=== PATIENT | female | born 1935 | race Caucasian/White ===

== ENCOUNTER 2017-02-28 11:30 | Day surgery (SDC) | payer MEDICARE ==
[~2017-02-28] VITALS: Ht 167.6 cm; Wt 61.9 kg
[~2017-02-28 11:30] MED LIST: AMIT25TA20 PO; ASPI81TA82 PO; ATEN-100 PO; FERR324T4 PO; FURO1TAB93 PO; K-TA10TA5 PO; KCL10 PO; LACT PO; LORTA5 PO; NITR0.4S SL; PLAV75TA PO; SYST0.4D2; TEMA15 PO; TYLE500T PO; VITA-13 PO
[2017-02-28 12:08] VITALS: BP 161/115; PULSE 103; RESP 16; TEMP 98.2; O2SAT 99
[2017-02-28] MEDS ORDERED: NORT25CA PO (12:08)
[2017-02-28] MEDS ORDERED: ACET-822 (12:08)
[2017-02-28] MEDS ORDERED: ASPI81CH CHEW (12:08)
[2017-02-28] MEDS ORDERED: METF500T PO (12:08)
[2017-02-28] MEDS ORDERED: FURO40TA PO (12:08)
[2017-02-28] MEDS ORDERED: CLOP75TA PO (12:08)
[2017-02-28] MEDS ORDERED: K-TA10TA PO (12:08)
[2017-02-28] MEDS ORDERED: NS 1000P @30 MLS/HR (KVO) IV SCH (13:00)
[2017-02-28] MEDS ORDERED: diphenhydrAMINE HCL 50 MG/ML VIAL IV PUSH SCH (13:00)
[2017-02-28] MEDS ORDERED: diphenhydrAMINE HCL 50 MG/ML VIAL ONE (13:49)
[2017-02-28] MEDS ORDERED: HEPARIN-NS/PF INJ 500 ML ONE (13:50)
[2017-02-28] MEDS ORDERED: MIDAZOLAM HCL 2 MG/2 ML VIAL ONE (14:11)
[2017-02-28] MEDS ORDERED: BIVALIRUDIN 250 MG VIAL ONE (14:53)
[2017-02-28] MEDS ORDERED: STERILE WATER FOR INJECTION 10 ML VIAL ONE (14:54)
[2017-02-28] MEDS ORDERED: HEPARIN SODIUM - IV 10,000 UNITS/10 ML VIAL ONE ×2 (15:04→16:23)
[2017-02-28] MEDS ORDERED: SODIUM CHLOR 0.9% 1000 ML INJ 1,000 ML IV SCH (15:31)
[2017-02-28] MEDS ORDERED: METOCLOPRAMIDE HCL 10 MG/2 ML VIAL IV PRN (15:45)
[2017-02-28] MEDS ORDERED: LIDOCAINE 2% JELLY 30 ML TUBE TOP PRN (15:45)
[2017-02-28] MEDS ORDERED: MISC INFORMATION XX ONE (15:45)
[2017-02-28] MEDS ORDERED: LORazepam 2 MG/ML VIAL IV PRN (15:45)
[2017-02-28] MEDS ORDERED: ATROPINE SULFATE 1 MG/ML VIAL IV PRN (15:45)
[2017-02-28] MEDS ORDERED: LIDOCAINE HCL 1% 50 ML VIAL INFIL PRN (15:45)
[2017-02-28] MEDS ORDERED: ONDANSETRON HCL 4 MG/2 ML VIAL IV PRN (15:45)
[2017-02-28] MEDS ORDERED: BACITRACIN OINT 0.9 GM PKT TOP ONE (15:45)
[2017-02-28] MEDS ORDERED: SODIUM CHLOR 0.9% 250 ML INJ 250 ML IV PRN (15:45)
[2017-02-28] MEDS ORDERED: IOHEXOL 350 MG/ML 100 ML BTL (for Cath Lab) OTHER ONE (16:20)
[2017-02-28] MEDS ORDERED: NITROGLYCERIN INJ 5 ML ONE (16:23)
--- NOTE | 2017-02-28 17:17 | RADRPT ---
EXAM DATE/TIME: 02/28/2017 16:35 [place] COMPARISON: CHEST SINGLE AP, July 09, 2014, 15:37. INDICATIONS : Evaluate for pneumothorax, pneumonia or communicable disease pre op Transcatheter Aortic Valve Replacement MEDICAL HISTORY : Chronic obstructive pulmonary disease. SURGICAL HISTORY : CABG. ENCOUNTER: Initial ACUITY: 1 day PAIN SCORE: 0/10 LOCATION: chest FINDINGS: There is slight cardiomegaly and perivascular pulmonary edema. Focal consolidation is not seen. Tiny left pleural effusion is also seen. There is evidence for prior median sternotomy. CONCLUSION: Slight CHF. K. Maldonado Graham MD on February 28, 2017 at 17:14 Board Certified Radiologist. This report was verified electronically.
--- NOTE | 2017-02-28 17:58 | CATHPROC ---
Modify HIS Report Study Information Study Number Admission Scheduled Start Study Start [id number] Feb 28 2017 11:30AM 02/28/2017 Feb 28 2017 1:42PM [place] [facility] Cardiac Catheterization Admit Source Facility Department Other [facility] - Ratings Analyst Physician and Clinical Staff Initial Mack Beasley Ed Case Manager Martha Lopez BSRAmeya Recorder Katia Solitario RCIS TECH2 Scrub Stef Eli RCIS(BS) Procedures Performed Procedure Location (Site) Vessel Name Coronary Angiograms LCA Left Coronary Coronary Angiograms RCA Right Coronary Coronary Angiograms NASH-LAD Left Coronary Coronary Angiograms SVG-OM CIRC Coronary Angiograms SVG-OM 1 CIRC Coronary Angiograms SVG-OM 2 CIRC Coronary Angiograms SVG-RCA Right Coronary PTCA SVG-OM 2 CIRC Stent SVG-OM 2 CIRC Wire insertion Fem Art (right) Femoral Art Wire insertion Fem Vein (right) Femoral Vein Equipment Time Point Of Care Technician Description Size Mfg Part Number Used/Scraped COPILOT VALVE, BLEEDBACK [id number] 15:10 [employer]YE [employer] Used CONTROL *[id number] ARROW INTERNATIONAL CATHETER, FR.7 BALLOON [id number] 13:45 FR 7 Used INC. WEDGE PRESSURE *[id number] TRANSDUCER, TRUWAVE [id number] 13:45 CHERRY MENDEZ * Used W/STOCKCOCK *[id number] TRANSDUCER, TRUWAVE [id number] 14:10 CHERRY MENDEZ * Used W/STOCKCOCK *[id number] 15:14 [employer] SCI[employer] WIRE, CHOICE PT 182CM 182CM Used *[id number] 534-645T *8026291 534-660T *8058529 534-620T *8320955 534-621T *[id number] [id number] *3362671 534-642T *[id number] 14:10 MEDLINE INDUSTRIES PACK, CCL CUSTOM * Used *[id number] 13:45 MEDLINE PACER PEN, SKIN DUAL W/ RULER * Used *[id number] BALLOON, 1.25 X 10MM [id number] 15:16 MEDTRONIC 10MM Used SPRINTER LEGEND RX *[id number] 15:19 MEDTRONIC BALLOON, 2.0 X 15MM EUPHORA 15MM Used *[id number] [id number] 15:26 MEDTRONIC STENT, 2.25 18 INTEGRITY 2.25 18 Used *1325969 [id number] 15:17 Skycatch MEDICAL 30 DAVON INDEFLATOR Used *[id number] 14:22 MERIT MEDICAL SHEATH, FR6.5 PRELUDE 11CM FR 6.5 038ACT Used *[id number] 14:10 [employer] MEDICAL WIRE, 3MMJ .035 180CM 180CM Used *1980315 7171-23 14:44 MERIT MEDICAL WIRE, EXCHANGE 260CM .035 260CM Used *7784803 [id number] 14:28 MERIT MEDICAL WIRE, EXCHANGE 260CM 3MMJ 260CM Used *[id number] 14:10 NAMIC MANIFOLD, 2 PORT * Used *[id number] [id number] 14:10 NAMIC MANIFOLD, 4 PORT * Used *[id number] 14:10 NYCOMED OMNIPAQUE, 350 MG, 150ML 150ML [id number] Used 13:45 NYCOMED OMNIPAQUE, 350 MG, 150ML 150ML [id number] Used [id number] 14:10 [facility] BLANKET,WARM AIR CCL * Used *[id number] [id number] 13:45 TERUMO MEDICAL SHEATH, FR7 TERUMO (10CM) FR 7 Used *[id number] WIRE, RUNTHROUGH NS FLOPPY [id number] 15:09 TERUMO MEDICAL 180CM Used .014 180CM *[id number] 14:45 VASCULAR SOLUTIONS PIGTAIL DUAL LUMEN CATHETER FR 6 5540 *[id number] Used Equipment Model, Serial, Lot Number and Expiration Data Description Model Number Serial Number Lot Number Expiration Date STENT, 2.25 18 INTEGRITY [id number] 04-28-2018 History: Current Medications Medication Dosage/Unit Route Frequency Last Date/Time Taken Glucophage ASA PLAVIX Beta Avni LASIX K-Dur NTG SL VITAMIN D History: Allergies Allergy Reaction SHANTANU Inhibitors Adhesives Aspirin BRUISING Codeine RASH Contrast Media Darvocet-N 100 NAUSEA/VOMITTING Dye, Prep HIVES HMG-CoA Reductase Inhibitors Lipitor BODY ACHES Lisinopril COUGH Lopid SEVERE JOINT PAIN Lopressor Lovastatin JOINT PAIN PPD Anaphylaxis Zocor JOINT PAIN History: Risk Factors Family History of Hypertension Dyslipidemia Previous PR Previous Heart Failure Premature CAD Yes Yes No No No Prior Valve Prior PCI Prior PCIDate Prior CABG Prior CABGDate Surgery No Yes 02/25/2014 Yes 08/01/2001 Cerebrovascular 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 Diabetes Diabetes Therapy Disease Disease Disease No No Yes No Yes Oral History: Symptoms/Diagnosis Selection Items SOB History: Stress Tests Stress or Imaging Studies Performed No History: Other Current Smoker Method No Pipe Labs Hgb (g/dl) Hct (%) RBC (MIL/MM3) WBC (l/cumm) Platelets (thousands) 11.60-17.00 35.00-51.00 4.00-5.90 4.00-11.00 150.00-450.00 13.3 42.1 4.4 9.7 386 Glucose (mg/dl) BUN (mg/dl) Creatinine (mg/dl) BUN:Creatinine (1:x) 74.00-106.00 7.00-18.00 0.50-1.30 10.00-20.00 129 18 0.9 20 Na (meq/l) K (meq/l) Cl (meq/l) Ca (mg/dl) 136.00-145.00 3.50-5.10 98.00-107.00 8.50-10.10 138 3.9 95 9.9 PT (sec) INR (PTT:PT) 9.80-11.60 0.90-1.10 10.2 0.97 CPK-MB (ng/ML) 0.50-3.60 Not Drawn Medication Medication Total Dose (Bolus/Oral) Medication Total Dosage/Unit 1% XYLOCAINE 20 mL BENADRYL 25 mg FENTANYL 25 mcg HEPARIN 4000 units VERSED 2 mg Medications (Bolus/Oral) Medication Time Given Dosage/Unit Administered By Reason BENADRYL 02/28/2017 2:02:45 PM 25 mg Rittenour, Martha 25 mg BENADRYL given in lab by Martha Lopez BSRN in Left Antecubital via Peripheral IV. VERSED 02/28/2017 2:13:55 PM 1 mg Rittenour, Martha 1 mg VERSED given in lab by Martha Lopez BSRN in Left Antecubital via Peripheral IV. Ordered by Mack Talamantes. FENTANYL 02/28/2017 2:14:35 PM 25 mcg Rittenour, Martha 25 mcg FENTANYL given in lab by Martha Lopez BSRN in Left Antecubital via Peripheral IV. Ordered by Mack Talamantes. VERSED 02/28/2017 2:18:19 PM 1 mg Martha Lopez 1 mg VERSED given in lab by Martha Lopez BSRN in Left Antecubital via Peripheral IV. Ordered by Mack Talamantes. 1% XYLOCAINE 02/28/2017 2:19:29 PM 20 mL Mack Talamantes 20 mL 1% XYLOCAINE given in lab by Mack Talamantes in Right Groin via Subcutaneous. Ordered by Mack Talamantes. HEPARIN 02/28/2017 3:05:11 PM 4000 units Martha Lopez 4000 units HEPARIN given in lab by Martha Lopez BSRN in Left Antecubital via Peripheral IV. Orde red by Mack Talamantes. Medication (Drip) Medication Time Given Dosage/Unit Concentration/Unit Diluent (ml) Solution IV Solutions 02/28/2017 2:11:22 PM 0 mL (IV) 500 NaCl .9 Patient arrived on IV Solutions in Left Antecubital via Peripheral IV. Pump/Drip Flow = 20 ml/hr usin g NaCl .9. Initial Case Assessment Cardiovascular HR Rhythm NIBP Chest Pain 97 sr 168/87 0 Circulatory - Right Pulses Dorsalis Pedis Femoral 1 1 Scale (0,1,2,3,4,d) Circulatory - Left Pulses Dorsalis Pedis Femoral 1 1 Scale (0,1,2,3,4,d) Neurological State Oriented to time-place- Alert Moves all extremities person Respiration - General Respiration Rate SpO2 (%) (B/min) 20 97 Final Case Assessment Cardiovascular HR Rhythm NIBP Chest Pain 95 sr 150/83 0 Circulatory - Right Pulses Dorsalis Pedis Femoral 1 1 Scale (0,1,2,3,4,d) Circulatory - Left Pulses Dorsalis Pedis Femoral 1 1 Scale (0,1,2,3,4,d) Neurological State Oriented to time-place- Alert Moves all extremities person Respiration - General Respiration Rate SpO2 (%) (B/min) 22 94 Chronological Log Time Study Chronological Log 13:52:23 Patient arrived via Bed. 13:52:28 Patient Name, D.O.B, / Armband Verified By R.N. 14:00:30 Consent signed by the physician and the patient and verified by the Ratings Analyst staff. 14:00:31 Pre-op and post- op instructions given; patient acknowledges understanding of instructions. 14:00:32 Verbal Stimulation=2 Physical Stimulation=2 Airway=2 Respiration=2 TOTAL=8. (0=absent, 1=li mited, 2=present) Vitals capture started with the following parameters, Patient=Adult, Interval=5 min, Initial Pr meirei=502 mmHg, 14:01:44 Deflation Rate=5 mmHg 14:02:18 BY=865 bpm, OLXU=492/91 mmhg, SpO2=97.0 %, Resp=20 B/min 14:02:45 25 mg BENADRYL given in lab by Martha Lopez BSRN in Left Antecubital via Peripheral IV . 14:07:21 GN=707 bpm, MENZ=010/91 mmhg, SpO2=96.0 %, Resp=26 B/min 14:10:42 Presedation assessment performed by Ratings Analyst RN. 14:10:48 Patient has been NPO for More than 6Hrs. 14:10:54 Skin Breakdown-none 14:10:55 [place] Prominences Protected 14:10:59 A # 20 IV was noted in the Antecubital (left). Grade = patent 14:11:22 Patient arrived on IV Solutions in Left Antecubital via Peripheral IV. Pump/Drip Flow = 20 ml/hr using NaCl .9. 14:12:20 HR=99 bpm, QQFI=953/87 mmhg, SpO2=96.0 %, Resp=20 B/min 14:12:29 MD arrived. 14:12:41 History and physical on the chart or being dictated. Assessment: Initial Case, HR=97 BPM, Rhythm=sr, YDHM=202/87 mmhg, Chest Pain=0 Right Pulses: Huber Ped=1, Femoral=1 14:12:47 Left Pulses: Huber Ped=1, Femoral=1 Neurological: State=Alert, Ox3, GUPTA Respiration: Resp=20 B/min, SpO2=97 % 14:13:55 1 mg VERSED given in lab by Martha Lopez BSRN in Left Antecubital via Peripheral IV. O rdered by Mack Talamantes. 14:14:27 Bilateral groins prepped with 2% chlorhexidine, and with a 3 min. waiting time. 25 mcg FENTANYL given in lab by Martha Lopez BSRN in Left Antecubital via Peripheral IV. O rdered by Albin 14:14:35 Mack. 14:15:12 Reference ECG taken 14:17:24 WR=975 bpm, XWGE=038/81 mmhg, SpO2=94.0 %, Resp=19 B/min Time Out. Correct patient, correct procedure,correct physician,power injector not loaded with c ontrast with surgical 14:18:13 team present. Time Out Concurred by MD and individual staff in procedure 14:18:19 1 mg VERSED given in lab by Martha Lopez BSRN in Left Antecubital via Peripheral IV. O rdered by Mack Talamantes. 14:19:27 Case Start 14:19:29 20 mL 1% XYLOCAINE given in lab by Mack Talamantes in Right Groin via Subcutaneous. Ordered by Mack Talamantes. 14:20:11 Pressure channel 1 zeroed. 14:20:31 Access site was Right Femoral Artery. 14:20:42 A SHEATH, FR6.5 PRELUDE 11CM FR 6.5 was advanced into the Fem Art (right) using the Percuta neous technique. 14:21:37 Pressure channel 2 zeroed. 14:21:59 Access site was Right Femoral Vein. 14:22:16 HR=96 bpm, BMEX=340/84 mmhg, SpO2=91.0 %, Resp=25 B/min 14:22:26 A SHEATH, FR7 TERUMO (10CM) FR 7 was advanced into the Fem Vein (right) using the Percutane ous technique. 14:22:52 A CATHETER, FR.7 BALLOON WEDGE PRESSURE FR 7 was inserted via Fem Vein (right) Recorded Pressure: RA, HR=96, Condition=Condition 1 14:24:19 (Right Atrium) RA 10//7 Recorded Pressure: RV, HR=97, Condition=Condition 1 14:26:01 (Right Ventricle) RV 77/5/8 14:27:20 HR=94 bpm, RQLN=005/74 mmhg, SpO2=92.0 %, Resp=25 B/min 14:29:51 A WIRE, EXCHANGE 260CM 3MMJ 260CM was inserted via Fem Vein (right). 14:32:21 QS=112 bpm, ESKV=212/71 mmhg, SpO2=91.0 %, Resp=22 B/min 14:34:22 [place] Luke Catheter Removed 14:34:48 A CATHETER, FR.7 BALLOON WEDGE PRESSURE FR 7 was reinserted via Fem Vein (right) 14:37:20 HR=94 bpm, WFRW=343/75 mmhg, SpO2=92 %, Resp=26 B/min 14:39:00 Unable to advance [place] Luke Catheter to PA/PCW. [place] Removed A AL 1 INFINITI CATHETER FR 6 was advanced over a wire. OMNIPAQUE, 350 MG, 150ML 150ML was used for 14:40:09 injections. 14:41:48 A WIRE, EXCHANGE 260CM .035 260CM was inserted via Fem Art (right). 14:42:17 HR=94 bpm, WGXI=300/80 mmhg, SpO2=92.0 %, Resp=25 B/min 14:44:17 The previous wire was exchanged for a WIRE, EXCHANGE 260CM 3MMJ 260CM. A PIGTAIL DUAL LUMEN CATHETER FR 6 was advanced over a wire. OMNIPAQUE, 350 MG, 150ML 150ML was used for 14:44:38 injections. Recorded Pressure: LV, Ao, HR=96, Condition=Condition 1 14:45:55 (Left Ventricle) LV 181/12/20, (Aorta) Ao 134/57/90 Recorded Pressure: LV, Ao, PM=280, Condition=Condition 1 14:46:27 (Left Ventricle) LV 147/43/43, (Aorta) Ao 134/57/91 14:47:20 HR=96 bpm, SABS=708/74 mmhg, SpO2=91.0 %, Resp=25 B/min 14:48:07 Catheter was removed A JL 4.0 INFINITI CATHETER FR 6 was advanced over a wire. OMNIPAQUE, 350 MG, 150ML 150ML was us ed for 14:48:43 injections. 14:48:57 The LCA was injected and visualized at various angles. OMNIPAQUE, 350 MG, 150ML 150ML used . 14:49:35 Catheter was removed A JR 4.0 INFINITI CATHETER FR 6 was advanced over a wire. OMNIPAQUE, 350 MG, 150ML 150ML was us ed for 14:49:37 injections. 14:51:17 The RCA was injected and visualized at various angles. OMNIPAQUE, 350 MG, 150ML 150ML used . 14:51:32 The SVG-OM 2 was injected and visualized at various angles. OMNIPAQUE, 350 MG, 150ML 150ML used. 14:52:23 HR=95 bpm, WULI=859/73 mmhg, SpO2=94 %, Resp=20 B/min 14:52:27 The SVG-OM 1 was injected and visualized at various angles. OMNIPAQUE, 350 MG, 150ML 150ML used. 14:55:11 Catheter was removed A MPA-2 INFINITI CATHETER FR 6 was advanced over a wire. OMNIPAQUE, 350 MG, 150ML 150ML was use d for 14:55:14 injections. 14:56:25 The SVG-RCA was injected and visualized at various angles. OMNIPAQUE, 350 MG, 150ML 150ML u sed. 14:57:20 HR=94 bpm, JMZS=634/78 mmhg, SpO2=93 %, Resp=28 B/min 14:57:45 Catheter was removed A JR 4.0 INFINITI CATHETER FR 6 was advanced over a wire. OMNIPAQUE, 350 MG, 150ML 150ML was us ed for 14:59:08 injections. 15:02:19 HR=94 bpm, RQRK=230/79 mmhg, SpO2=91.0 %, Resp=27 B/min After removing the current catheter a KUN INFINITI CATHETER FR 6 was advanced over a WIRE, EXCH ELEANOR 260CM 15:02:49 3MMJ 260CM. 15:02:55 The NASH-LAD was injected and visualized at various angles. OMNIPAQUE, 350 MG, 150ML 150ML used. 4000 units HEPARIN given in lab by Martha Lopez BSRN in Left Antecubital via Peripheral IV . Ordered by lAbin, 15:05:11 Mack. After removing the current catheter a LCB GUIDE CATHETER FR 6 was advanced over a WIRE, EXCHANG E 260CM 3MMJ 15:06:13 260CM. 15:07:22 HR=92 bpm, BJHE=788/72 mmhg, SpO2=93.0 %, Resp=35 B/min 15:07:28 The SVG-OM was injected and visualized at various angles. OMNIPAQUE, 350 MG, 150ML 150ML us ed. 15:08:07 A WIRE, RUNTHROUGH NS FLOPPY .014 180CM 180CM was inserted via Fem Art (right). 15:12:18 Activated Clotting Time Drawn 15:12:21 HR=93 bpm, NRQZ=503/78 mmhg, SpO2=92.0 %, Resp=27 B/min 15:13:03 Wire removed 15:13:06 A WIRE, CHOICE PT 182CM 182CM was inserted via Fem Art (right). A BALLOON, 1.25 X 10MM SPRINTER LEGEND RX 10MM was inserted over WIRE, CHOICE PT 182CM 182CM vi a the 15:14:14 SVG-OM 2. A BALLOON, 1.25 X 10MM SPRINTER LEGEND RX 10MM over a WIRE, CHOICE PT 182CM 182CM in the SVG-OM 2 was 15:16:11 inflated using a 30 DAVON INDEFLATOR at 12 davon for 25 sec. 15:17:09 ACT (Normal Range 90-180) = 283 15:17:22 HR=93 bpm, ICKE=377/76 mmhg, SpO2=93.0 %, Resp=18 B/min 15:19:14 Balloon Removed. 15:19:15 A BALLOON, 2.0 X 15MM EUPHORA 15MM was inserted over WIRE, CHOICE PT 182CM 182CM via the SV G-OM 2. A BALLOON, 2.0 X 15MM EUPHORA 15MM over a WIRE, CHOICE PT 182CM 182CM in the SVG-OM 2 was infla jad using 15:19:34 a 30 DAVON INDEFLATOR at 12 davon for 30 sec. 15:20:10 Balloon Removed. An STENT, 2.25 18 INTEGRITY 2.25 18 Bare Metal Stent was inserted through a LCB GUIDE CATHETER FR 6 over a 15:21:00 WIRE, CHOICE PT 182CM 182CM. A STENT, 2.25 18 INTEGRITY 2.25 18 was deployed using a 30 DAVON INDEFLATOR at 12 atmospheres for 30 seconds in 15:21:18 the SVG-OM 2. 15:22:23 HR=96 bpm, JXAR=524/74 mmhg, SpO2=92.0 %, Resp=26 B/min 15:22:27 Delivery device removed 15:22:36 Wire removed 15:23:52 Catheter was removed 15:24:09 Case End 15:27:24 HR=95 bpm, WUWL=071/75 mmhg, SpO2=91.0 %, Resp=22 B/min 15:29:57 In the Fem Art (right) the SHEATH, FR6.5 PRELUDE 11CM FR 6.[address] by Stef Eli RCIS(BS). 15:30:08 In the Fem Vein (right) the SHEATH, FR7 TERUMO (10CM) FR [address] by Stef Eli RCIS(BS). 15:31:17 Sterile dressing applied to site 15:32:25 HR=95 bpm, SKGT=256/83 mmhg, SpO2=95.0 %, Resp=26 B/min 15:35:18 No case complications noted. 15:35:20 Cine recording checked. Assessment: Final Case, HR=95 BPM, Rhythm=sr, ATJP=306/83 mmhg, Chest Pain=0 Right Pulses: Huber Ped=1, Femoral=1 15:35:23 Left Pulses: Huber Ped=1, Femoral=1 Neurological: State=Alert, Ox3, GUPTA Respiration: Resp=22 B/min, SpO2=94 % 15:37:26 HR=96 bpm, TXRU=797/82 mmhg, SpO2=93.0 %, Resp=24 B/min 15:42:25 UQVF=002/80 mmhg 15:44:56 Vitals capture stopped. End Study - Contrast Media Used In Study Contrast Total Opened (mL) Total Used (mL) Total Wasted (mL) Omnipaque 200 200 0 End Study - Maximum Contrast Load Max Contrast Load (mL) 342.2 End Study - Radiation Exposure Fluoro Time (minutes) 27.8 End Study - Patient Disposition Complications Transferred To Interventional Outcome No Telemetry Bed successful
[2017-02-28 19:00] VITALS: PULSE 100
[2017-02-28 20:00] VITALS: BP 147/75; PULSE 101; RESP 18; TEMP 98.5; O2SAT 96
--- NOTE | 2017-02-28 20:30 | MA ---
cc: MACK MARRERO DATE 02/28/2017 LEGAL CLERK Mack Marrero MD/[facility]. PROCEDURES PERFORMED 1. Fluoroscopy with interpretation. 2. Coronary angiography. 3. Right heart catheterization. 4. Left heart catheterization. 5. Percutaneous intervention with bare-metal stent to the saphenous vein graft of the second obtuse marginal branch. 6. Coronary bypass graft angiography. METHOD The risks, benefits and alternatives were discussed with the patient. The patient understood and consented to the procedure. PROCEDURE The patient was brought into the catheterization lab and placed on the catheterization table. The right groin was prepped and draped in a sterile fashion. The right groin was anesthetized with 2% Lidocaine. The right common femoral artery was cannulated and a 6 [place] 11 cm sheath was placed without difficulty in the artery and a 7 [place] 11 cm sheath was placed in the vein without difficulty. RIGHT HEART CATHETERIZATION A 7 [place] Luke pulmonary II catheter was advanced to the right atrium. HEMODYNAMIC RESULTS Are as follows: 1. Right atrial pressure 10 mmHg. 2. Right ventricular pressure measured 77/5 mmHg. We were actually unable to advance the catheter up into the pulmonary artery given the dilated right-sided chambers and pulmonary hypertension. LEFT HEART CATHETERIZATION A dual lumen pigtail catheter was advanced across the aortic valve without difficulty with use of an AL-1 catheter and a straight wire. HEMODYNAMIC RESULTS Are as follows: Left ventricular pressure measured 181/12 mmHg. Left ventricular end-diastolic pressure 20 mmHg. Simultaneous aortic pressure is 134/57 mmHg with aortic valvular mean gradient 49.5 mmHg. Aortic valve area was not calculated since we did not perform Lorna calculation on the right heart catheterization. CORONARY ANGIOGRAPHY 1. Left main has mild luminal irregularities. 2. Left anterior descending coronary with 30% proximal stenosis. Subtotal occlusion of the mid segment. 3. Circumflex is 100% occluded proximally with two obtuse marginal branches occluded. 4. Right coronary is occluded proximally. CORONARY BYPASS GRAFT ANGIOGRAPHY 1. Left internal mammary to left anterior descending coronary is patent. THE left anterior descending coronary has mild luminal irregularities. 2. Saphenous vein graft to the first obtuse marginal branch is occluded. 3. Saphenous vein graft to the second obtuse marginal branch has a 99% subtotal occlusion. 4. The saphenous vein graft to the right coronary artery is occluded. PERCUTANEOUS INTERVENTION Saphenous vein graft to second obtuse marginal branch is selectively engaged with a 6-S[place] Leonean LCB guide catheter. Heparin was administered throughout the entire procedure to maintain appropriate anticoagulation. A 0.014 inch 180 cm Choice PT floppy wire was advanced down to the saphenous vein graft and into the second obtuse marginal branch. A 1.25 x 10 mm balloon was then deployed followed by 2.0 x 15 mm balloon deployed to 10 atmospheres. Repeat angiography still showed severe residual stenosis. A 2.25 x 18 mm RX Integrity bare metal stent was advanced down into the second obtuse marginal branch and the graft anastomosis and deployed. Repeat angiography showed no residual stenosis, LILIA III flow. The wire was removed. Guide catheter removed. Hemoband applied. CONCLUSIONS 1. Severe aortic valve stenosis. 2. Severe pulmonary hypertension. 3. Severe cachil dehe three-vessel coronary artery disease. 4. Two of four coronary bypass grafts were patent with severe stenosis in the saphenous vein graft to the second obtuse marginal branch. 5. Successful percutaneous intervention with bare metal stent to the saphenous vein graft to the second obtuse marginal branch. PLAN The patient will be monitored closely for any post procedural complications, continued on Plavix. At this point we will get a formal consultation by cardiothoracic surgery for her candidacy for traditional aortic valve replacement versus consideration of percutaneous aortic valve replacement. She will stay overnight and hopefully go home tomorrow. MD KATHERINE Shah/MACEY /3:39 PM /8:09 PM NADINE
[2017-02-28 21:00] VITALS: PULSE 94
[2017-02-28] MEDS ORDERED: TEMAZEPAM 15 MG CAP PO PRN (21:00)
[2017-02-28] MEDS ORDERED: ACETAMINOPHEN 325 MG TAB PO PRN ×2 (21:30→23:00)
[2017-02-28 22:00] VITALS: PULSE 92
[2017-02-28] MEDS: NORTRIPTYLINE HCL 25 MG CAP PO SCH (22:50)
[2017-02-28 23:00] VITALS: PULSE 94
[2017-03-01] VITALS (10 sets, daily range): BP systolic 131–151; BP diastolic 74–77; PULSE 87–102; RESP 18–19; TEMP 97.8–98.1; O2SAT 96–98
[2017-03-01 06:17] LABS: AUTOMATED NEUTROPHIL # 9.5 TH/MM3 (1.8-7.7); BASOPHIL % 0.3 % (0.0-2.0); HEMO FLAGS DIFF FINAL; LYMPH % 10.8 % (9.0-44.0); LYMPHOCYTE # 1.3 TH/MM3 (1.0-4.8); MEAN CELL VOLUME 88.2 FL (80.0-100.0); MEAN CORPUSCULAR HEMOGLOBIN 29.1 PG (27.0-34.0); MONO % 9.3 % (0.0-8.0); NEUT % 79.6 % (16.0-70.0); PLATELET COUNT 386 TH/MM3 (150-450); RED BLOOD COUNT 4.19 MIL/MM3 (4.00-5.30)
[2017-03-01 06:45] LABS: BICARBONATE 26.8 MEQ/L (21.0-32.0); POTASSIUM 3.6 MEQ/L (3.5-5.1)
[2017-03-01 06:49] LABS: HDL CHOLESTEROL 49.4 MG/DL (40.0-60.0)
[2017-03-01] MEDS ORDERED: ISOSORBIDE MONONITRATE 30 MG TAB PO SCH (07:00)
[2017-03-01 07:59] LABS: BACTERIA, URINE FEW /hpf; BLOOD, URINE SMALL (NEG); GLUCOSE,URINE NEG (NEG); HYALINE CAST, URINE 2 /lpf (RARE); KETONE, URINE NEG (NEG); NITRITE,URINE NEG (NEG); PH, URINE 5.5 (5.0-8.5); SQUAMOUS EPITHELIAL CELL URINE 1 /hpf (0-5); URINE COLOR YELLOW (YELLW/STRAW)
[2017-03-01 08:19] LABS: COMMENT (UR) CULTURE INDICATED; CULTURE IF INDICATED CULTURE INDICATED
[2017-03-01] MEDS ORDERED: FUROSEMIDE 40 MG/4 ML VIAL IV PUSH ONE (08:30)
[2017-03-01] MEDS ORDERED: POTASSIUM CHLORIDE 10 MEQ CAP PO ONE (08:30)
--- NOTE | 2017-03-01 08:30 | PD.CARD.PN ---
Subjective Subjective Remarks short of breath waiting on am Lasix Objective Vital Signs / I&O Vital Signs Date Time Temp Pulse Resp B/P Pulse Ox O2 Delivery O2 Flow Rate FiO2 03/01/17 06:00 100 03/01/17 05:00 91 03/01/17 04:00 93 03/01/17 04:00 98.1 90 18 151/77 98 03/01/17 03:00 91 03/01/17 02:00 90 03/01/17 01:00 94 03/01/17 00:00 87 03/01/17 00:00 98.0 92 18 131/74 96 02/28/17 23:00 94 02/28/17 22:00 92 02/28/17 21:00 94 02/28/17 20:00 98.5 101 18 147/75 96 02/28/17 20:00 101 02/28/17 19:00 100 02/28/17 16:00 96 Room Air 02/28/17 12:08 98.2 103 16 161/115 99 I/O 02/28/17 02/28/17 02/28/17 03/01/17 03/01/17 03/01/17 07:00 15:00 23:00 07:00 15:00 23:00 Intake Total 240 ml Output Total 800 ml Balance -560 ml Intake Oral 240 ml Output Urine Total 800 ml # Voids 0 Physical Exam GENERAL: Well-nourished, well-developed patient in no apparent distress. NECK: No JVD. No carotid bruit. CARDIOVASCULAR: Regular rate and rhythm. S1/S2 no rub or gallop. II/ MITCH RSB RESPIRATORY: No accessory muscle use. rales left base to auscultation. Breath sounds equal bilaterally. GASTROINTESTINAL: Abdomen soft, non-tender, nondistended. MUSCULOSKELETAL: Extremities without clubbing, cyanosis, or edema. Laboratory Laboratory Tests Test 02/28/17 02/28/17 02/28/17 03/01/17 12:00 13:46 16:18 05:40 Blood Type O NEGATIVE Antibody Screen NEGATIVE Albumin 3.7 GM/DL Nasal Screen MRSA (PCR) MRSA NOT DETECTED White Blood Count 12.0 TH/MM3 Red Blood Count 4.19 MIL/MM3 Hemoglobin 12.2 GM/DL Hematocrit 37.0 % Mean Corpuscular Volume 88.2 FL Mean Corpuscular Hemoglobin 29.1 PG Mean Corpuscular Hemoglobin 33.0 % Concent Red Cell Distribution Width 15.0 % Platelet Count 386 TH/MM3 Mean Platelet Volume 7.3 FL Neutrophils (%) (Auto) 79.6 % Lymphocytes (%) (Auto) 10.8 % Monocytes (%) (Auto) 9.3 % Eosinophils (%) (Auto) 0.0 % Basophils (%) (Auto) 0.3 % Neutrophils # (Auto) 9.5 TH/MM3 Lymphocytes # (Auto) 1.3 TH/MM3 Monocytes # (Auto) 1.1 TH/MM3 Eosinophils # (Auto) 0.0 TH/MM3 Basophils # (Auto) 0.0 TH/MM3 CBC Comment DIFF FINAL Differential Comment Sodium Level 136 MEQ/L Potassium Level 3.6 MEQ/L Chloride Level 98 MEQ/L Carbon Dioxide Level 26.8 MEQ/L Anion Gap 11 MEQ/L Blood Urea Nitrogen 28 MG/DL Creatinine 1.18 MG/DL Estimat Glomerular Filtration 44 ML/MIN Rate Random Glucose 159 MG/DL Calcium Level 9.7 MG/DL Total Creatine Kinase 178 U/L Triglycerides Level 131 MG/DL Cholesterol Level 212 MG/DL LDL Cholesterol 136 MG/DL HDL Cholesterol 49.4 MG/DL Cholesterol/HDL Ratio 4.29 RATIO Assessment and Plan Problem List: (1) NSTEMI (non-ST elevated myocardial infarction) (2) CAD (coronary artery disease) (3) Aortic stenosis Code Status Aortic stenosis - needs work up for TAVR, CTA was scheduled for today, yet with contrast load yesterday for heart cath we do not feel it is in her best interest to receive more contrast today. We will schedule it as outpatient for one week shortness of breath - give lasix 40 mg IV X 1 CAD - s/p COLIN SVG-OM2 continue ASA, Plavix, and isosorbide. She is intolerant to statin, BB, and SHANTANU-I Siddharth Maharaj Mar 01, 2017 08:30
[2017-03-01] MEDS: NORTRIPTYLINE HCL 25 MG CAP PO SCH (08:57)
[2017-03-01] MEDS ORDERED: ASPIRIN 81 MG CHEW TAB PO SCH (09:00)
[2017-03-01] MEDS ORDERED: CLOPIDOGREL 75 MG TAB PO SCH (09:00)
--- NOTE | 2017-03-01 10:20 | PD.CAR.PN ---
CVT Progress Note Subjective/Hospital Course: pt seen and evaluated for TAVR / sts data discussed with pt RISK SCORES About the STS Risk Calculator Procedure: AV Replacement Risk of Mortality: 15.109% Morbidity or Mortality: 45.992% Long Length of Stay: 30.794% Short Length of Stay: 7.881% Permanent Stroke: 3.552% Prolonged Ventilation: 38.402% DSW Infection: 0.493% Renal Failure: 14.064% Reoperation: 14.701% Objective: Vital Signs Date Time Temp Pulse Resp B/P Pulse Ox O2 Delivery O2 Flow Rate FiO2 03/01/17 09:00 98 03/01/17 08:00 94 03/01/17 07:30 91 03/01/17 07:30 97.8 102 19 146/76 96 03/01/17 06:00 100 03/01/17 05:00 91 03/01/17 04:00 93 03/01/17 04:00 98.1 90 18 151/77 98 03/01/17 03:00 91 03/01/17 02:00 90 03/01/17 01:00 94 03/01/17 00:00 87 03/01/17 00:00 98.0 92 18 131/74 96 02/28/17 23:00 94 02/28/17 22:00 92 02/28/17 21:00 94 02/28/17 20:00 98.5 101 18 147/75 96 02/28/17 20:00 101 02/28/17 19:00 100 02/28/17 16:00 96 Room Air 02/28/17 12:08 98.2 103 16 161/115 99 Labs: Laboratory Tests Test 03/01/17 03/01/17 05:40 07:15 White Blood Count 12.0 TH/MM3 (4.0-11.0) Red Blood Count 4.19 MIL/MM3 (4.00-5.30) Hemoglobin 12.2 GM/DL (11.6-15.3) Hematocrit 37.0 % (35.0-46.0) Mean Corpuscular Volume 88.2 FL (80.0-100.0) Mean Corpuscular Hemoglobin 29.1 PG (27.0-34.0) Mean Corpuscular Hemoglobin 33.0 % Concent (32.0-36.0) Red Cell Distribution Width 15.0 % (11.6-17.2) Platelet Count 386 TH/MM3 (150-450) Mean Platelet Volume 7.3 FL (7.0-11.0) Neutrophils (%) (Auto) 79.6 % (16.0-70.0) Lymphocytes (%) (Auto) 10.8 % (9.0-44.0) Monocytes (%) (Auto) 9.3 % (0.0-8.0) Eosinophils (%) (Auto) 0.0 % (0.0-4.0) Basophils (%) (Auto) 0.3 % (0.0-2.0) Neutrophils # (Auto) 9.5 TH/MM3 (1.8-7.7) Lymphocytes # (Auto) 1.3 TH/MM3 (1.0-4.8) Monocytes # (Auto) 1.1 TH/MM3 (0-0.9) Eosinophils # (Auto) 0.0 TH/MM3 (0-0.4) Basophils # (Auto) 0.0 TH/MM3 (0-0.2) CBC Comment DIFF FINAL Differential Comment Sodium Level 136 MEQ/L (136-145) Potassium Level 3.6 MEQ/L (3.5-5.1) Chloride Level 98 MEQ/L (98-107) Carbon Dioxide Level 26.8 MEQ/L (21.0-32.0) Anion Gap 11 MEQ/L (5-15) Blood Urea Nitrogen 28 MG/DL (7-18) Creatinine 1.18 MG/DL (0.50-1.00) Estimat Glomerular Filtration 44 ML/MIN (>89) Rate Random Glucose 159 MG/DL (74-106) Calcium Level 9.7 MG/DL (8.5-10.1) Total Creatine Kinase 178 U/L (26-192) Triglycerides Level 131 MG/DL (42-150) Cholesterol Level 212 MG/DL (120-200) LDL Cholesterol 136 MG/DL (0-99) HDL Cholesterol 49.4 MG/DL (40.0-60.0) Cholesterol/HDL Ratio 4.29 RATIO Urine Color YELLOW (YELLW/STRAW) Urine Turbidity CLEAR (CLEAR) Urine pH 5.5 (5.0-8.5) Urine Specific [place] GREATER THAN 1.050 (1.002-1.035) Urine Protein TRACE mg/dL (NEG-TRACE) Urine Glucose (UA) NEG mg/dL (NEG) Urine Ketones NEG mg/dL (NEG) Urine Occult Blood SMALL (NEG) Urine Nitrite NEG (NEG) Urine Bilirubin NEG (NEG) Urine Urobilinogen LESS THAN 2.0 MG/DL (LESS THAN 2.0) Urine Leukocyte Esterase SMALL (NEG) Urine RBC 2 /hpf (0-3) Urine WBC 12 /hpf (0-5) Urine WBC Clumps RARE (NONE) Urine Squamous Epithelial 1 /hpf (0-5) Cells Urine Bacteria FEW /hpf (NONE) Urine Hyaline Casts 2 /lpf (RARE) Microscopic Urinalysis Comment CULTURE INDICATED Result Diagram: 03/01/17 0540 03/01/17 0540 Lissett Mcneil Mar 01, 2017 10:20
--- NOTE | 2017-03-01 12:12 | MB ---
cc: NOEMI CRYSTAL MD DATE OF CONSULTATION 03/01/2017 DATE OF 1935 REASON FOR CONSULTATION This is a 81-year-old patient of Dr. Cyndee Bernard, also Dr. Talamantes who has had a history of severe aortic stenosis with worsening shortness of breath with exertion, also a history of coronary artery disease with prior coronary artery bypass graft x5 in 2001, also combined systolic and diastolic dysfunction due to severe valvular disease who presented on the for outpatient heart catheterization right and left. The patient's results of the left heart catheterization revealed left main mild luminal irregularities. The LAD had a 30% proximal stenosis, subtotal occlusion of the mid segment. The circ had 100% occlusion proximally with two obtuse marginal branches occluded. The right coronary occluded proximally. Her bypass angiography revealed the NASH to the LAD was patent. The saphenous vein graft to the first OM was completely occluded. The saphenous vein graft to the second OM was at a 99% subtotal occlusion. The saphenous vein graft to the RCA was also occluded. The patient's hemodynamic pressures revealed RA pressures of 10 mmHg. The RV pressure was 77/5. The patient underwent percutaneous intervention with a bare metal stent to the saphenous vein graft of the second obtuse marginal branch by Dr. Talamantes on 02/28/2017. The patient recovered well and is being evaluated at this time for transcatheter aortic valve replacement versus aortic valve replacement by redo sternotomy. The patient did have a 2-D echo which did show severe aortic stenosis with an aortic valve area of 0.74, aortic valve mean gradient of 37. Peak velocity of 4.5 milliseconds. She was also found to have some moderate to severe tricuspid regurgitation. Pulmonary artery pressures of 69.9 mmHg. She also had some mild to moderate aortic insufficiency. EF was calculated at 25% which also was calculated in the general laborer at 25%. PAST MEDICAL HISTORY The patient's past medical history includes: 1. Coronary artery disease with prior coronary artery bypass graft x5 in 2001. 2. Also status post bare metal stent to the second OM 02/28/2017. 3. Severe aortic stenosis 4. Moderate aortic insufficiency 5. Moderate mitral regurgitation 6. History of carotid artery disease 7. Hypertension 8. Chronic combined systolic and diastolic CHF with recent worsening of her symptoms including increasing of her recent Lasix dosing. 9. Peripheral arterial disease with intermittent claudication. 10. Diabetes mellitus 11. History of abdominal aortic aneurysm without rupture. PAST SURGICAL HISTORY Include: 1. Coronary artery bypass graft times 5 in 2001 status post left femoral popliteal bypass July 2015. 2. Bilateral cataract surgery. 3. Cholecystectomy 4. History of right renal exploration. 5. She also had stents in her lower extremities. ALLERGIES INCLUDE SHANTANU INHIBITORS, ADHESIVE, CODEINE, CONTRAST MEDIA, DARVOCET EYE, STATINS, LOPID, LOPRESSOR, PPD, ZOCOR. FAMILY HISTORY Father in World War II. Mother from heart disease at age 87. SOCIAL HISTORY The patient , has six children, one from lymphoma. Smoked for approximately 10 years. She says she quit 40 years ago. Rare glass of wine. She lives with her son. She does drive short distances. She was fairly active until recently. She is still able to do her shopping by herself, but when she leaves the compound of the grocery store, she becomes short of breath going out to her car. She is a retired noninvasive lead maintenance technician. REVIEW OF SYSTEMS GENERAL: No night sweats, fever, heat and cold intolerance. SKIN: No psoriasis, itching or hives. HEENT: No blurred vision or hearing loss. She does wear glasses. She does have upper dentures. RESPIRATORY: Positive for shortness of breath. No paroxysmal nocturnal dyspnea, orthopnea. CARDIOVASCULAR: No chest pain. No lower extremity edema, intermittent claudication of her lower extremities. GASTROINTESTINAL: No diarrhea or vomiting. She said she did have a history of some GI bleed in the past related to daily aspirin and that is why she takes it Tuesday, Tuesday and Tuesday. GENITOURINARY: No burning, frequency, or urgency. LABOR ARBITRATOR: No history of TIA, CVA, seizure disorder. ENDOCRINOLOGY: Positive for diabetes. No hypothyroidism. PHYSICAL EXAM On exam, blood pressure 146/76, heart rate of 90, afebrile, O2 sat 96-98 on room air. GENERAL: The patient is awake and alert, sitting up in the chair in no acute distress. HEAD, EYES, EARS, NOSE, AND THROAT: Head is normocephalic, atraumatic. Pupils equal and reactive. Oral mucosa pink and moist with good dentition. NECK: Supple. No JVD. CARDIAC: Heart sounds S1-S2 with a grade 2 systolic murmur best heard at the right upper sternal border. No rubs or gallops. LUNGS: Clear to auscultation. No wheezes, rales or rhonchi. ABDOMEN: Soft and nontender. No masses or organomegaly. EXTREMITIES: No cyanosis, clubbing or edema. I am able to get a left posterior tibial pulse with a Doppler only. The right foot has a positive right dorsalis with a Doppler. She has got a well-healed sternotomy scar. She has got a well-healed left medial thigh incision and left lower leg incision from her prior saphenous vein graft. CURRENT LAB WORK Shows a hemoglobin 12, hematocrit 37, white cell count 12, platelet count 386. Sodium 136, potassium 3.6, BUN of 28, creatinine 1.18, glucose 159, triglycerides 131, cholesterol 212, LDL 136, HDL 49. Urinalysis did show a small amount of leukoesterase, few bacteria. MRSA non-detected. Micro for the urine is pending. Blood screen showed O negative. She had a chest x-ray which showed slight cardiomegaly, some perivascular pulmonary edema, otherwise unremarkable. Previous prior median sternotomy. IMPRESSION This is a very pleasant 81-year-old female with major comorbidities for redo aortic valve replacement including pulmonary dysfunction. She did have a PFT done which showed an FEV-1 of 0.82, 38% predicted, also severe pulmonary hypertension. Pulmonary pressures of 69 mmHg. Valvular heart disease with severe aortic stenosis, moderate aortic insufficiency, moderate mitral regurgitation, an EF of 25%. Other comorbidities include diabetes, coronary artery disease with prior coronary artery bypass grafting and recent bare metal stent to the second OM 02/28/2017, also hypertension. Frailty testing will be completed by the TAVR coordinator. RECOMMENDATIONS At this time would be evaluation for transcatheter aortic valve replacement. Her STS data showed a risk of mortality a 15%, morbidity/mortality 45% if redo sternotomy approach for aortic valve replacement calculations. Dictated by JESSICA Lucas Agree with above. Patient examined and chart reviewed. Given her significant medical comorbidities as well as her risk profile, I think surgical AVR will carry a prohibitive risk for operative and perioperative morbidity and mortality. I think that she will be well served with TAVR to relieve her presenting symptoms. Thank you for allowing me to participate in the care of this very pleasant lady. Noemi SALEH/DJL /10:25 AM /12:08 PM MTD
--- NOTE | 2017-03-01 14:04 | EKG ---
Date Performed: 03/01/2017 Time Performed: 05:30:34 PTAGE: 81 years EKG: Sinus arrhythmia Left ventricular hypertrophy Extensive ST-T changes may be due to hypertro phy and/or ischemia Since previous tracing, no significant change noted Abnormal ECG PREVIOUS TRACING : 02/28/2017 16.28 DOCTOR: Houston Elliott Interpretating Date/Time 03/01/2017 14:03:41
--- NOTE | 2017-03-01 14:50 | EKG ---
Date Performed: 02/28/2017 Time Performed: 16:28:12 PTAGE: 81 years EKG: Sinus arrhythmia. Extensive ST-T changes may be due to myocardial ischemia QRS widening wit h ST changes Compared to previous tracing Clinical correlation is recommended Abnormal ECG PREVIOUS TRACING : 07/08/2015 06.52 DOCTOR: Houston Elliott Interpretating Date/Time 03/01/2017 14:49:52
--- NOTE | 2017-03-02 09:52 | RSPPFT ---
DATE OF PROCEDURE: 02/28/17 COMMENTS: Spirometry with FVC of 1.3, FEV1 of 0.8, FEV1/FVC ratio at 82%. IMPRESSION: 1. Severe airways obstruction. 2. Post-bronchodilator study was not performed.
== END 2017-03-01 10:26 | disposition home or self-care (01) ==
LOC: HDOC 11:30 → HDIC 11:31 → HCIS 16:45 → HDOC 03-01 10:26
PROVIDERS: ATTEND Internal Medicine
DX: I08.3 Combined rheumatic disorders of mitral, aortic and tricuspid valves (principal); R06.02 Shortness of breath; I25.10 Atherosclerotic heart disease of native coronary artery without angina pectoris; I11.0 Hypertensive heart disease with heart failure; I50.42 Chronic combined systolic (congestive) and diastolic (congestive) heart failure; I27.2 Other secondary pulmonary hypertension; J44.9 Chronic obstructive pulmonary disease, unspecified; I49.8 Other specified cardiac arrhythmias; R94.31 Abnormal electrocardiogram [ECG] [EKG]; E11.51 Type 2 diabetes mellitus with diabetic peripheral angiopathy without gangrene; I73.9 Peripheral vascular disease, unspecified; Z95.5 Presence of coronary angioplasty implant and graft; Z95.1 Presence of aortocoronary bypass graft; Z87.891 Personal history of nicotine dependence
CPT/HCPCS: 71010; 80048; 80061; 81001; 82040; 82550; 85002; 85025; 86850; 86900; 86901; 87077; 87086; 87186; 87641; 92937; 93005; 93461; 94010; C1725; C1769; C1876; C1887; C1893; J1200; J1644; J1940; J2250; J3010; J0583; Q9967

== ENCOUNTER → 2017-03-09 | Outpatient (CLI) | payer MEDICARE ==
[~2017-03-09] MED LIST changes: +ACET-822; -AMIT25TA20 PO; +ASPI81CH CHEW; -ASPI81TA82 PO; -ATEN-100 PO; +CLOP75TA PO; -FERR324T4 PO; -FURO1TAB93 PO; +FURO40TA PO; +IOHEXOL 350 MG/ML 10 ML VIAL (for RAD DIAG) IV ONE; +K-TA10TA PO; -K-TA10TA5 PO; -KCL10 PO; -LACT PO; -LORTA5 PO; -NITR0.4S SL; +NORT25CA PO; -PLAV75TA PO; -SYST0.4D2; -TEMA15 PO; -TYLE500T PO; -VITA-13 PO
--- NOTE | 2017-03-09 13:32 | RADRPT ---
EXAM DATE/TIME: 03/09/2017 10:10 [facility] COMPARISON: No previous studies available for comparison. INDICATIONS : Aortic stenosis. IV CONTRAST: 100 cc Omnipaque 350 (iohexol) IV RADIATION DOSE: 38.35 CTDIvol (mGy) MEDICAL HISTORY : Cardiovascular disease. Hypertension. Diabetes mellitus type 2. SURGICAL HISTORY : Cholecystectomy. Tubal ligation. ENCOUNTER: Initial ACUITY: 1 day PAIN SCALE: 0/10 LOCATION: chest Patient was premedicated for underlying contrast media allergy. TECHNIQUE: Volumetric scanning was performed using a multi-row detector CT scanner. The data was post processed with a variety of visualization algorithms including full volume maximum intensity projection, multi -planar sliding thin slab reformation, curved planar reformation, and surface rendering techniques. Using automated exposure control and adjustment of the mA and/or kV according to patient size, radiat ion dose was kept as low as reasonably achievable to obtain optimal diagnostic quality images. DIC OM format image data is available electronically for review and comparison. FINDINGS: CARDIAC: There is biventricular cardiomegaly. Large calcifications in the left main and throughout most of the LAD Calcifications are seen in the proximal circumflex. Right coronary is small. There is no pericardial effusion. There is moderate calcification involving the mitral annulu s. AORTIC ROOT/VALVE: 3 cusp are evident with moderate calcifications. The aortic root measures 2.8 cm. Mid thoracic aorta measures 3.5 cm with dense calcification. THORACIC AORTA: Extensive calcification is present at the origin of the right innominate, left common carotid and lef t subclavian. Calcified plaque is seen throughout the aorta minimal soft plaque is seen in the mid d escending aorta. ABDOMINAL AORTA: Extensive calcific plaque is present. Scattered soft plaque is present in the distal aorta with exte nsive calcification at the aortoiliac bifurcation. Celiac artery: widely patent Superior mesenteric artery: Moderate plaque is seen at the origin and scattered through the proximal SMA not felt to be hemodynam ically significant. The right renal artery: moderate calcified plaque is seen at the ostium borderline significant. Left renal artery: contains large amount of plaque in the proximal left renal artery felt to be hemodynamically signific ant. RIGHT COMMON ILIAC: Extensive plaque is seen at the origin of the right common iliac with an common iliac stent present. The external is widely patent. Plaque is seen in the distal common iliac with SFA occlusion. LEFT COMMON ILIAC: Calcific plaque is seen at the left common iliac hemodynamically significant compromise the lumen by 75%. The common iliac measures 7 mm. This plaque extends into the external iliac and common iliac. Occluded stent is present in the left SFA. ABDOMEN: Lungs: There is moderate interstitial edema and small bilateral pleural effusions. There are no susp icious lung lesions. Abdomen : The liver is small. Adrenals and pancreas unremarkable. There is cortical thinning right kidney without stone or obstruction. There is cortical thinning left kidney with the large dilated extra renal pelvis and parapelvic cysts present. Small midline abdominal hernia is present containing only fat PELVIS: Diverticula are present throughout the sigmoid colon. There no adnexal masses. Degenerative changes are seen in the lumbar spine, SI joints and both hips. CONCLUSION: Significant aortoiliac disease with abundant calcification throughout the thoracic an d abdominal aorta. There no significant history findings on the source data. Arpit Babcock MD FACR on March 09, 2017 at 12:59 Board Certified Radiologist. This report was verified electronically.
== END ==
LOC: HRSP 07:51 → HDIC 07:52 → HRSP 12:00
PROVIDERS: ATTEND Internal Medicine
DX: I35.0 Nonrheumatic aortic (valve) stenosis (principal)
CPT/HCPCS: 74174; Q9967

== ENCOUNTER 2017-03-17 09:07 | Inpatient (IN) | payer MEDICARE ==
[~2017-03-17] VITALS: Ht 167.6 cm; Wt 59.8 kg
[2017-03-17] VITALS (11 sets, daily range): BP systolic 140–168; BP diastolic 65–83; PULSE 90–105; RESP 16–22; TEMP 98–98.6; O2SAT 99–100
[~2017-03-17 09:07] MED LIST changes: -IOHEXOL 350 MG/ML 10 ML VIAL (for RAD DIAG) IV ONE
[2017-03-17] MEDS ORDERED: SODIUM CHLORIDE 0.9% FLUSH 10 ML FLUSH IVF PRN (09:45)
--- NOTE | 2017-03-17 09:49 | PD ---
HPI Chief Complaint: Respiratory Distress Time Seen by Provider: 09:34 Travel History International Travel<30 days: No Contact w/Intl Traveler<30days: No Traveled to known affect area: No History of Present Illness HPI Patient is a 81-year-old female presents emergency Department with shortness of breath and dry heaves. The patient states she's been worked up for possible aortic intervention for a "thin aorta." She states the other day she had a CT scan with IV contrast and thinks that was contributing to her symptoms. She states it took her Lasix this morning and it is not working. She went to Dr. taylor's office today and was referred to the emergency department for shortness of breath. States she shortness of breath with minimal exertion. States she's had a heart attack in the past and has a history of congestive heart failure. Denies any chest pain denies any abdominal pain. PFSH Past Medical History Arthritis: Yes Autoimmune Disease: No Anxiety: No Depression: No Heart Rhythm Problems: Yes Cancer: Yes (skin cancer) Cardiovascular Problems: Yes High Cholesterol: Yes Chemotherapy: No Chest Pain: Yes Congestive Heart Failure: Yes Cerebrovascular Accident: No Coronary Artery Disease: Yes Diabetes: Yes (Type 2) Diminished Hearing: No Endocrine: Yes Gastrointestinal Disorders: No Glaucoma: No Genitourinary: No Hepatitis: No Hiatal Hernia: No Hypertension: Yes Immune Disorder: No Musculoskeletal: Yes Neurologic: Yes Psychiatric: No Reproductive: No Respiratory: No Integumentary: No Radiation Therapy: No Renal Failure: No Sickle Cell Disease: No Thyroid Disease: Yes ?: Not Menopausal: Yes Tubal Ligation: Yes Past Surgical History Abdominal Surgery: Yes (Kidney surgery for hematuria) Cardiac Surgery: Yes (Fempop bypass in left leg & 2002 CABG x5 ) Cholecystectomy: Yes Ear Surgery: No Endocrine Surgery: No Eye Surgery: Yes (bilateral cataract removal ) Genitourinary Surgery: No Gynecologic Surgery: Yes (hysterectomy complete ) Oral Surgery: Yes (upper teeth removed) Thoracic Surgery: No Other Surgery: Yes (KIDNEY BIOSPY) Social History Alcohol Use: Yes (occ) Tobacco Use: No Substance Use: No Allergies-Medications (Allergen,Severity, Reaction): Coded Allergies: amlodipine (Unverified Allergy, Severe, 03/17/17) atorvastatin (Unverified Allergy, Severe, 03/17/17) benazepril (Unverified Allergy, Severe, 03/17/17) captopril (Unverified Allergy, Severe, 03/17/17) diatrizoate meglumine (Unverified Allergy, Severe, 03/17/17) enalaprilat (Unverified Allergy, Severe, 03/17/17) fosinopril (Unverified Allergy, Severe, 03/17/17) gadobenic acid (Unverified Allergy, Severe, 03/17/17) gadodiamide (Unverified Allergy, Severe, 03/17/17) gadoteridol (Unverified Allergy, Severe, 03/17/17) iodixanol (Unverified Allergy, Severe, 03/17/17) iohexol (Unverified Allergy, Severe, 03/17/17) metoprolol (Unverified Allergy, Severe, 03/17/17) pravastatin (Unverified Allergy, Severe, 03/17/17) quinapril (Unverified Allergy, Severe, 03/17/17) codeine (Unverified Allergy, Intermediate, RASH, 03/17/17) gemfibrozil (Unverified Allergy, Intermediate, SEVERE JOINT PAIN, 03/17/17) lisinopril (Unverified Allergy, Intermediate, COUGH, 03/17/17) simvastatin (Unverified Allergy, Intermediate, JOINT PAIN, 03/17/17) tuberculin, purified protein deriva (Unverified Allergy, Unknown, Anaphylaxis, 03/17/17) acetaminophen (Unverified Adverse Reaction, Intermediate, NAUSEA/VOMITTING , 03/17/17) propoxyphene (Unverified Adverse Reaction, Intermediate, NAUSEA/VOMITTING , 03/17/17) adhesive (Unverified Adverse Reaction, Unknown, 03/17/17) Uncoded Allergies: DYE (Allergy, Intermediate, HIVES, 03/15/17) Reported Meds & Prescriptions Reported Meds & Active Scripts Active Reported Tylenol Extra Strength (Acetaminophen) 500 Mg Tablet Nortriptyline (Nortriptyline HCl) 25 Mg Cap 25 Mg PO BID K-Tab (Potassium Chloride) 10 Meq Tab 10 Meq PO DAILY Furosemide 40 Mg Tab 40 Mg PO DAILY Clopidogrel (Clopidogrel Bisulfate) 75 Mg Tab 75 Mg PO DAILY Aspirin 81 Mg Chew 81 Mg CHEW DAILY Review of Systems Except as stated in HPI: all other systems reviewed are Neg Physical Exam Narrative GENERAL: Well-developed well-nourished no obvious distress. SKIN: Focused skin assessment warm/dry. HEAD: Atraumatic. Normocephalic. EYES: Pupils equal and round. No scleral icterus. No injection or drainage. ENT: No nasal bleeding or discharge. Mucous membranes pink and moist. NECK: Trachea midline. No JVD. CARDIOVASCULAR: Regular rate and rhythm. Systolic murmur noted. No gallops or rubs. 2+ bilateral equal pulses in all 4 extremity's. RESPIRATORY: Minimally tachypneic no accessory muscle use. Clear to auscultation. Breath sounds equal bilaterally. No rales or rhonchi. GASTROINTESTINAL: Abdomen soft, non-tender, nondistended. Hepatic and splenic margins not palpable. MUSCULOSKELETAL: No obvious deformities. No clubbing. No cyanosis. Trace pedal edema.. NEUROLOGICAL: Awake and alert. No obvious cranial nerve deficits. Motor grossly within normal limits. Normal speech. PSYCHIATRIC: Appropriate mood and affect; insight and judgment normal. Data Data Last Documented VS Vital Signs Date Time Temp Pulse Resp B/P Pulse Ox O2 Delivery O2 Flow Rate FiO2 03/17/17 09:55 100 Nasal Cannula 2 03/17/17 09:09 98.0 90 16 140/65 Orders Electrocardiogram (03/17/17 09:44) B-Type Natriuretic Peptide (03/17/17 09:44) Ckmb (Isoenzyme) Profile (03/17/17 09:44) Complete Blood Count With Diff (03/17/17 09:44) Comprehensive Metabolic Panel (03/17/17 09:44) Magnesium (Mg) (03/17/17 09:44) Prothrombin Time / Inr (Pt) (03/17/17 09:44) Act Partial Throm Time (Ptt) (03/17/17 09:44) Troponin I (03/17/17 09:44) Chest, Single Ap (03/17/17 09:44) Ecg Monitoring (03/17/17 09:44) Iv Access Insert/Monitor (03/17/17 09:44) Oximetry (03/17/17 09:44) Oxygen Administration (03/17/17 09:44) Sodium Chloride 0.9% Flush (Ns Flush) (03/17/17 09:45) Admit Order (Ed Use Only) (03/17/17 ) Consult Cardiology (03/17/17 ) Labs Laboratory Tests Test 03/17/17 03/17/17 10:00 10:30 Sodium Level 136 MEQ/L Potassium Level 3.8 MEQ/L Chloride Level 98 MEQ/L Carbon Dioxide Level 27.8 MEQ/L Anion Gap 10 MEQ/L Blood Urea Nitrogen 30 MG/DL Creatinine 1.17 MG/DL Estimat Glomerular Filtration 45 ML/MIN Rate Random Glucose 223 MG/DL Calcium Level 9.2 MG/DL Magnesium Level 2.3 MG/DL Total Bilirubin 1.1 MG/DL Aspartate Amino Transf 27 U/L (AST/SGOT) Alanine Aminotransferase 24 U/L (ALT/SGPT) Alkaline Phosphatase 119 U/L Total Creatine Kinase 83 U/L Troponin I 0.11 NG/ML B-Type Natriuretic Peptide 4783 PG/ML Total Protein 6.7 GM/DL Albumin 3.5 GM/DL White Blood Count 13.2 TH/MM3 Red Blood Count 4.75 MIL/MM3 Hemoglobin 14.0 GM/DL Hematocrit 42.9 % Mean Corpuscular Volume 90.3 FL Mean Corpuscular Hemoglobin 29.4 PG Mean Corpuscular Hemoglobin 32.6 % Concent Red Cell Distribution Width 16.6 % Platelet Count 386 TH/MM3 Mean Platelet Volume 7.3 FL Neutrophils (%) (Auto) 89.3 % Lymphocytes (%) (Auto) 5.1 % Monocytes (%) (Auto) 5.2 % Eosinophils (%) (Auto) 0.0 % Basophils (%) (Auto) 0.4 % Neutrophils # (Auto) 11.8 TH/MM3 Lymphocytes # (Auto) 0.7 TH/MM3 Monocytes # (Auto) 0.7 TH/MM3 Eosinophils # (Auto) 0.0 TH/MM3 Basophils # (Auto) 0.0 TH/MM3 CBC Comment DIFF FINAL Differential Comment Prothrombin Time 12.2 SEC Prothromb Time International 1.1 RATIO Ratio Activated Partial 21.8 SEC Thromboplast Time MDM Medical Decision Making Medical Screen Exam Complete: Yes Emergency Medical Condition: Yes Differential Diagnosis Valvular disorder, CHF, fluid overload unlikely, nausea, vomiting, electrolyte abnormality. Narrative Course Patient roomed emergency department, she was seen by Dr. taylor as well as myself. Dr. Jeffers would like to have her admitted. She is proceeding with a workup for TAVR. Dr. Jeffers cigarette or shortness of breath is probably coming from her valve disorder. He would like to have her admitted and likely have balloon angioplasty of the valve in the morning. Initial workup does show minimally elevated troponin to 0.11, BNP of 4000. Otherwise fairly unremarkable. Her EKG was nonischemic. Dr. taylor and I discussed anticoagulation will hold at this time. Diagnosis Primary Impression: SOB (shortness of breath) Admitting Information Admitting Physician Requests: Admit Condition: Stable Emanuel Thornton MD Mar 17, 2017 09:49
--- NOTE | 2017-03-17 10:27 | RADRPT ---
EXAM DATE/TIME: 03/17/2017 09:56 [place] COMPARISON: CTA TRANS AORTIC VALVE REPLACEMENT, March 09, 2017, 10:10. CHEST SINGLE AP, February 28, 2017, 16:35. INDICATIONS : Short of breath. Followup pulmonary infiltrates. MEDICAL HISTORY : Chronic obstructive pulmonary disease. SURGICAL HISTORY : CABG. ENCOUNTER: Initial ACUITY: 1 day PAIN SCORE: 0/10 LOCATION: Bilateral chest FINDINGS: A single AP erect portable view of the chest was obtained and demonstrates that the patient is status post median sternotomy for bypass grafting procedure. There has been N. interval decrease in the pul monary infiltrates with mild residual in the perihilar regions and left lung base. The left costophre maite angle remains blunted and portions of the left hemidiaphragm are obscured. The heart size is at t he upper limits of normal. CONCLUSION: 1. Interval improvement in bilateral pulmonary infiltrates with only mild residual. 2. Left effusion remains. Ronal Walton MD on March 17, 2017 at 10:22 Board Certified Radiologist. This report was verified electronically.
[2017-03-17 10:34] LABS: ALKALINE PHOSPHATASE 119 U/L (45-117); ALT (GPT) 24 U/L (10-53); ANION GAP 10 MEQ/L (5-15); AST (GOT) 27 U/L (15-37); BICARBONATE 27.8 MEQ/L (21.0-32.0); BLOOD UREA NITROGEN 30 MG/DL (7-18); CHLORIDE 98 MEQ/L (98-107); GLOMERULAR FILTRATION RATE 45 ML/MIN (>89); MAGNESIUM 2.3 MG/DL (1.5-2.5); POTASSIUM 3.8 MEQ/L (3.5-5.1); SODIUM (NA) 136 MEQ/L (136-145); TOTAL BILIRUBIN ADULT 1.1 MG/DL (0.2-1.0)
[2017-03-17 10:36] LABS: CREATINE KINASE 83 U/L (26-192)
[2017-03-17 10:45] LABS: AUTOMATED NEUTROPHIL # 11.8 TH/MM3 (1.8-7.7); BASOPHIL % 0.4 % (0.0-2.0); HEMATOCRIT 42.9 % (35.0-46.0); HEMO FLAGS DIFF FINAL; LYMPH % 5.1 % (9.0-44.0); LYMPHOCYTE # 0.7 TH/MM3 (1.0-4.8); MEAN CELL VOLUME 90.3 FL (80.0-100.0); MEAN CORPUSCULAR HEMOGLOBIN 29.4 PG (27.0-34.0); MEAN CORPUSCULAR HGB CONC 32.6 % (32.0-36.0); MONO % 5.2 % (0.0-8.0); NEUT % 89.3 % (16.0-70.0); PLATELET COUNT 386 TH/MM3 (150-450); RED BLOOD COUNT 4.75 MIL/MM3 (4.00-5.30); RED CELL DISTRIBUTION WIDTH 16.6 % (11.6-17.2); WHITE BLOOD COUNT 13.2 TH/MM3 (4.0-11.0)
[2017-03-17 10:53] LABS: INTERNATIONAL NORMALIZED RATIO 1.1 RATIO; PROTHROMBIN TIME - PATIENT 12.2 SEC (9.8-11.6)
[2017-03-17 10:54] LABS: APTT (PATIENT) 21.8 SEC (24.3-30.1)
[2017-03-17] MEDS ORDERED: SODIUM CHLORIDE 0.9% FLUSH 10 ML FLUSH IV FLUSH PRN (13:00)
[2017-03-17] MEDS ORDERED: PROCHLORPERAZINE 25 MG SUPP RECTAL PRN (13:00)
[2017-03-17] MEDS ORDERED: NALOXONE HCL 0.4 MG/ML AMP IV PRN (13:00)
[2017-03-17] MEDS ORDERED: MORPHINE SULFATE 4 MG/ML INJ IV PRN ×2 (13:00)
[2017-03-17] MEDS ORDERED: DEXTROSE 50% IN WATER 50 ML VIAL(D50) IV PRN (13:00)
[2017-03-17] MEDS ORDERED: LACTULOSE SYRUP 20 GM/30 ML CUP PO PRN (13:00)
[2017-03-17] MEDS ORDERED: SENNOSIDES 8.6 MG TAB PO PRN (13:00)
[2017-03-17] MEDS ORDERED: GLUCAGON 1 MG/ML VIAL OTHER PRN (13:00)
[2017-03-17] MEDS ORDERED: BISACODYL 10 MG SUPP RECTAL PRN (13:00)
[2017-03-17] MEDS ORDERED: traMADol HCL 50 MG TAB PO PRN ×2 (13:00)
[2017-03-17] MEDS ORDERED: MAGNESIUM HYDROXIDE SUSP 30 ML CUP PO PRN (13:00)
--- NOTE | 2017-03-17 13:06 | EKG ---
Date Performed: 03/17/2017 Time Performed: 09:21:34 PTAGE: 81 years EKG: SINUS TACHYCARDIA ST DEVIATION AND MODERATE T-WAVE ABNORMALITY, CONSIDER INFERIOR ISCHEMIA ABNORMAL ECG PREVIOUS TRACING : 03/01/2017 05.30 Compared to prior tracing no significant change DOCTOR: Homar Motta Interpretating Date/Time 03/17/2017 13:06:03
--- NOTE | 2017-03-17 14:12 | HHI.HP ---
[facility] Geoff Bernard MD Admission Diagnosis SOB, Valvular Disorder Diagnoses: (1) NSTEMI (non-ST elevated myocardial infarction) Diagnosis: Principal (2) PAD (peripheral artery disease) (3) Aortic stenosis (4) Leukocytosis Diagnosis: Secondary (5) Hyperlipidemia Diagnosis: Secondary (6) PVD (peripheral vascular disease) Diagnosis: Principal (7) Diabetes Diagnosis: Secondary (8) Hypertension Diagnosis: Secondary (9) CAD (coronary artery disease) Diagnosis: Secondary (10) SOB (shortness of breath) Chief Complaint: Respiratory distress Travel History International Travel<30 Days: No Contact w/Intl Traveler <30 Da: No Traveled to Known Affected Are: No History of Present Illness Patient is a 81-year-old female presents to the emergency Department with shortness of breath and dry heaves. The patient states she's been worked up for possible aortic valve intervention for a "thin aorta." She states the other day she had a CT scan with IV contrast and thinks that was contributing to her symptoms. She states she took her Lasix this morning and it is not working. She went to Dr. Taylor's office today and was referred to the emergency department for shortness of breath. States she HAS shortness of breath with minimal exertion. States she's had a heart attack in the past and has a history of congestive heart failure. Denies any chest pain denies any abdominal pain. Still having some nausea and vomiting Denies any fevers or chills Is being worked up for A TAVR Discussed with emergency room physician as well as the patient We have accepted this patient due to the fact that the [facility] attending is currently at his LIMIT FOR PATIENTS Review of Systems Constitutional: COMPLAINS OF: Fatigue, DENIES: Diaphoretic episodes, Fever, Weight gain, Weight loss, Chills, Dizziness, Change in appetite Endocrine: DENIES: Abnorml menstrual pattern, Heat/cold intolerance, Polydipsia Eyes: DENIES: Blurred vision, Diplopia, Eye inflammation, Eye pain, Vision loss , Photosensitivity Ears, nose, mouth, throat: DENIES: Tinnitus, Hearing loss, Vertigo, Nasal discharge, Oral lesions, Throat pain, Hoarseness, Ear Pain, Running Nose Respiratory: COMPLAINS OF: Cough, Shortness of breath Cardiovascular: COMPLAINS OF: Dyspnea on Exertion, DENIES: Chest pain, Palpitations, Syncope, Lower Extremity Edema Gastrointestinal: COMPLAINS OF: Nausea, Vomiting, DENIES: Abdominal pain, Black stools, Bloody stools, Constipation Musculoskeletal: DENIES: Joint pain, Muscle aches, Stiffness Integumentary: DENIES: Abnormal pigmentation, Pruritus, Rash Hematologic/lymphatic: DENIES: Bruising, Lymphadenopathy Immunologic/allergic: DENIES: Eczema, Urticaria Neurologic: DENIES: Headache, Localized weakness, Paresthesias, Seizures, Speech Problems Psychiatric: DENIES: Anxiety, Confusion, Mood changes, Depression, Hallucinations, Agitation, Suicidal Ideation Past Family Social History Past Medical History AORTIC VALVE ISSUES HYPERTENSION Congestive heart failure Coronary artery disease history of CABG 5 vessels History of skin cancer Diabetes mellitus type 2 Peripheral vascular occlusive disease Peripheral vascular arterial disease Hypertension Hyperlipidemia History of cholecystectomy History of bilateral cataract surgery Hysterectomy history of kidney biopsy Arthritis: Yes Autoimmune Disease: No Anxiety: No Depression: No Heart Rhythm Problems: Yes Cancer: Yes (skin cancer) Cardiovascular Problems: Yes High Cholesterol: Yes Chemotherapy: No Chest Pain: Yes Congestive Heart Failure: Yes Cerebrovascular Accident: No Coronary Artery Disease: Yes Diabetes: Yes (Type 2) Diminished Hearing: No Endocrine: Yes Gastrointestinal Disorders: No Glaucoma: No Genitourinary: No Hepatitis: No Hiatal Hernia: No Hypertension: Yes Immune Disorder: No Musculoskeletal: Yes Neurologic: Yes Psychiatric: No Reproductive: No Respiratory: No Integumentary: No Radiation Therapy: No Renal Failure: No Sickle Cell Disease: No Thyroid Disease: Yes ?: Not Menopausal: Yes Tubal Ligation: Yes Past Surgical History Abdominal Surgery: Yes (Kidney surgery for hematuria) Cardiac Surgery: Yes (Fempop bypass in left leg & 2002 CABG x5 ) Cholecystectomy: Yes Ear Surgery: No Endocrine Surgery: No Eye Surgery: Yes (bilateral cataract removal ) Genitourinary Surgery: No Gynecologic Surgery: Yes (hysterectomy complete ) Oral Surgery: Yes (upper teeth removed) Thoracic Surgery: No Other Surgery: Yes (KIDNEY BIOSPY) AORTIC VALVE ISSUES HYPERTENSION Congestive heart failure Coronary artery disease history of CABG 5 vessels History of skin cancer Diabetes mellitus type 2 Peripheral vascular occlusive disease Peripheral vascular arterial disease Hypertension Hyperlipidemia History of cholecystectomy History of bilateral cataract surgery Hysterectomy history of kidney biopsy Reported Medications Reported Meds & Active Scripts Active Reported Tylenol Extra Strength (Acetaminophen) 500 Mg Tablet Nortriptyline (Nortriptyline HCl) 25 Mg Cap 25 Mg PO BID K-Tab (Potassium Chloride) 10 Meq Tab 10 Meq PO DAILY Furosemide 40 Mg Tab 40 Mg PO DAILY Clopidogrel (Clopidogrel Bisulfate) 75 Mg Tab 75 Mg PO DAILY Aspirin 81 Mg Chew 81 Mg CHEW DAILY Allergies: Coded Allergies: amlodipine (Unverified Allergy, Severe, 03/17/17) atorvastatin (Unverified Allergy, Severe, 03/17/17) benazepril (Unverified Allergy, Severe, 03/17/17) captopril (Unverified Allergy, Severe, 03/17/17) diatrizoate meglumine (Unverified Allergy, Severe, 03/17/17) enalaprilat (Unverified Allergy, Severe, 03/17/17) fosinopril (Unverified Allergy, Severe, 03/17/17) gadobenic acid (Unverified Allergy, Severe, 03/17/17) gadodiamide (Unverified Allergy, Severe, 03/17/17) gadoteridol (Unverified Allergy, Severe, 03/17/17) iodixanol (Unverified Allergy, Severe, 03/17/17) iohexol (Unverified Allergy, Severe, 03/17/17) metoprolol (Unverified Allergy, Severe, 03/17/17) pravastatin (Unverified Allergy, Severe, 03/17/17) quinapril (Unverified Allergy, Severe, 03/17/17) codeine (Unverified Allergy, Intermediate, RASH, 03/17/17) gemfibrozil (Unverified Allergy, Intermediate, SEVERE JOINT PAIN, 03/17/17) lisinopril (Unverified Allergy, Intermediate, COUGH, 03/17/17) simvastatin (Unverified Allergy, Intermediate, JOINT PAIN, 03/17/17) tuberculin, purified protein deriva (Unverified Allergy, Unknown, Anaphylaxis, 03/17/17) acetaminophen (Unverified Adverse Reaction, Intermediate, NAUSEA/VOMITTING , 03/17/17) propoxyphene (Unverified Adverse Reaction, Intermediate, NAUSEA/VOMITTING , 03/17/17) adhesive (Unverified Adverse Reaction, Unknown, 03/17/17) Uncoded Allergies: DYE (Allergy, Intermediate, HIVES, 03/15/17) Active Ordered Medications Current Medications Sodium Chloride (NS Flush) 2 ml UNSCH PRN IVF FLUSH AFTER USING IV ACCESS; Start 03/17/17 at 09:45 Dextrose (D50w (Vial) Inj) 50 ml UNSCH PRN IV HYPOGLYCEMIA-SEE COMMENTS; Start 03/17/17 at 13:00; Status UNV Glucagon (Glucagon Inj) 1 mg UNSCH PRN OTHER HYPOGLYCEMIA-SEE COMMENTS; Start 03/17/17 at 13:00; Status UNV Insulin Aspart (NovoLOG SUPPLEMENTAL SCALE) 1 ACHS SLIDING SCALE SQ ; Start at 16:00; Status UNV Furosemide (Lasix) 40 mg DAILY PO ; Start 03/18/17 at 09:00; Status UNV Nortriptyline HCl (Pamelor) 25 mg BID PO ; Start 03/17/17 at 21:00; Status UNV Potassium Chloride (KCl) 10 meq DAILY PO ; Start 03/18/17 at 09:00; Status UNV Sodium Chloride (NS Flush) 2 ml UNSCH PRN IV FLUSH FLUSH AFTER USING IV ACCESS ; Start 03/17/17 at 13:00; Status UNV Sodium Chloride (NS Flush) 2 ml BID IV FLUSH ; Start 03/17/17 at 21:00; Status UNV Ondansetron HCl (Zofran Inj) 4 mg Q6H PRN IVP NAUSEA OR VOMITING; Start at 13:00; Status UNV Prochlorperazine (Compazine Supp) 25 mg Q12H PRN NV NAUSEA OR VOMITING; Start 03/17/17 at 13:00; Status UNV Morphine Sulfate (Morphine Inj) 2 mg Q3H PRN IV Pain 3-5; if unable to take PO ; Start 03/17/17 at 13:00; Status UNV Morphine Sulfate (Morphine Inj) 4 mg Q3H PRN IV Pain 6-10;if unable to take PO ; Start 03/17/17 at 13:00; Status UNV Tramadol HCl (Ultram) 50 mg Q4H PRN PO PAIN SCALE 3 TO 5; Start 03/17/17 at 13: 00; Status UNV Tramadol HCl (Ultram) 100 mg Q4H PRN PO PAIN SCALE 6 TO 10; Start 03/17/17 at 13:00; Status UNV Naloxone HCl (Narcan Inj) 0.4 mg UNSCH PRN IV SEE LABEL COMMENTS; Start at 13:00; Status UNV Senna/Docusate Sodium (Maura-Colace) 1 tab BID PO ; Start 03/17/17 at 21:00; Status UNV Magnesium Hydroxide (Milk Of Magnesia Liq) 30 ml Q12H PRN PO MILD - MODERATE CONSTIPATION; Start 03/17/17 at 13:00; Status UNV Sennosides (Senokot) 17.2 mg Q12H PRN PO MODERATE - SEVERE CONSTIPATION; Start 03/17/17 at 13:00; Status UNV Bisacodyl (Dulcolax Supp) 10 mg DAILY PRN RECTAL SEVERE CONSITIPATION; Start at 13:00; Status UNV Lactulose (Lactulose Liq) 30 ml DAILY PRN PO SEVERE CONSITIPATION; Start at 13:00; Status UNV Aspirin (Aspirin Chew) 81 mg DAILY CHEW ; Start 03/18/17 at 09:00; Status UNV Clopidogrel Bisulfate (Plavix) 75 mg DAILY PO ; Start 03/18/17 at 09:00; Status UNV Family History Heart disease Social History dENIES ANY TOBACCO OCCASIONAL ALCOHOLIC BEVERAGE Physical Exam Vital Signs Vital Signs Date Time Temp Pulse Resp B/P Pulse Ox O2 Delivery O2 Flow Rate FiO2 03/17/17 09:55 100 Nasal Cannula 2 03/17/17 09:49 98 Nasal Cannula 2 03/17/17 09:09 98.0 90 16 140/65 100 Physical Exam GENERAL: This is a well-nourished, well-developed patient, in no apparent distress. SKIN: No rashes, ecchymoses or lesions. Cool and dry. HEAD: Atraumatic. Normocephalic. No temporal or scalp tenderness. EYES: Pupils equal round and reactive. Extraocular motions intact. No scleral icterus. No injection or drainage. Tongue is midline ENT: Nose without bleeding, purulent drainage or septal hematoma. Throat without erythema, tonsillar hypertrophy or exudate. Uvula midline. Airway patent. NECK: Trachea midline. No JVD or lymphadenopathy. Supple, nontender, no meningeal signs. CARDIOVASCULAR: Regular rate and rhythm without , gallops, or rubs. 3 out of 6 systolic murmur RESPIRATORY: Clear to auscultation. Breath sounds equal bilaterally. No wheezes , rales, or rhonchi. GASTROINTESTINAL: Abdomen soft, non-tender, nondistended. No hepato-splenomegaly , or palpable masses. No guarding. MUSCULOSKELETAL: Extremities without clubbing, cyanosis, or edema. No joint tenderness, effusion, or edema noted. No calf tenderness. Negative Homans sign bilaterally. Right groin area has lots of ecchymosis and bruising from prior cardiac catheterization NEUROLOGICAL: Awake and alert. Cranial nerves II through XII intact. Motor and sensory grossly within normal limits. Five out of 5 muscle strength in all muscle groups. Normal speech. Insight and judgment is good mood and behavior is appropriate Laboratory Laboratory Tests Test 03/17/17 03/17/17 10:00 10:30 Sodium Level 136 Potassium Level 3.8 Chloride Level 98 Carbon Dioxide Level 27.8 Anion Gap 10 Blood Urea Nitrogen 30 Creatinine 1.17 Estimat Glomerular Filtration 45 Rate Random Glucose 223 Calcium Level 9.2 Magnesium Level 2.3 Total Bilirubin 1.1 Aspartate Amino Transf 27 (AST/SGOT) Alanine Aminotransferase 24 (ALT/SGPT) Alkaline Phosphatase 119 Total Creatine Kinase 83 Troponin I 0.11 B-Type Natriuretic Peptide 4783 Total Protein 6.7 Albumin 3.5 White Blood Count 13.2 Red Blood Count 4.75 Hemoglobin 14.0 Hematocrit 42.9 Mean Corpuscular Volume 90.3 Mean Corpuscular Hemoglobin 29.4 Mean Corpuscular Hemoglobin 32.6 Concent Red Cell Distribution Width 16.6 Platelet Count 386 Mean Platelet Volume 7.3 Neutrophils (%) (Auto) 89.3 Lymphocytes (%) (Auto) 5.1 Monocytes (%) (Auto) 5.2 Eosinophils (%) (Auto) 0.0 Basophils (%) (Auto) 0.4 Neutrophils # (Auto) 11.8 Lymphocytes # (Auto) 0.7 Monocytes # (Auto) 0.7 Eosinophils # (Auto) 0.0 Basophils # (Auto) 0.0 CBC Comment DIFF FINAL Differential Comment Prothrombin Time 12.2 Prothromb Time International 1.1 Ratio Activated Partial 21.8 Thromboplast Time Result Diagram: 03/17/17 1030 03/17/17 1000 Imaging Last Impressions Chest X-Ray 03/17/17 0944 Signed Impressions: Service Date/Time: March 09:56 - CONCLUSION: 1. Interval improvement in bilateral pulmonary infiltrates with only mild residual. 2. Left effusion remains. Ronal Walton MD Assessment and Plan Problem List: (1) NSTEMI (non-ST elevated myocardial infarction) ICD Code: I21.4 Status: Acute (2) PAD (peripheral artery disease) ICD Code: I73.9 Status: Acute (3) Aortic stenosis ICD Code: I35.0 Status: Chronic (4) Leukocytosis ICD Code: D72.829 Status: Acute (5) Hyperlipidemia ICD Code: E78.5 Status: Chronic (6) PVD (peripheral vascular disease) ICD Code: I73.9 Status: Chronic (7) Diabetes ICD Code: E11.9 Status: Chronic (8) Hypertension ICD Code: I10 Status: Chronic (9) CAD (coronary artery disease) ICD Code: I25.10 Status: Acute (10) SOB (shortness of breath) ICD Code: R06.02 Status: Acute Assessment and Plan Aortic valve issues with dyspnea secondary to this Dr. Taylor wants the patient admitted CIC and is scheduled for cardiac catheterization tomorrow I believe Was scheduled to have a TAVR next week Continue on her medications. She will not be Placed on any long-term anticoagulation at this time due to the bruising in the right groin NSTEMI positive troponin consult Dr. taylor Dyspnea continue on oxygen and will defer to cardiology regarding issues due to the valve Diabetes Accu-Cheks before meals and at bedtime with sliding scale coverage Coronary artery disease continue on aspirin and Plavix Congestive heart failure stable at this time Hyperlipidemia continue on her medications Hypertension continue on home medications Peripheral vascular occlusive disease needs chronic anticoagulation of some type Discussed with patient and RN and emergency room physician as well as cardiology Code Status Full code Discussed Condition With Discussed with patient and RN and emergency room physician as well as cardiology Physician Certification 2 Midnight Certification Type: Admission for Inpatient Services Order for Inpatient Services The services are ordered in accordance with Medicare regulations or non- Medicare payer requirements, as applicable. In the case of services not specified as inpatient-only, they are appropriately provided as inpatient services in accordance with the 2-midnight benchmark. Estimated LOS (days): 3 3 days is the estimated time the patient will need to remain in the hospital, assuming treatment plan goals are met and no additional complications. Post-Hospital Plan: Not yet determined Arpit Arriaga DO Mar 17, 2017 14:12
[2017-03-17] MEDS: INSULIN ASPART SUPPLEMENTAL SCALE SQ SCH ×2 (16:00→22:15)
[2017-03-17] MEDS: NORTRIPTYLINE HCL 25 MG CAP PO SCH (21:00)
[2017-03-17] MEDS: DOCUSATE SODIUM 50 MG/SENNA 8.6 MG TAB PO SCH (21:00)
[2017-03-17] MEDS: SODIUM CHLORIDE 0.9% FLUSH 10 ML FLUSH IV FLUSH SCH (21:00)
[2017-03-17] MEDS: ONDANSETRON HCL 4 MG/2 ML VIAL IVP PRN (22:06)
[2017-03-18] VITALS (21 sets, daily range): BP systolic 131–166; BP diastolic 55–87; PULSE 87–105; RESP 18–22; TEMP 97.8–98.6; O2SAT 91–100
[2017-03-18] MEDS ORDERED: SODIUM CHLOR 0.9% 1000 ML INJ 1,000 ML IV SCH (02:30)
[2017-03-18] MEDS: INSULIN ASPART SUPPLEMENTAL SCALE SQ SCH ×4 (06:24→21:20)
[2017-03-18] MEDS: ONDANSETRON HCL 4 MG/2 ML VIAL IVP PRN (06:34)
[2017-03-18 08:16] LABS: AUTOMATED NEUTROPHIL # 11.8 TH/MM3 (1.8-7.7); BASOPHIL # 0.1 TH/MM3 (0-0.2); BASOPHIL % 0.7 % (0.0-2.0); HEMATOCRIT 40.9 % (35.0-46.0); HEMO FLAGS DIFF FINAL; LYMPH % 6.5 % (9.0-44.0); LYMPHOCYTE # 0.9 TH/MM3 (1.0-4.8); MEAN CELL VOLUME 88.9 FL (80.0-100.0); MEAN CORPUSCULAR HEMOGLOBIN 29.4 PG (27.0-34.0); MEAN CORPUSCULAR HGB CONC 33.1 % (32.0-36.0); MONO % 4.7 % (0.0-8.0); NEUT % 88.1 % (16.0-70.0); PLATELET COUNT 349 TH/MM3 (150-450); WHITE BLOOD COUNT 13.4 TH/MM3 (4.0-11.0)
[2017-03-18 08:29] LABS: ALKALINE PHOSPHATASE 110 U/L (45-117); ALT (GPT) 25 U/L (10-53); ANION GAP 8 MEQ/L (5-15); AST (GOT) 20 U/L (15-37); BICARBONATE 30.3 MEQ/L (21.0-32.0); BLOOD UREA NITROGEN 44 MG/DL (7-18); CHLORIDE 101 MEQ/L (98-107); FREE T4 1.16 NG/DL (0.76-1.46); GLOMERULAR FILTRATION RATE 39 ML/MIN (>89); MAGNESIUM 2.5 MG/DL (1.5-2.5); POTASSIUM 3.4 MEQ/L (3.5-5.1); SODIUM (NA) 139 MEQ/L (136-145); TOTAL BILIRUBIN ADULT 1.2 MG/DL (0.2-1.0)
--- NOTE | 2017-03-18 08:51 | PD.CONS ---
HPI Service CV Consult Requested By Reason for Consult severe Primary Care Physician Geoff Bernard MD History of Present Illness Here with severe , CAD s/p CABG, HTN, CHF, hyperlipidemia and PVD here with worsening shortness of breath. She denies any chest pain, shortness of breath or palpitations. She is currently being worked up for TAVR. (Siddharth Maharaj) Review of Systems Consitutional: DENIES: Fatigue, Fever, Chills, Weight gain, Weight loss Eyes: DENIES: Amaurosis Fugax, Change in vision HEENT: DENIES: Lightheadedness, Change in hearing Respiratory: COMPLAINS OF: Shortness of breath Cardiovascular: DENIES: See HPI, Chest pain, Palpitations, Syncope, Tachycardia Gastrointestinal: DENIES: Nausea, Vomiting, Change in bowel habits, Reflux, Bloody stools, Melena Genitourinary: DENIES: Urinary incontinence, Difficulty voiding Integumentary: DENIES: Rash Neurologic: DENIES: Tingling or numbness, Memory problems, Poor Balance, Stroke symptoms Musculoskeletal: DENIES: Joint pain, Muscle pain, Limited range of motion, Back pain Psychiatric: DENIES: Anxiety, Depression, Sleep disturbances Hematologic: DENIES: Bruising tendencies, Bleeding tendencies Endocrine: DENIES: Weight gain, Weight loss, Thyroid disease (Siddharth Maharaj ) Past Family Social History Allergies: Coded Allergies: amlodipine (Unverified Allergy, Severe, 03/17/17) atorvastatin (Unverified Allergy, Severe, 03/17/17) benazepril (Unverified Allergy, Severe, 03/17/17) captopril (Unverified Allergy, Severe, 03/17/17) diatrizoate meglumine (Unverified Allergy, Severe, 03/17/17) enalaprilat (Unverified Allergy, Severe, 03/17/17) fosinopril (Unverified Allergy, Severe, 03/17/17) gadobenic acid (Unverified Allergy, Severe, 03/17/17) gadodiamide (Unverified Allergy, Severe, 03/17/17) gadoteridol (Unverified Allergy, Severe, 03/17/17) iodixanol (Unverified Allergy, Severe, 03/17/17) iohexol (Unverified Allergy, Severe, 03/17/17) metoprolol (Unverified Allergy, Severe, 03/17/17) pravastatin (Unverified Allergy, Severe, 03/17/17) quinapril (Unverified Allergy, Severe, 03/17/17) codeine (Unverified Allergy, Intermediate, RASH, 03/17/17) gemfibrozil (Unverified Allergy, Intermediate, SEVERE JOINT PAIN, 03/17/17) lisinopril (Unverified Allergy, Intermediate, COUGH, 03/17/17) simvastatin (Unverified Allergy, Intermediate, JOINT PAIN, 03/17/17) tuberculin, purified protein deriva (Unverified Allergy, Unknown, Anaphylaxis, 03/17/17) acetaminophen (Unverified Adverse Reaction, Intermediate, NAUSEA/VOMITTING , 03/17/17) propoxyphene (Unverified Adverse Reaction, Intermediate, NAUSEA/VOMITTING , 03/17/17) adhesive (Unverified Adverse Reaction, Unknown, 03/17/17) Uncoded Allergies: DYE (Allergy, Intermediate, HIVES, 03/15/17) Past Medical History History of skin cancer Diabetes mellitus type 2 History of cholecystectomy History of bilateral cataract surgery Hysterectomy history of kidney biopsy Reported Medications Reported Meds & Active Scripts Active Reported Tylenol Extra Strength (Acetaminophen) 500 Mg Tablet Nortriptyline (Nortriptyline HCl) 25 Mg Cap 25 Mg PO BID K-Tab (Potassium Chloride) 10 Meq Tab 10 Meq PO DAILY Furosemide 40 Mg Tab 40 Mg PO DAILY Clopidogrel (Clopidogrel Bisulfate) 75 Mg Tab 75 Mg PO DAILY Aspirin 81 Mg Chew 81 Mg CHEW DAILY Active Ordered Medications Current Medications Medications (Trade) Dose Ordered Sig/Khoa Route Start Time Stop Time Status Last Admin (D50w (Vial) Inj) 50 ml UNSCH PRN IV 03/17/17 13:00 (Glucagon Inj) 1 mg UNSCH PRN OTHER 03/17/17 13:00 (Lasix) 40 mg DAILY PO 03/18/17 09:00 (Pamelor) 25 mg BID PO 03/17/17 21:00 (KCl) 10 meq DAILY PO 03/18/17 09:00 (NS Flush) 2 ml UNSCH PRN IV FLUSH 03/17/17 13:00 (NS Flush) 2 ml BID IV FLUSH 03/17/17 21:00 03/17/17 21:00 (Zofran Inj) 4 mg Q6H PRN IVP 03/17/17 13:00 03/18/17 06:34 (Compazine Supp) 25 mg Q12H PRN RECTAL 03/17/17 13:00 (Morphine Inj) 2 mg Q3H PRN IV 03/17/17 13:00 (Morphine Inj) 4 mg Q3H PRN IV 03/17/17 13:00 (Ultram) 50 mg Q4H PRN PO 03/17/17 13:00 (Ultram) 100 mg Q4H PRN PO 03/17/17 13:00 (Narcan Inj) 0.4 mg UNSCH PRN IV 03/17/17 13:00 (Maura-Colace) 1 tab BID PO 03/17/17 21:00 (Milk Of Magnesia Liq) 30 ml Q12H PRN PO 03/17/17 13:00 (Senokot) 17.2 mg Q12H PRN PO 03/17/17 13:00 (Dulcolax Supp) 10 mg DAILY PRN RECTAL 03/17/17 13:00 (Lactulose Liq) 30 ml DAILY PRN PO 03/17/17 13:00 (Aspirin Chew) 81 mg DAILY CHEW 03/18/17 09:00 Clopidogrel Bisulfate 75 mg 75 mg DAILY PO 03/18/17 09:00 (NS 1000 ml Inj) 1,000 ml @ 42 mls/hr [id number] IV 03/18/17 02:30 03/19/17 02:18 03/18/17 02:30 Family History noncontributory Social History denies smoking, alcohol or substance abuse (Siddharth Maharaj) Physical Exam Vital Signs Vital Signs Date Time Temp Pulse Resp B/P Pulse Ox O2 Delivery O2 Flow Rate FiO2 03/18/17 07:00 103 03/18/17 07:00 97.8 89 20 145/55 100 03/18/17 07:00 100 Nasal Cannula 2.00 03/18/17 06:06 100 03/18/17 05:00 102 03/18/17 04:00 102 03/18/17 03:00 98.4 103 22 166/87 99 03/18/17 03:00 99 Nasal Cannula 2.00 03/18/17 03:00 92 03/18/17 02:00 94 03/18/17 01:00 88 03/18/17 00:00 98 03/17/17 23:00 100 Nasal Cannula 2.00 03/17/17 23:00 98.6 103 20 152/83 100 03/17/17 23:00 102 03/17/17 22:00 104 03/17/17 21:00 104 03/17/17 20:00 100 03/17/17 19:29 100 Nasal Cannula 2.00 03/17/17 19:00 102 03/17/17 19:00 100 Nasal Cannula 2.00 03/17/17 19:00 98.0 100 22 160/79 100 03/17/17 18:00 105 03/17/17 17:00 96 03/17/17 16:18 98.1 96 22 168/77 100 03/17/17 16:18 103 03/17/17 15:06 99 Nasal Cannula 2.00 03/17/17 09:55 100 Nasal Cannula 2 03/17/17 09:49 98 Nasal Cannula 2 03/17/17 09:09 98.0 90 16 140/65 100 Physical Exam GENERAL: Well-nourished, well-developed patient in no apparent distress. NECK: No JVD. No carotid bruit. CARDIOVASCULAR: Regular rate and rhythm. S1/S2 no rub or gallop. II/ MITCH LSB RESPIRATORY: No accessory muscle use. Clear to auscultation. Breath sounds equal bilaterally. GASTROINTESTINAL: Abdomen soft, non-tender, nondistended. MUSCULOSKELETAL: Extremities without clubbing, cyanosis, or edema. Laboratory Laboratory Tests Test 03/17/17 03/17/17 03/18/17 10:00 10:30 07:02 Sodium Level 136 139 Potassium Level 3.8 3.4 Chloride Level 98 101 Carbon Dioxide Level 27.8 30.3 Anion Gap 10 8 Blood Urea Nitrogen 30 44 Creatinine 1.17 1.32 Estimat Glomerular Filtration 45 39 Rate Random Glucose 223 165 Calcium Level 9.2 9.0 Magnesium Level 2.3 2.5 Total Bilirubin 1.1 1.2 Aspartate Amino Transf 27 20 (AST/SGOT) Alanine Aminotransferase 24 25 (ALT/SGPT) Alkaline Phosphatase 119 110 Total Creatine Kinase 83 Troponin I 0.11 B-Type Natriuretic Peptide 4783 Total Protein 6.7 6.6 Albumin 3.5 3.3 White Blood Count 13.2 13.4 Red Blood Count 4.75 4.60 Hemoglobin 14.0 13.6 Hematocrit 42.9 40.9 Mean Corpuscular Volume 90.3 88.9 Mean Corpuscular Hemoglobin 29.4 29.4 Mean Corpuscular Hemoglobin 32.6 33.1 Concent Red Cell Distribution Width 16.6 16.0 Platelet Count 386 349 Mean Platelet Volume 7.3 7.9 Neutrophils (%) (Auto) 89.3 88.1 Lymphocytes (%) (Auto) 5.1 6.5 Monocytes (%) (Auto) 5.2 4.7 Eosinophils (%) (Auto) 0.0 0.0 Basophils (%) (Auto) 0.4 0.7 Neutrophils # (Auto) 11.8 11.8 Lymphocytes # (Auto) 0.7 0.9 Monocytes # (Auto) 0.7 0.6 Eosinophils # (Auto) 0.0 0.0 Basophils # (Auto) 0.0 0.1 CBC Comment DIFF FINAL DIFF FINAL Differential Comment Prothrombin Time 12.2 Prothromb Time International 1.1 Ratio Activated Partial 21.8 Thromboplast Time Phosphorus Level 4.2 Free Thyroxine 1.16 Thyroid Stimulating Hormone 1.580 3rd Gen (Siddharth Maharaj) Result Diagram: 03/18/1770103/18/17701 Assessment and Plan Problem List: (1) Aortic stenosis (2) AI (aortic insufficiency) (3) Acute on chronic diastolic congestive heart failure due to valvular disease Assessment and Plan We will get a stat echo to determine the amount of AI, if it is less than moderate we will proceed with valvuloplasty to buy some time until the TAVR. If it is greater than moderate we will transfer her to ICU and start dobutamine to help with diuresis (Siddharth Maharaj) Assessment and Plan discussed the case in detail with Dr. Adrien Stevens. Patient is not a surgical candidate for AVR or MVR. Aortic regurgitation is [id number] in severity. Patient is very symptomatic and decompensating. Discussed options at length with the patient and family. Plan for aortic balloon valvuloplasty to relieve the severity of her aortic stenosis. She understands that the aortic regurgitation could become worse. The hope is that we can get her symptomatically improved enough to tolerate a TAVR procedure. Hopefully, after a TAVR, her LV function will slowly improve and the left ventricular dilation and mitral regurgitation will improve concordantly. Transfer to intensive care unit. Dino lung for possible thoracentesis. may consider dobutamine and bumex to improve diuresis after valvuloplasty. NPO (Mack Talamantes MD) Siddharth Maharaj Mar 18, 2017 08:51 Mack Talamantes MD Mar 18, 2017 12:45
[2017-03-18] MEDS ORDERED: FUROSEMIDE 40 MG TAB PO SCH (09:00)
[2017-03-18] MEDS: NORTRIPTYLINE HCL 25 MG CAP PO SCH ×2 (09:34→21:15)
[2017-03-18] MEDS: ASPIRIN 81 MG CHEW TAB CHEW SCH (09:34)
[2017-03-18] MEDS: POTASSIUM CHLORIDE 10 MEQ CONTROLLED RELEASE TAB PO SCH (09:34)
[2017-03-18] MEDS: DOCUSATE SODIUM 50 MG/SENNA 8.6 MG TAB PO SCH ×2 (09:34→21:15)
[2017-03-18] MEDS: CLOPIDOGREL 75 MG TAB PO SCH (09:34)
[2017-03-18] MEDS: SODIUM CHLORIDE 0.9% FLUSH 10 ML FLUSH IV FLUSH SCH ×2 (09:35→21:21)
--- NOTE | 2017-03-18 09:35 | HHI.PR ---
Subjective Remarks Patient is a 81-year-old female presents to the emergency Department with shortness of breath and dry heaves. The patient states she's been worked up for possible aortic valve intervention for a "thin aorta." She states the other day she had a CT scan with IV contrast and thinks that was contributing to her symptoms. She states she took her Lasix this morning and it is not working. She went to Dr. Taylor's office today and was referred to the emergency department for shortness of breath. States she HAS shortness of breath with minimal exertion. States she's had a heart attack in the past and has a history of congestive heart failure. Denies any chest pain denies any abdominal pain. Still having some nausea and vomiting Denies any fevers or chills Is being worked up for A TAVR Discussed with emergency room physician as well as the patient We have accepted this patient due to the fact that the [facility] attending is currently at his LIMIT FOR PATIENTS 8-18 patient still feels short of breath. An echocardiogram today and depending on the echocardiogram will determine if patient goes for valvuloplasty or holds out to TAVR next week No new complaints Objective Vitals Vital Signs Date Time Temp Pulse Resp B/P Pulse Ox O2 Delivery O2 Flow Rate FiO2 03/18/17 09:00 87 03/18/17 08:00 90 03/18/17 07:00 103 03/18/17 07:00 97.8 89 20 145/55 100 03/18/17 07:00 100 Nasal Cannula 2.00 03/18/17 06:06 100 03/18/17 05:00 102 03/18/17 04:00 102 03/18/17 03:00 98.4 103 22 166/87 99 03/18/17 03:00 99 Nasal Cannula 2.00 03/18/17 03:00 92 03/18/17 02:00 94 03/18/17 01:00 88 03/18/17 00:00 98 03/17/17 23:00 100 Nasal Cannula 2.00 03/17/17 23:00 98.6 103 20 152/83 100 03/17/17 23:00 102 03/17/17 22:00 104 03/17/17 21:00 104 03/17/17 20:00 100 03/17/17 19:29 100 Nasal Cannula 2.00 03/17/17 19:00 102 03/17/17 19:00 100 Nasal Cannula 2.00 03/17/17 19:00 98.0 100 22 160/79 100 03/17/17 18:00 105 03/17/17 17:00 96 03/17/17 16:18 98.1 96 22 168/77 100 03/17/17 16:18 103 03/17/17 15:06 99 Nasal Cannula 2.00 03/17/17 09:55 100 Nasal Cannula 2 03/17/17 09:49 98 Nasal Cannula 2 I/O 03/17/17 03/17/17 03/17/17 03/18/17 03/18/17 03/18/17 07:00 15:00 23:00 07:00 15:00 23:00 Intake Total 480 ml 486 ml Output Total 200 ml Balance 480 ml 286 ml Intake Oral 480 ml 360 ml IV Total 126 ml Output Urine Total 200 ml # Voids 2 # Bowel Movements 3 Result Diagram: 03/18/17 0702 03/18/17 0702 Other Results Laboratory Tests Test 03/17/17 03/17/17 03/18/17 10:00 10:30 07:02 Sodium Level 136 MEQ/L 139 MEQ/L Potassium Level 3.8 MEQ/L 3.4 MEQ/L Chloride Level 98 MEQ/L 101 MEQ/L Carbon Dioxide Level 27.8 MEQ/L 30.3 MEQ/L Anion Gap 10 MEQ/L 8 MEQ/L Blood Urea Nitrogen 30 MG/DL 44 MG/DL Creatinine 1.17 MG/DL 1.32 MG/DL Estimat Glomerular Filtration 45 ML/MIN 39 ML/MIN Rate Random Glucose 223 MG/DL 165 MG/DL Calcium Level 9.2 MG/DL 9.0 MG/DL Magnesium Level 2.3 MG/DL 2.5 MG/DL Total Bilirubin 1.1 MG/DL 1.2 MG/DL Aspartate Amino Transf 27 U/L 20 U/L (AST/SGOT) Alanine Aminotransferase 24 U/L 25 U/L (ALT/SGPT) Alkaline Phosphatase 119 U/L 110 U/L Total Creatine Kinase 83 U/L Troponin I 0.11 NG/ML B-Type Natriuretic Peptide 4783 PG/ML Total Protein 6.7 GM/DL 6.6 GM/DL Albumin 3.5 GM/DL 3.3 GM/DL White Blood Count 13.2 TH/MM3 13.4 TH/MM3 Red Blood Count 4.75 MIL/MM3 4.60 MIL/MM3 Hemoglobin 14.0 GM/DL 13.6 GM/DL Hematocrit 42.9 % 40.9 % Mean Corpuscular Volume 90.3 FL 88.9 FL Mean Corpuscular Hemoglobin 29.4 PG 29.4 PG Mean Corpuscular Hemoglobin 32.6 % 33.1 % Concent Red Cell Distribution Width 16.6 % 16.0 % Platelet Count 386 TH/MM3 349 TH/MM3 Mean Platelet Volume 7.3 FL 7.9 FL Neutrophils (%) (Auto) 89.3 % 88.1 % Lymphocytes (%) (Auto) 5.1 % 6.5 % Monocytes (%) (Auto) 5.2 % 4.7 % Eosinophils (%) (Auto) 0.0 % 0.0 % Basophils (%) (Auto) 0.4 % 0.7 % Neutrophils # (Auto) 11.8 TH/MM3 11.8 TH/MM3 Lymphocytes # (Auto) 0.7 TH/MM3 0.9 TH/MM3 Monocytes # (Auto) 0.7 TH/MM3 0.6 TH/MM3 Eosinophils # (Auto) 0.0 TH/MM3 0.0 TH/MM3 Basophils # (Auto) 0.0 TH/MM3 0.1 TH/MM3 CBC Comment DIFF FINAL DIFF FINAL Differential Comment Prothrombin Time 12.2 SEC Prothromb Time International 1.1 RATIO Ratio Activated Partial 21.8 SEC Thromboplast Time Phosphorus Level 4.2 MG/DL Free Thyroxine 1.16 NG/DL Thyroid Stimulating Hormone 1.580 uIU/ML 3rd Gen Imaging Last Impressions Chest X-Ray 03/17/17 0944 Signed Impressions: Service Date/Time: March 09:56 - CONCLUSION: 1. Interval improvement in bilateral pulmonary infiltrates with only mild residual. 2. Left effusion remains. Ronal Walton MD Objective Remarks GENERAL: This is a well-nourished, well-developed patient, in no apparent distress. SKIN: No rashes, ecchymoses or lesions. Cool and dry. HEAD: Atraumatic. Normocephalic. No temporal or scalp tenderness. EYES: Pupils equal round and reactive. Extraocular motions intact. No scleral icterus. No injection or drainage. Tongue is midline ENT: Nose without bleeding, purulent drainage or septal hematoma. Throat without erythema, tonsillar hypertrophy or exudate. Uvula midline. Airway patent. NECK: Trachea midline. No JVD or lymphadenopathy. Supple, nontender, no meningeal signs. CARDIOVASCULAR: Regular rate and rhythm without , gallops, or rubs. 3 out of 6 systolic murmur RESPIRATORY: Clear to auscultation. Breath sounds equal bilaterally. No wheezes , rales, or rhonchi. Diminished breath sounds bilaterally GASTROINTESTINAL: Abdomen soft, non-tender, nondistended. No hepato-splenomegaly , or palpable masses. No guarding. MUSCULOSKELETAL: Extremities without clubbing, cyanosis, or edema. No joint tenderness, effusion, or edema noted. No calf tenderness. Negative Homans sign bilaterally. Right groin area has lots of ecchymosis and bruising from prior cardiac catheterization NEUROLOGICAL: Awake and alert. Cranial nerves II through XII intact. Motor and sensory grossly within normal limits. Five out of 5 muscle strength in all muscle groups. Normal speech. Insight and judgment is good mood and behavior is appropriate Medications and IVs Current Medications Sodium Chloride (NS Flush) 2 ml UNSCH PRN IVF FLUSH AFTER USING IV ACCESS; Start 03/17/17 at 09:45; Stop 03/17/17 at 14:21; Status DC Dextrose (D50w (Vial) Inj) 50 ml UNSCH PRN IV HYPOGLYCEMIA-SEE COMMENTS; Start 03/17/17 at 13:00 Glucagon (Glucagon Inj) 1 mg UNSCH PRN OTHER HYPOGLYCEMIA-SEE COMMENTS; Start 03/17/17 at 13:00 Insulin Aspart (NovoLOG SUPPLEMENTAL SCALE) 1 ACHS SLIDING SCALE SQ Last administered on 03/18/17t 06:24; Start 03/17/17 at 16:00 Furosemide (Lasix) 40 mg DAILY PO ; Start 03/18/17 at 09:00 Nortriptyline HCl (Pamelor) 25 mg BID PO ; Start 03/17/17 at 21:00 Potassium Chloride (KCl) 10 meq DAILY PO ; Start 03/18/17 at 09:00 Sodium Chloride (NS Flush) 2 ml UNSCH PRN IV FLUSH FLUSH AFTER USING IV ACCESS ; Start 03/17/17 at 13:00 Sodium Chloride (NS Flush) 2 ml BID IV FLUSH Last administered on 03/17/17t 21: 00; Start 03/17/17 at 21:00 Ondansetron HCl (Zofran Inj) 4 mg Q6H PRN IVP NAUSEA OR VOMITING Last administered on 03/18/17t 06:34; Start 03/17/17 at 13:00 Prochlorperazine (Compazine Supp) 25 mg Q12H PRN RECTAL NAUSEA OR VOMITING; Start 03/17/17 at 13:00 Morphine Sulfate (Morphine Inj) 2 mg Q3H PRN IV Pain 3-5; if unable to take PO ; Start 03/17/17 at 13:00 Morphine Sulfate (Morphine Inj) 4 mg Q3H PRN IV Pain 6-10;if unable to take PO ; Start 03/17/17 at 13:00 Tramadol HCl (Ultram) 50 mg Q4H PRN PO PAIN SCALE 3 TO 5; Start 03/17/17 at 13: 00 Tramadol HCl (Ultram) 100 mg Q4H PRN PO PAIN SCALE 6 TO 10; Start 03/17/17 at 13:00 Naloxone HCl (Narcan Inj) 0.4 mg UNSCH PRN IV SEE LABEL COMMENTS; Start at 13:00 Senna/Docusate Sodium (Maura-Colace) 1 tab BID PO ; Start 03/17/17 at 21:00 Magnesium Hydroxide (Milk Of Magnesia Liq) 30 ml Q12H PRN PO MILD - MODERATE CONSTIPATION; Start 03/17/17 at 13:00 Sennosides (Senokot) 17.2 mg Q12H PRN PO MODERATE - SEVERE CONSTIPATION; Start 03/17/17 at 13:00 Bisacodyl (Dulcolax Supp) 10 mg DAILY PRN RECTAL SEVERE CONSITIPATION; Start at 13:00 Lactulose (Lactulose Liq) 30 ml DAILY PRN PO SEVERE CONSITIPATION; Start at 13:00 Aspirin (Aspirin Chew) 81 mg DAILY CHEW ; Start 03/18/17 at 09:00 Clopidogrel Bisulfate 75 mg 75 mg DAILY PO ; Start 03/18/17 at 09:00 Sodium Chloride (NS 1000 ml Inj) 1,000 ml @ 42 mls/hr [id number] IV Last administered on 03/18/17 02:30; Start 03/18/17 at 02:30; Stop 03/19/17 at 02:18 A/P Problem List: (1) NSTEMI (non-ST elevated myocardial infarction) ICD Code: I21.4 Status: Acute (2) PAD (peripheral artery disease) ICD Code: I73.9 Status: Acute (3) Aortic stenosis ICD Code: I35.0 Status: Chronic (4) Leukocytosis ICD Code: D72.829 Status: Acute (5) Hyperlipidemia ICD Code: E78.5 Status: Chronic (6) PVD (peripheral vascular disease) ICD Code: I73.9 Status: Chronic (7) Diabetes ICD Code: E11.9 Status: Chronic (8) Hypertension ICD Code: I10 Status: Chronic (9) CAD (coronary artery disease) ICD Code: I25.10 Status: Acute (10) SOB (shortness of breath) ICD Code: R06.02 Status: Acute Assessment and Plan Aortic valve issues with dyspnea secondary to this Dr. Taylor wants the patient admitted CIC and is scheduled for cardiac catheterization may be later today Was scheduled to have a TAVR next week Continue on her medications. She will not be Placed on any long-term anticoagulation at this time due to the bruising in the right groin Echocardiogram has been ordered-depending on results Dr. taylor will consider catheterization NSTEMI positive troponin consult Dr. taylor Dyspnea continue on oxygen and will defer to cardiology regarding issues due to the valve Diabetes Accu-Cheks before meals and at bedtime with sliding scale coverage Coronary artery disease continue on aspirin and Plavix Congestive heart failure stable at this time Hyperlipidemia continue on her medications Hypertension continue on home medications Peripheral vascular occlusive disease needs chronic anticoagulation of some type Discussed with patient and RN and emergency room physician as well as cardiology Hypokalemia replacement Discharge Planning And labs Arpit Arriaga DO Mar 18, 2017 09:35
[2017-03-18] MEDS ORDERED: POTASSIUM CHLORIDE 10 MEQ CONTROLLED RELEASE TAB PO ONE (09:45)
--- NOTE | 2017-03-18 12:23 | ECHRPT ---
Indication: AORTIC INSUFFICIENCY CONCLUSIONS Mildly dilated left ventricle. Wall thickness is normal. The left ventricular systolic function is severely reduced with an estimated ejection fraction in th e range of 25-30%. There is diffuse global hypokinesis with distinct regional wall motion abnormalities. Doppler parameters are consistent with a pseudonormal left ventricular filling pattern with concomin ant abnormal relaxation and increased filling pressure (grade 2 diastolic dysfunction). The left atrial size is pdjnvspc-fh-vquawysb dilated. The right atrial size is lqes-ze-ejrugbuduj dilated. The interatrial septum not well visualized. Moderate thickening of the mitral valve leaflets. Skyajnpa-kx-spbnok mitral valve regurgitation. Moderate mitral annular calcification. Diffuse calcification of the aortic valve. Dpsa-rn-kfnxylmy aortic valve regurgitation. Severe aortic valve stenosis. There is moderate to severe tricuspid valve regurgitation. There is estimated nbhkkjre-en-ksputr pulmonary hypertension present (range 60-70 mmHg). No tricuspid valve stenosis. The pulmonary valve is not well visualized. Mild pulmonary valve regurgitation. The inferior vena cava was not well visualized. A large left sided pleural effusion is noted. BP: / HR: Rhythm: Sinus Technical Quality:Fair FINDINGS LEFT VENTRICLE Mildly dilated left ventricle. Wall thickness is normal. The left ventricular systolic function is severely reduced with an estimated ejection fraction in th e range of 25-30%. There is diffuse global hypokinesis with distinct regional wall motion abnormalities. Doppler parameters are consistent with a pseudonormal left ventricular filling pattern with concomin ant abnormal relaxation and increased filling pressure (grade 2 diastolic dysfunction). RIGHT VENTRICLE Normal right ventricular size and systolic function. LEFT ATRIUM The left atrial size is pivtfeht-ys-pydtnivp dilated. RIGHT ATRIUM The right atrial size is disk-zo-umsvqebiby dilated. ATRIAL SEPTUM The interatrial septum not well visualized. AORTA The aortic root and proximal ascending aorta are normal in size on limited imaging. MITRAL VALVE Moderate thickening of the mitral valve leaflets. Gguvonjt-ie-ogjolm mitral valve regurgitation. Moderate mitral annular calcification. AORTIC VALVE Diffuse calcification of the aortic valve. Apay-vl-afdpyskl aortic valve regurgitation. Severe aortic valve stenosis. TRICUSPID VALVE Structurally normal tricuspid valve. There is moderate to severe tricuspid valve regurgitation. There is estimated yndwrdsh-la-ydeojr pulmonary hypertension present (range 60-70 mmHg). No tricuspid valve stenosis. PULMONARY VALVE The pulmonary valve is not well visualized. Mild pulmonary valve regurgitation. VESSELS The inferior vena cava was not well visualized. PERICARDIUM A large left sided pleural effusion is noted. No pericardial effusion. Mack Minor MD, FACC (Electronically Signed) Final Date:18 March 2017 12:22
[2017-03-18] MEDS ORDERED: methylPREDNISolone SOD SUCC 125 MG/2 ML VIAL ONE (15:10)
[2017-03-18] MEDS ORDERED: diphenhydrAMINE HCL 50 MG/ML VIAL ONE (15:10)
[2017-03-18] MEDS ORDERED: HEPARIN-NS/PF INJ 500 ML ONE ×2 (15:23→15:54)
[2017-03-18] MEDS ORDERED: DOBUTamine PREMIX DRIP 250 ML IV SCH (15:31)
[2017-03-18] MEDS ORDERED: MIDAZOLAM HCL 2 MG/2 ML VIAL ONE ×2 (15:40→16:24)
[2017-03-18] MEDS ORDERED: LIDOCAINE HCL 1% PF 30 ML VIAL ONE (15:43)
[2017-03-18] MEDS ORDERED: HEPARIN SODIUM - IV 10,000 UNITS/10 ML VIAL ONE (15:52)
[2017-03-18 16:43] LABS: HEMOGLOBIN A1a 0.5 %; HEMOGLOBIN A1b 0.9 %; HEMOGLOBIN Ao 83.9 %; HEMOGLOBIN F 0.9 %; HEMOGLOBIN LA1C 2.3 %; HEMOGLOBIN P3 5.6 %
[2017-03-18] MEDS ORDERED: PROTAMINE SULFATE 50 MG/5 ML VIAL ONE (17:00)
[2017-03-18] MEDS ORDERED: MISC INFORMATION XX ONE (17:15)
[2017-03-18] MEDS ORDERED: SODIUM CHLOR 0.9% 250 ML INJ 250 ML IV PRN (17:15)
[2017-03-18] MEDS ORDERED: ATROPINE SULFATE 1 MG/ML VIAL IV PRN (17:15)
--- NOTE | 2017-03-18 17:47 | CATHPROC ---
[facility] HIS Report Study Information Study Number Admission Scheduled Start Study Start [id number] Mar 17 2017 12:38PM 03/18/2017 Mar 18 2017 2:53PM [place] Service Cardiac Catheterization Admit Source Facility Department Emergency department [facility] - [facility] Physician and Clinical Staff Initial Adrien Toussaint Teacher Dancing Jeremiah Mike RN Additional Mack Beasley Teacher Dancing Nilam Castillo RN Teacher DancingElroy Rodriguez RN Teacher Dancing Franci Saldana RN Recorder Katia Solitario RCIS TECH2 Scrub Lalo Louis RCIS(BS) Procedures Performed Procedure Location (Site) Vessel Name Coronary Angiograms SVG-OM CIRC Pacemaker Temp Fem Vein (right) Femoral Vein PTCA Aortic Valve Valve Wire insertion Fem Art (left) Femoral Art Wire insertion Fem Art (right) Femoral Art Equipment Time Global [employer]stream Marketing Manager Description Size Mfg Part Number Used/Scraped COPILOT VALVE, BLEEDBACK [id number] 16:52 DYE [employer] C[employer] Used CONTROL *[id number] PERCLOSE, PRO GLIDE CLOSER 15:15 DYE CRITICAL CARE FR 6 [address]146 *[id number] Used DEVICE PERCLOSE, PRO GLIDE CLOSER 15:16 DYE CRITICAL CARE FR 6 32359 *[id number] Used DEVICE 15:53 [employer]YE [employer]ITICAL C[employer] WIRE, SUPERCORE 190CM [id number] Used BALLOON, TRUE VALVUPLASTY [id number] 16:20 BARD 18MM Used 18MM 110CM *[id number] 16:16 CHERRY MENDEZ PACING CATHETER J CURVE FR 5 Used *[id number] TRANSDUCER, TRUWAVE [id number] 15:18 CHERRY MENDEZ * Used W/TACOS *[id number] 16:47 CARDIVA MEDICAL VASCADE, FR6 CLOSURE SYSTEM FR 6\7 Used *[id number] MPIS-502-10.0- INTRODUCER SET, 15:54 [employer]OOK INC. FR 5 SC-NT-U-SST Used MICROPUNCTURE, STIFFENED *[id number] SHEATH, FR12 CHECK KENZIE RCFW-12.0-38-30 16:09 COOK/KATHARINA FR 12 Used PERFORMER -RB [id number] *[id number] [id number] *[id number] 538-421 *9030903 538-421 *3916019 534-642T *[id number] 534-650S *[id number] BALLOON, ADMIRAL EXTREME 7 [id number] 17:47 [employer] 130CM Used X 40 130CM *[id number] WIRE, AMPLATZ SUPER STIFF 16:10 Meditech .035 82120 *4412317 Used STRT [id number] 15:18 MEDLINE INDUSTRIES PACK, CCL CUSTOM * Used *[id number] [id number] 15:18 MEDLINE PACER PEN, SKIN DUAL W/ RULER * Used *[id number] BALLOON, 4.0 X 20MM NC [id number] 16:54 MEDTRONIC 20MM Used EUPHORA *0613000 [id number] 16:27 [employer] MEDICAL 30 DAVON INDEFLATOR Used *[id number] PSI-6F-- 15:17 [employer] MEDICAL SHEATH, FR6.5 PRELUDE 11CM FR 6.5 038ACT Used *5227796 PSI-6F-11- 15:17 [employer] MEDICAL SHEATH, FR6.5 PRELUDE 11CM FR 6.5 038ACT Used *0359554 [id number] 15:18 [employer] MEDICAL WIRE, 3MMJ .035 180CM 180CM Used *[id number] [id number] 16:30 NAMIC MANIFOLD, 2 PORT * Used *8305832 [id number] 15:18 NAMIC MANIFOLD, 4 PORT * Used *4533781 15:18 NYCOMED OMNIPAQUE, 350 MG, 150ML 150ML [id number] Used [id number] 15:18 LINARES MEDICAL BLANKET,WARM AIR CCL * Used *7212429 WIRE, RUNTHROUGH NS FLOPPY 25-1011 16:51 TERUMO [employer]ICAL 180CM Used .014 180CM *7268950 16:31 VASCULAR SOLUTIONS PIGTAIL DUAL LUMEN CATHETER FR 6 5540 *[id number] Used Equipment Model, Serial, Lot Number and Expiration Data Description Model Number Serial Number Lot Number Expiration Date WIRE, AMPLATZ SUPER STIFF STRT [id number] 12-27-2019 History: Current Medications Medication Dosage/Unit Route Frequency Last Date/Time Taken Glucophage ASA PLAVIX Beta Avni LASIX K-Dur NTG SL VITAMIN D History: Allergies Allergy Reaction SHANTANU Inhibitors Adhesives Aspirin BRUISING Codeine RASH Contrast Media Darvocet-N 100 NAUSEA/VOMITTING Dye, Prep HIVES HMG-CoA Reductase Inhibitors Lipitor BODY ACHES Lisinopril COUGH Lopid SEVERE JOINT PAIN Lopressor Lovastatin JOINT PAIN PPD Anaphylaxis Zocor JOINT PAIN History: Risk Factors Family History of Hypertension Dyslipidemia Previous [place] Previous Heart Failure Premature CAD Yes Yes No No No Prior Valve Prior PCI Prior PCIDate Prior CABG Prior CABGDate Surgery No Yes 02/25/2014 Yes 08/01/2001 Cerebrovascular 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 Diabetes Diabetes Therapy Disease Disease Disease No No Yes No Yes Oral History: Symptoms/Diagnosis Selection Items SOB History: CV Disease Selection Items Known CAD History: Stress Tests Stress or Imaging Studies Performed No History: Other Current Smoker Method No Pipe Labs Hgb (g/dl) Hct (%) WBC (l/cumm) Platelets (thousands) 11.60-17.00 35.00-51.00 4.00-11.00 150.00-450.00 13.6 40.9 13.4 349 Glucose (mg/dl) BUN (mg/dl) Creatinine (mg/dl) BUN:Creatinine (1:x) 74.00-106.00 7.00-18.00 0.50-1.30 10.00-20.00 165 44 1.3 33.8 Na (meq/l) K (meq/l) 136.00-145.00 3.50-5.10 139 3.4 Troponin I (ng/ml) CPK-MB (ng/ML) 0.02-0.05 0.50-3.60 0.11 Not Drawn Medication Medication Total Dose (Bolus/Oral) Medication Total Dosage/Unit 1% XYLOCAINE 40 mL BENADRYL 50 mg FENTANYL 50 mcg HEPARIN 8000 units OXYGEN 8 l/min PEPCID 20 mg PROTAMINE 30 mg SOLU-MEDROL 125 mg VERSED 2 mg Medications (Bolus/Oral) Medication Time Given Dosage/Unit Administered By Reason BENADRYL 03/18/2017 3:25:20 PM 50 mg Nilma Castillo 50 mg BENADRYL given in lab by Nilam Castillo RN in Right Antecubital via Peripheral IV. Ordered by aMck Talamantes. SOLU-MEDROL 03/18/2017 3:26:13 PM 125 mg Jonathan, Nilam 125 mg SOLU-MEDROL given in lab by Nilam Castillo, RN in Right Antecubital via Peripheral IV. Ordere d by Mack Talamantes. PEPCID 03/18/2017 3:27:37 PM 20 mg [place], Nilam 20 mg PEPCID given in lab by Nilam Castillo RN in Right Antecubital via Peripheral IV. Ordered by Mack Garcia. FENTANYL 03/18/2017 3:43:50 PM 25 mcg Nilam Castillo 25 mcg FENTANYL given in lab by Nilam Castillo RN in Right Antecubital via Peripheral IV. Ordered b Adrien Rosenthal. 1% XYLOCAINE 03/18/2017 3:44:24 PM 20 mL Mack Talamantes 20 mL 1% XYLOCAINE given in lab by Mack Talamantes in Right Groin via Subcutaneous. VERSED 03/18/2017 3:44:26 PM 1 mg Nilam Castillo 1 mg VERSED given in lab by Nilam Castillo RN in Right Antecubital via Peripheral IV. Ordered by Mack Alvarez. VERSED 03/18/2017 3:46:59 PM 1 mg Nilam Castillo 1 mg VERSED given in lab by Nilam Castillo RN in Right Antecubital via Peripheral IV. Ordered by Mack Alvarez. 1% XYLOCAINE 03/18/2017 3:47:29 PM 20 mL Mack Talamantes 20 mL 1% XYLOCAINE given in lab by Mack Talamantes in Left Groin via Subcutaneous. Ordered by Khai Talamantes. OXYGEN 03/18/2017 3:54:36 PM 2 l/min Patient arrived on 2 l/min OXYGEN via Nasal. OXYGEN 03/18/2017 3:54:52 PM 6 l/min Nilam Castillo 6 l/min OXYGEN given in lab by Nilam Castillo RN via Nasal. HEPARIN 03/18/2017 4:02:41 PM 3000 units Nilam Castillo 3000 units HEPARIN given in lab by Nilam Castillo RN in Right Antecubital via Peripheral IV. Ordere d by Adrien Franklin. HEPARIN 03/18/2017 4:53:07 PM 5000 units Nilam Castillo 5000 units HEPARIN given in lab by Nilam Castillo RN via Peripheral IV. Ordered by Tayler Franklin o. FENTANYL 03/18/2017 4:58:41 PM 25 mcg Nilam Castillo 25 mcg FENTANYL given in lab by Nilam Castillo RN in Right Antecubital via Peripheral IV. Ordered Adrien Johnston. PROTAMINE 03/18/2017 5:01:23 PM 30 mg Nilam Castillo 30 mg PROTAMINE given in lab by Nilam Castillo RN in Right Antecubital via Peripheral IV. Ordered Adrien Johnston. Medication (Drip) Medication Time Given Dosage/Unit Concentration/Unit Diluent (ml) Solutio n IV Solutions 03/18/2017 3:30:46 PM 0 mL (IV) 500 NaCl .9 Patient arrived on IV Solutions in Right Antecubital via Peripheral IV. Pump/Drip Flow = 20 ml/hr usi ng NaCl .9. Final Case Assessment Cardiovascular HR Rhythm NIBP 99 sr 138/78 Neurological State Oriented to time-place- Alert Moves all extremities person Respiration - General Respiration Rate SpO2 (%) O2 (lpm) (B/min) 20 99 2 Chronological Log Time Study Chronological Log 15:09:28 Patient arrived via Bed. 15:09:29 Patient Name, D.O.B, / Armband Verified By R.N. 15:09:30 Consent signed by the physician and the patient and verified by the [facility] staff. 15:09:31 Pre-op and post- op instructions given; patient acknowledges understanding of instructions. 15:09:32 Verbal Stimulation=2 Physical Stimulation=2 Airway=2 Respiration=2 TOTAL=8. (0=absent, 1=li mited, 2=present) 15:09:37 Presedation assessment performed by [facility] RN. 15:09:39 Patient has been NPO for More than 6Hrs. 15:09:41 Skin Breakdown-ecchymotic area noted in right groin. 15:09:44 [place] [facility] Protected Vitals capture started with the following parameters, Patient=Adult, Interval=5 min, Initial Pr nluryp=910 mmHg, 15:19:08 Deflation Rate=5 mmHg, Cuff placed on Left Leg 15:19:45 AKMO=666/96 mmhg, SpO2=98.0 %, Resp=20 B/min 15:22:42 Reference ECG taken 15:25:09 AV=187 bpm, JGZU=707/82 mmhg, OxL5=610.0 %, Resp=18 B/min, Pain=0, Levin=2 15:25:20 50 mg BENADRYL given in lab by Nilam Castillo, GIOVANNA in Right Antecubital via Peripheral IV. Ordered by Mack Talamantes. 15:25:30 Bilateral groins prepped with 2% chlorhexidine, and with a 3 min. waiting time. 125 mg SOLU-MEDROL given in lab by Nilam Castillo, GIOVANNA in Right Antecubital via Peripheral IV. Ordered by Albin, 15:26:13 Mack. 15:27:37 20 mg PEPCID given in lab by Nilam Castillo, GIOVANNA in Right Antecubital via Peripheral IV. Or dered by Mack Talamantes. 15:29:48 HR=90 bpm, BSJF=904/65 mmhg, JbM1=358.0 %, Resp=23 B/min 15:30:44 A # 20 IV was noted in the Antecubital (right). Grade = patent 15:30:46 Patient arrived on IV Solutions in Right Antecubital via Peripheral IV. Pump/Drip Flow = 20 ml/hr using NaCl .9. 15:30:50 Pressure channel 1 zeroed. 15:34:45 PB=078 bpm, LFKJ=802/76 mmhg, WdX9=450.0 %, Resp=23 B/min, Pain=0, Levin=2 15:39:48 ZW=367 bpm, MNXV=164/78 mmhg, YgO0=002.0 %, Resp=23 B/min 15:42:03 MD arrived. Time Out. Correct patient, correct procedure,correct physician, power injector loaded or not lo aded with contrast with 15:43:17 surgical team present. Time Out Concurred by MD and individual staff in procedure 25 mcg FENTANYL given in lab by Nilam Castillo, GIOVANNA in Right Antecubital via Peripheral IV. Ord ered by Rigoberto, 15:43:50 Adrien. 15:44:23 Case Start 15:44:24 20 mL 1% XYLOCAINE given in lab by Mack Talamantes in Right Groin via Subcutaneous. 15:44:26 1 mg VERSED given in lab by Nilam Castillo, GIOVANNA in Right Antecubital via Peripheral IV. Ord ered by Mack Talamantes. 15:44:51 FN=436 bpm, BEND=116/57 mmhg, SpO2=99.0 %, Resp=23 B/min 15:45:08 Access site was Right Femoral Artery. 15:45:16 A SHEATH, FR6.5 PRELUDE 11CM FR 6.5 was advanced into the Fem Art (right) using the Percuta neous technique. 15:45:27 Access site was Right Femoral Vein. 15:45:35 A SHEATH, FR6.5 PRELUDE 11CM FR 6.5 was advanced into the Fem Art (right) using the Percuta neous technique. 15:46:59 1 mg VERSED given in lab by Nilam Castillo, GIOVANNA in Right Antecubital via Peripheral IV. Ord ered by Mack Talamantes. 15:47:29 20 mL 1% XYLOCAINE given in lab by Mack Talamantes in Left Groin via Subcutaneous. Ordered b y Mack Talamantes. 15:48:40 Access site was Left Femoral Artery. 15:49:48 BP=675 bpm, GNWP=964/75 mmhg, SpO2=90.0 %, Resp=16 B/min 15:52:24 An injection in the Groin (left) was made through the INTRODUCER SET, MICROPUNCTURE, STIFFE ANDREW FR 5. 15:53:20 Access aborted, manual pressure held. 15:54:36 Patient arrived on 2 l/min OXYGEN via Nasal. 15:54:47 GP=098 bpm, JHQE=099/71 mmhg, SpO2=93.0 %, Resp=16 B/min 15:54:52 6 l/min OXYGEN given in lab by Nilam Castillo RN via Nasal. 15:56:02 Access site was Left Femoral Artery. A INTRODUCER SET, MICROPUNCTURE, STIFFENED FR 5 was advanced into the Fem Art (left) using the Percutaneous 15:56:11 technique. 15:59:21 A WIRE, 3MMJ .035 180CM 180CM was inserted via Fem Art (left). 15:59:44 PERCLOSE, PRO GLIDE CLOSER DEVICE FR 6 placement in the Fem Art (left) Preclosing 15:59:46 HC=964 bpm, HNUL=184/68 mmhg, SpO2=96.0 %, Resp=16 B/min 16:02:27 PERCLOSE, PRO GLIDE CLOSER DEVICE FR 6 placement in the Fem Art (left) Preclosing 3000 units HEPARIN given in lab by Nilam Castillo, RN in Right Antecubital via Peripheral IV. Ordered by Rigoberto, 16:02:41 Adrien. 16:04:47 RH=970 bpm, QICN=143/66 mmhg, SpO2=96.0 %, Resp=17 B/min A SHEATH, FR12 CHECK KENZIE PERFORMER FR 12 was advanced into the Fem Art (left) using the Percuta neous 16:05:01 technique. 16:08:55 An injection in the Fem Art (left) was made through the SHEATH, FR12 CHECK KENZIE PERFORMER FR 12. 16:09:14 Wire removed 16:09:15 A WIRE, SUPERCORE 190CM was inserted via Fem Art (right). 16:09:46 HR=90 bpm, OSHK=733/62 mmhg, SpO2=91.0 %, Resp=16 B/min 16:10:58 A MPA-2 INFINITI CATHETER FR 6 was advanced over a wire. contrast was used for injections. 16:11:14 Unable to advance, Catheter was removed 16:11:35 A JR 4.0 INFINITI CATHETER FR 4 was advanced over a wire. 16:12:13 The previous wire was exchanged for a WIRE, AMPLATZ SUPER STIFF STRT .035. 16:12:23 Wire removed 16:14:45 VR=128 bpm, FRIX=012/73 mmhg, SpO2=97.0 %, Resp=17 B/min A PACING CATHETER J CURVE FR 5 was advanced to the right ventricle. Rate = 100, Output = ~OUTPU T~, MA = 16:15:11 ~MA~. 16:17:03 Lead placement verified under fluoroscopy 16:17:24 A AL 1 INFINITI CATHETER FR 6 was advanced over a wire. contrast was used for injections. 16:19:03 Wire removed for reshaping and readvanced to left ventricle. 16:19:50 HR=95 bpm, NUYE=367/71 mmhg, ZkW0=648.0 %, Resp=18 B/min 16:20:48 Catheter was removed A BALLOON, TRUE VALVUPLASTY 18MM 110CM 18MM was inserted over WIRE, AMPLATZ SUPER STIFF STRT .0 35 via 16:22:11 the Aortic Valve. 16:23:22 A PIGTAIL STR INFINITI CATHETER FR 6 was advanced over a wire. Recorded Pressure: Ao, [place]=070, Condition=Condition 1 16:24:50 (Aorta) Ao 134/53/88 16:24:51 WD=733 bpm, QUXZ=284/63 mmhg, JzD9=982.0 %, Resp=18 B/min 16:26:03 Temp pacer on. A BALLOON, TRUE VALVUPLASTY 18MM 110CM 18MM over a WIRE, AMPLATZ SUPER STIFF STRT .035 in the A ortic 16:27:01 Valve was inflated using a 30 DAVON INDEFLATOR. A BALLOON, TRUE VALVUPLASTY 18MM 110CM 18MM over a WIRE, AMPLATZ SUPER STIFF STRT .035 in the A ortic 16:27:25 Valve was inflated. 16:27:28 Balloon Removed. 16:28:55 Echo called for stat echo. 16:29:46 LD=968 bpm, KACO=414/90 mmhg, SpO2=98.0 %, Resp=18 B/min 16:30:48 A PIGTAIL DUAL LUMEN CATHETER FR 6 was advanced over a wire. contrast was used for injectio ns. 16:31:28 Pressure channel 2 zeroed. Recorded Pressure: LV, Ao, PT=573, Condition=Condition 1 16:32:04 (Left Ventricle) LV 176/10/16, (Aorta) Ao 150/65/100 16:33:31 Dual lumen pigtail Catheter was removed 16:34:53 HR=98 bpm, YJPA=018/66 mmhg, SpO2=93.0 %, Resp=18 B/min 16:35:22 rehab tech arrived 16:39:50 DM=642 bpm, NTFS=786/81 mmhg, SpO2=99.0 %, Resp=16 B/min 16:42:03 Echo in progress. 16:44:54 HR=97 bpm, VJQS=272/71 mmhg, SpO2=97.0 %, Resp=20 B/min 16:46:46 Echo complete A JR 4.0 INFINITI CATHETER FR 4 was advanced over a wire. OMNIPAQUE, 350 MG, 150ML 150ML was us ed for 16:48:49 injections. 16:49:40 The SVG-OM was injected and visualized at various angles. OMNIPAQUE, 350 MG, 150ML 150ML us ed. 16:49:53 HR=97 bpm, DOIW=992/74 mmhg, SpO2=99.0 %, Resp=21 B/min 16:50:59 Activated Clotting Time Drawn 16:51:30 Temp pacer removed 16:53:07 5000 units HEPARIN given in lab by Nilam Castillo RN via Peripheral IV. Ordered by Adrien Marin. 16:53:12 Catheter was removed A JR 4.0 GUIDE CATHETER FR 6 was advanced over a wire. OMNIPAQUE, 350 MG, 150ML 150ML was used for 16:53:13 injections. 16:54:03 A WIRE, RUNTHROUGH NS FLOPPY .014 180CM 180CM was inserted via Fem Art (right). 16:54:54 ACT (Normal Range 90-180) = 167 16:54:56 HR=96 bpm, CJWR=187/70 mmhg, SpO2=99.0 %, Resp=18 B/min A BALLOON, 4.0 X 20MM NC EUPHORA 20MM was inserted over WIRE, RUNTHROUGH NS FLOPPY .014 180CM 1 80CM 16:55:24 via the SVG-OM. 16:56:17 Activated Clotting Time Drawn 25 mcg FENTANYL given in lab by Nilam Castillo, GIOVANNA in Right Antecubital via Peripheral IV. Or dered by Rigoberto, 16:58:41 Adrien. 16:59:53 HR=97 bpm, QAFB=343/77 mmhg, SpO2=99.0 %, Resp=17 B/min 17:01:07 PERCLOSE, PRO GLIDE CLOSER DEVICE FR 6 placement in the Fem Art (left) 30 mg PROTAMINE given in lab by Nilam Castillo RN in Right Antecubital via Peripheral IV. Or dered by Rigoberto, 17:01:23 Adrien. 17:02:18 VASCADE, FR6 CLOSURE SYSTEM FR 6\7 placement in the Fem Art (right) 17:04:52 HR=98 bpm, SUQL=711/78 mmhg, SpO2=98.0 %, Resp=18 B/min 17:05:56 VASCADE, FR6 CLOSURE SYSTEM FR 6\7 placement in the Fem Vein (right) 17:08:58 Case End 17:09:55 AE=786 bpm, VLDC=902/76 mmhg, SpO2=99.0 %, Resp=18 B/min Assessment: Final Case, HR=99 BPM, Rhythm=sr, IVIF=200/78 mmhg 17:14:51 Neurological: State=Alert, Ox3, GUPTA Respiration: Resp=20 B/min, SpO2=99 %, O2=2 lpm 17:14:56 HR=99 bpm, JLRJ=386/78 mmhg, SpO2=99.0 %, Resp=20 B/min 17:20:24 Hemostasis obtained 17:20:41 Sterile dressing applied to site 17:22:00 Patient moved to bed 17:22:42 No case complications noted. 17:22:43 Cine recording checked. 17:23:46 Bedside Report will be given. 17:23:48 Patient transported to CVICU End Study - Contrast Media Used In Study Contrast Total Opened (mL) Total Used (mL) Total Wasted (mL) Omnipaque 20 20 0 End Study - Maximum Contrast Load Max Contrast Load (mL) 230.8 End Study - Radiation Exposure Fluoro Time (minutes) 14.2 End Study - Sheaths Sheaths Pulled By Sheath Hold Time (min) Adrien Franklin End Study - Patient Disposition Complications Transferred To Interventional Outcome No Critical Care Bed successful
--- NOTE | 2017-03-18 19:50 | MA ---
cc: MACK MARRERO DATE 03/18/[address] Adrien Stevens SECONDARY SURGEON Dr. Mack Marrero PROCEDURE PERFORMED 1. Fluoroscopy with interpretation. 2. Left heart catheterization. 3. Coronary bypass graft angiography. 4. Aortic valvuloplasty. 5. Temporary transvenous pacemaker placement. METHOD The risks, benefits, alternatives discussed with the patient. The patient understood and consented to the procedure. PROCEDURE The patient brought to the catheterization lab and placed on the catheterization table. Bilateral groins were prepped and draped in sterile fashion. Right groin was anesthetized with 2% lidocaine. Right common femoral was cannulated. 6-Iranian 11 cm sheath was placed without difficulty. Right femoral vein was accessed and a 6-Iranian 11 cm sheath was placed without difficulty. Left common femoral artery was accessed with a micropuncture kit. J-wire was advanced to the descending aorta. 8-Iranian dilator was advanced in the left common femoral artery. We were able to advance the 11-Iranian sheath to the level of the external iliac artery but unable to advance any further. Dilator was removed. A 4-Iranian multipurpose catheter was advanced to descending aorta, wire removed. A 250 cm Amplatz super stiff wire was advance to the descending aorta and the multipurpose catheter removed. Dilator was reinserted. 11-Iranian sheath was then advanced to the level of the descending aorta LEFT HEART CATHETERIZATION A 6-Iranian AL-1 diagnostic catheter advanced to the ascending aorta. A straight tipped wire was then carefully navigated across the aortic valve with some difficulty. The AL-1 catheter was then advanced across the aortic valve. Intraoperative hemodynamics measured at 176/10 with a left ventricular end-diastolic pressure of 16 mmHg. TEMPORARY TRANSVENOUS PACEMAKER PLACEMENT A 5-Iranian balloon-tip temporary transvenous pacemaker was then advanced through the right femoral venous sheath to the level of the right ventricular apex, pacing and capture was confirmed. AORTIC VALVE VALVULOPLASTY Through the 6-Iranian AL-1 diagnostic catheter in the left ventricle a 0.35 260 cm Amplatz super stiff wire was then advanced into the left ventricle and the AL-1 catheter removed. An 18 mm True valvuloplasty balloon was then advanced over the Amplatz super stiff wire to the level of the aortic valve. Placement was confirmed through advancing a 4-Iranian pigtail catheter to the level of the aortic valvular cusp. Pigtail catheter was then pulled back. Rapid ventricular pacing was then performed at 180 beats per minute and valvuloplasty balloon then deployed on two inflations, valvuloplasty balloon was then removed. A dual-lumen pigtail lengthening catheter was then advanced over the wire and into the left ventricle. Simultaneous left ventricular and aortic pressures were obtained. Mean gradient 25 mmHg was obtained. The peak ventricular pressure is 176 mmHg. The peak aortic pressure is 150 mmHg. The dual-lumen pigtail catheter was then removed. A temporary transvenous pacemaker was then removed. CORONARY BYPASS GRAFT ANGIOGRAPHY Given the patient's acute decompensation and regional wall motion abnormality thought there is a possibility the vein graft that was previously intervened on recently may have thrombosed or has stenosis. ANGIOGRAPHY FOLLOWS 1. Saphenous vein graft to the obtuse marginal branch. Several stents present in the mid segment. The distal stent recently placed is widely patent. In the midsegment of the saphenous vein graft body there is an 80% eccentric stenosis in the stent. PERCUTANEOUS INTERVENTION A 6-Iranian JR-4 catheter was selectively engaged in the saphenous vein graft to the obtuse marginal branch 0.014 180 cm True ___ wire was navigated down the distal obtuse marginal branch. A 4.0 x 20-mm Euphora balloon was then advanced into the body of the saphenous vein graft and deployed to 14 atmospheres. Repeat angiography showed mild to residual stenosis but LILIA III flow. Wire and guide catheter were removed. Two Perclose devices were then successfully deployed in the left common femoral artery and this 11-Iranian sheath was removed. A Vascade closure device was then placed in the right femoral vein with good hemostasis and a second Vascade device was deployed in the right common femoral artery with partial hemostasis. Pressure was held. After manual compression there is good hemostasis. Heparin was administered throughout the entire procedure to maintain appropriate anticoagulation. CONCLUSION 1. Severe aortic valve stenosis. 2. 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 3. Elevated left-sided filling pressures. 4. Successfully utilization of temporary transvenous pacemaker. 5. Successful aortic valve valvuloplasty. 6. Successful percutaneous intervention with balloon angioplasty of the saphenous vein graft to the obtuse marginal branch. PLAN Hopefully this will translate well with symptomatic improvement. Will continue with diuresis. She will continue on the aspirin and the Plavix. Bedside transthoracic echocardiogram was performed. The aortic insufficiency appeared to be moderate in severity but not much change compared to prior. The calculated transaortic valvular gradient was much improved after valvuloplasty, hopefully this will show symptomatic improvement in combination with her vein graft intervention. We will see how she recovers over the next 24 hours. She does have at least a moderate size left pleural effusion noted on echocardiogram. May be a consideration to do either CT or ultrasound guided thoracentesis for again improvement. After recovery we can further evaluate and decide if she will be continued evaluation for transaortic valvular replacement percutaneously. MD KATHERINE Shah/XIN /5:18 PM /7:14 PM
[2017-03-18] MEDS ORDERED: ACETAMINOPHEN 325 MG TAB PO SCH (21:00)
[2017-03-19] VITALS (19 sets, daily range): BP systolic 114–158; BP diastolic 49–80; PULSE 77–99; RESP 14–18; TEMP 97–100.5; O2SAT 95–100
[2017-03-19 05:35] LABS: AUTOMATED NEUTROPHIL # 12.5 TH/MM3 (1.8-7.7); BASOPHIL % 0.1 % (0.0-2.0); EOSINOPHIL % 0.1 % (0.0-4.0); HEMATOCRIT 40.4 % (35.0-46.0); HEMO FLAGS DIFF FINAL; LYMPHOCYTE # 0.7 TH/MM3 (1.0-4.8); MEAN CELL VOLUME 89.8 FL (80.0-100.0); MEAN CORPUSCULAR HEMOGLOBIN 29.9 PG (27.0-34.0); MEAN CORPUSCULAR HGB CONC 33.3 % (32.0-36.0); MONO % 7.8 % (0.0-8.0); PLATELET COUNT 306 TH/MM3 (150-450); RED BLOOD COUNT 4.49 MIL/MM3 (4.00-5.30); RED CELL DISTRIBUTION WIDTH 16.1 % (11.6-17.2); WHITE BLOOD COUNT 14.4 TH/MM3 (4.0-11.0)
[2017-03-19 05:51] LABS: ALT (GPT) 22 U/L (10-53); ANION GAP 11 MEQ/L (5-15); AST (GOT) 23 U/L (15-37); BICARBONATE 26.2 MEQ/L (21.0-32.0); BLOOD UREA NITROGEN 47 MG/DL (7-18); CHLORIDE 105 MEQ/L (98-107); GLOMERULAR FILTRATION RATE 38 ML/MIN (>89); MAGNESIUM 2.6 MG/DL (1.5-2.5); POTASSIUM 3.7 MEQ/L (3.5-5.1); SODIUM (NA) 142 MEQ/L (136-145)
[2017-03-19 05:53] LABS: PROTHROMBIN TIME - PATIENT 11.6 SEC (9.8-11.6)
[2017-03-19 05:54] LABS: ALKALINE PHOSPHATASE 100 U/L (45-117); CREATINE KINASE 101 U/L (26-192); HDL CHOLESTEROL 41.2 MG/DL (40.0-60.0); LDL CHOLESTEROL 91 MG/DL (0-99); TOTAL BILIRUBIN ADULT 0.9 MG/DL (0.2-1.0)
[2017-03-19] MEDS: INSULIN ASPART SUPPLEMENTAL SCALE SQ SCH ×4 (06:48→21:21)
--- NOTE | 2017-03-19 08:25 | HHI.PR ---
Subjective Remarks Patient is a 81-year-old female presents to the emergency Department with shortness of breath and dry heaves. The patient states she's been worked up for possible aortic valve intervention for a "thin aorta." She states the other day she had a CT scan with IV contrast and thinks that was contributing to her symptoms. She states she took her Lasix this morning and it is not working. She went to Dr. Taylor's office today and was referred to the emergency department for shortness of breath. States she HAS shortness of breath with minimal exertion. States she's had a heart attack in the past and has a history of congestive heart failure. Denies any chest pain denies any abdominal pain. Still having some nausea and vomiting Denies any fevers or chills Is being worked up for A TAVR Discussed with emergency room physician as well as the patient We have accepted this patient due to the fact that the [facility] attending is currently at his LIMIT FOR PATIENTS 8-18 patient still feels short of breath. An echocardiogram today and depending on the echocardiogram will determine if patient goes for valvuloplasty or holds out to TAVR next week No new complaints 8- HAD PROCEDURE YESTERDAY 1. Severe aortic valve stenosis. 2. 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 3. Elevated left-sided filling pressures. 4. Successfully utilization of temporary transvenous pacemaker. 5. Successful aortic valve valvuloplasty. 6. Successful percutaneous intervention with balloon angioplasty of the saphenous vein graft to the obtuse marginal branch. WANTS TO HAVE A NON- DIABETIC DIET IS IN CVICU AT THIS TIME HAS BL GROIN CATH SITES THAT ARE STABLE DW RN AND PATIENT AM LABS PT AND OT Objective Vitals Vital Signs Date Time Temp Pulse Resp B/P Pulse Ox O2 Delivery O2 Flow Rate FiO2 03/19/17 07:59 96 Nasal Cannula 2.00 03/19/17 07:57 98.1 99 18 158/77 96 03/19/17 07:00 92 03/19/17 03:07 93 03/19/17 03:04 97.4 84 18 152/80 95 03/19/17 03:04 95 Nasal Cannula 2.00 03/19/17 00:10 81 03/18/17 23:15 88 18 131/73 97 03/18/17 23:15 97 Nasal Cannula 2.00 03/18/17 21:33 97 Nasal Cannula 2.00 03/18/17 19:30 98.1 89 20 154/79 97 03/18/17 19:30 97 Nasal Cannula 2.00 03/18/17 19:00 101 03/18/17 18:00 98.6 99 18 147/82 97 03/18/17 18:00 97 Nasal Cannula 2.00 03/18/17 18:00 87 03/18/17 13:25 100 03/18/17 13:10 91 Nasal Cannula 2.00 03/18/17 13:10 98.6 98 20 152/81 91 03/18/17 12:14 100 03/18/17 12:00 104 03/18/17 11:00 98.4 105 22 160/69 100 03/18/17 11:00 100 Nasal Cannula 2.00 03/18/17 11:00 96 03/18/17 10:00 92 03/18/17 09:00 87 I/O 03/18/17 03/18/17 03/18/17 03/19/17 03/19/17 03/19/17 07:00 15:00 23:00 07:00 15:00 23:00 Intake Total 486 ml 120 ml 300 ml Output Total 200 ml 0 ml 775 ml Balance 286 ml 120 ml -475 ml Intake Oral 360 ml 120 ml 300 ml IV Total 126 ml Output Urine Total 200 ml 0 ml 775 ml # Bowel Movements 3 0 0 Result Diagram: 03/19/17 0500 03/19/17 0500 Other Results Laboratory Tests Test 03/17/17 03/17/17 03/18/17 03/19/17 10:00 10:30 07:02 05:00 Sodium Level 136 MEQ/L 139 MEQ/L 142 MEQ/L Potassium Level 3.8 MEQ/L 3.4 MEQ/L 3.7 MEQ/L Chloride Level 98 MEQ/L 101 MEQ/L 105 MEQ/L Carbon Dioxide Level 27.8 MEQ/L 30.3 MEQ/L 26.2 MEQ/L Anion Gap 10 MEQ/L 8 MEQ/L 11 MEQ/L Blood Urea Nitrogen 30 MG/DL 44 MG/DL 47 MG/DL Creatinine 1.17 MG/DL 1.32 MG/DL 1.35 MG/DL Estimat Glomerular Filtration 45 ML/MIN 39 ML/MIN 38 ML/MIN Rate Random Glucose 223 MG/DL 165 MG/DL 156 MG/DL Calcium Level 9.2 MG/DL 9.0 MG/DL 9.0 MG/DL Magnesium Level 2.3 MG/DL 2.5 MG/DL 2.6 MG/DL Total Bilirubin 1.1 MG/DL 1.2 MG/DL 0.9 MG/DL Aspartate Amino Transf 27 U/L 20 U/L 23 U/L (AST/SGOT) Alanine Aminotransferase 24 U/L 25 U/L 22 U/L (ALT/SGPT) Alkaline Phosphatase 119 U/L 110 U/L 100 U/L Total Creatine Kinase 83 U/L 101 U/L Troponin I 0.11 NG/ML B-Type Natriuretic Peptide 4783 PG/ML Total Protein 6.7 GM/DL 6.6 GM/DL 6.3 GM/DL Albumin 3.5 GM/DL 3.3 GM/DL 3.1 GM/DL White Blood Count 13.2 TH/MM3 13.4 TH/MM3 14.4 TH/MM3 Red Blood Count 4.75 MIL/MM3 4.60 MIL/MM3 4.49 MIL/MM3 Hemoglobin 14.0 GM/DL 13.6 GM/DL 13.4 GM/DL Hematocrit 42.9 % 40.9 % 40.4 % Mean Corpuscular Volume 90.3 FL 88.9 FL 89.8 FL Mean Corpuscular Hemoglobin 29.4 PG 29.4 PG 29.9 PG Mean Corpuscular Hemoglobin 32.6 % 33.1 % 33.3 % Concent Red Cell Distribution Width 16.6 % 16.0 % 16.1 % Platelet Count 386 TH/MM3 349 TH/MM3 306 TH/MM3 Mean Platelet Volume 7.3 FL 7.9 FL 7.7 FL Neutrophils (%) (Auto) 89.3 % 88.1 % 87.0 % Lymphocytes (%) (Auto) 5.1 % 6.5 % 5.0 % Monocytes (%) (Auto) 5.2 % 4.7 % 7.8 % Eosinophils (%) (Auto) 0.0 % 0.0 % 0.1 % Basophils (%) (Auto) 0.4 % 0.7 % 0.1 % Neutrophils # (Auto) 11.8 TH/MM3 11.8 TH/MM3 12.5 TH/MM3 Lymphocytes # (Auto) 0.7 TH/MM3 0.9 TH/MM3 0.7 TH/MM3 Monocytes # (Auto) 0.7 TH/MM3 0.6 TH/MM3 1.1 TH/MM3 Eosinophils # (Auto) 0.0 TH/MM3 0.0 TH/MM3 0.0 TH/MM3 Basophils # (Auto) 0.0 TH/MM3 0.1 TH/MM3 0.0 TH/MM3 CBC Comment DIFF FINAL DIFF FINAL DIFF FINAL Differential Comment Prothrombin Time 12.2 SEC 11.6 SEC Prothromb Time International 1.1 RATIO 1.0 RATIO Ratio Activated Partial 21.8 SEC Thromboplast Time Hemoglobin A1c 6.3 % Phosphorus Level 4.2 MG/DL 4.7 MG/DL Free Thyroxine 1.16 NG/DL Thyroid Stimulating Hormone 1.580 uIU/ML 3rd Gen Triglycerides Level 118 MG/DL Cholesterol Level 156 MG/DL LDL Cholesterol 91 MG/DL HDL Cholesterol 41.2 MG/DL Cholesterol/HDL Ratio 3.78 RATIO Imaging Last Impressions Chest X-Ray 03/17/17 0944 Signed Impressions: Service Date/Time: March 09:56 - CONCLUSION: 1. Interval improvement in bilateral pulmonary infiltrates with only mild residual. 2. Left effusion remains. Ronal Walton MD Objective Remarks GENERAL: This is a well-nourished, well-developed patient, in no apparent distress. SKIN: No rashes, ecchymoses or lesions. Cool and dry. HEAD: Atraumatic. Normocephalic. No temporal or scalp tenderness. EYES: Pupils equal round and reactive. Extraocular motions intact. No scleral icterus. No injection or drainage. Tongue is midline ENT: Nose without bleeding, purulent drainage or septal hematoma. Throat without erythema, tonsillar hypertrophy or exudate. Uvula midline. Airway patent. NECK: Trachea midline. No JVD or lymphadenopathy. Supple, nontender, no meningeal signs. CARDIOVASCULAR: Regular rate and rhythm without , gallops, or rubs. 3 out of 6 systolic murmur RESPIRATORY: Clear to auscultation. Breath sounds equal bilaterally. No wheezes , rales, or rhonchi. Diminished breath sounds bilaterally GASTROINTESTINAL: Abdomen soft, non-tender, nondistended. No hepato-splenomegaly , or palpable masses. No guarding. MUSCULOSKELETAL: Extremities without clubbing, cyanosis, or edema. No joint tenderness, effusion, or edema noted. No calf tenderness. Negative Homans sign bilaterally. Right groin area has lots of ecchymosis and bruising from prior cardiac catheterization BILATERAL GROINS DRESSED FROM PROCEDURES NEUROLOGICAL: Awake and alert. Cranial nerves II through XII intact. Motor and sensory grossly within normal limits. Five out of 5 muscle strength in all muscle groups. Normal speech. Insight and judgment is good mood and behavior is appropriate Procedures 1. Severe aortic valve stenosis. 2. 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 3. Elevated left-sided filling pressures. 4. Successfully utilization of temporary transvenous pacemaker. 5. Successful aortic valve valvuloplasty. 6. Successful percutaneous intervention with balloon angioplasty of the saphenous vein graft to the obtuse marginal branch. 8-18 Medications and IVs Current Medications Sodium Chloride (NS Flush) 2 ml UNSCH PRN IVF FLUSH AFTER USING IV ACCESS; Start 03/17/17 at 09:45; Stop 03/17/17 at 14:21; Status DC Dextrose (D50w (Vial) Inj) 50 ml UNSCH PRN IV HYPOGLYCEMIA-SEE COMMENTS; Start 03/17/17 at 13:00 Glucagon (Glucagon Inj) 1 mg UNSCH PRN OTHER HYPOGLYCEMIA-SEE COMMENTS; Start 03/17/17 at 13:00 Insulin Aspart (NovoLOG SUPPLEMENTAL SCALE) 1 ACHS SLIDING SCALE SQ Last administered on 03/19/17 06:48; Start 03/17/17 at 16:00 Furosemide (Lasix) 40 mg DAILY PO Last administered on 03/18/17 09:34; Start 03/18/17 at 09:00; Stop 03/18/17 at 15:34; Status DC Nortriptyline HCl (Pamelor) 25 mg BID PO Last administered on 03/18/17 21:15; Start 03/17/17 at 21:00 Potassium Chloride (KCl) 10 meq DAILY PO Last administered on 03/18/17 09:34; Start 03/18/17 at 09:00 Sodium Chloride (NS Flush) 2 ml UNSCH PRN IV FLUSH FLUSH AFTER USING IV ACCESS ; Start 03/17/17 at 13:00 Sodium Chloride (NS Flush) 2 ml BID IV FLUSH Last administered on 03/18/17 21: 21; Start 03/17/17 at 21:00 Ondansetron HCl (Zofran Inj) 4 mg Q6H PRN IVP NAUSEA OR VOMITING Last administered on 03/18/17 06:34; Start 03/17/17 at 13:00 Prochlorperazine (Compazine Supp) 25 mg Q12H PRN RECTAL NAUSEA OR VOMITING; Start 03/17/17 at 13:00 Morphine Sulfate (Morphine Inj) 2 mg Q3H PRN IV Pain 3-5; if unable to take PO ; Start 03/17/17 at 13:00 Morphine Sulfate (Morphine Inj) 4 mg Q3H PRN IV Pain 6-10;if unable to take PO ; Start 03/17/17 at 13:00 Tramadol HCl (Ultram) 50 mg Q4H PRN PO PAIN SCALE 3 TO 5; Start 03/17/17 at 13: 00 Tramadol HCl (Ultram) 100 mg Q4H PRN PO PAIN SCALE 6 TO 10; Start 03/17/17 at 13:00 Naloxone HCl (Narcan Inj) 0.4 mg UNSCH PRN IV SEE LABEL COMMENTS; Start at 13:00 Senna/Docusate Sodium (Maura-Colace) 1 tab BID PO Last administered on 21:15; Start 03/17/17 at 21:00 Magnesium Hydroxide (Milk Of Magnesia Liq) 30 ml Q12H PRN PO MILD - MODERATE CONSTIPATION; Start 03/17/17 at 13:00 Sennosides (Senokot) 17.2 mg Q12H PRN PO MODERATE - SEVERE CONSTIPATION; Start 03/17/17 at 13:00 Bisacodyl (Dulcolax Supp) 10 mg DAILY PRN RECTAL SEVERE CONSITIPATION; Start at 13:00 Lactulose (Lactulose Liq) 30 ml DAILY PRN PO SEVERE CONSITIPATION; Start at 13:00 Aspirin (Aspirin Chew) 81 mg DAILY CHEW Last administered on 03/18/17 09:34; Start 03/18/17 at 09:00 Clopidogrel Bisulfate 75 mg 75 mg DAILY PO Last administered on 03/18/17 09:34 ; Start 03/18/17 at 09:00 Sodium Chloride (NS 1000 ml Inj) 1,000 ml @ 42 mls/hr [id number] IV Last administered on 03/18/17 02:30; Start 03/18/17 at 02:30; Stop 03/19/17 at 02:18 ; Status DC Potassium Chloride (KCl) 40 meq ONCE ONCE PO Last administered on 03/18/17 10 :48; Start 03/18/17 at 09:45; Stop 03/18/17 at 09:46; Status DC Diphenhydramine HCl (Benadryl Inj) 50 mg STK-MED ONCE .ROUTE Last administered on 03/18/17 15:25; Start 03/18/17 at 15:10; Stop 03/18/17 at 15:11; Status DC Methylprednisolone Sodium Succinate 125 mg 125 mg STK-MED ONCE .ROUTE Last administered on 03/18/17 15:26; Start 03/18/17 at 15:10; Stop 03/18/17 at 15:11 ; Status DC Heparin Sodium/ Sodium Chloride 500 ml @ As Directed STK-MED ONCE .ROUTE Last administered on 03/18/17 15:23; Start 03/18/17 at 15:23; Stop 03/18/17 at 15:24 ; Status DC Dobutamine HCl/ Dextrose (DOBUTamine PREMIX DRIP) 250 ml @ 8.97 mls/hr Q24H IV ; Start 03/18/17 at 15:31; Stop 03/18/17 at 17:17; Status DC Bumetanide (Bumex Inj) 1 mg DAILY IV PUSH ; Start 03/19/17 at 09:00 Midazolam HCl (Versed Inj) 2 mg STK-MED ONCE .ROUTE Last administered on 15:44; Start 03/18/17 at 15:40; Stop 03/18/17 at 15:41; Status DC Fentanyl Citrate (fentaNYL INJ) 100 mcg STK-MED ONCE .ROUTE Last administered on 03/18/17 15:43; Start 03/18/17 at 15:40; Stop 03/18/17 at 15:41; Status DC Lidocaine HCl (Xylocaine-Mpf 1% Inj) 30 ml STK-MED ONCE .ROUTE ; Start 03/18/17 at 15:43; Stop 03/18/17 at 15:44; Status DC Heparin Sodium (Porcine) 21018 units 10,000 units STK-MED ONCE .ROUTE Last administered on 03/18/17 16:02; Start 03/18/17 at 15:52; Stop 03/18/17 at 15:53 ; Status DC Heparin Sodium/ Sodium Chloride (Heparin-NS/Pf Inj) 500 ml @ As Directed STK- MED ONCE .ROUTE Last administered on 03/18/17 15:54; Start 03/18/17 at 15:54; Stop 03/18/17 at 15:55; Status DC Midazolam HCl (Versed Inj) 2 mg STK-MED ONCE .ROUTE Last administered on 15:44; Start 03/18/17 at 16:24; Stop 03/18/17 at 16:25; Status DC Protamine Sulfate (Protamine Sulfate Inj) 50 mg STK-MED ONCE .ROUTE Last administered on 03/18/17 17:01; Start 03/18/17 at 17:00; Stop 03/18/17 at 17:01 ; Status DC Miscellaneous Information 1 ONCE ONCE XX ; Start 03/18/17 at 17:15; Stop at 17:24; Status DC Atropine Sulfate 0.5 mg 0.5 mg UNSCH PRN IV VAGAL REPONSE; Start 03/18/17 at 17 :15 Sodium Chloride (NS 250 ml Inj) 250 ml @ 500 mls/hr ONCE PRN IV VAGAL REPONSE ; Start 03/18/17 at 17:15; Stop 03/19/17 at 17:14 Acetaminophen (Tylenol) 650 mg HS PO Last administered on 03/18/17 21:15; Start 03/18/17 at 21:00 Urinary Catheter: No Vascular Central Line Catheter: No A/P Problem List: (1) NSTEMI (non-ST elevated myocardial infarction) ICD Code: I21.4 Status: Acute (2) PAD (peripheral artery disease) ICD Code: I73.9 Status: Acute (3) Aortic stenosis ICD Code: I35.0 Status: Chronic (4) Leukocytosis ICD Code: D72.829 Status: Acute (5) Hyperlipidemia ICD Code: E78.5 Status: Chronic (6) PVD (peripheral vascular disease) ICD Code: I73.9 Status: Chronic (7) Diabetes ICD Code: E11.9 Status: Chronic (8) Hypertension ICD Code: I10 Status: Chronic (9) CAD (coronary artery disease) ICD Code: I25.10 Status: Acute (10) SOB (shortness of breath) ICD Code: R06.02 Status: Acute Assessment and Plan Aortic valve issues with dyspnea secondary to this Dr. Taylor wants the patient admitted [facility] and is scheduled for cardiac catheterization HAD CARDIAC CATH 03-18 1. Severe aortic valve stenosis. 2. 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 3. Elevated left-sided filling pressures. 4. Successfully utilization of temporary transvenous pacemaker. 5. Successful aortic valve valvuloplasty. 6. Successful percutaneous intervention with balloon angioplasty of the saphenous vein graft to the obtuse marginal branch. Was scheduled to have a TAVR next week- LOOKS LIKE THIS IS ON HOLD NOW Continue on her medications. bruising in the right groin Echocardiogram has been ordered-depending on results Dr. taylor SP CATH 03-18 NSTEMI positive troponin consult Dr. taylor Dyspnea continue on oxygen and will defer to cardiology regarding issues due to the valve Diabetes Accu-Cheks before meals and at bedtime with sliding scale coverage Coronary artery disease continue on aspirin and Plavix Congestive heart failure stable at this time Hyperlipidemia continue on her medications Hypertension continue on home medications Peripheral vascular occlusive disease needs chronic anticoagulation of some type Discussed with patient and RN as well as cardiology Hypokalemia replacement PT AND OT TO EVAL AND TREAT Discharge Planning And labs Arpit Arriaga DO Mar 19, 2017 08:25
[2017-03-19] MEDS: POTASSIUM CHLORIDE 10 MEQ CONTROLLED RELEASE TAB PO SCH (08:26)
[2017-03-19] MEDS: DOCUSATE SODIUM 50 MG/SENNA 8.6 MG TAB PO SCH ×2 (08:26→20:34)
[2017-03-19] MEDS: BUMETANIDE INJ 1 MG/4 ML VIAL IV PUSH SCH (08:26)
[2017-03-19] MEDS: NORTRIPTYLINE HCL 25 MG CAP PO SCH ×2 (08:27→21:15)
[2017-03-19] MEDS: ASPIRIN 81 MG CHEW TAB CHEW SCH (08:27)
[2017-03-19] MEDS: CLOPIDOGREL 75 MG TAB PO SCH (08:28)
[2017-03-19] MEDS: SODIUM CHLORIDE 0.9% FLUSH 10 ML FLUSH IV FLUSH SCH ×2 (08:29→20:34)
[2017-03-19] MEDS: ONDANSETRON HCL 4 MG/2 ML VIAL IVP PRN (10:49)
--- NOTE | 2017-03-19 11:14 | PD.CARD.PN ---
Subjective Subjective Remarks Pt had brief period of unresponsiveness while trying to have a BM, was put in bed, pressures were low but came back up quickly w/o intervention; pt asymptomatic now except nausea. Objective Medications Administered Medications Medications (Trade) Dose Ordered Sig/Khoa Route PRN Reason Start Time Stop Time Status Last Admin Dose Admin Nortriptyline HCl (Pamelor) 25 mg BID PO 03/17/17 21:00 03/19/17 08:27 Potassium Chloride (KCl) 10 meq DAILY PO 03/18/17 09:00 03/19/17 08:26 Sodium Chloride (NS Flush) 2 ml BID IV FLUSH 03/17/17 21:00 03/19/17 08:29 Ondansetron HCl (Zofran Inj) 4 mg Q6H PRN IVP NAUSEA OR VOMITING 03/17/17 13:00 03/19/17 10:49 Senna/Docusate Sodium (Maura-Colace) 1 tab BID PO 03/17/17 21:00 03/19/17 08:26 Magnesium Hydroxide (Milk Of [employer] Liq) 30 ml Q12H PRN PO MILD - MODERATE CONSTIPATION 03/17/17 13:00 03/19/17 11:01 Sennosides (Senokot) 17.2 mg Q12H PRN PO MODERATE - SEVERE CONSTIPATION 03/17/17 13:00 03/19/17 11:01 Aspirin (Aspirin Chew) 81 mg DAILY CHEW 03/18/17 09:00 03/19/17 08:27 Clopidogrel Bisulfate (Plavix) 75 mg DAILY PO 03/18/17 09:00 03/19/17 08:28 Bumetanide (Bumex Inj) 1 mg DAILY IV PUSH 03/19/17 09:00 03/19/17 08:26 Acetaminophen (Tylenol) 650 mg HS PO 03/18/17 21:00 03/18/17 21:15 Vital Signs / I&O Vital Signs Date Time Temp Pulse Resp B/P Pulse Ox O2 Delivery O2 Flow Rate FiO2 03/19/17 07:59 96 Nasal Cannula 2.00 03/19/17 07:57 98.1 99 18 158/77 96 03/19/17 07:00 92 03/19/17 03:07 93 03/19/17 03:04 97.4 84 18 152/80 95 03/19/17 03:04 95 Nasal Cannula 2.00 03/19/17 00:10 81 03/18/17 23:15 88 18 131/73 97 03/18/17 23:15 97 Nasal Cannula 2.00 03/18/17 21:33 97 Nasal Cannula 2.00 03/18/17 19:30 98.1 89 20 154/79 97 03/18/17 19:30 97 Nasal Cannula 2.00 03/18/17 19:00 101 03/18/17 18:00 98.6 99 18 147/82 97 03/18/17 18:00 97 Nasal Cannula 2.00 03/18/17 18:00 87 03/18/17 13:25 100 03/18/17 13:10 91 Nasal Cannula 2.00 03/18/17 13:10 98.6 98 20 152/81 91 03/18/17 12:14 100 03/18/17 12:00 104 I/O 03/18/17 03/18/17 03/18/17 03/19/17 03/19/17 03/19/17 07:00 15:00 23:00 07:00 15:00 23:00 Intake Total 486 ml 120 ml 300 ml Output Total 200 ml 0 ml 775 ml Balance 286 ml 120 ml -475 ml Intake Oral 360 ml 120 ml 300 ml IV Total 126 ml Output Urine Total 200 ml 0 ml 775 ml # Bowel Movements 3 0 0 Physical Exam GENERAL: This is a well-nourished, well-developed patient, in no apparent distress. CARDIOVASCULAR: Regular rate and rhythm 2-3/6 ricardo RESPIRATORY: Clear to auscultation. Breath sounds equal bilaterally. No wheezes , rales, or rhonchi. GASTROINTESTINAL: Abdomen soft, non-tender, nondistended. Normal active bowel sounds MUSCULOSKELETAL: Extremities without clubbing, cyanosis, or edema. NEURO: Alert & Oriented x4 to person, place, time, situation. Moves all ext x4 Laboratory Laboratory Tests Test 03/19/17 05:00 White Blood Count 14.4 TH/MM3 Red Blood Count 4.49 MIL/MM3 Hemoglobin 13.4 GM/DL Hematocrit 40.4 % Mean Corpuscular Volume 89.8 FL Mean Corpuscular Hemoglobin 29.9 PG Mean Corpuscular Hemoglobin 33.3 % Concent Red Cell Distribution Width 16.1 % Platelet Count 306 TH/MM3 Mean Platelet Volume 7.7 FL Neutrophils (%) (Auto) 87.0 % Lymphocytes (%) (Auto) 5.0 % Monocytes (%) (Auto) 7.8 % Eosinophils (%) (Auto) 0.1 % Basophils (%) (Auto) 0.1 % Neutrophils # (Auto) 12.5 TH/MM3 Lymphocytes # (Auto) 0.7 TH/MM3 Monocytes # (Auto) 1.1 TH/MM3 Eosinophils # (Auto) 0.0 TH/MM3 Basophils # (Auto) 0.0 TH/MM3 CBC Comment DIFF FINAL Differential Comment Prothrombin Time 11.6 SEC Prothromb Time International 1.0 RATIO Ratio Sodium Level 142 MEQ/L Potassium Level 3.7 MEQ/L Chloride Level 105 MEQ/L Carbon Dioxide Level 26.2 MEQ/L Anion Gap 11 MEQ/L Blood Urea Nitrogen 47 MG/DL Creatinine 1.35 MG/DL Estimat Glomerular Filtration 38 ML/MIN Rate Random Glucose 156 MG/DL Calcium Level 9.0 MG/DL Phosphorus Level 4.7 MG/DL Magnesium Level 2.6 MG/DL Total Bilirubin 0.9 MG/DL Aspartate Amino Transf 23 U/L (AST/SGOT) Alanine Aminotransferase 22 U/L (ALT/SGPT) Alkaline Phosphatase 100 U/L Total Creatine Kinase 101 U/L Total Protein 6.3 GM/DL Albumin 3.1 GM/DL Triglycerides Level 118 MG/DL Cholesterol Level 156 MG/DL LDL Cholesterol 91 MG/DL HDL Cholesterol 41.2 MG/DL Cholesterol/HDL Ratio 3.78 RATIO Imaging Last Impressions Chest X-Ray 03/17/17 0944 Signed Impressions: Service Date/Time: March 09:56 - CONCLUSION: 1. Interval improvement in bilateral pulmonary infiltrates with only mild residual. 2. Left effusion remains. Ronal Walton MD Assessment and Plan Problem List: (1) Aortic stenosis Assessment and Plan: s/p valvuloplasty (2) AI (aortic insufficiency) (3) Acute on chronic diastolic congestive heart failure due to valvular disease (4) Cardiomyopathy Assessment and Plan: ef 25-30; holding juan/arb/bb due to low bp's. Assessment and Plan event seems to have been a vagal episode, now resolved, no rhythm changes and pt recovered quickly. Will continue to monitor. Loi Valderrama MD Mar 19, 2017 11:14
[2017-03-19] MEDS ORDERED: PHENYLEPHRINE HCL 10 MG/ML VIAL ONE ×2 (12:17→15:55)
[2017-03-19] MEDS ORDERED: MIDAZOLAM HCL 5 MG/ML VIAL (1 ML) ONE (12:31)
[2017-03-19 12:45] LABS: AUTOMATED NEUTROPHIL # 14.3 TH/MM3 (1.8-7.7); BASOPHIL % 0.2 % (0.0-2.0); HEMO FLAGS DIFF FINAL; LYMPHOCYTE # 0.8 TH/MM3 (1.0-4.8); MEAN CELL VOLUME 89.1 FL (80.0-100.0); MEAN CORPUSCULAR HEMOGLOBIN 28.9 PG (27.0-34.0); MEAN CORPUSCULAR HGB CONC 32.4 % (32.0-36.0); MONO % 6.7 % (0.0-8.0); NEUT % 88.1 % (16.0-70.0); PLATELET COUNT 263 TH/MM3 (150-450); RED BLOOD COUNT 2.81 MIL/MM3 (4.00-5.30); RED CELL DISTRIBUTION WIDTH 15.9 % (11.6-17.2); WHITE BLOOD COUNT 16.3 TH/MM3 (4.0-11.0)
[2017-03-19 12:51] LABS: HEMATOCRIT 25.1 % (35.0-46.0)
[2017-03-19 13:01] LABS: APTT (PATIENT) 22.2 SEC (24.3-30.1); INTERNATIONAL NORMALIZED RATIO 1.2 RATIO; PROTHROMBIN TIME - PATIENT 13.4 SEC (9.8-11.6)
[2017-03-19 13:11] LABS: BICARBONATE 23.3 MEQ/L (21.0-32.0); MAGNESIUM 1.9 MG/DL (1.5-2.5); POTASSIUM 3.7 MEQ/L (3.5-5.1)
[2017-03-19 13:26] LABS: CALCIUM-PROTEIN CORRECTED 8.6 MG/DL (8.5-10.1)
[2017-03-19] MEDS ORDERED: SODIUM CHLOR 0.9% 250 ML INJ 250 ML IV ONE (13:30)
[2017-03-19] MEDS ORDERED: MAGNESIUM OXIDE 400 MG TAB PO PRN (13:45)
[2017-03-19] MEDS ORDERED: MAGNESIUM SULFATE INJ 4 GM in SODIUM CHLORIDE 0.9% INJ 92 ML IV PRN (13:45)
[2017-03-19] MEDS ORDERED: POTASSIUM CHLOR 20 MEQ PREMIX 100 ML IV PRN ×2 (13:45)
[2017-03-19] MEDS ORDERED: SODIUM PHOSPHATE INJ 30 MMOL in SODIUM CHLOR 0.9% 250 ML INJ 240 ML IV PRN (13:45)
[2017-03-19] MEDS ORDERED: POTASSIUM CHLORIDE 25 MEQ EFFERVESCENT TAB PO PRN (13:45)
[2017-03-19] MEDS ORDERED: POTASSIUM CHLOR 40 MEQ PREMIX 100 ML IV PRN ×2 (13:45)
[2017-03-19] MEDS ORDERED: MAGNESIUM SULFATE INJ 2 GM in SODIUM CHLORIDE 0.9% INJ 96 ML IV PRN (13:45)
[2017-03-19] MEDS ORDERED: POTASSIUM PHOSPHATE INJ 30 MMOL in SODIUM CHLOR 0.9% 250 ML INJ 250 ML IV PRN (13:45)
[2017-03-19] MEDS ORDERED: POTASSIUM PHOSPHATE MONOBASIC 500 MG TAB PO PRN (13:45)
[2017-03-19] MEDS ORDERED: POTASSIUM PHOSPHATE MONOBASIC 500 MG TAB PO/TUBE PRN (13:45)
--- NOTE | 2017-03-19 13:57 | RADRPT ---
EXAM DATE/TIME: 03/19/2017 13:23 [facility] COMPARISON: No previous studies available for comparison. INDICATIONS : Abdominal pain. Suspected GI bleed. MEDICAL HISTORY : Unobtainable. SURGICAL HISTORY : Unobtainable. ENCOUNTER: Initial ACUITY: 1 day PAIN SCORE: Non-responsive. LOCATION: Bilateral abdomen. FINDINGS: Supine view of the abdomen was performed. The abdominal bowel gas pattern is normal. No abnormal ma sses or organomegaly is seen. The osseous structures are unremarkable. Stent in the right iliac vasc ulature. Clips in the right upper quadrant. Calcifications overlie each kidney. Degenerative changes. Density in the pelvis likely distended urinary bladder. CONCLUSION: 1. Post surgical changes. 2. Possible renal calculi. 3. Density in the pelvis likely distended urinary bladder. Daniel Bhandari MD on March 19, 2017 at 13:53 Board Certified Radiologist. This report was verified electronically.
--- NOTE | 2017-03-19 13:58 | RADRPT ---
EXAM DATE/TIME: 03/19/2017 13:29 [facility] COMPARISON: No previous studies available for comparison. INDICATIONS : Central line placement and ET tube placement. MEDICAL HISTORY : Chronic obstructive pulmonary disease. SURGICAL HISTORY : CABG. ENCOUNTER: Initial ACUITY: 1 day PAIN SCORE: Non-responsive. LOCATION: Bilateral chest FINDINGS: A single view of the chest demonstrates endotracheal tube 3 cm above the haylee. Nasogastric tube tip in stomach. Right jugular central line tip in right atrium. Bibasilar densities and perihilar densit ies. Small left pleural effusion. Status post CABG.. Osseous structures are intact. CONCLUSION: 1. Adequate placement of endotracheal tube and right jugular central line. No pneumothorax. 2. Cardiomegaly with bibasilar densities and perihilar densities with small left pleural effusion. Daniel Bhandari MD on March 19, 2017 at 13:55 Board Certified Radiologist. This report was verified electronically.
--- NOTE | 2017-03-19 15:12 | PD.CONS ---
[facility] Service Critical Care Medicine Consult Requested By Dr. Santizo Reason for Consult Hypotension Primary Care Physician Geoff Bernard MD History of Present Illness This is a 81-year-old female patient that presented to the ED with shortness of breath and dry heaves. The patient has a history aortic insufficiency and severe aortic stenosis. Cardiology was consulted patient was status post cardiac catheter and aortic valvuloplasty yesterday 03/18/17. The patient was currently being worked up for a TAVR. Today the patient was noted to be on the bedside commode and became acutely hypotensive with a systolic blood pressure initially in the 80s, and reportedly unresponsive. Dr. Valderrama was notified of the event. Upon patient being placed back in the bed in supine position the patient's blood pressure increased to 95/49. Previously the systolic blood pressure had been maintained in the 130s the heart rate in the 80s. Approximately 15 minutes later, while lying supine in the bed, and receiving IV fluids the patient's systolic blood pressure was noted to be 58/30's critical care medicine was consulted for management. Upon arrival to the patient's room , the patient was awake ,alert, diaphoretic and appropriately responsive.SBP was noted to be 58, IV fluids were being infused. The patient was noted to have approximately 3-400 cc of jean marie melena. Simultaneously a left arterial line was placed which correlated with the noninvasive cuff, stat laboratory values were obtained, Phenylephrine infusion was initiated. Patient's hemoglobin was noted to drop from 13 g/dL to 8 g/dL, then 7.4g/dL. Stat type and cross was initiated with plans for transfusion of 2 units of packed cells, patient was notably on Plavix 2 units of platelets also urgently to be transfused. A right IJ central line was placed, copious melena continued approximately 700-800cc, at that point the patient was noted to begin vomiting bright red blood. Patient was then intubated for airway protection secondary to hematemesis, a second vasopressor was initiated norepinephrine at 5 mcgs. Postintubation an OGT was placed in approximately 150 cc of bright red blood was suctioned. Volume resuscitation continued .GI was stat consulted, case was discussed with Dr. Rock. A subsequent discussion was provided to family regarding patient's medical status . ROS - General Review of Systems Constitutional: COMPLAINS OF: Fatigue, DENIES: Diaphoretic episodes, Fever, Weight gain, Weight loss, Chills, Dizziness, Change in appetite Endocrine: DENIES: Abnorml menstrual pattern, Heat/cold intolerance, Polydipsia Eyes: DENIES: Blurred vision, Diplopia, Eye inflammation, Eye pain, Vision loss , Photosensitivity Ears, nose, mouth, throat: DENIES: Tinnitus, Hearing loss, Vertigo, Nasal discharge, Oral lesions, Throat pain, Hoarseness, Ear Pain, Running Nose Respiratory: COMPLAINS OF: Cough, Shortness of breath Cardiovascular: COMPLAINS OF: Dyspnea on Exertion, DENIES: Chest pain, Palpitations, Syncope, Lower Extremity Edema Gastrointestinal: COMPLAINS OF: Nausea, Vomiting, DENIES: Abdominal pain, Black stools, Bloody stools, Constipation Musculoskeletal: DENIES: Joint pain, Muscle aches, Stiffness Integumentary: DENIES: Abnormal pigmentation, Pruritus, Rash Hematologic/lymphatic: DENIES: Bruising, Lymphadenopathy Immunologic/allergic: DENIES: Eczema, Urticaria Neurologic: DENIES: Headache, Localized weakness, Paresthesias, Seizures, Speech Problems Psychiatric: DENIES: Anxiety, Confusion, Mood changes, Depression, Hallucinations, Agitation, Suicidal Ideation PFSH Past Family Social History Past Medical History AORTIC VALVE ISSUES HYPERTENSION Congestive heart failure Coronary artery disease history of CABG 5 vessels History of skin cancer Diabetes mellitus type 2 Peripheral vascular occlusive disease Peripheral vascular arterial disease Hypertension Hyperlipidemia History of cholecystectomy History of bilateral cataract surgery Hysterectomy history of kidney biopsy Arthritis: Yes Autoimmune Disease: No Anxiety: No Depression: No Heart Rhythm Problems: Yes Cancer: Yes (skin cancer) Cardiovascular Problems: Yes High Cholesterol: Yes Chemotherapy: No Chest Pain: Yes Congestive Heart Failure: Yes Cerebrovascular Accident: No Coronary Artery Disease: Yes Diabetes: Yes (Type 2) Diminished Hearing: No Endocrine: Yes Gastrointestinal Disorders: No Glaucoma: No Genitourinary: No Hepatitis: No Hiatal Hernia: No Hypertension: Yes Immune Disorder: No Musculoskeletal: Yes Neurologic: Yes Psychiatric: No Reproductive: No Respiratory: No Integumentary: No Radiation Therapy: No Renal Failure: No Sickle Cell Disease: No Thyroid Disease: Yes ?: Not Menopausal: Yes Tubal Ligation: Yes Past Surgical History Abdominal Surgery: Yes (Kidney surgery for hematuria) Cardiac Surgery: Yes (Fempop bypass in left leg & 2002 CABG x5 ) Cholecystectomy: Yes Ear Surgery: No Endocrine Surgery: No Eye Surgery: Yes (bilateral cataract removal ) Genitourinary Surgery: No Gynecologic Surgery: Yes (hysterectomy complete ) Oral Surgery: Yes (upper teeth removed) Thoracic Surgery: No Other Surgery: Yes (KIDNEY BIOSPY) AORTIC VALVE ISSUES HYPERTENSION Congestive heart failure Coronary artery disease history of CABG 5 vessels History of skin cancer Diabetes mellitus type 2 Peripheral vascular occlusive disease Peripheral vascular arterial disease Hypertension Hyperlipidemia History of cholecystectomy History of bilateral cataract surgery Hysterectomy history of kidney biopsy History of Diverticulosis Reported Medications Reported Meds & Active Scripts Active Reported Tylenol Extra Strength (Acetaminophen) 500 Mg Tablet Nortriptyline (Nortriptyline HCl) 25 Mg Cap 25 Mg PO BID K-Tab (Potassium Chloride) 10 Meq Tab 10 Meq PO DAILY Furosemide 40 Mg Tab 40 Mg PO DAILY Clopidogrel (Clopidogrel Bisulfate) 75 Mg Tab 75 Mg PO DAILY Aspirin 81 Mg Chew 81 Mg CHEW DAILY Allergies: Coded Allergies: amlodipine (Unverified Allergy, Severe, 03/17/17) atorvastatin (Unverified Allergy, Severe, 03/17/17) benazepril (Unverified Allergy, Severe, 03/17/17) captopril (Unverified Allergy, Severe, 03/17/17) diatrizoate meglumine (Unverified Allergy, Severe, 03/17/17) enalaprilat (Unverified Allergy, Severe, 03/17/17) fosinopril (Unverified Allergy, Severe, 03/17/17) gadobenic acid (Unverified Allergy, Severe, 03/17/17) gadodiamide (Unverified Allergy, Severe, 03/17/17) gadoteridol (Unverified Allergy, Severe, 03/17/17) iodixanol (Unverified Allergy, Severe, 03/17/17) iohexol (Unverified Allergy, Severe, 03/17/17) metoprolol (Unverified Allergy, Severe, 03/17/17) pravastatin (Unverified Allergy, Severe, 03/17/17) quinapril (Unverified Allergy, Severe, 03/17/17) codeine (Unverified Allergy, Intermediate, RASH, 03/17/17) gemfibrozil (Unverified Allergy, Intermediate, SEVERE JOINT PAIN, 03/17/17) lisinopril (Unverified Allergy, Intermediate, COUGH, 03/17/17) simvastatin (Unverified Allergy, Intermediate, JOINT PAIN, 03/17/17) tuberculin, purified protein deriva (Unverified Allergy, Unknown, Anaphylaxis, 03/17/17) acetaminophen (Unverified Adverse Reaction, Intermediate, NAUSEA/VOMITTING , 03/17/17) propoxyphene (Unverified Adverse Reaction, Intermediate, NAUSEA/VOMITTING , 03/17/17) adhesive (Unverified Adverse Reaction, Unknown, 03/17/17) Uncoded Allergies: DYE (Allergy, Intermediate, HIVES, 03/15/17) Active Ordered Medications Current Medications Sodium Chloride (NS Flush) 2 ml UNSCH PRN IVF FLUSH AFTER USING IV ACCESS; Start 03/17/17 at 09:45 Dextrose (D50w (Vial) Inj) 50 ml UNSCH PRN IV HYPOGLYCEMIA-SEE COMMENTS; Start 03/17/17 at 13:00; Status UNV Glucagon (Glucagon Inj) 1 mg UNSCH PRN OTHER HYPOGLYCEMIA-SEE COMMENTS; Start 03/17/17 at 13:00; Status UNV Insulin Aspart (NovoLOG SUPPLEMENTAL SCALE) 1 ACHS SLIDING SCALE SQ ; Start at 16:00; Status UNV Furosemide (Lasix) 40 mg DAILY PO ; Start 03/18/17 at 09:00; Status UNV Nortriptyline HCl (Pamelor) 25 mg BID PO ; Start 03/17/17 at 21:00; Status UNV Potassium Chloride (KCl) 10 meq DAILY PO ; Start 03/18/17 at 09:00; Status UNV Sodium Chloride (NS Flush) 2 ml UNSCH PRN IV FLUSH FLUSH AFTER USING IV ACCESS ; Start 03/17/17 at 13:00; Status UNV Sodium Chloride (NS Flush) 2 ml BID IV FLUSH ; Start 03/17/17 at 21:00; Status UNV Ondansetron HCl (Zofran Inj) 4 mg Q6H PRN IVP NAUSEA OR VOMITING; Start at 13:00; Status UNV Prochlorperazine (Compazine Supp) 25 mg Q12H PRN ND NAUSEA OR VOMITING; Start 03/17/17 at 13:00; Status UNV Morphine Sulfate (Morphine Inj) 2 mg Q3H PRN IV Pain 3-5; if unable to take PO ; Start 03/17/17 at 13:00; Status UNV Morphine Sulfate (Morphine Inj) 4 mg Q3H PRN IV Pain 6-10;if unable to take PO ; Start 03/17/17 at 13:00; Status UNV Tramadol HCl (Ultram) 50 mg Q4H PRN PO PAIN SCALE 3 TO 5; Start 03/17/17 at 13: 00; Status UNV Tramadol HCl (Ultram) 100 mg Q4H PRN PO PAIN SCALE 6 TO 10; Start 03/17/17 at 13:00; Status UNV Naloxone HCl (Narcan Inj) 0.4 mg UNSCH PRN IV SEE LABEL COMMENTS; Start at 13:00; Status UNV Senna/Docusate Sodium (Maura-Colace) 1 tab BID PO ; Start 03/17/17 at 21:00; Status UNV Magnesium Hydroxide (Milk Of Magnesia Liq) 30 ml Q12H PRN PO MILD - MODERATE CONSTIPATION; Start 03/17/17 at 13:00; Status UNV Sennosides (Senokot) 17.2 mg Q12H PRN PO MODERATE - SEVERE CONSTIPATION; Start 03/17/17 at 13:00; Status UNV Bisacodyl (Dulcolax Supp) 10 mg DAILY PRN RECTAL SEVERE CONSITIPATION; Start at 13:00; Status UNV Lactulose (Lactulose Liq) 30 ml DAILY PRN PO SEVERE CONSITIPATION; Start at 13:00; Status UNV Aspirin (Aspirin Chew) 81 mg DAILY CHEW ; Start 03/18/17 at 09:00; Status UNV Clopidogrel Bisulfate (Plavix) 75 mg DAILY PO ; Start 03/18/17 at 09:00; Status UNV Family History Heart disease Social History dENIES ANY TOBACCO OCCASIONAL ALCOHOLIC BEVERAGE Past Family Social History Allergies: Coded Allergies: amlodipine (Unverified Allergy, Severe, 03/17/17) atorvastatin (Unverified Allergy, Severe, 03/17/17) benazepril (Unverified Allergy, Severe, 03/17/17) captopril (Unverified Allergy, Severe, 03/17/17) diatrizoate meglumine (Unverified Allergy, Severe, 03/17/17) enalaprilat (Unverified Allergy, Severe, 03/17/17) fosinopril (Unverified Allergy, Severe, 03/17/17) gadobenic acid (Unverified Allergy, Severe, 03/17/17) gadodiamide (Unverified Allergy, Severe, 03/17/17) gadoteridol (Unverified Allergy, Severe, 03/17/17) iodixanol (Unverified Allergy, Severe, 03/17/17) iohexol (Unverified Allergy, Severe, 03/17/17) metoprolol (Unverified Allergy, Severe, 03/17/17) pravastatin (Unverified Allergy, Severe, 03/17/17) quinapril (Unverified Allergy, Severe, 03/17/17) codeine (Unverified Allergy, Intermediate, RASH, 03/17/17) gemfibrozil (Unverified Allergy, Intermediate, SEVERE JOINT PAIN, 03/17/17) lisinopril (Unverified Allergy, Intermediate, COUGH, 03/17/17) simvastatin (Unverified Allergy, Intermediate, JOINT PAIN, 03/17/17) tuberculin, purified protein deriva (Unverified Allergy, Unknown, Anaphylaxis, 03/17/17) acetaminophen (Unverified Adverse Reaction, Intermediate, NAUSEA/VOMITTING , 03/17/17) propoxyphene (Unverified Adverse Reaction, Intermediate, NAUSEA/VOMITTING , 03/17/17) adhesive (Unverified Adverse Reaction, Unknown, 03/17/17) Uncoded Allergies: DYE (Allergy, Intermediate, HIVES, 03/15/17) Physical Exam Vital Signs Vital Signs Date Time Temp Pulse Resp B/P Pulse Ox O2 Delivery O2 Flow Rate FiO2 03/19/17 13:54 96 50 03/19/17 13:15 95 100 03/19/17 11:30 98.1 99 18 158/77 96 03/19/17 08:30 95 Nasal Cannula 4.00 03/19/17 07:59 96 Nasal Cannula 2.00 03/19/17 07:57 98.1 99 18 158/77 96 03/19/17 07:00 92 03/19/17 03:07 93 03/19/17 03:04 97.4 84 18 152/80 95 03/19/17 03:04 95 Nasal Cannula 2.00 03/19/17 00:10 81 03/18/17 23:15 88 18 131/73 97 03/18/17 23:15 97 Nasal Cannula 2.00 03/18/17 21:33 97 Nasal Cannula 2.00 03/18/17 19:30 98.1 89 20 154/79 97 03/18/17 19:30 97 Nasal Cannula 2.00 03/18/17 19:00 101 03/18/17 18:00 98.6 99 18 147/82 97 03/18/17 18:00 97 Nasal Cannula 2.00 03/18/17 18:00 87 Physical Exam GENERAL: This is a well-developed well-nourished elderly female, diaphoretic in mild distress with complaints of abdominal pain. SKIN: Cool and diaphoretic HEAD: Atraumatic. Normocephalic. EYES: Pupils equal and round. No scleral icterus. No injection or drainage. ENT: No nasal bleeding or discharge. Mucous membranes pink and moist. NECK: Trachea midline. No JVD. CARDIOVASCULAR: Normal rate, regular rhythm. RESPIRATORY: No accessory muscle use. Clear to auscultation. Breath sounds equal bilaterally. GASTROINTESTINAL: Abdomen soft, non-tender, nondistended. No guarding. MUSCULOSKELETAL: Extremities without clubbing, cyanosis, or edema. No obvious deformities. NEUROLOGICAL: Awake and alert. RASS 0. No gross focal/sensory deficits. Follows commands in all 4 extremities. Laboratory Laboratory Tests Test 03/19/17 03/19/17 03/19/17 05:00 12:25 13:22 White Blood Count 14.4 16.3 Red Blood Count 4.49 2.81 Hemoglobin 13.4 8.1 Hematocrit 40.4 25.1 Mean Corpuscular Volume 89.8 89.1 Mean Corpuscular Hemoglobin 29.9 28.9 Mean Corpuscular Hemoglobin 33.3 32.4 Concent Red Cell Distribution Width 16.1 15.9 Platelet Count 306 263 Mean Platelet Volume 7.7 7.6 Neutrophils (%) (Auto) 87.0 88.1 Lymphocytes (%) (Auto) 5.0 5.0 Monocytes (%) (Auto) 7.8 6.7 Eosinophils (%) (Auto) 0.1 0.0 Basophils (%) (Auto) 0.1 0.2 Neutrophils # (Auto) 12.5 14.3 Lymphocytes # (Auto) 0.7 0.8 Monocytes # (Auto) 1.1 1.1 Eosinophils # (Auto) 0.0 0.0 Basophils # (Auto) 0.0 0.0 CBC Comment DIFF FINAL DIFF FINAL Differential Comment Prothrombin Time 11.6 13.4 Prothromb Time International 1.0 1.2 Ratio Sodium Level 142 145 Potassium Level 3.7 3.7 Chloride Level 105 111 Carbon Dioxide Level 26.2 23.3 Anion Gap 11 11 Blood Urea Nitrogen 47 52 Creatinine 1.35 1.18 Estimat Glomerular Filtration 38 44 Rate Random Glucose 156 135 Calcium Level 9.0 6.8 Phosphorus Level 4.7 3.4 Magnesium Level 2.6 1.9 Total Bilirubin 0.9 Aspartate Amino Transf 23 (AST/SGOT) Alanine Aminotransferase 22 (ALT/SGPT) Alkaline Phosphatase 100 Total Creatine Kinase 101 Total Protein 6.3 3.8 Albumin 3.1 Triglycerides Level 118 Cholesterol Level 156 LDL Cholesterol 91 HDL Cholesterol 41.2 Cholesterol/HDL Ratio 3.78 Activated Partial 22.2 Thromboplast Time Fibrinogen 208 Lactic Acid Level 2.4 Protein Corrected Calcium 8.6 Blood Type O NEGATIVE Antibody Screen NEGATIVE Crossmatch Leukocyte-Reduced Red Blood Cells Blood Bank Comment Date/Time Procedure Status Source Growth 03/19/17 12:00 Stool Occult Blood (MARIANO) Received Stool Stool Pending Result Diagram: 03/19/17 1225 03/19/17 1225 Imaging Last Impressions Chest X-Ray 03/17/17 0944 Signed Impressions: Service Date/Time: March 09:56 - CONCLUSION: 1. Interval improvement in bilateral pulmonary infiltrates with only mild residual. 2. Left effusion remains. Ronal Walton MD Septic Shock Reassessment Heart: Regular rate and rhythm Lungs: Clear Peripheral Pulses: Weak Right Radial Weak Left Radial Assessment and Plan Assessment and Plan ASSESSMENT Acute blood loss anemia Hypotension Probable Upper GI bleed Hematemesis Melena History of diverticulosis Aortic insufficiency Status post cardiac catheter with valvuloplasty POD #1 CAD H/O CABG x 5 2003 Leukocytosis-most likely reactive PLAN Neurologic: Patient intubated for airway protection secondary to hematemesis 7.5 ETT Fentanyl infusion for sedation and ventilator synchrony (Sedation vacation when clinically indicatedhemodynamically stable Neurochecks per ICU protocol-postintubation patient moving extremities 4 sitting up in bed attempting to remove endotracheal tube noted Respiratory: Ventilator bundle Follow-up chest x-ray Bronchodilators every 6 hours scheduled, every 2 hours when necessary Mechanical ventilation- AC 14/500/5/.50 F/U pending ABG Begin CPAP trials when clinically indicated Cardiovascular: Cardiology following Dr. Stevens management post left heart catheterization, aortic Valvuloplasty per cardiology Maintain MAP greater than 65 mmHg. Patient currently on 2.5 mcgs norepinephrine , phenylephrine at 250 mcgs, continue to wean Hold Plavix and ASA in the setting of acute blood loss Hold antihypertensive medications in the setting of hypotension Renal: Insert Garnett -- Strict I/Os FEN/GI: The patient was bolused with 1500 cc for volume resuscitation Monitor BMP Replete electrolytes per ICU protocol Maintain NPO status Maintain OGT to LIWS GI consulted- Dr. Rock plan for upper endoscopy this afternoon, and possibly lower GI and /or bleeding scan NS 42cc/hr Heme/ID: Notably hemoglobin decreased from 13g/dL ->8.1g/dL->7.4 g/dL Monitor H&H every 6 hours Transfuse 2 units PRBC's now and 2 units of platelets in the setting of Plavix use Maintain hemoglobin greater than 10mg/dL Hold aspirin and Plavix Endocrine: Glucose monitoring ICU protocol -- SSI Prophylaxis: GI Prophylaxis Protonix -GI following, Infusion initiated DVT Prophylaxis No pharmacological DVT prophylaxis in the setting of acute blood loss anemia indicated -- SCDs Lines: Peripheral IVs 2. Right IJ central line (03/19), left radial a line (03/19) Dispo: Patient is critically ill , and has significant acute blood loss anemia with symptomatic hypotension requiring volume resuscitation and vasopressor support. This patient remains critically ill with one or more organ systems which are or may become a threat to life. I have spent in excess of 50 minutes discontinuously in the care and management of this patient. This time is exclusive of procedures, and includes, but is not limited to, evaluation of the patient, review of the medical record, discussions with family, consultants, nursing staff, or respiratory therapy, and documentation in the medical record. Code Status Full Discussed Condition With The patient's children(both son and daughter) Anna Marie [id number], Dr. Rock, Lali LOPEZ, Dr. Stevens and MOTOR BOSS at bedside. Florina Sahni MD Mar 19, 2017 15:12
[2017-03-19] MEDS ORDERED: RESP: ALBUTEROL 2.5 MG/IPRATROPIUM 0.5 MG NEB (PRN) NEB (15:15)
--- NOTE | 2017-03-19 15:21 | PD.CONS ---
HPI History of Present Illness This is a 81 year old female with severe aortic stenosis (not a surgical candidate for AVR or MVR), who was in the process of being worked up for a TAVR , when she presented to the ER for evaluation of shortness of breath with palpitations. She was evaluated by cardiology who recommended an aortic balloon valvuloplasty, in hopes that her symptoms would improve enough that she could tolerate a TAVR. She underwent left heart catheterization, coronary bypass graft angiography, aortic valvuloplasty, temporary transvenous pacemaker placement (03/18/17)----> severe aortic valve stenosis, severe stenosis of the saphenous vein graft to the obtuse marginal branch, elevated left sided filling pressures, successfully utilization of temporary transvenous pacemaker, successful aortic valve valvuloplasty, successful percutaneous intervention with balloon angioplasty of the saphenous vein graft to the obtuse marginal branch. This morning, she had a brief period of unresponsiveness with hypotension while trying to have a bowel movement. She was assisted back to bed and her b/p improved. Throughout the day, the nurse reports that she has complained a few times that she had the urge to move her bowels. She also complained of some nausea. She passed a large melanotic (dark red) stool and became hypotensive and short of breath. CCM was consulted and she required intubation with mechanical ventilation. An OGT was placed and is draining a small amount of jean marie red blood. Her Hgb dropped from 13.4/40.4 this am to 8.1/ 25.1. 2 units of PRBC and 2 units of platelets was ordered. GI has been consulted for further evaluation. She is currently stable on the ventilator. She is draining a small amount of jean marie red blood from the OGT. She passed another melanotic stool while I was in the room. I spoke to her daughter at the bedside and they state that she had a diverticular bleed about 10 years ago , but has never had a bleeding ulcer that they are aware of. D/W family EGD- procedure, risks, benefits and they would like to proceed. Of note, she is on Plavix and ASA. (Sanjuanita Davila) PFSH Past Medical History Severe aortic stenosis Hypertension Congestive heart failure Coronary artery disease history of CABG 5 vessels History of skin cancer Diabetes mellitus type 2 Peripheral vascular occlusive disease Peripheral vascular arterial disease Hypertension Hyperlipidemia Diverticular bleed 10 years ago Past Surgical History Cholecystectomy Bilateral cataract surgery Hysterectomy Renal biopsy Fempop bypass in left leg CABG x5 Teeth extraction (Sanjuanita Davila) Coded Allergies: amlodipine (Unverified Allergy, Severe, 03/17/17) atorvastatin (Unverified Allergy, Severe, 03/17/17) benazepril (Unverified Allergy, Severe, 03/17/17) captopril (Unverified Allergy, Severe, 03/17/17) diatrizoate meglumine (Unverified Allergy, Severe, 03/17/17) enalaprilat (Unverified Allergy, Severe, 03/17/17) fosinopril (Unverified Allergy, Severe, 03/17/17) gadobenic acid (Unverified Allergy, Severe, 03/17/17) gadodiamide (Unverified Allergy, Severe, 03/17/17) gadoteridol (Unverified Allergy, Severe, 03/17/17) iodixanol (Unverified Allergy, Severe, 03/17/17) iohexol (Unverified Allergy, Severe, 03/17/17) metoprolol (Unverified Allergy, Severe, 03/17/17) pravastatin (Unverified Allergy, Severe, 03/17/17) quinapril (Unverified Allergy, Severe, 03/17/17) codeine (Unverified Allergy, Intermediate, RASH, 03/17/17) gemfibrozil (Unverified Allergy, Intermediate, SEVERE JOINT PAIN, 03/17/17) lisinopril (Unverified Allergy, Intermediate, COUGH, 03/17/17) simvastatin (Unverified Allergy, Intermediate, JOINT PAIN, 03/17/17) tuberculin, purified protein deriva (Unverified Allergy, Unknown, Anaphylaxis, 03/17/17) acetaminophen (Unverified Adverse Reaction, Intermediate, NAUSEA/VOMITTING , 03/17/17) propoxyphene (Unverified Adverse Reaction, Intermediate, NAUSEA/VOMITTING , 03/17/17) adhesive (Unverified Adverse Reaction, Unknown, 03/17/17) Uncoded Allergies: DYE (Allergy, Intermediate, HIVES, 03/15/17) Medications Allergies Coded Allergies Type Severity Reaction Last Updated Verified amlodipine Allergy Severe 03/17/17 No atorvastatin Allergy Severe 03/17/17 No benazepril Allergy Severe 03/17/17 No captopril Allergy Severe 03/17/17 No diatrizoate meglumine Allergy Severe 03/17/17 No enalaprilat Allergy Severe 03/17/17 No fosinopril Allergy Severe 03/17/17 No gadobenic acid Allergy Severe 03/17/17 No gadodiamide Allergy Severe 03/17/17 No gadoteridol Allergy Severe 03/17/17 No iodixanol Allergy Severe 03/17/17 No iohexol Allergy Severe 03/17/17 No metoprolol Allergy Severe 03/17/17 No pravastatin Allergy Severe 03/17/17 No quinapril Allergy Severe 03/17/17 No codeine Allergy Intermediate RASH 03/17/17 No gemfibrozil Allergy Intermediate SEVERE JOINT PAIN 03/17/17 No lisinopril Allergy Intermediate COUGH 03/17/17 No simvastatin Allergy Intermediate JOINT PAIN 03/17/17 No tuberculin, purified protein deriva Allergy Unknown Anaphylaxis 03/17/17 No acetaminophen Adverse Reaction Intermediate NAUSEA/VOMITTING 03/17/17 No propoxyphene Adverse Reaction Intermediate NAUSEA/VOMITTING 03/17/17 No adhesive Adverse Reaction Unknown 03/17/17 No Uncoded Allergies Type Severity Reaction Last Updated Verified DYE Allergy Intermediate HIVES 03/15/17 Active Scripts Medications Dose Route/Sig Days Date Category Tylenol Extra Strength (Acetaminophen) 500 Mg Tablet 02/28/17 Reported Nortriptyline (Nortriptyline HCl) 25 Mg Cap 25 Mg PO BID 02/28/17 Reported K-Tab (Potassium Chloride) 10 Meq Tab 10 Meq PO DAILY 02/28/17 Reported Furosemide 40 Mg Tab 40 Mg PO DAILY 02/28/17 Reported Clopidogrel (Clopidogrel Bisulfate) 75 Mg Tab 75 Mg PO DAILY 02/28/17 Reported Aspirin 81 Mg Chew 81 Mg CHEW DAILY 02/28/17 Reported Family History Family hx of heart disease Social History No tobacco use, occasional ETOH use (Sanjuanita Davila) Review of Systems ROS Unable to obtain. Large melanotic stool, jean marie red blood from OGT (Sanjuanita Davila) GI Exam Vitals I&O Vital Signs Date Time Temp Pulse Resp B/P Pulse Ox O2 Delivery O2 Flow Rate FiO2 03/19/17 13:54 96 50 03/19/17 13:15 95 100 03/19/17 11:30 98.1 99 18 158/77 96 03/19/17 08:30 95 Nasal Cannula 4.00 03/19/17 07:59 96 Nasal Cannula 2.00 03/19/17 07:57 98.1 99 18 158/77 96 03/19/17 07:00 92 03/19/17 03:07 93 03/19/17 03:04 97.4 84 18 152/80 95 03/19/17 03:04 95 Nasal Cannula 2.00 03/19/17 00:10 81 03/18/17 23:15 88 18 131/73 97 03/18/17 23:15 97 Nasal Cannula 2.00 03/18/17 21:33 97 Nasal Cannula 2.00 03/18/17 19:30 98.1 89 20 154/79 97 03/18/17 19:30 97 Nasal Cannula 2.00 03/18/17 19:00 101 03/18/17 18:00 98.6 99 18 147/82 97 03/18/17 18:00 97 Nasal Cannula 2.00 03/18/17 18:00 87 I/O 03/18/17 03/18/17 03/18/17 03/19/17 03/19/17 03/19/17 06:59 14:59 22:59 06:59 14:59 22:59 Intake Total 486 ml 120 ml 300 ml Output Total 200 ml 0 ml 775 ml Balance 286 ml 120 ml -475 ml Intake Oral 360 ml 120 ml 300 ml IV Total 126 ml Output Urine Total 200 ml 0 ml 775 ml # Bowel Movements 3 0 0 Imaging Last Impressions Abdomen X-Ray 03/19/17 1231 Signed Impressions: Service Date/Time: Sunday, March 19, 2017 13:23 - CONCLUSION: 1. Post surgical changes. 2. Possible renal calculi. 3. Density in the pelvis likely distended urinary bladder. Daniel Bhandari MD Chest X-Ray 03/19/17 0000 Signed Impressions: Service Date/Time: Sunday, March 19, 2017 13:29 - CONCLUSION: 1. Adequate placement of endotracheal tube and right jugular central line. No pneumothorax. 2. Cardiomegaly with bibasilar densities and perihilar densities with small left pleural effusion. Daniel Bhandari MD Laboratory Test 03/19/17 03/19/17 03/19/17 03/19/17 05:00 12:25 13:22 14:13 White Blood Count 14.4 TH/MM3 16.3 TH/MM3 Red Blood Count 4.49 MIL/MM3 2.81 MIL/MM3 Hemoglobin 13.4 GM/DL 8.1 GM/DL Hematocrit 40.4 % 25.1 % Mean Corpuscular Volume 89.8 FL 89.1 FL Mean Corpuscular Hemoglobin 29.9 PG 28.9 PG Mean Corpuscular Hemoglobin 33.3 % 32.4 % Concent Red Cell Distribution Width 16.1 % 15.9 % Platelet Count 306 TH/MM3 263 TH/MM3 Mean Platelet Volume 7.7 FL 7.6 FL Neutrophils (%) (Auto) 87.0 % 88.1 % Lymphocytes (%) (Auto) 5.0 % 5.0 % Monocytes (%) (Auto) 7.8 % 6.7 % Eosinophils (%) (Auto) 0.1 % 0.0 % Basophils (%) (Auto) 0.1 % 0.2 % Neutrophils # (Auto) 12.5 TH/MM3 14.3 TH/MM3 Lymphocytes # (Auto) 0.7 TH/MM3 0.8 TH/MM3 Monocytes # (Auto) 1.1 TH/MM3 1.1 TH/MM3 Eosinophils # (Auto) 0.0 TH/MM3 0.0 TH/MM3 Basophils # (Auto) 0.0 TH/MM3 0.0 TH/MM3 CBC Comment DIFF FINAL DIFF FINAL Differential Comment Prothrombin Time 11.6 SEC 13.4 SEC Prothromb Time International 1.0 RATIO 1.2 RATIO Ratio Sodium Level 142 MEQ/L 145 MEQ/L Potassium Level 3.7 MEQ/L 3.7 MEQ/L Chloride Level 105 MEQ/L 111 MEQ/L Carbon Dioxide Level 26.2 MEQ/L 23.3 MEQ/L Anion Gap 11 MEQ/L 11 MEQ/L Blood Urea Nitrogen 47 MG/DL 52 MG/DL Creatinine 1.35 MG/DL 1.18 MG/DL Estimat Glomerular Filtration 38 ML/MIN 44 ML/MIN Rate Random Glucose 156 MG/DL 135 MG/DL Calcium Level 9.0 MG/DL 6.8 MG/DL Phosphorus Level 4.7 MG/DL 3.4 MG/DL Magnesium Level 2.6 MG/DL 1.9 MG/DL Total Bilirubin 0.9 MG/DL Aspartate Amino Transf 23 U/L (AST/SGOT) Alanine Aminotransferase 22 U/L (ALT/SGPT) Alkaline Phosphatase 100 U/L Total Creatine Kinase 101 U/L Total Protein 6.3 GM/DL 3.8 GM/DL Albumin 3.1 GM/DL Triglycerides Level 118 MG/DL Cholesterol Level 156 MG/DL LDL Cholesterol 91 MG/DL HDL Cholesterol 41.2 MG/DL Cholesterol/HDL Ratio 3.78 RATIO Activated Partial 22.2 SEC Thromboplast Time Fibrinogen 208 mg/dL Lactic Acid Level 2.4 mmol/L Protein Corrected Calcium 8.6 MG/DL Blood Type O NEGATIVE Antibody Screen NEGATIVE Crossmatch Leukocyte-Reduced Leukocyte-Reduced Red Blood Red Blood Cells Cells Blood Bank Comment Date/Time Procedure Status Source Growth 03/19/17 12:00 Stool Occult Blood (MARIANO) Received Stool Stool Pending Physical Examination HEENT: Normocephalic; atraumatic CHEST: Resp even/unlabored, OETT to vent. Diminished breath sounds CARDIAC: Regular, bradycardia. Systolic murmur ABDOMEN: Soft, nondistended,no hepatosplenomegaly; bowel sounds are present in all four quadrants. OGT with jean marie red blood, Melanotic stool- dark red/brown EXTREMITIES: No clubbing, cyanosis, or edema. SKIN: Generalized pallor, cool to touch UMBRELLA CUTTER: Sedated on ventilator (Sanjuanita Davila) Assessment and Plan Plan ASSESSMENT: - Upper GI Bleed with jean marie red blood from OGT and melanotic stool. Pt with severe aortic stenosis, s/p valvuloplasty; CAD on Plavix/ASA. Became unstable after passing melanotic stool, required emergent intubation. HH dropped from 13.4/40.4 this am to 8./25.1. 2 units of PRBC and 2 units of platelets was ordered. Spoke to daughter regarding EGD- procedure, risk, benefit and they would like to proceed. She does have a history of a diverticular bleed about 10 years ago. Suspect upper gi bleeding with jean marie red blood from OGT. EGD today. NPO. Protonix Gtt. Of note patient has a contrast allergy. - Anemia due to acute blood loss. HH dropped from 13.4/40.4 this am to 8.1/ 25.1. In process of getting 2 units of PRBC, 2 units of platelets was ordered. - Syncopal episode this am while trying to have a bowel movement, cardiology following, likely vasovagal. - Acute respiratory failure. S/P Intubation/mechanical ventilation - Leukocytosis. WBC 16.3 - ANURAG, Creat 1.18 - Severe aortic stenosis, not a surgical candidate for AVR/MVR. Was being worked up for TAVR when she became more symptomatic. 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 Goal is to get better control of her symptoms so that she could tolerate TAVR. Cardiology following. - CAD, CHF, PAD, Hyperlipidemia per cardiology - DM per attending. - Of note, patient has multiple drug allergies including a contrast allergy PLAN: - Plan for EGD - Obtain consents - NPO - Protonix Gtt - Agree with transfusion - H&H q6h - Transfuse as necessary - CBC, BMP in am - Consider bleeding scan if EGD negative - Patient has contrast allergy - Further recommendations as far as the plavix/asa after EGD - Pt seen and examined by Dr. Rock and myself and this note is written on his behalf (Sanjuanita Davila) Physician Comments Seen and examined, plan as above, will schedule EGD JU for UGI bleeding. further recommendations to follow. (Renee Rock MD) Sanjuanita Davila Mar 19, 2017 15:21 Renee Rock MD Mar 19, 2017 16:24
[2017-03-19 15:45] LABS: BLOOD GAS BASE EXCESS -3.1 mmol/L (-2-2); BLOOD GAS HCO3 21 mmol/L (22-26); BLOOD GAS METHEMOGLOBIN 1.3 % (0-2); BLOOD GAS O2 HGB SATURATION 97 % (90-100); BLOOD GAS OXYGEN CONTENT 12.2 Vol % (12.0-20.0); BLOOD GAS PCO2 37 mmHg (38-42); BLOOD GAS PO2 253 mmHg (61-120); BLOOD GAS TOTAL HGB 8.5 G/DL (12.0-16.0); CRITICAL VALUE NO; DRAW SITE ART LINE; OXYGEN DEVICE VENTILATOR; STAT NO; TEMP CORR TO 98.6; VENT SETTINGS A/C14/500/+5PEEP
[2017-03-19 15:46] LABS: FIO2 50 %
[2017-03-19] MEDS ORDERED: NOREPINEPHRINE 4 MG/D5W 250 ML IV SCH (16:00)
--- NOTE | 2017-03-19 16:11 | EKG ---
Date Performed: 03/19/2017 Time Performed: 05:10:04 PTAGE: 81 years EKG: Sinus rhythm . Left ventricular hypertrophy Inferior/lateral ST-T changes are probably due to ventricular hypertro phy Abnormal ECG PREVIOUS TRACING : 03/18/2017 17.56 Since previous tracing, no significant change noted DOCTOR: Galdino Portillo Interpretating Date/Time 03/19/2017 16:11:13
--- NOTE | 2017-03-19 16:11 | EKG ---
Date Performed: 03/18/2017 Time Performed: 17:56:26 PTAGE: 81 years EKG: Sinus rhythm . Left ventricular hypertrophy Inferior/lateral T wave changes are probably due to ventricular hypert rophy Abnormal ECG PREVIOUS TRACING : 03/17/2017 09.21 Since previous tracing, no significant change noted DOCTOR: Galdino Portillo Interpretating Date/Time 03/19/2017 16:11:00
--- NOTE | 2017-03-19 16:12 | EKG ---
Date Performed: 03/19/2017 Time Performed: 11:33:08 PTAGE: 81 years EKG: Sinus rhythm Biventricular hypertrophy Extensive ST-T changes may be due to hypertrophy and/or ischemia Abnormal ECG PREVIOUS TRACING : 03/19/2017 05.10 Since previous tracing, no significant change noted DOCTOR: Galdino Portillo Interpretating Date/Time 03/19/2017 16:11:28
[2017-03-19] MEDS ORDERED: TERBUTALINE INJ 1 MG/ML AMP SQ PRN (16:15)
--- NOTE | 2017-03-19 16:17 | GIPROC ---
[facility] [address] [facility]. [facility] [place], [address] EGD PROCEDURE REPORT EXAM DATE: 03/19/2017 PATIENT NAME: Alpa Jansen MR #: [id number] BIRTHDATE: 1935 ATTENDING: Renee Rock MD ORDER #: [id number] MASTER COSMETOLOGIST: Jeremiah Bryan and Rubi Hansen STATUS: inpatient INDICATIONS: The patient is a 81 yr old female here for an EGD due to hematemesis and hematochezia PROCEDURE PERFORMED: EGD, diagnostic MEDICATIONS: Per Anesthesia and None. TOPICAL ANESTHETIC: none CONSENT: The patient understands the risks and benefits of the procedure and understands that these risks include, but are not limited to: sedation, allergic reaction, infection, perforation and/or bleeding. Alternative means of evaluation and treatment include, among others: physical exam, x-rays, and/or surgical intervention. The patient elects to proceed with this endoscopic procedure. medical equipment was checked for proper function. Hand hygiene and appropriate measures for infection prevention was taken. After the risks, benefits and alternatives of the procedure were thoroughly explained, Informed consent was verified, confirmed and timeout was successfully executed by the treatment team. The patient was anesthetized with topical anesthesia and the Pentax EG-[id number] endoscope was introduced through the mouth and advanced to the second portion of the duodenum. Retroflexion was performed and was normal The gastroscope was then slowly withdrawn and removed. ESOPHAGUS: The esophagus was otherwise normal. STOMACH: Ulcerated nasogastric tube trauma was evident in the gastric body. Large Clot adherent to gastric body, no active bleeding or spurting blood seen. DUODENUM: The duodenal mucosa appeared normal in the bulb and second portion of the duodenum. ADVERSE EVENTS: There were no complications. IMPRESSIONS: 1. The esophagus was otherwise normal 2. Nasogastric tube trauma was evident in the gastric body 3. Large Clot adherent to gastric body, no active bleeding or spurting blood seen 4. Normal duodenal mucosa in the bulb and second portion of the duodenum 5. Retroflexion was performed and was normal RECOMMENDATIONS: Continue PPI PATIENT CONDITION: stable DISPOSITION: Observation REPEAT EXAM: Return 1 day EGD Renee Rock MD eSigned: Renee Rock MD 03/19/2017 4:16 PM cc: PATIENT NAME: Alpa Jansen MR#: [id number]
[2017-03-19] MEDS: PANTOPRAZOLE INJ 80 MG in SODIUM CHLORIDE 0.9% INJ 100 ML IV SCH (16:28)
[2017-03-19] MEDS: SODIUM CHLOR 0.9% 1000 ML INJ 1,000 ML IV SCH (16:30)
[2017-03-19 16:56] LABS: HEMATOCRIT 25.6 % (35.0-46.0); MEAN CELL VOLUME 86.5 FL (80.0-100.0); MEAN CORPUSCULAR HEMOGLOBIN 28.8 PG (27.0-34.0); MEAN CORPUSCULAR HGB CONC 33.3 % (32.0-36.0); PLATELET COUNT 252 TH/MM3 (150-450); RED BLOOD COUNT 2.96 MIL/MM3 (4.00-5.30); RED CELL DISTRIBUTION WIDTH 16.6 % (11.6-17.2); REVIEW FLAG FINAL; WHITE BLOOD COUNT 27.7 TH/MM3 (4.0-11.0)
[2017-03-19] MEDS: RESP: ALBUTEROL 2.5 MG/IPRATROPIUM 0.5 MG NEB (SCH) NEB ×2 (17:29→22:28)
--- NOTE | 2017-03-19 18:33 | PD.PROCEDR ---
Procedure Note Procedure Procedure: Arterial Line Placement Left radial Diagnosis: Severe hypotension, acute blood loss anemia Indications: Severe hypotension, acute blood loss anemia Consent: Emergent Description of the Procedure: The left radial was prepped and draped sterilely. 1% lidocaine was used for local anesthesia. The pulse was located and a needle was advanced into the artery. A 20-gauge gauge, 1.34 cm catheter was advanced into the artery using a modified Seldinger technique. The catheter was sutured to the skin and a sterile dressing was applied. The catheter was connected to a pressure transducer and an arterial waveform was noted. There were no immediate complications noted. There was minimal EBL. I personally performed the procedure. Florina Sahni MD Mar 19, 2017 18:33
--- NOTE | 2017-03-19 18:35 | PD.PROCEDR ---
Procedure Note Procedure Endotracheal Intubation Diagnosis: Hematemesis/ Aspiration Indications: Hematemesis, aspiration Consent: Emergent Anesthesia: see MAR Description of the Procedure: The patient was positioned in the sniffing position. Pre-oxygenation was performed using a 100% BVM. Anesthesia was induced via rapid sequence. A Mac 3 was used for laryngoscopy and a Grade 1 view was obtained. A 7.5cuffed endotracheal tube was inserted atraumatically through the vocal cords. Confirmation of correct endotracheal tube placement was made by equal and bilateral breath sounds and colorimetric CO2 detection. The endotracheal tube was secured at 23 cm at the teeth. There were no immediate complications noted. The patient remained hemodynamically stable throughout the procedure. A chest x-ray has been ordered. I personally performed the procedure. Florina Sahni MD Mar 19, 2017 18:35
--- NOTE | 2017-03-19 18:36 | PD.PROCEDR ---
Central Line Procedure REASON FOR PROCEDURE Central venous access PROCEDURE PERFORMED Central line placement: Right internal jugular CONSENT Informed consent for procedure was obtained emergent. The risks and benefits of the procedure were discussed to include but limited to bleeding, clot formation, infection, and even . ANESTHESIA Local injection of 1% Lidocaine DESCRIPTION OF THE PROCEDURE The patient was placed in supine, mild Trendelenburg position. The area was exposed and cleansed with ChloraPrep, times two. Large sterile drape was used to cover the patient, with the site exposed, under sterile conditions including cap, face mask, sterile gown, and sterile gloves. On single attempt, the introducer needle was inserted with negative pressure in syringe and venous flash was obtained. The guide wire was then advanced without any restriction and the needle was removed. The dilator was used without any complications. Using Seldinger technique the 7 [place] catheter was advanced over the guide wire to a depth of 17 centimeters. The guide wire was removed. All ports were aspirated with dark venous blood return and flushed easily with sterile saline. All ports were capped. Antibiotic disc was placed around central line at puncture site. The central line was secured to the skin with two interrupted 2.0 silk sutures. The area was bandaged with sterile see-through central line bandage. RADIOLOGICAL DATA Ultrasound guidance was used to locate right IJ. Doppler/color flow was used to confirm venous flow. COMPLICATIONS: No apparent complications ESTIMATED BLOOD LOSS: Less than 1 cc. Florina Sahni MD Mar 19, 2017 18:36
[2017-03-19] MEDS: CHLORHEXIDINE 0.12% (ORAL KIT) 15 ML CUP MT SCH (20:33)
[2017-03-19] MEDS: PHENYLEPHRINE 40 MG/D5W 496 ML ADMIX IV SCH ×2 (20:34)
[2017-03-19 21:37] LABS: HEMATOCRIT 35.4 % (35.0-46.0); REVIEW FLAG FINAL
[2017-03-20] VITALS (15 sets, daily range): BP systolic 96–129; BP diastolic 54–66; PULSE 87–105; RESP 14; TEMP 98.6–103; O2SAT 99–100
[2017-03-20] MEDS: PANTOPRAZOLE INJ 80 MG in SODIUM CHLORIDE 0.9% INJ 100 ML IV SCH ×3 (00:04→18:20)
[2017-03-20] MEDS ORDERED: ACETAMINOPHEN 325 MG TAB PO SCH (00:52)
[2017-03-20 02:34] LABS: AUTOMATED NEUTROPHIL # 19.3 TH/MM3 (1.8-7.7); BASOPHIL % 0.1 % (0.0-2.0); HEMATOCRIT 35.2 % (35.0-46.0); HEMO FLAGS DIFF FINAL; LYMPH % 3.8 % (9.0-44.0); LYMPHOCYTE # 0.8 TH/MM3 (1.0-4.8); MEAN CORPUSCULAR HGB CONC 33.8 % (32.0-36.0); MONO % 4.2 % (0.0-8.0); NEUT % 91.9 % (16.0-70.0); PLATELET COUNT 171 TH/MM3 (150-450); RED BLOOD COUNT 4.09 MIL/MM3 (4.00-5.30); RED CELL DISTRIBUTION WIDTH 16.4 % (11.6-17.2)
[2017-03-20 03:11] LABS: BICARBONATE 27.4 MEQ/L (21.0-32.0); CALCIUM-PROTEIN CORRECTED 8.9 MG/DL (8.5-10.1); TOTAL BILIRUBIN ADULT 0.9 MG/DL (0.2-1.0)
[2017-03-20] MEDS: PHENYLEPHRINE 40 MG/D5W 496 ML ADMIX IV SCH ×6 (03:38→18:21)
[2017-03-20] MEDS: fentaNYL DRIP 250 ML IV SCH ×2 (03:39→18:21)
[2017-03-20] MEDS: RESP: ALBUTEROL 2.5 MG/IPRATROPIUM 0.5 MG NEB (SCH) NEB ×4 (05:04→20:35)
--- NOTE | 2017-03-20 05:50 | RADRPT ---
EXAM DATE/TIME: 03/20/2017 04:05 [facility] COMPARISON: CHEST SINGLE AP, March 19, 2017, 13:29. INDICATIONS : Shortness of breath, possible pulmonary disease. MEDICAL HISTORY : Chronic obstructive pulmonary disease. SURGICAL HISTORY : CABG. ENCOUNTER: Subsequent ACUITY: 2 days PAIN SCORE: Non-responsive. LOCATION: Bilateral chest FINDINGS: A single view of the chest demonstrates persistent bibasilar airspace disease with probable associate d effusions. This appears stable on the left and may be slightly worse on the right. Endotracheal tub e is appropriately positioned above the haylee. Right IJ central venous catheter with the tip project ing over the central venous system. Nasogastric tube traverses the GE junction with the tip extending off the inferior aspect of the film. Intact median sternotomy wires with findings of prior CABG. Hea rt size is borderline prominent. Osseous structures are intact. CONCLUSION: 1. Bibasilar airspace disease with associated effusions, stable on the left and slightly worse on the right. 2. Stable position of life support tubes. 3. Borderline prominent heart. Findings of prior CABG. Ra Bonner MD on March 20, 2017 at 5:47 Board Certified Radiologist. This report was verified electronically.
[2017-03-20] MEDS: INSULIN ASPART SUPPLEMENTAL SCALE SQ SCH ×4 (06:17→21:46)
[2017-03-20 06:50] LABS: HEMATOCRIT 34.6 % (35.0-46.0); REVIEW FLAG FINAL
[2017-03-20 06:57] LABS: INTERNATIONAL NORMALIZED RATIO 1.1 RATIO; PROTHROMBIN TIME - PATIENT 12.4 SEC (9.8-11.6)
--- NOTE | 2017-03-20 07:32 | HHI.CCPN ---
Subjective Remarks/Hospital Course This is a 81-year-old female patient that presented to the ED with shortness of breath and dry heaves. The patient has a history aortic insufficiency and severe aortic stenosis. Cardiology was consulted patient was status post cardiac catheter and aortic valvuloplasty yesterday 03/18/17. The patient was currently being worked up for a TAVR. Today the patient was noted to be on the bedside commode and became acutely hypotensive with a systolic blood pressure initially in the 80s, and reportedly unresponsive. Dr. Valderrama was notified of the event. Upon patient being placed back in the bed in supine position the patient's blood pressure increased to 95/49. Previously the systolic blood pressure had been maintained in the 130s the heart rate in the 80s. Approximately 15 minutes later, while lying supine in the bed, and receiving IV fluids the patient's systolic blood pressure was noted to be 58/30's critical care medicine was consulted for management. Upon arrival to the patient's room , the patient was awake ,alert, diaphoretic and appropriately responsive.SBP was noted to be 58, IV fluids were being infused. The patient was noted to have approximately 3-400 cc of jean marie melena. Simultaneously a left arterial line was placed which correlated with the noninvasive cuff, stat laboratory values were obtained, Phenylephrine infusion was initiated. Patient's hemoglobin was noted to drop from 13 g/dL to 8 g/dL, then 7.4g/dL. Stat type and cross was initiated with plans for transfusion of 2 units of packed cells, patient was notably on Plavix 2 units of platelets also urgently to be transfused. A right IJ central line was placed, copious melena continued approximately 700-800cc, at that point the patient was noted to begin vomiting bright red blood. Patient was then intubated for airway protection secondary to hematemesis, a second vasopressor was initiated norepinephrine at 5 mcgs. Postintubation an OGT was placed in approximately 150 cc of bright red blood was suctioned. Volume resuscitation continued .GI was stat consulted, case was discussed with Dr. Rock. A subsequent discussion was provided to family regarding patient's medical status . Subjective: 03/20: Tmax 101.2. Blood urine and sputum cultures obtained. We will set discontinued pulse volume resuscitation yesterday the patient remains on phenylephrine infusion throughout the night. Fentanyl infusion continues for ventilator synchrony plan for sedation vacation early this a.m.. Patient was noted to have 3 melanotic stools throughout the night. EGD performed emergently yesterday, discussed with Dr. Rock-stomach full of blood clots, poor visualization, no discernible source could be identified secondary to large amount of blood clots and stomach. Plan for repeat EGD possibly Tuesday. The patient received 4 units total packed red blood cells, 2 units of platelets close monitoring of hemoglobin and hematocrit continues every 6 hours. Patient notably cool bilateral feet, pulses only dopplerable. Plan for bilateral lower extremity ultrasound today. Objective Vital Signs Date Time Temp Pulse Resp B/P Pulse Ox O2 Delivery O2 Flow Rate FiO2 03/20/17 05:04 99 40 03/20/17 03:42 100 03/20/17 03:42 100.4 14 110/56 101/54 03/20/17 03:42 Mechanical Ventilator 03/19/17 12:00 2.00 Intake and Output 03/19/17 03/19/17 03/20/17 08:00 16:00 00:00 Intake Total 300 ml 4179 ml Output Total 775 ml 700 ml Balance -475 ml 3479 ml Result Diagram: 03/20/17 0613 03/20/17 0218 Other Results Microbiology Date/Time Procedure Status Source Growth 03/19/17 12:00 Stool Occult Blood (MARIANO) - Final Complete Stool Stool HEMOCCULT NEGATIVE Laboratory Tests Test 03/19/17 15:25 Blood Gas Puncture Site ART LINE Blood Gas Patient Temperature 98.6 Blood Gas HCO3 21 mmol/L (22-26) Blood Gas Base Excess -3.1 mmol/L (-2-2) Blood Gas Oxygen Saturation 97 % (90-100) Arterial Blood pH 7.38 (7.380-7.420) Arterial Blood Partial 37 mmHg (38-42) Pressure CO2 Arterial Blood Partial 253 mmHg Pressure O2 (61-120) Arterial Blood Oxygen Content 12.2 Vol % (12.0-20.0) Arterial Blood 2.0 % (0-4) Carboxyhemoglobin Arterial Blood Methemoglobin 1.3 % (0-2) Blood Gas Hemoglobin 8.5 G/DL (12.0-16.0) Oxygen Delivery Device VENTILATOR Blood Gas Ventilator Setting A/C14/500/+5PEEP Blood Gas Inspired Oxygen 50 % Imaging Last Impressions Chest X-Ray 03/20/17 0400 Signed Impressions: Service Date/Time: Monday, March 20, 2017 04:05 - CONCLUSION: 1. Bibasilar airspace disease with associated effusions, stable on the left and slightly worse on the right. 2. Stable position of life support tubes. 3. Borderline prominent heart. Findings of prior CABG. Ra Bonner MD Abdomen X-Ray 03/19/17 1231 Signed Impressions: Service Date/Time: Sunday, March 19, 2017 13:23 - CONCLUSION: 1. Post surgical changes. 2. Possible renal calculi. 3. Density in the pelvis likely distended urinary bladder. Daniel Bhandari MD Last Impressions Chest X-Ray 03/17/17 0944 Signed Impressions: Service Date/Time: March 09:56 - CONCLUSION: 1. Interval improvement in bilateral pulmonary infiltrates with only mild residual. 2. Left effusion remains. Ronal Walton MD Objective Remarks Infusions Fent 200mcgs/hr Phenylephrine 90mcgs GENERAL: This is a well-developed well-nourished elderly female intubated and sedated SKIN: Cool and diaphoretic, noted cyanosis sluggish capillary refill bilateral feet HEAD: Atraumatic. Normocephalic. EYES: Pupils equal and round. No scleral icterus. No injection or drainage. ENT: No nasal bleeding or discharge. Mucous membranes pink and moist. NECK: Trachea midline. No JVD. CARDIOVASCULAR: Normal rate, regular rhythm. RESPIRATORY: No accessory muscle use. On mechanical ventilation .Clear to auscultation. Breath sounds equal bilaterally. GASTROINTESTINAL: Abdomen soft, non-tender, nondistended. No guarding. MUSCULOSKELETAL: Extremities without clubbing, cyanosis, or edema. No obvious deformities. NEUROLOGICAL: GCS 3T RASS -2. No gross focal/sensory deficits. Procedures 1. Severe aortic valve stenosis. 2. 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 3. Elevated left-sided filling pressures. 4. Successfully utilization of temporary transvenous pacemaker. 5. Successful aortic valve valvuloplasty. 6. Successful percutaneous intervention with balloon angioplasty of the saphenous vein graft to the obtuse marginal branch. 8-18 Urinary Catheter: Yes Garnett insert reason: ICU Pt Getting Diuretics Date of Insertion: Mar 17, 2017 Vascular Central Line Catheter: Yes Assessment to: Continue Date of Insertion: Mar 19, 2017 Line: Central Venous Catheter Side: Right Location: Internal, Jugular (vasoactive medications) A/P Assessment and Plan ASSESSMENT Acute blood loss anemia Hypotension Upper GI bleed Hematemesis Melena History of diverticulosis Aortic insufficiency Status post cardiac catheter with valvuloplasty POD #1 CAD H/O CABG x 5 2003 Leukocytosis-most likely reactive PLAN Neurologic: Patient intubated for airway protection secondary to hematemesis 7.5 ETT Fentanyl infusion for sedation and ventilator synchrony Sedation vacation daily Neurochecks per ICU protocol Respiratory: Ventilator bundle Follow-up chest x-ray Bronchodilators every 6 hours scheduled, every 2 hours when necessary Mechanical ventilation- AC 14/500/5/.50 ABG-WNL Begin CPAP trials when clinically indicated-maintain intubation for airway protection secondary to upper GI bleed at this time Cardiovascular: Cardiology following Dr. Stevens management post left heart catheterization, aortic Valvuloplasty per cardiology Maintain MAP greater than 65 mmHg. Patient currently phenylephrine at 90 mcgs, continue to wean Hold Plavix and ASA in the setting of acute blood loss Hold antihypertensive medications in the setting of hypotension Obtain venous Doppler ultrasound bilateral lower extremities Renal: Maintain Garnett Urine output 600 cc in the last 12 hours -- Strict I/Os FEN/GI: The patient was bolused with 1500 cc for volume resuscitation on 03/19 Monitor BMP Replete electrolytes per ICU protocol Maintain NPO status Maintain OGT to [facility]WS GI consulted- Dr. Rock 03/19 EGD, plan for repeat EGD Tuesday NS @ [facility] Heme/ID: Hemoglobin stable 11 Monitor H&H every 6 hours Patient transfused 4units PRBC's and 2 units of platelets Maintain hemoglobin greater than 10mg/dL Hold aspirin and Plavix Endocrine: Glucose monitoring ICU protocol -- SSI Prophylaxis: GI Prophylaxis Protonix -GI following, Infusion initiated DVT Prophylaxis No pharmacological DVT prophylaxis in the setting of acute blood loss anemia indicated -- SCDs Lines: Peripheral IVs 2. Right IJ central line (03/19), left radial a line (03/19) Dispo: Patient is critically ill . This patient remains critically ill with one or more organ systems which are or may become a threat to life. I have spent in excess of 30 minutes discontinuously in the care and management of this patient. This time is exclusive of procedures, and includes, but is not limited to, evaluation of the patient, review of the medical record, discussions with family, consultants, nursing staff, or respiratory therapy, and documentation in the medical record. Physician Florina Bello MD Mar 20, 2017 07:32
[2017-03-20 07:57] LABS: BLOOD GAS BASE EXCESS -2.6 mmol/L (-2-2); BLOOD GAS CARBOXYHEMOGLOBIN 2.4 % (0-4); BLOOD GAS HCO3 23 mmol/L (22-26); BLOOD GAS METHEMOGLOBIN 1.3 % (0-2); BLOOD GAS O2 HGB SATURATION 96 % (90-100); BLOOD GAS OXYGEN CONTENT 15.5 Vol % (12.0-20.0); BLOOD GAS PCO2 44 mmHg (38-42); BLOOD GAS PO2 139 mmHg (61-120); BLOOD GAS TOTAL HGB 11.4 G/DL (12.0-16.0); CRITICAL VALUE NO; FIO2 40 %; OXYGEN DEVICE VENTILATOR; TEMP CORR TO 98.6; VENT SETTINGS AC14/500/+5
[2017-03-20 07:58] LABS: DRAW SITE RT BRACHIAL; NUMBER OF ARTERIAL PUNCTURES 1; STAT NO
[2017-03-20] MEDS: CHLORHEXIDINE 0.12% (ORAL KIT) 15 ML CUP MT SCH ×2 (08:00→20:12)
[2017-03-20] MEDS: DOCUSATE SODIUM 50 MG/SENNA 8.6 MG TAB PO SCH ×2 (09:00→20:13)
[2017-03-20] MEDS: BUMETANIDE INJ 1 MG/4 ML VIAL IV PUSH SCH (09:00)
[2017-03-20] MEDS: SODIUM CHLORIDE 0.9% FLUSH 10 ML FLUSH IV FLUSH SCH ×2 (09:00→20:12)
[2017-03-20] MEDS: POTASSIUM CHLORIDE 10 MEQ CONTROLLED RELEASE TAB PO SCH (09:00)
[2017-03-20] MEDS: NORTRIPTYLINE HCL 25 MG CAP PO SCH ×2 (09:00→20:11)
--- NOTE | 2017-03-20 14:09 | HHI.PR ---
Subjective Remarks Patient is a 81-year-old female presents to the emergency Department with shortness of breath and dry heaves. The patient states she's been worked up for possible aortic valve intervention for a "thin aorta." She states the other day she had a CT scan with IV contrast and thinks that was contributing to her symptoms. She states she took her Lasix this morning and it is not working. She went to Dr. Taylor's office today and was referred to the emergency department for shortness of breath. States she HAS shortness of breath with minimal exertion. States she's had a heart attack in the past and has a history of congestive heart failure. Denies any chest pain denies any abdominal pain. Still having some nausea and vomiting Denies any fevers or chills Is being worked up for A TAVR Discussed with emergency room physician as well as the patient We have accepted this patient due to the fact that the [facility] attending is currently at his LIMIT FOR PATIENTS 8-18 patient still feels short of breath. An echocardiogram today and depending on the echocardiogram will determine if patient goes for valvuloplasty or holds out to TAVR next week No new complaints 8-19 HAD PROCEDURE YESTERDAY 1. Severe aortic valve stenosis. 2. 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 3. Elevated left-sided filling pressures. 4. Successfully utilization of temporary transvenous pacemaker. 5. Successful aortic valve valvuloplasty. 6. Successful percutaneous intervention with balloon angioplasty of the saphenous vein graft to the obtuse marginal branch. WANTS TO HAVE A NON- DIABETIC DIET IS IN CVICU AT THIS TIME HAS BL GROIN CATH SITES THAT ARE STABLE DW RN AND PATIENT AM LABS PT AND OT 8-20 events of last night discussed with critical care and RN Patient had vasovagal event. Then had GI bleeding from the rectum and vomiting of blood. Patient was intubated to protect her airway. Remains on the ventilator Had endoscopy with gastroenterology upper which showed lots of blood Had to be on the ventilator with pressors which are being weaned off Was transfused 4 units of packed red blood cells yesterday Remains on the ventilator now On no blood thinners Plan labs Discussed with RN Objective Vitals Vital Signs Date Time Temp Pulse Resp B/P (MAP) Pulse Ox O2 Delivery O2 Flow Rate FiO2 03/20/17 11:00 100 Mechanical Ventilator 40 03/20/17 11:00 100 8/20/17 11:00 40 03/20/17 11:00 99.1 87 14 123/57 (79) 100 03/20/17 07:00 40 03/20/17 07:00 100 Mechanical Ventilator 40 03/20/17 07:00 98.6 105 14 129/66 (87) 100 123/62 (82) 03/20/17 07:00 103 03/20/17 05:04 99 40 03/20/17 03:45 40 03/20/17 03:42 100 03/20/17 03:42 100.4 98 14 110/56 (74) 100 101/54 (70) 03/20/17 03:42 100 Mechanical Ventilator 40 03/20/17 01:43 100 40 03/20/17 00:40 102.2 03/19/17 23:18 40 03/19/17 23:16 85 03/19/17 23:16 99 Mechanical Ventilator 40 03/19/17 23:16 100.5 88 14 119/65 (83) 99 117/49 (71) 03/19/17 22:28 99 40 03/19/17 20:55 100 40 03/19/17 20:30 98.6 03/19/17 19:21 97.0 91 14 129/78 (95) 100 136/51 (79) 03/19/17 19:21 100 Mechanical Ventilator 40 03/19/17 19:21 40 03/19/17 19:00 91 03/19/17 17:37 77 03/19/17 16:33 100 40 03/19/17 16:00 97 Mechanical Ventilator 03/19/17 16:00 97.9 99 18 114/58 (76) 96 I/O 03/19/17 03/19/17 03/19/17 03/20/17 03/20/17 03/20/17 07:00 15:00 23:00 07:00 15:00 23:00 Intake Total 300 ml 4179 ml 2046 ml Output Total 775 ml 700 ml 750 ml Balance -475 ml 3479 ml 1296 ml Intake Oral 300 ml 480 ml IV Total 2474 ml 1926 ml Packed Cells 750 ml Platelets 475 ml Other 120 ml Output Urine Total 775 ml 700 ml 600 ml Gastric Drainage Total 150 ml # Bowel Movements 0 2 3 Result Diagram: 03/20/17 0613 03/20/17 0218 Other Results Laboratory Tests Test 03/18/17 07:02 03/19/17 05:00 03/19/17 12:25 03/19/17 15:25 White Blood Count 13.4 TH/MM3 14.4 TH/MM3 16.3 TH/MM3 Red Blood Count 4.60 MIL/MM3 4.49 MIL/MM3 2.81 MIL/MM3 Hemoglobin 13.6 GM/DL 13.4 GM/DL 8.1 GM/DL Hematocrit 40.9 % 40.4 % 25.1 % Mean Corpuscular Volume 88.9 FL 89.8 FL 89.1 FL Mean Corpuscular Hemoglobin 29.4 PG 29.9 PG 28.9 PG Mean Corpuscular Hemoglobin Concent 33.1 % 33.3 % 32.4 % Red Cell Distribution Width 16.0 % 16.1 % 15.9 % Platelet Count 349 TH/MM3 306 TH/MM3 263 TH/MM3 Mean Platelet Volume 7.9 FL 7.7 FL 7.6 FL Neutrophils (%) (Auto) 88.1 % 87.0 % 88.1 % Lymphocytes (%) (Auto) 6.5 % 5.0 % 5.0 % Monocytes (%) (Auto) 4.7 % 7.8 % 6.7 % Eosinophils (%) (Auto) 0.0 % 0.1 % 0.0 % Basophils (%) (Auto) 0.7 % 0.1 % 0.2 % Neutrophils # (Auto) 11.8 TH/MM3 12.5 TH/MM3 14.3 TH/MM3 Lymphocytes # (Auto) 0.9 TH/MM3 0.7 TH/MM3 0.8 TH/MM3 Monocytes # (Auto) 0.6 TH/MM3 1.1 TH/MM3 1.1 TH/MM3 Eosinophils # (Auto) 0.0 TH/MM3 0.0 TH/MM3 0.0 TH/MM3 Basophils # (Auto) 0.1 TH/MM3 0.0 TH/MM3 0.0 TH/MM3 CBC Comment DIFF FINAL DIFF FINAL DIFF FINAL Differential Comment Blood Urea Nitrogen 44 MG/DL 47 MG/DL 52 MG/DL Creatinine 1.32 MG/DL 1.35 MG/DL 1.18 MG/DL Random Glucose 165 MG/DL 156 MG/DL 135 MG/DL Total Protein 6.6 GM/DL 6.3 GM/DL 3.8 GM/DL Albumin 3.3 GM/DL 3.1 GM/DL Calcium Level 9.0 MG/DL 9.0 MG/DL 6.8 MG/DL Phosphorus Level 4.2 MG/DL 4.7 MG/DL 3.4 MG/DL Magnesium Level 2.5 MG/DL 2.6 MG/DL 1.9 MG/DL Alkaline Phosphatase 110 U/L 100 U/L Aspartate Amino Transf (AST/SGOT) 20 U/L 23 U/L Alanine Aminotransferase (ALT/SGPT) 25 U/L 22 U/L Total Bilirubin 1.2 MG/DL 0.9 MG/DL Sodium Level 139 MEQ/L 142 MEQ/L 145 MEQ/L Potassium Level 3.4 MEQ/L 3.7 MEQ/L 3.7 MEQ/L Chloride Level 101 MEQ/L 105 MEQ/L 111 MEQ/L Carbon Dioxide Level 30.3 MEQ/L 26.2 MEQ/L 23.3 MEQ/L Anion Gap 8 MEQ/L 11 MEQ/L 11 MEQ/L Estimat Glomerular Filtration Rate 39 ML/MIN 38 ML/MIN 44 ML/MIN Hemoglobin A1c 6.3 % Free Thyroxine 1.16 NG/DL Thyroid Stimulating Hormone 3rd Gen 1.580 uIU/ML Prothrombin Time 11.6 SEC 13.4 SEC Prothromb Time International Ratio 1.0 RATIO 1.2 RATIO Total Creatine Kinase 101 U/L Triglycerides Level 118 MG/DL Cholesterol Level 156 MG/DL LDL Cholesterol 91 MG/DL HDL Cholesterol 41.2 MG/DL Cholesterol/HDL Ratio 3.78 RATIO Activated Partial Thromboplast Time 22.2 SEC Fibrinogen 208 mg/dL Lactic Acid Level 2.4 mmol/L Protein Corrected Calcium 8.6 MG/DL Blood Gas Puncture Site ART LINE Blood Gas Patient Temperature 98.6 Blood Gas HCO3 21 mmol/L Blood Gas Base Excess -3.1 mmol/L Blood Gas Oxygen Saturation 97 % Arterial Blood pH 7.38 Arterial Blood Partial Pressure CO2 37 mmHg Arterial Blood Partial Pressure O2 253 mmHg Arterial Blood Oxygen Content 12.2 Vol % Arterial Blood Carboxyhemoglobin 2.0 % Arterial Blood Methemoglobin 1.3 % Blood Gas Hemoglobin 8.5 G/DL Oxygen Delivery Device VENTILATOR Blood Gas Ventilator Setting A/C14/500/+5PEEP Blood Gas Inspired Oxygen 50 % Test 03/19/17 15:30 03/19/17 20:40 03/20/17 00:00 03/20/17 01:55 White Blood Count 27.7 TH/MM3 21.0 TH/MM3 Red Blood Count 2.96 MIL/MM3 4.09 MIL/MM3 Hemoglobin 8.5 GM/DL 11.8 GM/DL 11.9 GM/DL Hematocrit 25.6 % 35.4 % 35.2 % Mean Corpuscular Volume 86.5 FL 86.0 FL Mean Corpuscular Hemoglobin 28.8 PG 29.0 PG Mean Corpuscular Hemoglobin Concent 33.3 % 33.8 % Red Cell Distribution Width 16.6 % 16.4 % Platelet Count 252 TH/MM3 171 TH/MM3 Mean Platelet Volume 7.8 FL 8.5 FL Neutrophils (%) (Auto) 91.9 % Lymphocytes (%) (Auto) 3.8 % Monocytes (%) (Auto) 4.2 % Eosinophils (%) (Auto) 0.0 % Basophils (%) (Auto) 0.1 % Neutrophils # (Auto) 19.3 TH/MM3 Lymphocytes # (Auto) 0.8 TH/MM3 Monocytes # (Auto) 0.9 TH/MM3 Eosinophils # (Auto) 0.0 TH/MM3 Basophils # (Auto) 0.0 TH/MM3 CBC Comment DIFF FINAL Differential Comment Test 03/20/17 02:18 03/20/17 06:13 03/20/17 06:28 03/20/17 07:51 Blood Urea Nitrogen 56 MG/DL Creatinine 1.34 MG/DL Random Glucose 143 MG/DL Total Protein 4.3 GM/DL Albumin 2.1 GM/DL Calcium Level 7.3 MG/DL Phosphorus Level 3.4 MG/DL Magnesium Level 2.0 MG/DL Alkaline Phosphatase 56 U/L Aspartate Amino Transf (AST/SGOT) 50 U/L Alanine Aminotransferase (ALT/SGPT) 24 U/L Total Bilirubin 0.9 MG/DL Sodium Level 139 MEQ/L Potassium Level 4.0 MEQ/L Chloride Level 105 MEQ/L Carbon Dioxide Level 27.4 MEQ/L Anion Gap 7 MEQ/L Estimat Glomerular Filtration Rate 38 ML/MIN Protein Corrected Calcium 8.9 MG/DL Hemoglobin 11.6 GM/DL Hematocrit 34.6 % Prothrombin Time 12.4 SEC Prothromb Time International Ratio 1.1 RATIO Blood Gas Puncture Site RT BRACHIAL Blood Gas Patient Temperature 98.6 Blood Gas HCO3 23 mmol/L Blood Gas Base Excess -2.6 mmol/L Blood Gas Oxygen Saturation 96 % Arterial Blood pH 7.33 Arterial Blood Partial Pressure CO2 44 mmHg Arterial Blood Partial Pressure O2 139 mmHg Arterial Blood Oxygen Content 15.5 Vol % Arterial Blood Carboxyhemoglobin 2.4 % Arterial Blood Methemoglobin 1.3 % Blood Gas Hemoglobin 11.4 G/DL Oxygen Delivery Device VENTILATOR Blood Gas Ventilator Setting AC14/500/+5 Blood Gas Inspired Oxygen 40 % Imaging Last Impressions Chest X-Ray 03/20/17 0400 Signed Impressions: Service Date/Time: Monday, March 20, 2017 04:05 - CONCLUSION: 1. Bibasilar airspace disease with associated effusions, stable on the left and slightly worse on the right. 2. Stable position of life support tubes. 3. Borderline prominent heart. Findings of prior CABG. Ra Bonner MD Abdomen X-Ray 03/19/17 1231 Signed Impressions: Service Date/Time: Sunday, March 19, 2017 13:23 - CONCLUSION: 1. Post surgical changes. 2. Possible renal calculi. 3. Density in the pelvis likely distended urinary bladder. Daniel Bhandari MD Objective Remarks GENERAL: This is a well-nourished, well-developed patient, in no apparent distress. Remains sedated on the ventilator now nonverbal SKIN: No rashes, ecchymoses or lesions. Cool and dry. There is ecchymosis on bilateral thighs right worse than left HEAD: Atraumatic. Normocephalic. No temporal or scalp tenderness. EYES: Pupils equal round and reactive. Extraocular motions intact. No scleral icterus. No injection or drainage. Tongue is midline ENT: Nose without bleeding, purulent drainage or septal hematoma. Throat without erythema, tonsillar hypertrophy or exudate. Uvula midline. Airway patent. Endotracheal tube and NG tube in place NECK: Trachea midline. No JVD or lymphadenopathy. Supple, nontender, no meningeal signs. CARDIOVASCULAR: Regular rate and rhythm without , gallops, or rubs. 3 out of 6 systolic murmur RESPIRATORY: Few rhonchi. Breath sounds equal bilaterally. No wheezes, rales, or rhonchi. Diminished breath sounds bilaterally. Rhonchi GASTROINTESTINAL: Abdomen soft, non-tender, nondistended. No hepato-splenomegaly , or palpable masses. No guarding. Hypoactive bowel sounds MUSCULOSKELETAL: Extremities without clubbing, cyanosis, or edema. No joint tenderness, effusion, or edema noted. No calf tenderness. Negative Homans sign bilaterally. Right groin area has lots of ecchymosis and bruising from prior cardiac catheterization BILATERAL GROINS DRESSED FROM PROCEDURES NEUROLOGICAL: Not Awake and alert. Cannot assess Cranial nerves II through XII intact. Cannot assess Motor and sensory grossly within normal limits. Cannot assess Five out of 5 muscle strength in all muscle groups. Nonverbal Insight and judgment is not assessable mood and behavior is not assessable Procedures 1. Severe aortic valve stenosis. 2. 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 3. Elevated left-sided filling pressures. 4. Successfully utilization of temporary transvenous pacemaker. 5. Successful aortic valve valvuloplasty. 6. Successful percutaneous intervention with balloon angioplasty of the saphenous vein graft to the obtuse marginal branch. 8-18 Medications and IVs Current Medications Sodium Chloride (NS Flush) 2 ml UNSCH PRN IVF FLUSH AFTER USING IV ACCESS; Start 03/17/17 at 09:45; Stop 03/17/17 at 14:21; Status DC Dextrose (D50w (Vial) Inj) 50 ml UNSCH PRN IV HYPOGLYCEMIA-SEE COMMENTS; Start 03/17/17 at 13:00 Glucagon (Glucagon Inj) 1 mg UNSCH PRN OTHER HYPOGLYCEMIA-SEE COMMENTS; Start 03/17/17 at 13:00 Insulin Aspart (NovoLOG SUPPLEMENTAL SCALE) 1 ACHS SLIDING SCALE SQ Last administered on 03/20/17 11:00; Start 03/17/17 at 16:00 Furosemide (Lasix) 40 mg DAILY PO Last administered on 03/18/17 09:34; Start 03/18/17 at 09:00; Stop 03/18/17 at 15:34; Status DC Nortriptyline HCl (Pamelor) 25 mg BID PO Last administered on 03/20/17 09:00; Start 03/17/17 at 21:00 Potassium Chloride (KCl) 10 meq DAILY PO Last administered on 03/20/17 09:00; Start 03/18/17 at 09:00 Sodium Chloride (NS Flush) 2 ml UNSCH PRN IV FLUSH FLUSH AFTER USING IV ACCESS ; Start 03/17/17 at 13:00 Sodium Chloride (NS Flush) 2 ml BID IV FLUSH Last administered on 03/20/17 09: 00; Start 03/17/17 at 21:00 Ondansetron HCl (Zofran Inj) 4 mg Q6H PRN IVP NAUSEA OR VOMITING Last administered on 03/19/17 10:49; Start 03/17/17 at 13:00 Prochlorperazine (Compazine Supp) 25 mg Q12H PRN RECTAL NAUSEA OR VOMITING; Start 03/17/17 at 13:00 Morphine Sulfate (Morphine Inj) 2 mg Q3H PRN IV Pain 3-5; if unable to take PO ; Start 03/17/17 at 13:00; Stop 03/19/17 at 15:22; Status DC Morphine Sulfate (Morphine Inj) 4 mg Q3H PRN IV Pain 6-10;if unable to take PO ; Start 03/17/17 at 13:00; Stop 03/19/17 at 15:22; Status DC Tramadol HCl (Ultram) 50 mg Q4H PRN PO PAIN SCALE 3 TO 5; Start 03/17/17 at 13: 00 Tramadol HCl (Ultram) 100 mg Q4H PRN PO PAIN SCALE 6 TO 10; Start 03/17/17 at 13:00 Naloxone HCl (Narcan Inj) 0.4 mg UNSCH PRN IV SEE LABEL COMMENTS; Start at 13:00 Senna/Docusate Sodium (Maura-Colace) 1 tab BID PO Last administered on 09:00; Start 03/17/17 at 21:00 Magnesium Hydroxide (Milk Of Magnesia Liq) 30 ml Q12H PRN PO MILD - MODERATE CONSTIPATION Last administered on 03/19/17 11:01; Start 03/17/17 at 13:00 Sennosides (Senokot) 17.2 mg Q12H PRN PO MODERATE - SEVERE CONSTIPATION Last administered on 03/19/17 11:01; Start 03/17/17 at 13:00 Bisacodyl (Dulcolax Supp) 10 mg DAILY PRN RECTAL SEVERE CONSITIPATION; Start at 13:00 Lactulose (Lactulose Liq) 30 ml DAILY PRN PO SEVERE CONSITIPATION; Start at 13:00 Aspirin (Aspirin Chew) 81 mg DAILY CHEW Last administered on 03/19/17 08:27; Start 03/18/17 at 09:00; Stop 03/19/17 at 15:24; Status DC Clopidogrel Bisulfate (Plavix) 75 mg DAILY PO Last administered on 03/19/17 08 :28; Start 03/18/17 at 09:00; Status Future Hold Sodium Chloride 1,000 ml @ 42 mls/hr [id number] IV Last administered on 02:30; Start 03/18/17 at 02:30; Stop 03/19/17 at 02:18; Status DC Potassium Chloride (KCl) 40 meq ONCE ONCE PO Last administered on 03/18/17 10 :48; Start 03/18/17 at 09:45; Stop 03/18/17 at 09:46; Status DC Diphenhydramine HCl (Benadryl Inj) 50 mg STK-MED ONCE .ROUTE Last administered on 03/18/17 15:25; Start 03/18/17 at 15:10; Stop 03/18/17 at 15:11; Status DC Methylprednisolone Sodium Succinate (SoluMEDROL INJ) 125 mg STK-MED ONCE .ROUTE Last administered on 03/18/17 15:26; Start 03/18/17 at 15:10; Stop 03/18/17 at 15:11; Status DC Heparin Sodium/ Sodium Chloride 500 ml @ As Directed STK-MED ONCE .ROUTE Last administered on 03/18/17 15:23; Start 03/18/17 at 15:23; Stop 03/18/17 at 15:24 ; Status DC Dobutamine HCl/ Dextrose 250 ml @ 8.97 mls/hr Q24H IV ; Start 03/18/17 at 15:31 ; Stop 03/18/17 at 17:17; Status DC Bumetanide (Bumex Inj) 1 mg DAILY IV PUSH Last administered on 03/20/17 09:00 ; Start 03/19/17 at 09:00 Midazolam HCl (Versed Inj) 2 mg STK-MED ONCE .ROUTE Last administered on 15:44; Start 03/18/17 at 15:40; Stop 03/18/17 at 15:41; Status DC Fentanyl Citrate (fentaNYL INJ) 100 mcg STK-MED ONCE .ROUTE Last administered on 03/18/17 15:43; Start 03/18/17 at 15:40; Stop 03/18/17 at 15:41; Status DC Lidocaine HCl (Xylocaine-Mpf 1% Inj) 30 ml STK-MED ONCE .ROUTE ; Start 03/18/17 at 15:43; Stop 03/18/17 at 15:44; Status DC Heparin Sodium (Porcine) (Heparin Inj) 10,000 units STK-MED ONCE .ROUTE Last administered on 03/18/17 16:02; Start 03/18/17 at 15:52; Stop 03/18/17 at 15:53 ; Status DC Heparin Sodium/ Sodium Chloride 500 ml @ As Directed STK-MED ONCE .ROUTE Last administered on 03/18/17 15:54; Start 03/18/17 at 15:54; Stop 03/18/17 at 15:55 ; Status DC Midazolam HCl (Versed Inj) 2 mg STK-MED ONCE .ROUTE Last administered on 15:44; Start 03/18/17 at 16:24; Stop 03/18/17 at 16:25; Status DC Protamine Sulfate (Protamine Sulfate Inj) 50 mg STK-MED ONCE .ROUTE Last administered on 03/18/17 17:01; Start 03/18/17 at 17:00; Stop 03/18/17 at 17:01 ; Status DC Miscellaneous Information 1 ONCE ONCE XX ; Start 03/18/17 at 17:15; Stop at 17:24; Status DC Atropine Sulfate (Atropine Inj) 0.5 mg UNSCH PRN IV VAGAL REPONSE; Start at 17:15 Sodium Chloride 250 ml @ 500 mls/hr ONCE PRN IV VAGAL REPONSE; Start 03/18/17 at 17:15; Stop 03/19/17 at 17:14; Status DC Acetaminophen (Tylenol) 650 mg HS PO Last administered on 03/18/17 21:15; Start 03/18/17 at 21:00; Stop 03/19/17 at 15:22; Status DC Phenylephrine HCl (Neosynephrine Inj) 10 mg STK-MED ONCE .ROUTE ; Start at 12:17; Stop 03/19/17 at 12:18; Status DC Fentanyl Citrate (fentaNYL INJ) 100 mcg STK-MED ONCE .ROUTE ; Start 03/19/17 at 12:31; Stop 03/19/17 at 12:32; Status DC Midazolam HCl (Versed Inj) 5 mg STK-MED ONCE .ROUTE Last administered on 13:05; Start 03/19/17 at 12:31; Stop 03/19/17 at 12:32; Status DC Sodium Chloride 250 ml @ 15 mls/hr ONCE ONCE IV Last administered on 13:30; Start 03/19/17 at 13:30; Stop 03/20/17 at 06:09; Status DC Fentanyl Citrate 250 ml @ 0 mls/hr TITRATE IV Last administered on 03/20/17 03 :39; Start 03/19/17 at 13:30 Potassium Chloride 100 ml @ 50 mls/hr Q2H PRN IV For Potassium 2.8 - 3.2 mEq/L ; Start 03/19/17 at 13:45 Potassium Chloride 100 ml @ 50 mls/hr Q2H PRN IV For Potassium 2.8 - 3.2 mEq/L ; Start 03/19/17 at 13:45 Potassium Bicarb/ Potassium Chloride (K-Lyte Cl Eff) 50 meq UNSCH PRN PO For Potassium 3.3 - 3.5 mEq/L; Start 03/19/17 at 13:45 Potassium Chloride 100 ml @ 25 mls/hr UNSCH PRN IV For Potassium 3.3 - 3.5 mEq /L; Start 03/19/17 at 13:45 Potassium Chloride 100 ml @ 50 mls/hr Q2H PRN IV For Potassium 3.3 - 3.5 mEq/L ; Start 03/19/17 at 13:45 Magnesium Sulfate 4 gm/Sodium Chloride 100 ml @ 50 mls/hr UNSCH PRN IV For Magnesium 0.9 - 1.1 mg/dL; Start 03/19/17 at 13:45 Magnesium Oxide (Mag-Ox) 800 mg UNSCH PRN PO For Magnesium 1.2 - 1.6 mg/dL; Start 03/19/17 at 13:45 Magnesium Sulfate 2 gm/Sodium Chloride 100 ml @ 50 mls/hr UNSCH PRN IV For Magnesium 1.2 - 1.6 mg/dL; Start 03/19/17 at 13:45 Potassium Phosphate (K-Phos) 2,000 mg Q4H PRN PO For Phosphorus < 2.5 mg/dL; Start 03/19/17 at 13:45 Sodium Phosphate 30 mmol/Sodium Chloride 250 ml @ 42 mls/hr UNSCH PRN IV For Phosphorus < 2.5 mg/dL; Start 03/19/17 at 13:45 Potassium Phosphate (K-Phos) 2,000 mg UNSCH PRN PO/TUBE SEE LABEL COMMENTS; Start 03/19/17 at 13:45 Potassium Phosphate 30 mmol/ Sodium Chloride 260 ml @ 42 mls/hr UNSCH PRN IV SEE LABEL COMMENTS; Start 03/19/17 at 13:45 Pantoprazole Sodium 80 mg/ Sodium Chloride 100 ml @ 10 mls/hr Q10H IV Last administered on 03/20/17 11:00; Start 03/19/17 at 15:00 Sodium Chloride 1,000 ml @ 42 mls/hr [id number] IV Last administered on 16:30; Start 03/19/17 at 15:15 Albuterol/ Ipratropium (Duoneb Neb) 1 ampule Q6HR NEB NEB Last administered on 03/20/17 05:04; Start 03/19/17 at 16:00 Albuterol/ Ipratropium (Duoneb Neb) 1 ampule Q2HR NEB PRN NEB WHEEZING; Start 03/19/17 at 15:15 Chlorhexidine Gluconate (Peridex 0.12% Liq) 15 ml BID@08,20 MT Last administered on 03/20/17 08:00; Start 03/19/17 at 20:00 Phenylephrine HCl (Neosynephrine Inj) 10 mg STK-MED ONCE .ROUTE ; Start at 15:55; Stop 03/19/17 at 15:56; Status DC Norepinephrine Bitartrate 250 ml @ 0 mls/hr TITRATE IV ; Start 03/19/17 at 16:00 ; Status Cancel Phenylephrine HCl 40 mg/Dextrose 500 ml @ 0 mls/hr TITRATE IV Last administered on 03/20/17 12:59; Start 03/19/17 at 16:15 Terbutaline Sulfate (Brethine Inj) 1 mg UNSCH PRN SQ FOR EXTRAVASATION PROTOCOL ; Start 03/19/17 at 16:15 Acetaminophen (Tylenol) 650 mg UNSCH X1 PO Last administered on 03/20/17t 01: 07; Start 03/20/17 at 00:52; Stop 03/20/17 at 01:30; Status DC Acetaminophen (Tylenol) 650 mg Q4H PRN PO FOR TEMP > 101; Start 03/20/17 at 02: 45 Urinary Catheter: Yes Date of Insertion: Mar 17, 2017 Vascular Central Line Catheter: Yes Date of Insertion: Mar 19, 2017 Line: Central Venous Catheter Side: Right Location: Internal, Jugular (vasoactive medications) A/P Problem List: (1) NSTEMI (non-ST elevated myocardial infarction) ICD Code: I21.4 - NSTEMI (non-ST elevated myocardial infarction) Status: Acute (2) PAD (peripheral artery disease) ICD Code: I73.9 - PAD (peripheral artery disease) Status: Acute (3) Aortic stenosis ICD Code: I35.0 - Aortic stenosis Status: Chronic (4) Leukocytosis ICD Code: D72.829 - Leukocytosis Status: Acute (5) Hyperlipidemia ICD Code: E78.5 - Hyperlipidemia Status: Chronic (6) PVD (peripheral vascular disease) ICD Code: I73.9 - Peripheral vascular disease Status: Chronic (7) Diabetes ICD Code: E11.9 - Diabetes mellitus Status: Chronic (8) Hypertension ICD Code: I10 - Hypertension Status: Chronic (9) CAD (coronary artery disease) ICD Code: I25.10 - CAD (coronary artery disease) Status: Acute (10) SOB (shortness of breath) ICD Code: R06.02 - Shortness of breath Status: Acute Assessment and Plan Aortic valve issues with dyspnea secondary to this Dr. Taylor wants the patient admitted CIC and is scheduled for cardiac catheterization HAD CARDIAC CATH 03-18 1. Severe aortic valve stenosis. 2. 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 3. Elevated left-sided filling pressures. 4. Successfully utilization of temporary transvenous pacemaker. 5. Successful aortic valve valvuloplasty. 6. Successful percutaneous intervention with balloon angioplasty of the saphenous vein graft to the obtuse marginal branch. Was scheduled to have a TAVR next week- LOOKS LIKE THIS IS ON HOLD NOW Continue on her medications. bruising in the right groin Echocardiogram has been ordered-depending on results Dr. taylor SP CATH 03-18 NSTEMI positive troponin consult Dr. taylor Dyspnea continue on oxygen and will defer to cardiology regarding issues due to the valve Diabetes Accu-Cheks before meals and at bedtime with sliding scale coverage Coronary artery disease continue on aspirin and Plavix Congestive heart failure stable at this time Hyperlipidemia continue on her medications Hypertension continue on home medications Peripheral vascular occlusive disease needs chronic anticoagulation of some type Discussed with RN as well as critical care and cardiology Hypokalemia replacement Upper GI bleeding Acute GI bleeding yesterday is intubated for airway protection Vent dependent respiratory failure, ventilator weaning as tolerated Hypotension on pressors wean as tolerated Off all blood thinners due to the upper GI bleeding PT AND OT TO EVAL AND TREAT-on hold due to GI bleeding and ventilator support Continue on pressors Transfuse as necessary as already had 4 units packed red blood cells Discharge Planning And labs Arpit Arriaga DO Mar 20, 2017 14:09
--- NOTE | 2017-03-20 14:18 | HHI.GIFU ---
Subjective Remarks still intubated, had three melanotic BM's and 150 cc blood via OG tube. Objective Vitals I&O Vital Signs Date Time Temp Pulse Resp B/P (MAP) Pulse Ox O2 Delivery O2 Flow Rate FiO2 03/20/17 11:00 100 Mechanical Ventilator 40 03/20/17 11:00 100 03/20/17 11:00 40 03/20/17 11:00 99.1 87 14 123/57 (79) 100 03/20/17 07:00 40 03/20/17 07:00 100 Mechanical Ventilator 40 03/20/17 07:00 98.6 105 14 129/66 (87) 100 123/62 (82) 03/20/17 07:00 103 03/20/17 05:04 99 40 03/20/17 03:45 40 03/20/17 03:42 100 03/20/17 03:42 100.4 98 14 110/56 (74) 100 101/54 (70) 03/20/17 03:42 100 Mechanical Ventilator 40 03/20/17 01:43 100 40 03/20/17 00:40 102.2 03/19/17 23:18 40 03/19/17 23:16 85 03/19/17 23:16 99 Mechanical Ventilator 40 03/19/17 23:16 100.5 88 14 119/65 (83) 99 117/49 (71) 03/19/17 22:28 99 40 03/19/17 20:55 100 40 03/19/17 20:30 98.6 03/19/17 19:21 97.0 91 14 129/78 (95) 100 136/51 (79) 03/19/17 19:21 100 Mechanical Ventilator 40 03/19/17 19:21 40 03/19/17 19:00 91 03/19/17 17:37 77 03/19/17 16:33 100 40 03/19/17 16:00 97 Mechanical Ventilator 03/19/17 16:00 97.9 99 18 114/58 (76) 96 I/O 03/19/17 03/19/17 03/19/17 03/20/17 03/20/17 03/20/17 07:00 15:00 23:00 07:00 15:00 23:00 Intake Total 300 ml 4179 ml 2046 ml Output Total 775 ml 700 ml 750 ml Balance -475 ml 3479 ml 1296 ml Intake Oral 300 ml 480 ml IV Total 2474 ml 1926 ml Packed Cells 750 ml Platelets 475 ml Other 120 ml Output Urine Total 775 ml 700 ml 600 ml Gastric Drainage Total 150 ml # Bowel Movements 0 2 3 Laboratory Laboratory Tests Test 03/19/17 15:25 03/19/17 15:30 03/19/17 20:40 03/20/17 00:00 Blood Gas Puncture Site ART LINE Blood Gas Patient Temperature 98.6 Blood Gas HCO3 21 Blood Gas Base Excess -3.1 Blood Gas Oxygen Saturation 97 Arterial Blood pH 7.38 Arterial Blood Partial Pressure CO2 37 Arterial Blood Partial Pressure O2 253 Arterial Blood Oxygen Content 12.2 Arterial Blood Carboxyhemoglobin 2.0 Arterial Blood Methemoglobin 1.3 Blood Gas Hemoglobin 8.5 Oxygen Delivery Device VENTILATOR Blood Gas Ventilator Setting A/C14/500/+5PEEP Blood Gas Inspired Oxygen 50 White Blood Count 27.7 Red Blood Count 2.96 Hemoglobin 8.5 11.8 Hematocrit 25.6 35.4 Mean Corpuscular Volume 86.5 Mean Corpuscular Hemoglobin 28.8 Mean Corpuscular Hemoglobin Concent 33.3 Red Cell Distribution Width 16.6 Platelet Count 252 Mean Platelet Volume 7.8 Test 03/20/17 01:55 03/20/17 02:18 03/20/17 06:13 03/20/17 06:28 White Blood Count 21.0 Red Blood Count 4.09 Hemoglobin 11.9 11.6 Hematocrit 35.2 34.6 Mean Corpuscular Volume 86.0 Mean Corpuscular Hemoglobin 29.0 Mean Corpuscular Hemoglobin Concent 33.8 Red Cell Distribution Width 16.4 Platelet Count 171 Mean Platelet Volume 8.5 Neutrophils (%) (Auto) 91.9 Lymphocytes (%) (Auto) 3.8 Monocytes (%) (Auto) 4.2 Eosinophils (%) (Auto) 0.0 Basophils (%) (Auto) 0.1 Neutrophils # (Auto) 19.3 Lymphocytes # (Auto) 0.8 Monocytes # (Auto) 0.9 Eosinophils # (Auto) 0.0 Basophils # (Auto) 0.0 CBC Comment DIFF FINAL Differential Comment Blood Urea Nitrogen 56 Creatinine 1.34 Random Glucose 143 Total Protein 4.3 Albumin 2.1 Calcium Level 7.3 Phosphorus Level 3.4 Magnesium Level 2.0 Alkaline Phosphatase 56 Aspartate Amino Transf (AST/SGOT) 50 Alanine Aminotransferase (ALT/SGPT) 24 Total Bilirubin 0.9 Sodium Level 139 Potassium Level 4.0 Chloride Level 105 Carbon Dioxide Level 27.4 Anion Gap 7 Estimat Glomerular Filtration Rate 38 Protein Corrected Calcium 8.9 Prothrombin Time 12.4 Prothromb Time International Ratio 1.1 Test 03/20/17 07:51 Blood Gas Puncture Site RT BRACHIAL Blood Gas Patient Temperature 98.6 Blood Gas HCO3 23 Blood Gas Base Excess -2.6 Blood Gas Oxygen Saturation 96 Arterial Blood pH 7.33 Arterial Blood Partial Pressure CO2 44 Arterial Blood Partial Pressure O2 139 Arterial Blood Oxygen Content 15.5 Arterial Blood Carboxyhemoglobin 2.4 Arterial Blood Methemoglobin 1.3 Blood Gas Hemoglobin 11.4 Oxygen Delivery Device VENTILATOR Blood Gas Ventilator Setting AC14/500/+5 Blood Gas Inspired Oxygen 40 Date/Time Source Procedure Growth Status 03/20/17 02:21 Blood Peripheral Aerobic Blood Culture Pending Received 03/20/17 02:21 Blood Peripheral Anaerobic Blood Culture Pending Received 03/19/17 12:00 Stool Stool Stool Occult Blood (MARIANO) - Final HEMOCCULT NEGATIVE Complete 03/20/17 08:10 Sputum Endotracheal Gram Stain - Final Resulted 03/20/17 08:10 Sputum Endotracheal Sputum Culture Pending Resulted 03/20/17 08:10 Urine Catheterized Urine Urine Culture Pending Received Physical Exam HEENT: Intubated NECK: Neck is supple, no JVD, no lymphadenopathy. CHEST: Chest is clear to auscultation and percussion. CARDIAC: Regular rate and rhythm with no murmur gallop or rubs. ABDOMEN: Soft, nondistended, nontender; no hepatosplenomegaly; bowel sounds are present in all four quadrants. EXTREMITIES: No clubbing, cyanosis, or edema. SKIN: Normal; no rash; no jaundice. Assessment and Plan Plan ASSESSMENT: - Upper GI Bleed with jean marie red blood from OGT and melanotic stool. Pt with severe aortic stenosis, s/p valvuloplasty; CAD on Plavix/ASA. Became unstable after passing melanotic stool, required emergent intubation. HH dropped from 13.4/40.4 this am to 8.1/25.1. 2 units of PRBC and 2 units of platelets was ordered. Spoke to daughter regarding EGD- procedure, risk, benefit and they would like to proceed. She does have a history of a diverticular bleed about 10 years ago. Suspect upper gi bleeding with jean marie red blood from OGT. EGD today. NPO. Protonix Gtt. Of note patient has a contrast allergy. - Anemia due to acute blood loss. HH dropped from 13.4/40.4 this am to 8.1/ 25.1. In process of getting 2 units of PRBC, 2 units of platelets was ordered. - Syncopal episode this am while trying to have a bowel movement, cardiology following, likely vasovagal. - Acute respiratory failure. S/P Intubation/mechanical ventilation - Leukocytosis. WBC 16.3 - ANURAG, Creat 1.18 - Severe aortic stenosis, not a surgical candidate for AVR/MVR. Was being worked up for TAVR when she became more symptomatic. 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 Goal is to get better control of her symptoms so that she could tolerate TAVR. Cardiology following. - CAD, CHF, PAD, Hyperlipidemia per cardiology - DM per attending. - Of note, patient has multiple drug allergies including a contrast allergy PLAN: - Plan for second look EGD once stable - NPO - Protonix Gtt - Agree with transfusion as needed - H&H q6h - Transfuse as necessary - CBC, BMP in am - Patient has contrast allergy - Further recommendations as far as the plavix/asa after EGD Renee Rock MD Mar 20, 2017 14:18
[2017-03-20 14:47] LABS: HEMATOCRIT 35.1 % (35.0-46.0)
[2017-03-20 14:51] LABS: REVIEW FLAG FINAL
--- NOTE | 2017-03-20 15:10 | RADRPT ---
EXAM DATE/TIME: 03/20/2017 14:21 [facility] COMPARISON: CTA TRANS AORTIC VALVE REPLACEMENT, March 09, 2017, 10:10. INDICATIONS : Bilateral leg edema. MEDICAL HISTORY : Hypercholesterolemia. Hypertension. Myocardial infarction. Congestive heart failure. Coronary shannon ry disease. Arthritis. Diabetes. Carcinoma, skin. SURGICAL HISTORY : Cholecystectomy.Tubal ligation. Bilateral cataract extraction. Fempop bypass, left leg. CABG. Kidn ey biopsy. ENCOUNTER: Initial ACUITY: 1 day PAIN SCORE: Non-responsive LOCATION: Bilateral legs. TECHNIQUE: Venous ultrasound of the left and right leg was performed from the inguinal ligament to the proximal calf. Real-time, color Doppler and spectral tracing, compression and augmentation techniques were us ed. FINDINGS: RIGHT LEG: There is normal compressibility of the deep venous system from the inguinal region to the proximal ca lf. No echogenic clot is seen in the lumen of the common femoral, femoral, popliteal, and posterior tibial veins. There is a normal response of the venous system to proximal and distal augmentation an d respiration. LEFT LEG: There is normal compressibility of the deep venous system from the inguinal region to the proximal ca lf. No echogenic clotwith is seen in the lumen of the common femoral, femoral, popliteal, and hand tufter ior tibial veins. There is a normal response of the venous system to proximal and distal augmentatio n and respiration. The patient's left femoral artery bypass is visualized and there is no flow withi n it. CONCLUSION: There is no DVT and incidental note is made of no flow within the left femoral artery bypass. Roseanna Graham MD on March 20, 2017 at 15:06 Board Certified Radiologist. This report was verified electronically.
--- NOTE | 2017-03-20 20:09 | PD.CAR.PN ---
CVT Progress Note Subjective/Hospital Course: Evaluated full consult dictated We will follow Glo J Objective: Vital Signs Date Time Temp Pulse Resp B/P (MAP) Pulse Ox O2 Delivery O2 Flow Rate FiO2 03/20/17 18:21 91 102/60 03/20/17 15:00 95 03/20/17 15:00 100 Mechanical Ventilator 40 03/20/17 15:00 100.8 101 14 113/58 (76) 100 Arterial Line 03/20/17 15:00 40 03/20/17 12:00 100 40 03/20/17 11:00 100 Mechanical Ventilator 40 03/20/17 11:00 100 03/20/17 11:00 40 03/20/17 11:00 99.1 87 14 123/57 (79) 100 03/20/17 08:00 99 40 03/20/17 07:00 40 03/20/17 07:00 100 Mechanical Ventilator 40 03/20/17 07:00 98.6 105 14 129/66 (87) 100 123/62 (82) 03/20/17 07:00 103 03/20/17 05:04 99 40 03/20/17 03:45 40 03/20/17 03:42 100 03/20/17 03:42 100.4 98 14 110/56 (74) 100 101/54 (70) 03/20/17 03:42 100 Mechanical Ventilator 40 03/20/17 01:43 100 40 03/20/17 00:40 102.2 03/19/17 23:18 40 03/19/17 23:16 85 03/19/17 23:16 99 Mechanical Ventilator 40 03/19/17 23:16 100.5 88 14 119/65 (83) 99 117/49 (71) 03/19/17 22:28 99 40 03/19/17 20:55 100 40 03/19/17 20:30 98.6 Labs: Laboratory Tests Test 03/20/17 14:37 Hemoglobin 11.6 GM/DL (11.6-15.3) Hematocrit 35.1 % (35.0-46.0) Result Diagram: 03/20/17 1437 03/20/17 0218 (1) Aortic stenosis Plan: s/p valvuloplasty (2) AI (aortic insufficiency) (3) Acute on chronic diastolic congestive heart failure due to valvular disease (4) Cardiomyopathy Plan: ef 25-30; holding juan/arb/bb due to low bp's. Cortez Terry MD Mar 20, 2017 20:09
[2017-03-20] MEDS: ACETAMINOPHEN 325 MG TAB PO PRN (20:11)
[2017-03-20] MEDS: SODIUM CHLOR 0.9% 1000 ML INJ 1,000 ML IV SCH (20:13)
--- NOTE | 2017-03-20 22:22 | MB ---
cc: ELENA RINALDI MD DATE OF CONSULTATION 03/20/[address] Rinaldi / vascular surgery. REASON FOR CONSULTATION Occlusion of femoral-popliteal old fem-pop graft, hypotensive shock, GI bleeding and respiratory and cardiac failure. Critical care time is 43 minutes. HISTORY OF THE PRESENT ILLNESS This 82-year-old lady is known to me from previous encounters. In November of 2014 she underwent a left SFA balloon angioplasty with stent placements in common femoral and distal superficial / popliteal artery by Dr. Talamantes. I got referral for the patient July 2015 when she presented with ischemic left leg. She underwent removal of all the grafts, femoral-popliteal bypass with external iliac artery patch angioplasty endarterectomy. Since then the patient has been doing well. I saw her in followup in my office at regular intervals. The patient presented on the of this month, i.e. two days ago with shortness of breath and she was diagnosed with aortic stenosis, aortic insufficiency and ejection fraction in the 25-30% range with a global hypokinesis of the heart and hypertropia is well as large left pleural effusion, all indicative of congestive heart failure. The patient underwent valvuloplasty on the 18 of March and postoperatively developed hypotensive shock, GI bleeding with drop of hemoglobin from 12 to 7, massive amounts of blood were obtained from the upper and lower GI tract. The patient was transfused 4 units of blood and is now in ICU. She was noted to have a cold left foot today. PAST MEDICAL HISTORY The past medical history is complex and includes: 1. Peripheral vascular disease. 2. Aortic stenosis with insufficiency. 3. Diabetes mellitus. 4. Hypertension. 5. Hyperlipidemia. 6. Ischemic heart disease with coronary artery bypass surgery in the past. 7. Kidney biopsy. 8. Arthritis. 9. Decreased vision. 10. Cholelithiasis. PAST SURGICAL HISTORY Previous surgery: 1. As above noted coronary artery bypass surgery. 2. Cataract removals. 3. Hysterectomy and bilateral salpingo-oophorectomy. 4. Kidney biopsy. 5. Fem-pop bypass in 2014 preceded by some stent placements. MEDICATIONS Can be found on the record. SOCIAL HISTORY Noncontributory. The patient is not a smoker or drinker. PHYSICAL EXAMINATION GENERAL: The physical examination now in the intensive care unit reveals an 82-year-old lady on the ventilator, sedated. HEENT: Normocephalic. No trauma to the head. Pupils are equal and poorly reactive. Extraocular muscles cannot be tested. CHEST: Bilateral breath sounds decreased over both lungs but the left more so than right. HEART: The patient is in sinus rhythm. Hemodynamically she is unstable. She is being supported with over 100 mics of Anshu-Synephrine at this time as she was until recently on Levophed. Hemoglobin remains at this point stable after massive bleed. ABDOMEN: Soft. No rebound or guarding and no masses are noted. Groins, there is a right groin hematoma sort of diffuse and on the left side there is a puncture site from previous catheter placement on the . Distal pulses, the patient has dopplerable right femoral pulse and distal pulses on the left side. She has no pulses either in the groin or below that, while the leg is warm from the deep femoral artery perfusion the superficial femoral artery is completely occluded from the groin down and so is the graft. The patient's foot is cold and pulseless. IMPRESSION AND RECOMMENDATIONS 1. At this point the patient is not a candidate for any surgery in the face of her systemic problems including the hypotension which is controlled with vasopressors, her poor cardiac function as well as GI bleeding. In order to perform any type of endovascular of vascular procedure, the patient would have to be anticoagulated and at this point risk of bleeding is prohibitive because this would pose high risk for patient's life and choosing between the life and the limb, we will have to possibly sacrifice the limb. As above stated the patient is not a candidate for any major surgery. 2. The patient came with ejection fraction of 25-30% and underwent valvuloplasty. It should be noted that left external iliac artery was accessed with a large sheath. At this time this was a vessel that had a patch angioplasty performed as a part of the femoral-popliteal bypass and should have never been accessed with a large sheath or any other way without consulting me first. Combination of iatrogenic manipulation of the vessel with access with a large sheath and consequent hypotensive shock with GI bleeding has caused this graft to clot off and at this point there is no way out of it considering the patient's current general status. I will discuss this further with consulting attendings but at this point there is nothing I can do from the vascular point considering the patient's condition. I will continue to follow the patient with you. I thank you much for the referral. Elena LINTON/KK /7:56 PM /9:59 PM
[2017-03-20 22:36] LABS: REVIEW FLAG FINAL
[2017-03-20 22:54] LABS: CKMB 20.3 NG/ML (0.5-3.6)
[2017-03-21] VITALS (11 sets, daily range): BP systolic 102–110; BP diastolic 51–58; PULSE 87–94; RESP 14; TEMP 99–102.4; O2SAT 99–100
[2017-03-21] MEDS: PHENYLEPHRINE 40 MG/D5W 496 ML ADMIX IV SCH ×4 (03:01→17:21)
[2017-03-21 04:14] LABS: AUTOMATED NEUTROPHIL # 26.2 TH/MM3 (1.8-7.7); BASOPHIL % 0.2 % (0.0-2.0); HEMO FLAGS DIFF FINAL; LYMPH % 3.1 % (9.0-44.0); LYMPHOCYTE # 0.9 TH/MM3 (1.0-4.8); MEAN CELL VOLUME 86.8 FL (80.0-100.0); MEAN CORPUSCULAR HEMOGLOBIN 29.2 PG (27.0-34.0); MEAN CORPUSCULAR HGB CONC 33.6 % (32.0-36.0); MONO % 4.2 % (0.0-8.0); NEUT % 92.5 % (16.0-70.0); PLATELET COUNT 123 TH/MM3 (150-450); RED BLOOD COUNT 3.69 MIL/MM3 (4.00-5.30); RED CELL DISTRIBUTION WIDTH 16.5 % (11.6-17.2); WHITE BLOOD COUNT 28.3 TH/MM3 (4.0-11.0)
[2017-03-21 04:21] LABS: INTERNATIONAL NORMALIZED RATIO 1.1 RATIO; PROTHROMBIN TIME - PATIENT 11.9 SEC (9.8-11.6)
[2017-03-21] MEDS: RESP: ALBUTEROL 2.5 MG/IPRATROPIUM 0.5 MG NEB (SCH) NEB ×4 (04:24→22:05)
[2017-03-21 04:37] LABS: ALT (GPT) 31 U/L (10-53); ANION GAP 7 MEQ/L (5-15); AST (GOT) 91 U/L (15-37); BICARBONATE 27.3 MEQ/L (21.0-32.0); BLOOD UREA NITROGEN 52 MG/DL (7-18); CHLORIDE 103 MEQ/L (98-107); GLOMERULAR FILTRATION RATE 41 ML/MIN (>89); POTASSIUM 3.9 MEQ/L (3.5-5.1); SODIUM (NA) 137 MEQ/L (136-145)
[2017-03-21 04:40] LABS: ALKALINE PHOSPHATASE 60 U/L (45-117); CREATINE KINASE 311 U/L (26-192); TOTAL BILIRUBIN ADULT 0.6 MG/DL (0.2-1.0)
[2017-03-21 05:00] LABS: CKMB 13.8 NG/ML (0.5-3.6)
--- NOTE | 2017-03-21 05:08 | EKG ---
Date Performed: 03/20/2017 Time Performed: 20:11:12 PTAGE: 81 years EKG: Sinus rhythm Possible eft ventricular hypertrophy Extensive ST-T changes may be due to hypertrophy and/or ischemi a Abnormal ECG PREVIOUS TRACING : 03/19/2017 11.33 No change from previous tracing noted. DOCTOR: Amador Shafer Interpretating Date/Time 03/21/2017 05:08:03
[2017-03-21] MEDS: PANTOPRAZOLE INJ 80 MG in SODIUM CHLORIDE 0.9% INJ 100 ML IV SCH ×3 (05:20→23:30)
--- NOTE | 2017-03-21 05:21 | RADRPT ---
EXAM DATE/TIME: 03/21/2017 03:49 [facility] COMPARISON: CHEST SINGLE AP, March 20, 2017, 4:05. INDICATIONS : Shortness of breath, possible pulmonary disease. MEDICAL HISTORY : Chronic obstructive pulmonary disease. SURGICAL HISTORY : CABG. ENCOUNTER: Subsequent ACUITY: 3 days PAIN SCORE: Non-responsive. LOCATION: Bilateral chest FINDINGS: A single view of the chest demonstrates endotracheal tube in good position. Nasogastric tube enters s tomach. Right central line in superior vena cava. Bilateral mostly basilar airspace disease and pleur al effusions present. No pneumothorax. CONCLUSION: 1. Endotracheal tube, nasogastric tube and right central line in good position. No significant change in bilateral mostly basilar and dependent airspace disease and pleural effusion since March 20. Oswaldo Stevens MD on March 21, 2017 at 5:17 Board Certified Radiologist. This report was verified electronically.
[2017-03-21] MEDS: INSULIN ASPART SUPPLEMENTAL SCALE SQ SCH ×4 (05:38→20:57)
[2017-03-21 06:06] LABS: BLOOD GAS BASE EXCESS -1.1 mmol/L (-2-2); BLOOD GAS CARBOXYHEMOGLOBIN 2.1 % (0-4); BLOOD GAS HCO3 23 mmol/L (22-26); BLOOD GAS METHEMOGLOBIN 1.2 % (0-2); BLOOD GAS O2 HGB SATURATION 96 % (90-100); BLOOD GAS OXYGEN CONTENT 14.2 Vol % (12.0-20.0); BLOOD GAS PCO2 41 mmHg (38-42); BLOOD GAS PO2 149 mmHg (61-120); BLOOD GAS TOTAL HGB 10.3 G/DL (12.0-16.0); CRITICAL VALUE NO; DRAW SITE RT BRACHIAL; FIO2 40 %; NUMBER OF ARTERIAL PUNCTURES 1; OXYGEN DEVICE VENTILATOR; TEMP CORR TO 98.6; VENT SETTINGS A/C14/500/+5PEEP
[2017-03-21 06:07] LABS: STAT NO
[2017-03-21] MEDS: fentaNYL DRIP 250 ML IV SCH ×2 (07:18→18:30)
--- NOTE | 2017-03-21 07:42 | PD.CARD.PN ---
Subjective Subjective Remarks intubated and mechanically ventilated (Siddharth Maharaj) Objective Vital Signs / I&O Vital Signs Date Time Temp Pulse Resp B/P (MAP) Pulse Ox O2 Delivery O2 Flow Rate FiO2 03/21/17 04:25 99 40 03/21/17 03:43 93 03/21/17 03:43 40 03/21/17 03:43 99 Mechanical Ventilator 40 03/21/17 03:43 99.0 92 14 110/58 (75) 99 03/21/17 03:01 92 110/58 03/20/17 23:23 100.4 88 14 96/56 (69) 100 03/20/17 23:23 40 03/20/17 23:23 89 03/20/17 23:23 100 Mechanical Ventilator 40 03/20/17 21:56 100 40 03/20/17 20:39 100 40 03/20/17 20:30 100.6 03/20/17 19:20 40 03/20/17 19:17 103.0 94 14 109/60 (76) 100 03/20/17 19:17 100 Mechanical Ventilator 40 03/20/17 19:00 95 03/20/17 18:21 91 102/60 03/20/17 15:00 95 03/20/17 15:00 100 Mechanical Ventilator 40 03/20/17 15:00 100.8 101 14 113/58 (76) 100 Arterial Line 03/20/17 15:00 40 03/20/17 12:00 100 40 03/20/17 11:00 100 Mechanical Ventilator 40 03/20/17 11:00 100 03/20/17 11:00 40 03/20/17 11:00 99.1 87 14 123/57 (79) 100 03/20/17 08:00 99 40 I/O 03/20/17 03/20/17 03/20/17 03/21/17 03/21/17 03/21/17 07:00 15:00 23:00 07:00 15:00 23:00 Intake Total 2046 ml 1585 ml 1076 ml Output Total 750 ml 1450 ml 790 ml Balance 1296 ml 135 ml 286 ml Intake Oral 0 ml IV Total 1926 ml 1465 ml 1076 ml Other 120 ml 120 ml Output Urine Total 600 ml 1400 ml 690 ml Gastric Drainage Total 150 ml 50 ml 100 ml # Bowel Movements 3 0 0 Physical Exam GENERAL: Well-nourished, well-developed patient in no apparent distress. NECK: No JVD. No carotid bruit. CARDIOVASCULAR: Regular rate and rhythm. S1/S2 no murmur, rub, or gallop. RESPIRATORY: No accessory muscle use. Clear to auscultation. Breath sounds equal bilaterally. GASTROINTESTINAL: Abdomen soft, non-tender, nondistended. MUSCULOSKELETAL: left foot cold and pulseless Laboratory Laboratory Tests Test 03/20/17 07:51 03/20/17 14:37 03/20/17 20:20 03/20/17 20:45 Blood Gas Puncture Site RT BRACHIAL Blood Gas Patient Temperature 98.6 Blood Gas HCO3 23 mmol/L Blood Gas Base Excess -2.6 mmol/L Blood Gas Oxygen Saturation 96 % Arterial Blood pH 7.33 Arterial Blood Partial Pressure CO2 44 mmHg Arterial Blood Partial Pressure O2 139 mmHg Arterial Blood Oxygen Content 15.5 Vol % Arterial Blood Carboxyhemoglobin 2.4 % Arterial Blood Methemoglobin 1.3 % Blood Gas Hemoglobin 11.4 G/DL Oxygen Delivery Device VENTILATOR Blood Gas Ventilator Setting AC14/500/+5 Blood Gas Inspired Oxygen 40 % Hemoglobin 11.6 GM/DL 10.5 GM/DL Hematocrit 35.1 % 32.0 % Total Creatine Kinase 315 U/L Creatine Kinase MB 20.3 NG/ML Creatine Kinase MB % 6.4 % Troponin I 17.40 NG/ML Test 03/21/17 04:00 03/21/17 05:45 White Blood Count 28.3 TH/MM3 Red Blood Count 3.69 MIL/MM3 Hemoglobin 10.8 GM/DL Hematocrit 32.0 % Mean Corpuscular Volume 86.8 FL Mean Corpuscular Hemoglobin 29.2 PG Mean Corpuscular Hemoglobin Concent 33.6 % Red Cell Distribution Width 16.5 % Platelet Count 123 TH/MM3 Mean Platelet Volume 8.3 FL Neutrophils (%) (Auto) 92.5 % Lymphocytes (%) (Auto) 3.1 % Monocytes (%) (Auto) 4.2 % Eosinophils (%) (Auto) 0.0 % Basophils (%) (Auto) 0.2 % Neutrophils # (Auto) 26.2 TH/MM3 Lymphocytes # (Auto) 0.9 TH/MM3 Monocytes # (Auto) 1.2 TH/MM3 Eosinophils # (Auto) 0.0 TH/MM3 Basophils # (Auto) 0.0 TH/MM3 CBC Comment DIFF FINAL Differential Comment Prothrombin Time 11.9 SEC Prothromb Time International Ratio 1.1 RATIO Blood Urea Nitrogen 52 MG/DL Creatinine 1.26 MG/DL Random Glucose 172 MG/DL Total Protein 4.7 GM/DL Albumin 1.9 GM/DL Calcium Level 7.9 MG/DL Phosphorus Level 3.0 MG/DL Magnesium Level 2.0 MG/DL Alkaline Phosphatase 60 U/L Aspartate Amino Transf (AST/SGOT) 91 U/L Alanine Aminotransferase (ALT/SGPT) 31 U/L Total Bilirubin 0.6 MG/DL Sodium Level 137 MEQ/L Potassium Level 3.9 MEQ/L Chloride Level 103 MEQ/L Carbon Dioxide Level 27.3 MEQ/L Anion Gap 7 MEQ/L Estimat Glomerular Filtration Rate 41 ML/MIN Total Creatine Kinase 311 U/L Creatine Kinase MB 13.8 NG/ML Creatine Kinase MB % 4.4 % Troponin I 13.80 NG/ML Blood Gas Puncture Site RT BRACHIAL Blood Gas Patient Temperature 98.6 Blood Gas HCO3 23 mmol/L Blood Gas Base Excess -1.1 mmol/L Blood Gas Oxygen Saturation 96 % Arterial Blood pH 7.38 Arterial Blood Partial Pressure CO2 41 mmHg Arterial Blood Partial Pressure O2 149 mmHg Arterial Blood Oxygen Content 14.2 Vol % Arterial Blood Carboxyhemoglobin 2.1 % Arterial Blood Methemoglobin 1.2 % Blood Gas Hemoglobin 10.3 G/DL Oxygen Delivery Device VENTILATOR Blood Gas Ventilator Setting A/C14/500/+5PEEP Blood Gas Inspired Oxygen 40 % (Siddharth Maharaj) Assessment and Plan Problem List: (1) Aortic stenosis ICD Codes: I35.0 - Aortic stenosis Status: Chronic (2) AI (aortic insufficiency) ICD Codes: I35.1 - Nonrheumatic aortic (valve) insufficiency Status: Acute (3) Acute on chronic diastolic congestive heart failure due to valvular disease ICD Codes: I50.33 - Acute on chronic diastolic (congestive) heart failure; I38 - Endocarditis, valve unspecified Status: Acute (4) Cardiomyopathy ICD Codes: I42.9 - Cardiomyopathy, unspecified Status: Acute (5) PVD (peripheral vascular disease) ICD Codes: I73.9 - Peripheral vascular disease Status: Chronic Assessment and Plan S/P valvuloplasty and PCI vein graft - the patient experienced acute GI bleed over the weekend and became hemodynamically unstable. She has been intubated and blood was transfused. She also has occluded left external iliac artery. Now has stabilized hemodynamically yet is still having GI bleeding. We will possibly plan lower extremity angiogram with possible intervention left external iliac. Significantly elevated troponin. Further recommendations per Dr. Talamantes (Siddharth Maharaj) Assessment and Plan Severe aortic stenosis with acute decompensation with congestive heart failure/ cardiomyopathy. Limited options with rapid decompensation We performed aortic valvuloplasty with understanding of risks and limited options. No longer a TAVR candidate. GI bleed - endoscopy. no source identified. ischemic left leg - history of L fem-pop now occluded. R [employer] HELPER/ext iliac too small to accommodate 14F sheath so L [employer] HELPER was only option. h/o afib. she either thrombosed locally or embolized. Either way, she will not be a percutaneous candidate for revascularization due to GI bleeding (no heparin or t -PA). Vascular surgery also states not surgical candidate at this point. Extremity warm to level of the knee without palpable pulse, very faint PT doppler. given current condition and comorbidities, palliative care has been consulted due to poor prognosis. Appreciate assistance from all consulted physicians with her case (Mack Talamantes MD) Siddharth Maharaj Mar 21, 2017 07:42 Mack Talamantes MD Mar 21, 2017 10:39
[2017-03-21] MEDS: CHLORHEXIDINE 0.12% (ORAL KIT) 15 ML CUP MT SCH ×2 (08:18→20:40)
--- NOTE | 2017-03-21 08:28 | HHI.PR ---
Subjective Remarks Patient is a 81-year-old female presents to the emergency Department with shortness of breath and dry heaves. The patient states she's been worked up for possible aortic valve intervention for a "thin aorta." She states the other day she had a CT scan with IV contrast and thinks that was contributing to her symptoms. She states she took her Lasix this morning and it is not working. She went to Dr. Taylor's office today and was referred to the emergency department for shortness of breath. States she HAS shortness of breath with minimal exertion. States she's had a heart attack in the past and has a history of congestive heart failure. Denies any chest pain denies any abdominal pain. Still having some nausea and vomiting Denies any fevers or chills Is being worked up for A TAVR Discussed with emergency room physician as well as the patient We have accepted this patient due to the fact that the [facility] attending is currently at his LIMIT FOR PATIENTS 8-18 patient still feels short of breath. An echocardiogram today and depending on the echocardiogram will determine if patient goes for valvuloplasty or holds out to TAVR next week No new complaints 8-19 HAD PROCEDURE YESTERDAY 1. Severe aortic valve stenosis. 2. 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 3. Elevated left-sided filling pressures. 4. Successfully utilization of temporary transvenous pacemaker. 5. Successful aortic valve valvuloplasty. 6. Successful percutaneous intervention with balloon angioplasty of the saphenous vein graft to the obtuse marginal branch. WANTS TO HAVE A NON- DIABETIC DIET IS IN CVICU AT THIS TIME HAS BL GROIN CATH SITES THAT ARE STABLE DW RN AND PATIENT AM LABS PT AND OT 8-20 events of last night discussed with critical care and RN Patient had vasovagal event. Then had GI bleeding from the rectum and vomiting of blood. Patient was intubated to protect her airway. Remains on the ventilator Had endoscopy with gastroenterology upper which showed lots of blood Had to be on the ventilator with pressors which are being weaned off Was transfused 4 units of packed red blood cells yesterday Remains on the ventilator now On no blood thinners Plan labs Discussed with RN 8-21 PATIENT NOTED TO HAVE DECREASED PULSE LEFT LOWER EXTREMITY VASCULAR SURGERY HAS BEEN CONSULTED ON FENTANYL DRIP REMAINS ON THE VENTILATOR TO HAVE REPEAT EGD LATER TODAY SP 4 UNITS OF PRBC TOTAL YESTERDAY TRISTAN RN PATIENT SEDATED ON THE VENT Objective Vitals Vital Signs Date Time Temp Pulse Resp B/P (MAP) Pulse Ox O2 Delivery O2 Flow Rate FiO2 03/21/17 08:00 99 Mechanical Ventilator 40 03/21/17 08:00 99.9 93 14 102/56 (71) 99 03/21/17 08:00 40 03/21/17 07:23 99 40 03/21/17 04:25 99 40 03/21/17 03:43 93 03/21/17 03:43 40 03/21/17 03:43 99 Mechanical Ventilator 40 03/21/17 03:43 99.0 92 14 110/58 (75) 99 03/21/17 03:01 92 110/58 03/20/17 23:23 100.4 88 14 96/56 (69) 100 03/20/17 23:23 40 03/20/17 23:23 89 03/20/17 23:23 100 Mechanical Ventilator 40 03/20/17 21:56 100 40 03/20/17 20:39 100 40 03/20/17 20:30 100.6 03/20/17 19:20 40 03/20/17 19:17 103.0 94 14 109/60 (76) 100 03/20/17 19:17 100 Mechanical Ventilator 40 03/20/17 19:00 95 03/20/17 18:21 91 102/60 03/20/17 15:00 95 03/20/17 15:00 100 Mechanical Ventilator 40 03/20/17 15:00 100.8 101 14 113/58 (76) 100 Arterial Line 03/20/17 15:00 40 03/20/17 12:00 100 40 03/20/17 11:00 100 Mechanical Ventilator 40 03/20/17 11:00 100 03/20/17 11:00 40 03/20/17 11:00 99.1 87 14 123/57 (79) 100 I/O 03/20/17 03/20/17 03/20/17 03/21/17 03/21/17 03/21/17 07:00 15:00 23:00 07:00 15:00 23:00 Intake Total 2046 ml 1585 ml 1076 ml Output Total 750 ml 1450 ml 790 ml Balance 1296 ml 135 ml 286 ml Intake Oral 0 ml IV Total 1926 ml 1465 ml 1076 ml Other 120 ml 120 ml Output Urine Total 600 ml 1400 ml 690 ml Gastric Drainage Total 150 ml 50 ml 100 ml # Bowel Movements 3 0 0 Result Diagram: 03/21/17 0400 03/21/17 0400 Other Results Laboratory Tests Test 03/20/17 14:37 03/20/17 20:20 03/20/17 20:45 03/21/17 04:00 Hemoglobin 11.6 GM/DL 10.5 GM/DL 10.8 GM/DL Hematocrit 35.1 % 32.0 % 32.0 % Total Creatine Kinase 315 U/L 311 U/L Creatine Kinase MB 20.3 NG/ML 13.8 NG/ML Creatine Kinase MB % 6.4 % 4.4 % Troponin I 17.40 NG/ML 13.80 NG/ML White Blood Count 28.3 TH/MM3 Red Blood Count 3.69 MIL/MM3 Mean Corpuscular Volume 86.8 FL Mean Corpuscular Hemoglobin 29.2 PG Mean Corpuscular Hemoglobin Concent 33.6 % Red Cell Distribution Width 16.5 % Platelet Count 123 TH/MM3 Mean Platelet Volume 8.3 FL Neutrophils (%) (Auto) 92.5 % Lymphocytes (%) (Auto) 3.1 % Monocytes (%) (Auto) 4.2 % Eosinophils (%) (Auto) 0.0 % Basophils (%) (Auto) 0.2 % Neutrophils # (Auto) 26.2 TH/MM3 Lymphocytes # (Auto) 0.9 TH/MM3 Monocytes # (Auto) 1.2 TH/MM3 Eosinophils # (Auto) 0.0 TH/MM3 Basophils # (Auto) 0.0 TH/MM3 CBC Comment DIFF FINAL Differential Comment Prothrombin Time 11.9 SEC Prothromb Time International Ratio 1.1 RATIO Blood Urea Nitrogen 52 MG/DL Creatinine 1.26 MG/DL Random Glucose 172 MG/DL Total Protein 4.7 GM/DL Albumin 1.9 GM/DL Calcium Level 7.9 MG/DL Phosphorus Level 3.0 MG/DL Magnesium Level 2.0 MG/DL Alkaline Phosphatase 60 U/L Aspartate Amino Transf (AST/SGOT) 91 U/L Alanine Aminotransferase (ALT/SGPT) 31 U/L Total Bilirubin 0.6 MG/DL Sodium Level 137 MEQ/L Potassium Level 3.9 MEQ/L Chloride Level 103 MEQ/L Carbon Dioxide Level 27.3 MEQ/L Anion Gap 7 MEQ/L Estimat Glomerular Filtration Rate 41 ML/MIN Test 03/21/17 05:45 Blood Gas Puncture Site RT BRACHIAL Blood Gas Patient Temperature 98.6 Blood Gas HCO3 23 mmol/L Blood Gas Base Excess -1.1 mmol/L Blood Gas Oxygen Saturation 96 % Arterial Blood pH 7.38 Arterial Blood Partial Pressure CO2 41 mmHg Arterial Blood Partial Pressure O2 149 mmHg Arterial Blood Oxygen Content 14.2 Vol % Arterial Blood Carboxyhemoglobin 2.1 % Arterial Blood Methemoglobin 1.2 % Blood Gas Hemoglobin 10.3 G/DL Oxygen Delivery Device VENTILATOR Blood Gas Ventilator Setting A/C14/500/+5PEEP Blood Gas Inspired Oxygen 40 % Imaging Last Impressions Chest X-Ray 03/20/17 0400 Signed Impressions: Service Date/Time: Monday, March 20, 2017 04:05 - CONCLUSION: 1. Bibasilar airspace disease with associated effusions, stable on the left and slightly worse on the right. 2. Stable position of life support tubes. 3. Borderline prominent heart. Findings of prior CABG. Ra Bonner MD Abdomen X-Ray 03/19/17 1231 Signed Impressions: Service Date/Time: Sunday, March 19, 2017 13:23 - CONCLUSION: 1. Post surgical changes. 2. Possible renal calculi. 3. Density in the pelvis likely distended urinary bladder. Daniel Bhandari MD Objective Remarks GENERAL: This is a well-nourished, well-developed patient, in no apparent distress. Remains sedated on the ventilator now nonverbal SKIN: No rashes, ecchymoses or lesions. Cool and dry. There is ecchymosis on bilateral thighs right worse than left HEAD: Atraumatic. Normocephalic. No temporal or scalp tenderness. EYES: Pupils equal round and reactive. Extraocular motions intact. No scleral icterus. No injection or drainage. Tongue is midline ENT: Nose without bleeding, purulent drainage or septal hematoma. Throat without erythema, tonsillar hypertrophy or exudate. Uvula midline. Airway patent. Endotracheal tube and NG tube in place NECK: Trachea midline. No JVD or lymphadenopathy. Supple, nontender, no meningeal signs. CARDIOVASCULAR: Regular rate and rhythm without , gallops, or rubs. 3 out of 6 systolic murmur RESPIRATORY: Few rhonchi. Breath sounds equal bilaterally. No wheezes, rales, or rhonchi. Diminished breath sounds bilaterally. Rhonchi GASTROINTESTINAL: Abdomen soft, non-tender, nondistended. No hepato-splenomegaly , or palpable masses. No guarding. Hypoactive bowel sounds MUSCULOSKELETAL: Extremities without clubbing, cyanosis, or edema. No joint tenderness, effusion, or edema noted. No calf tenderness. Negative Homans sign bilaterally. Right groin area has lots of ecchymosis and bruising from prior cardiac catheterization BILATERAL GROINS DRESSED FROM PROCEDURES NEUROLOGICAL: Not Awake and alert. Cannot assess Cranial nerves II through XII intact. Cannot assess Motor and sensory grossly within normal limits. Cannot assess Five out of 5 muscle strength in all muscle groups. Nonverbal Insight and judgment is not assessable mood and behavior is not assessable Procedures 1. Severe aortic valve stenosis. 2. 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 3. Elevated left-sided filling pressures. 4. Successfully utilization of temporary transvenous pacemaker. 5. Successful aortic valve valvuloplasty. 6. Successful percutaneous intervention with balloon angioplasty of the saphenous vein graft to the obtuse marginal branch. 8 Medications and IVs Current Medications Sodium Chloride (NS Flush) 2 ml UNSCH PRN IVF FLUSH AFTER USING IV ACCESS; Start 03/17/17 at 09:45; Stop 03/17/17 at 14:21; Status DC Dextrose (D50w (Vial) Inj) 50 ml UNSCH PRN IV HYPOGLYCEMIA-SEE COMMENTS; Start 03/17/17 at 13:00 Glucagon (Glucagon Inj) 1 mg UNSCH PRN OTHER HYPOGLYCEMIA-SEE COMMENTS; Start 03/17/17 at 13:00 Insulin Aspart (NovoLOG SUPPLEMENTAL SCALE) 1 ACHS SLIDING SCALE SQ Last administered on 03/21/17 05:38; Start 03/17/17 at 16:00 Furosemide (Lasix) 40 mg DAILY PO Last administered on 03/18/17 09:34; Start 03/18/17 at 09:00; Stop 03/18/17 at 15:34; Status DC Nortriptyline HCl (Pamelor) 25 mg BID PO Last administered on 03/20/17 20:11; Start 03/17/17 at 21:00 Potassium Chloride (KCl) 10 meq DAILY PO Last administered on 03/20/17 09:00; Start 03/18/17 at 09:00 Sodium Chloride (NS Flush) 2 ml UNSCH PRN IV FLUSH FLUSH AFTER USING IV ACCESS ; Start 03/17/17 at 13:00 Sodium Chloride (NS Flush) 2 ml BID IV FLUSH Last administered on 03/20/17 20: 12; Start 03/17/17 at 21:00 Ondansetron HCl (Zofran Inj) 4 mg Q6H PRN IVP NAUSEA OR VOMITING Last administered on 03/19/17 10:49; Start 03/17/17 at 13:00 Prochlorperazine (Compazine Supp) 25 mg Q12H PRN RECTAL NAUSEA OR VOMITING; Start 03/17/17 at 13:00 Morphine Sulfate (Morphine Inj) 2 mg Q3H PRN IV Pain 3-5; if unable to take PO ; Start 03/17/17 at 13:00; Stop 03/19/17 at 15:22; Status DC Morphine Sulfate (Morphine Inj) 4 mg Q3H PRN IV Pain 6-10;if unable to take PO ; Start 03/17/17 at 13:00; Stop 03/19/17 at 15:22; Status DC Tramadol HCl (Ultram) 50 mg Q4H PRN PO PAIN SCALE 3 TO 5; Start 03/17/17 at 13: 00 Tramadol HCl (Ultram) 100 mg Q4H PRN PO PAIN SCALE 6 TO 10; Start 03/17/17 at 13:00 Naloxone HCl (Narcan Inj) 0.4 mg UNSCH PRN IV SEE LABEL COMMENTS; Start at 13:00 Senna/Docusate Sodium (Maura-Colace) 1 tab BID PO Last administered on 09:00; Start 03/17/17 at 21:00 Magnesium Hydroxide (Milk Of Magnesia Liq) 30 ml Q12H PRN PO MILD - MODERATE CONSTIPATION Last administered on 03/19/17 11:01; Start 03/17/17 at 13:00 Sennosides (Senokot) 17.2 mg Q12H PRN PO MODERATE - SEVERE CONSTIPATION Last administered on 03/19/17 11:01; Start 03/17/17 at 13:00 Bisacodyl (Dulcolax Supp) 10 mg DAILY PRN RECTAL SEVERE CONSITIPATION; Start at 13:00 Lactulose (Lactulose Liq) 30 ml DAILY PRN PO SEVERE CONSITIPATION; Start at 13:00 Aspirin (Aspirin Chew) 81 mg DAILY CHEW Last administered on 03/19/17 08:27; Start 03/18/17 at 09:00; Stop 03/19/17 at 15:24; Status DC Clopidogrel Bisulfate (Plavix) 75 mg DAILY PO Last administered on 03/19/17 08 :28; Start 03/18/17 at 09:00; Status Future Hold Sodium Chloride 1,000 ml @ 42 mls/hr [id number] IV Last administered on 02:30; Start 03/18/17 at 02:30; Stop 03/19/17 at 02:18; Status DC Potassium Chloride (KCl) 40 meq ONCE ONCE PO Last administered on 03/18/17 10 :48; Start 03/18/17 at 09:45; Stop 03/18/17 at 09:46; Status DC Diphenhydramine HCl (Benadryl Inj) 50 mg STK-MED ONCE .ROUTE Last administered on 03/18/17 15:25; Start 03/18/17 at 15:10; Stop 03/18/17 at 15:11; Status DC Methylprednisolone Sodium Succinate (SoluMEDROL INJ) 125 mg STK-MED ONCE .ROUTE Last administered on 03/18/17 15:26; Start 03/18/17 at 15:10; Stop 03/18/17 at 15:11; Status DC Heparin Sodium/ Sodium Chloride 500 ml @ As Directed STK-MED ONCE .ROUTE Last administered on 03/18/17 15:23; Start 03/18/17 at 15:23; Stop 03/18/17 at 15:24 ; Status DC Dobutamine HCl/ Dextrose 250 ml @ 8.97 mls/hr Q24H IV ; Start 03/18/17 at 15:31 ; Stop 03/18/17 at 17:17; Status DC Bumetanide (Bumex Inj) 1 mg DAILY IV PUSH Last administered on 03/20/17 09:00 ; Start 03/19/17 at 09:00 Midazolam HCl (Versed Inj) 2 mg STK-MED ONCE .ROUTE Last administered on 15:44; Start 03/18/17 at 15:40; Stop 03/18/17 at 15:41; Status DC Fentanyl Citrate (fentaNYL INJ) 100 mcg STK-MED ONCE .ROUTE Last administered on 03/18/17 15:43; Start 03/18/17 at 15:40; Stop 03/18/17 at 15:41; Status DC Lidocaine HCl (Xylocaine-Mpf 1% Inj) 30 ml STK-MED ONCE .ROUTE ; Start 03/18/17 at 15:43; Stop 03/18/17 at 15:44; Status DC Heparin Sodium (Porcine) (Heparin Inj) 10,000 units STK-MED ONCE .ROUTE Last administered on 03/18/17 16:02; Start 03/18/17 at 15:52; Stop 03/18/17 at 15:53 ; Status DC Heparin Sodium/ Sodium Chloride 500 ml @ As Directed STK-MED ONCE .ROUTE Last administered on 03/18/17 15:54; Start 03/18/17 at 15:54; Stop 03/18/17 at 15:55 ; Status DC Midazolam HCl (Versed Inj) 2 mg STK-MED ONCE .ROUTE Last administered on 15:44; Start 03/18/17 at 16:24; Stop 03/18/17 at 16:25; Status DC Protamine Sulfate (Protamine Sulfate Inj) 50 mg STK-MED ONCE .ROUTE Last administered on 03/18/17 17:01; Start 03/18/17 at 17:00; Stop 03/18/17 at 17:01 ; Status DC Miscellaneous Information 1 ONCE ONCE XX ; Start 03/18/17 at 17:15; Stop at 17:24; Status DC Atropine Sulfate (Atropine Inj) 0.5 mg UNSCH PRN IV VAGAL REPONSE; Start at 17:15 Sodium Chloride 250 ml @ 500 mls/hr ONCE PRN IV VAGAL REPONSE; Start 03/18/17 at 17:15; Stop 03/19/17 at 17:14; Status DC Acetaminophen (Tylenol) 650 mg HS PO Last administered on 03/18/17 21:15; Start 03/18/17 at 21:00; Stop 03/19/17 at 15:22; Status DC Phenylephrine HCl (Neosynephrine Inj) 10 mg STK-MED ONCE .ROUTE ; Start at 12:17; Stop 03/19/17 at 12:18; Status DC Fentanyl Citrate (fentaNYL INJ) 100 mcg STK-MED ONCE .ROUTE ; Start 03/19/17 at 12:31; Stop 03/19/17 at 12:32; Status DC Midazolam HCl (Versed Inj) 5 mg STK-MED ONCE .ROUTE Last administered on 13:05; Start 03/19/17 at 12:31; Stop 03/19/17 at 12:32; Status DC Sodium Chloride 250 ml @ 15 mls/hr ONCE ONCE IV Last administered on 13:30; Start 03/19/17 at 13:30; Stop 03/20/17 at 06:09; Status DC Fentanyl Citrate 250 ml @ 0 mls/hr TITRATE IV Last administered on 03/21/17 07 :18; Start 03/19/17 at 13:30 Potassium Chloride 100 ml @ 50 mls/hr Q2H PRN IV For Potassium 2.8 - 3.2 mEq/L ; Start 03/19/17 at 13:45 Potassium Chloride 100 ml @ 50 mls/hr Q2H PRN IV For Potassium 2.8 - 3.2 mEq/L ; Start 03/19/17 at 13:45 Potassium Bicarb/ Potassium Chloride (K-Lyte Cl Eff) 50 meq UNSCH PRN PO For Potassium 3.3 - 3.5 mEq/L; Start 03/19/17 at 13:45 Potassium Chloride 100 ml @ 25 mls/hr UNSCH PRN IV For Potassium 3.3 - 3.5 mEq /L; Start 03/19/17 at 13:45 Potassium Chloride 100 ml @ 50 mls/hr Q2H PRN IV For Potassium 3.3 - 3.5 mEq/L ; Start 03/19/17 at 13:45 Magnesium Sulfate 4 gm/Sodium Chloride 100 ml @ 50 mls/hr UNSCH PRN IV For Magnesium 0.9 - 1.1 mg/dL; Start 03/19/17 at 13:45 Magnesium Oxide (Mag-Ox) 800 mg UNSCH PRN PO For Magnesium 1.2 - 1.6 mg/dL; Start 03/19/17 at 13:45 Magnesium Sulfate 2 gm/Sodium Chloride 100 ml @ 50 mls/hr UNSCH PRN IV For Magnesium 1.2 - 1.6 mg/dL; Start 03/19/17 at 13:45 Potassium Phosphate (K-Phos) 2,000 mg Q4H PRN PO For Phosphorus < 2.5 mg/dL; Start 03/19/17 at 13:45 Sodium Phosphate 30 mmol/Sodium Chloride 250 ml @ 42 mls/hr UNSCH PRN IV For Phosphorus < 2.5 mg/dL; Start 03/19/17 at 13:45 Potassium Phosphate (K-Phos) 2,000 mg UNSCH PRN PO/TUBE SEE LABEL COMMENTS; Start 03/19/17 at 13:45 Potassium Phosphate 30 mmol/ Sodium Chloride 260 ml @ 42 mls/hr UNSCH PRN IV SEE LABEL COMMENTS; Start 03/19/17 at 13:45 Pantoprazole Sodium 80 mg/ Sodium Chloride 100 ml @ 10 mls/hr Q10H IV Last administered on 03/21/17 05:20; Start 03/19/17 at 15:00 Sodium Chloride 1,000 ml @ 5 mls/hr Q24H IV Last administered on 03/20/17 20: 13; Start 03/19/17 at 15:15 Albuterol/ Ipratropium (Duoneb Neb) 1 ampule Q6HR NEB NEB Last administered on 03/21/17 04:24; Start 03/19/17 at 16:00 Albuterol/ Ipratropium (Duoneb Neb) 1 ampule Q2HR NEB PRN NEB WHEEZING; Start 03/19/17 at 15:15 Chlorhexidine Gluconate (Peridex 0.12% Liq) 15 ml BID@08,20 MT Last administered on 03/20/17 20:12; Start 03/19/17 at 20:00 Phenylephrine HCl (Neosynephrine Inj) 10 mg STK-MED ONCE .ROUTE ; Start at 15:55; Stop 03/19/17 at 15:56; Status DC Norepinephrine Bitartrate 250 ml @ 0 mls/hr TITRATE IV ; Start 03/19/17 at 16:00 ; Status Cancel Phenylephrine HCl 40 mg/Dextrose 500 ml @ 0 mls/hr TITRATE IV Last administered on 03/21/17 03:01; Start 03/19/17 at 16:15 Terbutaline Sulfate (Brethine Inj) 1 mg UNSCH PRN SQ FOR EXTRAVASATION PROTOCOL ; Start 03/19/17 at 16:15 Acetaminophen (Tylenol) 650 mg UNSCH X1 PO Last administered on 03/20/17 01: 07; Start 03/20/17 at 00:52; Stop 03/20/17 at 01:30; Status DC Acetaminophen (Tylenol) 650 mg Q4H PRN PO FOR TEMP > 101 Last administered on 20:11; Start 03/20/17 at 02:45 Urinary Catheter: Yes Assessment to: Continue Garnett insert reason: Measure Accurate Output Date of Insertion: Mar 17, 2017 Vascular Central Line Catheter: Yes Date of Insertion: Mar 19, 2017 Line: Central Venous Catheter Side: Right Location: Internal, Jugular (vasoactive medications) A/P Problem List: (1) NSTEMI (non-ST elevated myocardial infarction) ICD Code: I21.4 - NSTEMI (non-ST elevated myocardial infarction) Status: Acute (2) PAD (peripheral artery disease) ICD Code: I73.9 - PAD (peripheral artery disease) Status: Acute (3) Aortic stenosis ICD Code: I35.0 - Aortic stenosis Status: Chronic (4) Leukocytosis ICD Code: D72.829 - Leukocytosis Status: Acute (5) Hyperlipidemia ICD Code: E78.5 - Hyperlipidemia Status: Chronic (6) PVD (peripheral vascular disease) ICD Code: I73.9 - Peripheral vascular disease Status: Chronic (7) Diabetes ICD Code: E11.9 - Diabetes mellitus Status: Chronic (8) Hypertension ICD Code: I10 - Hypertension Status: Chronic (9) CAD (coronary artery disease) ICD Code: I25.10 - CAD (coronary artery disease) Status: Acute (10) SOB (shortness of breath) ICD Code: R06.02 - Shortness of breath Status: Acute Assessment and Plan Aortic valve issues with dyspnea secondary to this Dr. Taylor wants the patient admitted CIC and is scheduled for cardiac catheterization HAD CARDIAC CATH 03-18 1. Severe aortic valve stenosis. 2. 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 3. Elevated left-sided filling pressures. 4. Successfully utilization of temporary transvenous pacemaker. 5. Successful aortic valve valvuloplasty. 6. Successful percutaneous intervention with balloon angioplasty of the saphenous vein graft to the obtuse marginal branch. Was scheduled to have a TAVR next week- LOOKS LIKE THIS IS ON HOLD NOW Continue on her medications. bruising in the right groin Echocardiogram has been ordered-depending on results Dr. taylor SP CATH 8-18 NSTEMI positive troponin consult Dr. taylor Dyspnea defer to cardiology regarding issues due to the valve--HAS BEEN ON VENT FOR 3 DAYS NOW Diabetes Accu-Cheks before meals and at bedtime with sliding scale coverage Coronary artery disease continue on aspirin and Plavix Congestive heart failure stable at this time Hyperlipidemia continue on her medications Hypertension continue on home medications Peripheral vascular occlusive disease needs chronic anticoagulation of some type Discussed with RN as well as critical care and cardiology Hypokalemia replacement Upper GI bleeding Acute GI bleeding yesterday is intubated for airway protection Vent dependent respiratory failure, ventilator weaning as tolerated Hypotension on pressors wean as tolerated Off all blood thinners due to the upper GI bleeding PT AND OT TO EVAL AND TREAT-on hold due to GI bleeding and ventilator support Continue on pressors Transfuse as necessary as already had 4 units packed red blood cells AND PLATELETS HAS COLD LEFT LE WORSE THAN RIGHT LOWER EXTREMITY ROS UNOBTAINABLE Discharge Planning And labs Arpit Arriaga DO Mar 21, 2017 08:28
[2017-03-21] MEDS: DOCUSATE SODIUM 50 MG/SENNA 8.6 MG TAB PO SCH ×2 (09:00→20:25)
[2017-03-21] MEDS: BUMETANIDE INJ 1 MG/4 ML VIAL IV PUSH SCH (09:10)
[2017-03-21] MEDS: POTASSIUM CHLORIDE 10 MEQ CONTROLLED RELEASE TAB PO SCH (09:10)
[2017-03-21] MEDS: NORTRIPTYLINE HCL 25 MG CAP PO SCH ×2 (09:10→20:40)
[2017-03-21] MEDS: SODIUM CHLORIDE 0.9% FLUSH 10 ML FLUSH IV FLUSH SCH ×2 (09:11→20:40)
[2017-03-21 10:39] LABS: HEMATOCRIT 29.8 % (35.0-46.0); REVIEW FLAG FINAL
--- NOTE | 2017-03-21 10:56 | ECHRPT ---
Indication: CONCLUSIONS Limited study for aortic valve evalution post valvuloplastyThe left ventricular systolic function is severely reduced with an estimated ejection fraction in the range of 25-30%. Mild thickening of the mitral valve leaflets. Calcification of both mitral valve leaflets. [id number] mitral valve regurgitation. Mitral annular calcification is present. Aortic valve sclerosis is present. Diffuse calcification of the aortic valve. Moderate aortic valve regurgitation. Severe aortic valve stenosis. BP: / HR: Rhythm: MEASUREMENTS (Male / Female) Normal Values Technical Quality: DOPPLER AV Peak Velocity 335.0 cm/s AV Peak Gradient 44.9 mmHg AV Mean Gradient 24.0 mmHg AV Velocity Time Integral 60.9 cm AI Peak Velocity 396.0 cm/s AI Peak Gradient 62.7 mmHg AI Pressure Half Time 297.0 ms FINDINGS LEFT VENTRICLE The left ventricular systolic function is severely reduced with an estimated ejection fraction in th e range of 25-30%. MITRAL VALVE Mild thickening of the mitral valve leaflets. Calcification of both mitral valve leaflets. [id number] mitral valve regurgitation. Mitral annular calcification is present. AORTIC VALVE Aortic valve sclerosis is present. Diffuse calcification of the aortic valve. Moderate aortic valve regurgitation. Severe aortic valve stenosis. Mack Talamantes MD, FACC (Electronically Signed) Final Date:21 March 2017 10:55
--- NOTE | 2017-03-21 11:51 | PD.CONS ---
Consult Service Palliative Care Consult Requested By Dr. Sahni . Primary Care Physician Geoff Bernard MD . Reason for Consultation a. To assist with evaluation and management of symptoms including: dyspnea , pain b. To assist medical decision maker(s) with: better understanding of current medical conditions; weighing benefits/burdens of medical treatment options; making medical treatment decisions. . HPI History of Present Illness This 81 yo female, with a past history of CHF, CAD/CO, severe aortic stenosis, DM, and severe peripheral vascular disease, has been evaluated recently for aortic valve re-do via TAVR (she was felt to NOT be a candidate for an open procedure). However, the patient decompensated in the few days prior to this admission, and she presented to the ED on 03/17/17 due to shortness of breath and some nausea/vomiting. In the emergency department, findings included: * Temp 98, pulse 90, respirations 16, blood pressure 140/65, oxygen saturation 100% on 2 L nasal cannula * White count 13.2, hemoglobin 14.0 * Sodium 136, creatinine 1.17, albumin 3.5 * BNP 4783 * Troponin 0.11 * Chest x-ray with bilateral infiltrates The patient was admitted and diuresis was initiated The patient underwent a valvuloplasty on 03/18/17 in an attempt to improve the flow through the aortic valve, hoping that symptoms may improve to a point where the patient would still be eligible for the TAVR. However, on 03/19/17, the patient became acutely hypotensive, developed melena and hematemesis, and developed profound shock. Fluid resuscitation, pressors, were undertaken, and the patient was INTUBATED to protect her airway. Her hemoglobin dropped acutely to 8.1. Upper endoscopy was completed, and blood clots were noted in the stomach, but no obvious source of the bleeding was found. By the following day, the patient had a temp of 101.2, and it was noted that her left foot and ankle were cold. Over no pulses obtainable by palpation or Doppler below the left femoral. This was felt to possibly be due to a combination of the recent use of the left femoral artery for the valvuloplasty procedure and the profound hypotension with the GI bleeding. The patient's options had just become quite limited, with respiratory failure, CHF, serious valvular disease, a low ejection fraction, and now an included arterial system on the left leg with simultaneous profound GI bleeding with shock. Palliative Care was consulted to assist with symptom management, and to discuss with the family the current illnesses, the prognosis, and the benefits and burdens of the various treatment options. . Function/Cognitive Trajectory The patient was weak, but she was still able to get around on her own. She would become short of breath after taking several steps, but she was able to shower herself and feed herself at home. . Review of Systems ROS Limitations: Clinical Condition, Intubated Constitutional: COMPLAINS OF: Weight gain Endocrine: DENIES: Polyuria Eyes: DENIES: Eye inflammation Ears, nose, mouth, throat: DENIES: Epistaxis Respiratory: COMPLAINS OF: Shortness of breath, DENIES: Hemoptysis Cardiovascular: COMPLAINS OF: Dyspnea on Exertion, Lower Extremity Edema, Claudication, DENIES: Chest pain Gastrointestinal: COMPLAINS OF: Bloody stools, Nausea, Vomiting, Vomiting blood Genitourinary: DENIES: Hematuria Musculoskeletal: DENIES: Joint Swelling Integumentary: DENIES: Rash Hematologic/Lymphatics: COMPLAINS OF: Bruising Immunologic/Allergic: DENIES: Urticaria Neurologic: DENIES: Localized weakness, Seizures Psychiatric: DENIES: Hallucinations, Agitation Past Family Social History Coded Allergies: amlodipine (Unverified Allergy, Severe, 03/17/17) atorvastatin (Unverified Allergy, Severe, 03/17/17) benazepril (Unverified Allergy, Severe, 03/17/17) captopril (Unverified Allergy, Severe, 03/17/17) diatrizoate meglumine (Unverified Allergy, Severe, 03/17/17) enalaprilat (Unverified Allergy, Severe, 03/17/17) fosinopril (Unverified Allergy, Severe, 03/17/17) gadobenic acid (Unverified Allergy, Severe, 03/17/17) gadodiamide (Unverified Allergy, Severe, 03/17/17) gadoteridol (Unverified Allergy, Severe, 03/17/17) iodixanol (Unverified Allergy, Severe, 03/17/17) iohexol (Unverified Allergy, Severe, 03/17/17) metoprolol (Unverified Allergy, Severe, 03/17/17) pravastatin (Unverified Allergy, Severe, 03/17/17) quinapril (Unverified Allergy, Severe, 03/17/17) codeine (Unverified Allergy, Intermediate, RASH, 03/17/17) gemfibrozil (Unverified Allergy, Intermediate, SEVERE JOINT PAIN, 03/17/17) lisinopril (Unverified Allergy, Intermediate, COUGH, 03/17/17) simvastatin (Unverified Allergy, Intermediate, JOINT PAIN, 03/17/17) tuberculin, purified protein deriva (Unverified Allergy, Unknown, Anaphylaxis, 03/17/17) acetaminophen (Unverified Adverse Reaction, Intermediate, NAUSEA/VOMITTING , 03/17/17) propoxyphene (Unverified Adverse Reaction, Intermediate, NAUSEA/VOMITTING , 03/17/17) adhesive (Unverified Adverse Reaction, Unknown, 03/17/17) Uncoded Allergies: DYE (Allergy, Intermediate, HIVES, 03/15/17) Past Medical History * End-stage heart disease, with CAD/CO/cardiomyopathy/severe aortic stenosis * Severe aortic stenosis, with recent valvuloplasty and recent evaluation for TAVR * Congestive heart failure, recent EF 25%. * GI bleeding with hemorrhagic shock * CAD, history of CO, recent saphenous vein graft stents * Pulmonary hypertension * Diverticulosis, history of diverticular bleed 10 years ago * Hypertension * Diabetes, type II * Neuropathy * Hyperlipidemia * Thyroid nodule * Skin cancers * Degenerative arthritis . Past Surgical History Cholecystectomy Bilateral cataract surgery Hysterectomy Renal biopsy Fempop bypass in left leg CABG x5 Teeth extraction Cardiac catheter 02/28/17, with stenting of a vein graft Valvuloplasty 03/18/17 . Reported Medications Tylenol Extra Strength (Acetaminophen) 500 Mg Tablet Nortriptyline (Nortriptyline HCl) 25 Mg Cap 25 Mg PO BID K-Tab (Potassium Chloride) 10 Meq Tab 10 Meq PO DAILY Furosemide 40 Mg Tab 40 Mg PO DAILY Clopidogrel (Clopidogrel Bisulfate) 75 Mg Tab 75 Mg PO DAILY Aspirin 81 Mg Chew 81 Mg CHEW DAILY . Current Medications Medications (Trade) Dose Ordered Sig/Khoa Route Start Time Stop Time Status Last Admin (D50w (Vial) Inj) 50 ml UNSCH PRN IV 03/17/17 13:00 (Glucagon Inj) 1 mg UNSCH PRN OTHER 03/17/17 13:00 (NovoLOG SUPPLEMENTAL SCALE) 1 ACHS SLIDING SCALE SQ 03/17/17 16:00 03/21/17 05:38 (Pamelor) 25 mg BID PO 03/17/17 21:00 03/21/17 09:10 (KCl) 10 meq DAILY PO 03/18/17 09:00 03/21/17 09:10 (NS Flush) 2 ml UNSCH PRN IV FLUSH 03/17/17 13:00 (NS Flush) 2 ml BID IV FLUSH 03/17/17 21:00 03/21/17 09:11 (Zofran Inj) 4 mg Q6H PRN IVP 03/17/17 13:00 03/19/17 10:49 (Compazine Supp) 25 mg Q12H PRN RECTAL 03/17/17 13:00 (Ultram) 50 mg Q4H PRN PO 03/17/17 13:00 (Ultram) 100 mg Q4H PRN PO 03/17/17 13:00 (Narcan Inj) 0.4 mg UNSCH PRN IV 03/17/17 13:00 (Maura-Colace) 1 tab BID PO 03/17/17 21:00 03/21/17 09:00 (Milk Of Magnesia Liq) 30 ml Q12H PRN PO 03/17/17 13:00 03/19/17 11:01 (Senokot) 17.2 mg Q12H PRN PO 03/17/17 13:00 03/19/17 11:01 (Dulcolax Supp) 10 mg DAILY PRN RECTAL 03/17/17 13:00 (Lactulose Liq) 30 ml DAILY PRN PO 03/17/17 13:00 (Plavix) 75 mg DAILY PO 03/18/17 09:00 Future Hold 03/19/17 08:28 (Bumex Inj) 1 mg DAILY IV PUSH 03/19/17 09:00 03/21/17 09:10 (Atropine Inj) 0.5 mg UNSCH PRN IV 03/18/17 17:15 Fentanyl Citrate 250 ml @ 0 mls/hr TITRATE IV 03/19/17 13:30 03/21/17 07:18 Potassium Chloride 100 ml @ 50 mls/hr Q2H PRN IV 03/19/17 13:45 Potassium Chloride 100 ml @ 50 mls/hr Q2H PRN IV 03/19/17 13:45 (K-Lyte Cl Eff) 50 meq UNSCH PRN PO 03/19/17 13:45 Potassium Chloride 100 ml @ 25 mls/hr UNSCH PRN IV 03/19/17 13:45 Potassium Chloride 100 ml @ 50 mls/hr Q2H PRN IV 03/19/17 13:45 Magnesium Sulfate 4 gm/Sodium Chloride 100 ml @ 50 mls/hr UNSCH PRN IV 03/19/17 13:45 (Mag-Ox) 800 mg UNSCH PRN PO 03/19/17 13:45 Magnesium Sulfate 2 gm/Sodium Chloride 100 ml @ 50 mls/hr UNSCH PRN IV 03/19/17 13:45 (K-Phos) 2,000 mg Q4H PRN PO 03/19/17 13:45 Sodium Phosphate 30 mmol/Sodium Chloride 250 ml @ 42 mls/hr UNSCH PRN IV 03/19/17 13:45 (K-Phos) 2,000 mg UNSCH PRN PO/TUBE 03/19/17 13:45 Potassium Phosphate 30 mmol/ Sodium Chloride 260 ml @ 42 mls/hr UNSCH PRN IV 03/19/17 13:45 Pantoprazole Sodium 80 mg/ Sodium Chloride 100 ml @ 10 mls/hr Q10H IV 03/19/17 15:00 03/21/17 05:20 Sodium Chloride 1,000 ml @ 5 mls/hr Q24H IV 03/19/17 15:15 03/20/17 20:13 (Duoneb Neb) 1 ampule Q6HR NEB NEB 03/19/17 16:00 03/21/17 09:02 (Duoneb Neb) 1 ampule Q2HR NEB PRN NEB 03/19/17 15:15 (Peridex 0.12% Liq) 15 ml BID@08,20 MT 03/19/17 20:00 03/21/17 08:18 Phenylephrine HCl 40 mg/Dextrose 500 ml @ 0 mls/hr TITRATE IV 03/19/17 16:15 03/21/17 03:01 (Brethine Inj) 1 mg UNSCH PRN SQ 03/19/17 16:15 (Tylenol) 650 mg Q4H PRN PO 03/20/17 02:45 03/20/17 20:11 Family History Family hx of heart disease in siblings and parents. . Substance Use Tobacco: Smoked for several years but quit in 2000 Alcohol: Occasional wine Prescription med abuse: None Illicits: None . Psychosocial History The patient was born and raised in [place], but moved to [place] in 1980. She has lived in this area for many years. She lived alone for a couple years after her 10 or 12 years ago, but now has lived with her son Obdulio since then. The patient was once, about 10 or 12 years ago. She has 6 children; one daughter of lymphoma, and there remains one daughter and 4 sons. . Spiritual/Cultural Factors The patient has been more spiritual in recent years, and recently joined a new baptist. The daughter is not sure what denomination it is, but reports that the sales representative sales manager was here in the past couple days, and requests that the hospital hoist worker also provide support. . Living Will: Never completed Health Care Surrogate: Completed, but not made available Health Care Surrogate(s): Daughter Viola reports that she is the POA/HCS for the past few years. . Family/friends goals: The patient's daughter and granddaughter report that the patient had spoken with them many times prior to this hospitalization, saying that she would not want to be kept on life support when she had serious or life-threatening issues. They are certain that, if the patient could speak with us now," she would tell us to stop." . Ethical and Legal Issues There are no ethical issues that would impact her care or decision-making at this time. The patient lacks capacity for decision-making, and it is unlikely that she will regain that capacity. Her daughter Viola Hua is the POA/[facility]. . Physical Exam Vital Signs Date Time Temp Pulse Resp B/P (MAP) Pulse Ox O2 Delivery O2 Flow Rate FiO2 03/21/17 10:57 100 100 03/21/17 10:57 99 40 03/21/17 08:00 99 Mechanical Ventilator 40 03/21/17 08:00 99.9 93 14 102/56 (71) 99 03/21/17 08:00 40 03/21/17 07:23 99 40 03/21/17 04:25 99 40 03/21/17 03:43 93 03/21/17 03:43 40 03/21/17 03:43 99 Mechanical Ventilator 40 03/21/17 03:43 99.0 92 14 110/58 (75) 99 03/21/17 03:01 92 110/58 03/20/17 23:23 100.4 88 14 96/56 (69) 100 03/20/17 23:23 40 03/20/17 23:23 89 03/20/17 23:23 100 Mechanical Ventilator 40 03/20/17 21:56 100 40 03/20/17 20:39 100 40 03/20/17 20:30 100.6 03/20/17 19:20 40 03/20/17 19:17 103.0 94 14 109/60 (76) 100 03/20/17 19:17 100 Mechanical Ventilator 40 03/20/17 19:00 95 03/20/17 18:21 91 102/60 03/20/17 15:00 95 03/20/17 15:00 100 Mechanical Ventilator 40 03/20/17 15:00 100.8 101 14 113/58 (76) 100 Arterial Line 03/20/17 15:00 40 03/20/17 12:00 100 40 Exam CONSTITUTIONAL/GENERAL: This is an adequately nourished patient, in no apparent distress, in intensive care, sedated, intubated. TUBES/LINES/DRAINS: ET tube, NG tube, central line SKIN: No jaundice, rashes, or lesions. Ecchymoses on upper extremities. No wounds seen anteriorly. Skin temperature appropriate. Not diaphoretic. HEAD: Atraumatic. Normocephalic. EYES: Pupils equal and round and reactive. No scleral icterus. No injection or drainage. Fundi not examined. ENT: Nose without bleeding or purulent drainage. NECK: Trachea midline. Supple, nontender. No palpable thyroid enlargement or nodularity. CARDIOVASCULAR: Regular rate and rhythm. There is a grade 2 or 3 systolic murmur in the aortic area. No JVD. Peripheral pulses absent on the left, and the left foot is cold RESPIRATORY/CHEST: Symmetric, unlabored respirations. A few rales and rhonchi bilateral, diminished breath sounds on the left. GASTROINTESTINAL: Abdomen soft, non-tender, nondistended. No hepato-splenomegaly , or palpable masses. No guarding. Bowel sounds present. GENITOURINARY: Without palpable bladder distension. Garnett catheter in place. MUSCULOSKELETAL: Extremities without clubbing, cyanosis, or edema. No joint tenderness or effusion noted. No calf tenderness. No mottling or clubbing. LYMPHATICS: No palpable cervical or supraclavicular adenopathy. NEUROLOGICAL: Unresponsive PSYCHIATRIC: Unable to assess due to clinical condition . Diagnostic Tests Laboratory Laboratory Tests Test 03/19/17 05:00 03/19/17 12:25 03/19/17 15:25 03/19/17 15:30 White Blood Count 14.4 TH/MM3 (4.0-11.0) 16.3 TH/MM3 (4.0-11.0) 27.7 TH/MM3 (4.0-11.0) Red Blood Count 4.49 MIL/MM3 (4.00-5.30) 2.81 MIL/MM3 (4.00-5.30) 2.96 MIL/MM3 (4.00-5.30) Hemoglobin 13.4 GM/DL (11.6-15.3) 8.1 GM/DL (11.6-15.3) 8.5 GM/DL (11.6-15.3) Hematocrit 40.4 % (35.0-46.0) 25.1 % (35.0-46.0) 25.6 % (35.0-46.0) Mean Corpuscular Volume 89.8 FL (80.0-100.0) 89.1 FL (80.0-100.0) 86.5 FL (80.0-100.0) Mean Corpuscular Hemoglobin 29.9 PG (27.0-34.0) 28.9 PG (27.0-34.0) 28.8 PG (27.0-34.0) Mean Corpuscular Hemoglobin Concent 33.3 % (32.0-36.0) 32.4 % (32.0-36.0) 33.3 % (32.0-36.0) Red Cell Distribution Width 16.1 % (11.6-17.2) 15.9 % (11.6-17.2) 16.6 % (11.6-17.2) Platelet Count 306 TH/MM3 (150-450) 263 TH/MM3 (150-450) 252 TH/MM3 (150-450) Mean Platelet Volume 7.7 FL (7.0-11.0) 7.6 FL (7.0-11.0) 7.8 FL (7.0-11.0) Neutrophils (%) (Auto) 87.0 % (16.0-70.0) 88.1 % (16.0-70.0) Lymphocytes (%) (Auto) 5.0 % (9.0-44.0) 5.0 % (9.0-44.0) Monocytes (%) (Auto) 7.8 % (0.0-8.0) 6.7 % (0.0-8.0) Eosinophils (%) (Auto) 0.1 % (0.0-4.0) 0.0 % (0.0-4.0) Basophils (%) (Auto) 0.1 % (0.0-2.0) 0.2 % (0.0-2.0) Neutrophils # (Auto) 12.5 TH/MM3 (1.8-7.7) 14.3 TH/MM3 (1.8-7.7) Lymphocytes # (Auto) 0.7 TH/MM3 (1.0-4.8) 0.8 TH/MM3 (1.0-4.8) Monocytes # (Auto) 1.1 TH/MM3 (0-0.9) 1.1 TH/MM3 (0-0.9) Eosinophils # (Auto) 0.0 TH/MM3 (0-0.4) 0.0 TH/MM3 (0-0.4) Basophils # (Auto) 0.0 TH/MM3 (0-0.2) 0.0 TH/MM3 (0-0.2) CBC Comment DIFF FINAL DIFF FINAL Differential Comment Prothrombin Time 11.6 SEC (9.8-11.6) 13.4 SEC (9.8-11.6) Prothromb Time International Ratio 1.0 RATIO 1.2 RATIO Blood Urea Nitrogen 47 MG/DL (7-18) 52 MG/DL (7-18) Creatinine 1.35 MG/DL (0.50-1.00) 1.18 MG/DL (0.50-1.00) Random Glucose 156 MG/DL (74-106) 135 MG/DL (74-106) Total Protein 6.3 GM/DL (6.4-8.2) 3.8 GM/DL (6.4-8.2) Albumin 3.1 GM/DL (3.4-5.0) Calcium Level 9.0 MG/DL (8.5-10.1) 6.8 MG/DL (8.5-10.1) Phosphorus Level 4.7 MG/DL (2.5-4.9) 3.4 MG/DL (2.5-4.9) Magnesium Level 2.6 MG/DL (1.5-2.5) 1.9 MG/DL (1.5-2.5) Alkaline Phosphatase 100 U/L (45-117) Aspartate Amino Transf (AST/SGOT) 23 U/L (15-37) Alanine Aminotransferase (ALT/SGPT) 22 U/L (10-53) Total Bilirubin 0.9 MG/DL (0.2-1.0) Sodium Level 142 MEQ/L (136-145) 145 MEQ/L (136-145) Potassium Level 3.7 MEQ/L (3.5-5.1) 3.7 MEQ/L (3.5-5.1) Chloride Level 105 MEQ/L (98-107) 111 MEQ/L (98-107) Carbon Dioxide Level 26.2 MEQ/L (21.0-32.0) 23.3 MEQ/L (21.0-32.0) Anion Gap 11 MEQ/L (5-15) 11 MEQ/L (5-15) Estimat Glomerular Filtration Rate 38 ML/MIN (>89) 44 ML/MIN (>89) Total Creatine Kinase 101 U/L (26-192) Triglycerides Level 118 MG/DL (42-150) Cholesterol Level 156 MG/DL (120-200) LDL Cholesterol 91 MG/DL (0-99) HDL Cholesterol 41.2 MG/DL (40.0-60.0) Cholesterol/HDL Ratio 3.78 RATIO Activated Partial Thromboplast Time 22.2 SEC (24.3-30.1) Fibrinogen 208 mg/dL (227-377) Lactic Acid Level 2.4 mmol/L (0.4-2.0) Protein Corrected Calcium 8.6 MG/DL (8.5-10.1) Blood Gas Puncture Site ART LINE Blood Gas Patient Temperature 98.6 Blood Gas HCO3 21 mmol/L (22-26) Blood Gas Base Excess -3.1 mmol/L (-2-2) Blood Gas Oxygen Saturation 97 % (90-100) Arterial Blood pH 7.38 (7.380-7.420) Arterial Blood Partial Pressure CO2 37 mmHg (38-42) Arterial Blood Partial Pressure O2 253 mmHg (61-120) Arterial Blood Oxygen Content 12.2 Vol % (12.0-20.0) Arterial Blood Carboxyhemoglobin 2.0 % (0-4) Arterial Blood Methemoglobin 1.3 % (0-2) Blood Gas Hemoglobin 8.5 G/DL (12.0-16.0) Oxygen Delivery Device VENTILATOR Blood Gas Ventilator Setting A/C14/500/+5PEEP Blood Gas Inspired Oxygen 50 % Test 03/19/17 20:40 03/20/17 01:55 03/20/17 02:18 03/20/17 06:13 Hemoglobin 11.8 GM/DL (11.6-15.3) 11.9 GM/DL (11.6-15.3) 11.6 GM/DL (11.6-15.3) Hematocrit 35.4 % (35.0-46.0) 35.2 % (35.0-46.0) 34.6 % (35.0-46.0) White Blood Count 21.0 TH/MM3 (4.0-11.0) Red Blood Count 4.09 MIL/MM3 (4.00-5.30) Mean Corpuscular Volume 86.0 FL (80.0-100.0) Mean Corpuscular Hemoglobin 29.0 PG (27.0-34.0) Mean Corpuscular Hemoglobin Concent 33.8 % (32.0-36.0) Red Cell Distribution Width 16.4 % (11.6-17.2) Platelet Count 171 TH/MM3 (150-450) Mean Platelet Volume 8.5 FL (7.0-11.0) Neutrophils (%) (Auto) 91.9 % (16.0-70.0) Lymphocytes (%) (Auto) 3.8 % (9.0-44.0) Monocytes (%) (Auto) 4.2 % (0.0-8.0) Eosinophils (%) (Auto) 0.0 % (0.0-4.0) Basophils (%) (Auto) 0.1 % (0.0-2.0) Neutrophils # (Auto) 19.3 TH/MM3 (1.8-7.7) Lymphocytes # (Auto) 0.8 TH/MM3 (1.0-4.8) Monocytes # (Auto) 0.9 TH/MM3 (0-0.9) Eosinophils # (Auto) 0.0 TH/MM3 (0-0.4) Basophils # (Auto) 0.0 TH/MM3 (0-0.2) CBC Comment DIFF FINAL Differential Comment Blood Urea Nitrogen 56 MG/DL (7-18) Creatinine 1.34 MG/DL (0.50-1.00) Random Glucose 143 MG/DL (74-106) Total Protein 4.3 GM/DL (6.4-8.2) Albumin 2.1 GM/DL (3.4-5.0) Calcium Level 7.3 MG/DL (8.5-10.1) Phosphorus Level 3.4 MG/DL (2.5-4.9) Magnesium Level 2.0 MG/DL (1.5-2.5) Alkaline Phosphatase 56 U/L (45-117) Aspartate Amino Transf (AST/SGOT) 50 U/L (15-37) Alanine Aminotransferase (ALT/SGPT) 24 U/L (10-53) Total Bilirubin 0.9 MG/DL (0.2-1.0) Sodium Level 139 MEQ/L (136-145) Potassium Level 4.0 MEQ/L (3.5-5.1) Chloride Level 105 MEQ/L (98-107) Carbon Dioxide Level 27.4 MEQ/L (21.0-32.0) Anion Gap 7 MEQ/L (5-15) Estimat Glomerular Filtration Rate 38 ML/MIN (>89) Protein Corrected Calcium 8.9 MG/DL (8.5-10.1) Test 03/20/17 06:28 03/20/17 07:51 03/20/17 14:37 03/20/17 20:20 Prothrombin Time 12.4 SEC (9.8-11.6) Prothromb Time International Ratio 1.1 RATIO Blood Gas Puncture Site RT BRACHIAL Blood Gas Patient Temperature 98.6 Blood Gas HCO3 23 mmol/L (22-26) Blood Gas Base Excess -2.6 mmol/L (-2-2) Blood Gas Oxygen Saturation 96 % (90-100) Arterial Blood pH 7.33 (7.380-7.420) Arterial Blood Partial Pressure CO2 44 mmHg (38-42) Arterial Blood Partial Pressure O2 139 mmHg (61-120) Arterial Blood Oxygen Content 15.5 Vol % (12.0-20.0) Arterial Blood Carboxyhemoglobin 2.4 % (0-4) Arterial Blood Methemoglobin 1.3 % (0-2) Blood Gas Hemoglobin 11.4 G/DL (12.0-16.0) Oxygen Delivery Device VENTILATOR Blood Gas Ventilator Setting AC14/500/+5 Blood Gas Inspired Oxygen 40 % Hemoglobin 11.6 GM/DL (11.6-15.3) 10.5 GM/DL (11.6-15.3) Hematocrit 35.1 % (35.0-46.0) 32.0 % (35.0-46.0) Test 03/20/17 20:45 03/21/17 04:00 03/21/17 05:45 03/21/17 10:05 Total Creatine Kinase 315 U/L (26-192) 311 U/L (26-192) Creatine Kinase MB 20.3 NG/ML (0.5-3.6) 13.8 NG/ML (0.5-3.6) Creatine Kinase MB % 6.4 % (0.0-4.0) 4.4 % (0.0-4.0) Troponin I 17.40 NG/ML (0.02-0.05) 13.80 NG/ML (0.02-0.05) White Blood Count 28.3 TH/MM3 (4.0-11.0) Red Blood Count 3.69 MIL/MM3 (4.00-5.30) Hemoglobin 10.8 GM/DL (11.6-15.3) 9.8 GM/DL (11.6-15.3) Hematocrit 32.0 % (35.0-46.0) 29.8 % (35.0-46.0) Mean Corpuscular Volume 86.8 FL (80.0-100.0) Mean Corpuscular Hemoglobin 29.2 PG (27.0-34.0) Mean Corpuscular Hemoglobin Concent 33.6 % (32.0-36.0) Red Cell Distribution Width 16.5 % (11.6-17.2) Platelet Count 123 TH/MM3 (150-450) Mean Platelet Volume 8.3 FL (7.0-11.0) Neutrophils (%) (Auto) 92.5 % (16.0-70.0) Lymphocytes (%) (Auto) 3.1 % (9.0-44.0) Monocytes (%) (Auto) 4.2 % (0.0-8.0) Eosinophils (%) (Auto) 0.0 % (0.0-4.0) Basophils (%) (Auto) 0.2 % (0.0-2.0) Neutrophils # (Auto) 26.2 TH/MM3 (1.8-7.7) Lymphocytes # (Auto) 0.9 TH/MM3 (1.0-4.8) Monocytes # (Auto) 1.2 TH/MM3 (0-0.9) Eosinophils # (Auto) 0.0 TH/MM3 (0-0.4) Basophils # (Auto) 0.0 TH/MM3 (0-0.2) CBC Comment DIFF FINAL Differential Comment Prothrombin Time 11.9 SEC (9.8-11.6) Prothromb Time International Ratio 1.1 RATIO Blood Urea Nitrogen 52 MG/DL (7-18) Creatinine 1.26 MG/DL (0.50-1.00) Random Glucose 172 MG/DL (74-106) Total Protein 4.7 GM/DL (6.4-8.2) Albumin 1.9 GM/DL (3.4-5.0) Calcium Level 7.9 MG/DL (8.5-10.1) Phosphorus Level 3.0 MG/DL (2.5-4.9) Magnesium Level 2.0 MG/DL (1.5-2.5) Alkaline Phosphatase 60 U/L (45-117) Aspartate Amino Transf (AST/SGOT) 91 U/L (15-37) Alanine Aminotransferase (ALT/SGPT) 31 U/L (10-53) Total Bilirubin 0.6 MG/DL (0.2-1.0) Sodium Level 137 MEQ/L (136-145) Potassium Level 3.9 MEQ/L (3.5-5.1) Chloride Level 103 MEQ/L (98-107) Carbon Dioxide Level 27.3 MEQ/L (21.0-32.0) Anion Gap 7 MEQ/L (5-15) Estimat Glomerular Filtration Rate 41 ML/MIN (>89) Blood Gas Puncture Site RT BRACHIAL Blood Gas Patient Temperature 98.6 Blood Gas HCO3 23 mmol/L (22-26) Blood Gas Base Excess -1.1 mmol/L (-2-2) Blood Gas Oxygen Saturation 96 % (90-100) Arterial Blood pH 7.38 (7.380-7.420) Arterial Blood Partial Pressure CO2 41 mmHg (38-42) Arterial Blood Partial Pressure O2 149 mmHg (61-120) Arterial Blood Oxygen Content 14.2 Vol % (12.0-20.0) Arterial Blood Carboxyhemoglobin 2.1 % (0-4) Arterial Blood Methemoglobin 1.2 % (0-2) Blood Gas Hemoglobin 10.3 G/DL (12.0-16.0) Oxygen Delivery Device VENTILATOR Blood Gas Ventilator Setting A/C14/500/+5PEEP Blood Gas Inspired Oxygen 40 % Result Diagram: 03/21/17 1005 03/21/17 0400 Microbiology Microbiology Date/Time Source Procedure Growth Status 03/20/17 02:21 Blood Peripheral Aerobic Blood Culture - Preliminary NO GROWTH IN 1 DAY Resulted 03/20/17 02:21 Blood Peripheral Anaerobic Blood Culture - Preliminary NO GROWTH IN 1 DAY Resulted 03/19/17 12:00 Stool Stool Stool Occult Blood (MARIANO) - Final HEMOCCULT NEGATIVE Complete 03/20/17 08:10 Sputum Endotracheal Gram Stain - Final Resulted 03/20/17 08:10 Sputum Endotracheal Sputum Culture Pending Resulted 03/20/17 08:10 Urine Catheterized Urine Urine Culture Pending Received Imaging Last Impressions Chest X-Ray 03/20/17 0400 Signed Impressions: Service Date/Time: Monday, March 20, 2017 04:05 - CONCLUSION: 1. Bibasilar airspace disease with associated effusions, stable on the left and slightly worse on the right. 2. Stable position of life support tubes. 3. Borderline prominent heart. Findings of prior CABG. Ra Bonner MD Abdomen X-Ray 03/19/17 1231 Signed Impressions: Service Date/Time: Sunday, March 19, 2017 13:23 - CONCLUSION: 1. Post surgical changes. 2. Possible renal calculi. 3. Density in the pelvis likely distended urinary bladder. Daniel Bhandari MD Procedures INTUBATION 03/19/17 EGD 03/19/17 . Patient/Family Conference Present at Family Conference: Daughter Viola Hua and granddaughter Margot Jansen . Family Conference Time (mins): 48 Family Conference Location: Bedside, Consult Room Issues Discussed: * Palliative care role, purpose, approach * Hospice care role, purpose, approach * Additional medical, psychosocial, and spiritual history * Patients general health, functional status, and cognitive changes in the months leading up to the current hospitalization * Patient/family understanding of the current medical problems * Patient/family understanding of prognosis * Patients goals of care as best understood from advance directives and/or conversations and/or values * Current medical treatment options and benefits/burdens of those options * Likely scenarios comparing ongoing aggressive care with a transition to comfort measures only * Questions answered to the best of my ability * Palliative care contact information provided The patient's daughter/HCS and granddaughter are certain that the patient would not want continued aggressive care at this time, and they feel like she would want to be transitioned to comfort care and withdrawn from life support. Comfort is very important for them now, and they want "no more suffering." They specifically do not want any more procedures or invasive processes. . Assessment and Plan Disease Oriented Problem List: (1) end-stage heart disease, with CAD/CO/cardiomyopathy/severe aortic stenosis (2) severe aortic stenosis, with recent valvuloplasty in recent evaluation for TAVR (3) congestive heart failure, recent EF 25% (4) GI bleeding, with hemorrhagic shock (5) CAD, history of CO, recent saphenous vein graft stents (6) pulmonary hypertension (7) diverticulosis, history of diverticular bleed 10 years ago (8) hypertension (9) diabetes, type II (10) neuropathy (11) hyperlipidemia (12) thyroid nodule (13) skin cancers (14) degenerative arthritis Symptom Scale: (1) pain 0-10 Scale: Unable to quantify (2) dyspnea 0-10 Scale: Unable to quantify (3) anxiety 0-10 Scale: Unable to quantify Pertinent Non-Medical Issues Psychosocial: Originally from [place], 12 years ago, 5 living children , has been living with her son locally. Spiritual: Has support from the sales representative sales manager of a [employer] she joined recently, and also requests hoist worker support Legal: The patient lacks capacity for decision-making, and it is unlikely that she will regain that capacity. Her daughter Viola Hua is the POA/ HCS. Ethical issues impacting care: None . Important Contacts Daughter: Viola Hua [phone] Granddaughter: Margot Jansen [phone] Son: Obdulio Jansen [phone] . Prognosis The patient's prognosis is quite poor, as she has end-stage heart disease, end- stage PVD, and now GI bleeding with shock. She would be eligible for hospice services if the family elects to transition to comfort care. . Code Status: Alternative Code Plan * ALTERNATE CODE: The HCS notes that the patient has been DNR the past couple years, and requests no resuscitation at this time. * DECISION-MAKING: The patient lacks capacity for decision-making, and it is unlikely that she will regain that capacity. Her daughter Viola Hua is the POA/HCS. * GOALS: The patient's daughter/HCS and granddaughter are certain that the patient would not want continued aggressive care at this time, and they feel like she would want to be transitioned to comfort care and withdrawn from life support. Comfort is very important for them now, and they want "no more suffering." They specifically do not want any more procedures or invasive processes. * SYMPTOMS: The patient is on the ventilator and receiving fentanyl; any pain and dyspnea is likely managed in that way. No additional medication recommendations at this time. * The patient's daughter is contacting her 4 brothers and she will call me back later with their decision, but she is saying at the time of this consultation that it is very likely that they will want the patient transitioned to comfort care and withdrawn from life support. * Hospital hoist worker visit requested. * Palliative Care will continue to follow the patient during this hospitalization. . Time Spent Total Floor Time (mins): 79 Face to Face Time (mins): 55 >50% Counseling/Coord of Care: Yes (D/W Dr. Talamantes) Thank you for the opportunity to participate in the care of Ms. Jansen. Attestation To help prompt me to consider important information that might be impacting today's encounter and assessment, information from prior notes written by myself or my colleagues may have been "brought forward" into today's note. My signature on this note, however, is an attestation that I personally performed the exam, history, and/or decision-making noted today, and, unless otherwise indicated, the interactions with patient, family, and staff as well as the review of records all occurred today. I also attest that the listed assessment and stated plan reflect my best clinical judgment today based on the combination of historical information, prior notes, and today's exam/ interactions. When time spent is documented, it refers only to time spent today by the signer, or if indicated, combined time spent today by collaborating physician/nurse practitioner. Shayy Easton MD Mar 21, 2017 11:51
--- NOTE | 2017-03-21 12:01 | PD.CAR.PN ---
CVT Progress Note Subjective/Hospital Course: Evaluated full consult dictated We will follow Thanks Rocio 03/21/17 As described in the consultation this patient has ischemia of the left leg with occlusion of femoropopliteal graft as a result of hypotension and bleeding as a result of the valvuloplasty. At this point patient is not a surgical candidate for any procedure for any endovascular or vascular procedure would require heparinization and in face of ongoing GI bleeding this would be catastrophic. In addition patient systemic condition doesn't allow for any procedure at this time Discussions have been had with the family and family have decided to make the patient DNR Will continue to follow but this point do not plan any vascular procedure Objective: Vital Signs Date Time Temp Pulse Resp B/P (MAP) Pulse Ox O2 Delivery O2 Flow Rate FiO2 03/21/17 10:57 100 100 03/21/17 10:57 99 40 03/21/17 08:00 99 Mechanical Ventilator 40 03/21/17 08:00 99.9 93 14 102/56 (71) 99 03/21/17 08:00 40 03/21/17 07:23 99 40 03/21/17 04:25 99 40 03/21/17 03:43 93 03/21/17 03:43 40 03/21/17 03:43 99 Mechanical Ventilator 40 03/21/17 03:43 99.0 92 14 110/58 (75) 99 03/21/17 03:01 92 110/58 03/20/17 23:23 100.4 88 14 96/56 (69) 100 03/20/17 23:23 40 03/20/17 23:23 89 03/20/17 23:23 100 Mechanical Ventilator 40 03/20/17 21:56 100 40 03/20/17 20:39 100 40 03/20/17 20:30 100.6 03/20/17 19:20 40 03/20/17 19:17 103.0 94 14 109/60 (76) 100 03/20/17 19:17 100 Mechanical Ventilator 40 03/20/17 19:00 95 03/20/17 18:21 91 102/60 03/20/17 15:00 95 03/20/17 15:00 100 Mechanical Ventilator 40 03/20/17 15:00 100.8 101 14 113/58 (76) 100 Arterial Line 03/20/17 15:00 40 03/20/17 12:00 100 40 Labs: Laboratory Tests Test 03/21/17 04:00 03/21/17 05:45 03/21/17 10:05 White Blood Count 28.3 TH/MM3 (4.0-11.0) Red Blood Count 3.69 MIL/MM3 (4.00-5.30) Hemoglobin 10.8 GM/DL (11.6-15.3) 9.8 GM/DL (11.6-15.3) Hematocrit 32.0 % (35.0-46.0) 29.8 % (35.0-46.0) Mean Corpuscular Volume 86.8 FL (80.0-100.0) Mean Corpuscular Hemoglobin 29.2 PG (27.0-34.0) Mean Corpuscular Hemoglobin Concent 33.6 % (32.0-36.0) Red Cell Distribution Width 16.5 % (11.6-17.2) Platelet Count 123 TH/MM3 (150-450) Mean Platelet Volume 8.3 FL (7.0-11.0) Neutrophils (%) (Auto) 92.5 % (16.0-70.0) Lymphocytes (%) (Auto) 3.1 % (9.0-44.0) Monocytes (%) (Auto) 4.2 % (0.0-8.0) Eosinophils (%) (Auto) 0.0 % (0.0-4.0) Basophils (%) (Auto) 0.2 % (0.0-2.0) Neutrophils # (Auto) 26.2 TH/MM3 (1.8-7.7) Lymphocytes # (Auto) 0.9 TH/MM3 (1.0-4.8) Monocytes # (Auto) 1.2 TH/MM3 (0-0.9) Eosinophils # (Auto) 0.0 TH/MM3 (0-0.4) Basophils # (Auto) 0.0 TH/MM3 (0-0.2) CBC Comment DIFF FINAL Differential Comment Prothrombin Time 11.9 SEC (9.8-11.6) Prothromb Time International Ratio 1.1 RATIO Blood Urea Nitrogen 52 MG/DL (7-18) Creatinine 1.26 MG/DL (0.50-1.00) Random Glucose 172 MG/DL (74-106) Total Protein 4.7 GM/DL (6.4-8.2) Albumin 1.9 GM/DL (3.4-5.0) Calcium Level 7.9 MG/DL (8.5-10.1) Phosphorus Level 3.0 MG/DL (2.5-4.9) Magnesium Level 2.0 MG/DL (1.5-2.5) Alkaline Phosphatase 60 U/L (45-117) Aspartate Amino Transf (AST/SGOT) 91 U/L (15-37) Alanine Aminotransferase (ALT/SGPT) 31 U/L (10-53) Total Bilirubin 0.6 MG/DL (0.2-1.0) Sodium Level 137 MEQ/L (136-145) Potassium Level 3.9 MEQ/L (3.5-5.1) Chloride Level 103 MEQ/L (98-107) Carbon Dioxide Level 27.3 MEQ/L (21.0-32.0) Anion Gap 7 MEQ/L (5-15) Estimat Glomerular Filtration Rate 41 ML/MIN (>89) Total Creatine Kinase 311 U/L (26-192) Creatine Kinase MB 13.8 NG/ML (0.5-3.6) Creatine Kinase MB % 4.4 % (0.0-4.0) Troponin I 13.80 NG/ML (0.02-0.05) Blood Gas Puncture Site RT BRACHIAL Blood Gas Patient Temperature 98.6 Blood Gas HCO3 23 mmol/L (22-26) Blood Gas Base Excess -1.1 mmol/L (-2-2) Blood Gas Oxygen Saturation 96 % (90-100) Arterial Blood pH 7.38 (7.380-7.420) Arterial Blood Partial Pressure CO2 41 mmHg (38-42) Arterial Blood Partial Pressure O2 149 mmHg (61-120) Arterial Blood Oxygen Content 14.2 Vol % (12.0-20.0) Arterial Blood Carboxyhemoglobin 2.1 % (0-4) Arterial Blood Methemoglobin 1.2 % (0-2) Blood Gas Hemoglobin 10.3 G/DL (12.0-16.0) Oxygen Delivery Device VENTILATOR Blood Gas Ventilator Setting A/C14/500/+5PEEP Blood Gas Inspired Oxygen 40 % Result Diagram: 03/21/17 1005 03/21/17 0400 (1) Aortic stenosis (2) AI (aortic insufficiency) (3) Acute on chronic diastolic congestive heart failure due to valvular disease (4) Cardiomyopathy (5) PVD (peripheral vascular disease) Cortez Terry MD Mar 21, 2017 12:01
[2017-03-21] MEDS ORDERED: IOHEXOL 350 MG/ML 50 ML BTL (for Cath Lab) OTHER ONE (12:05)
[2017-03-21] MEDS: SODIUM CHLOR 0.9% 1000 ML INJ 1,000 ML IV SCH (15:15)
--- NOTE | 2017-03-21 19:11 | HHI.CCPN ---
Subjective Remarks/Hospital Course This is a 81-year-old female patient that presented to the ED with shortness of breath and dry heaves. The patient has a history aortic insufficiency and severe aortic stenosis. Cardiology was consulted patient was status post cardiac catheter and aortic valvuloplasty yesterday 03/18/17. The patient was currently being worked up for a TAVR. Today the patient was noted to be on the bedside commode and became acutely hypotensive with a systolic blood pressure initially in the 80s, and reportedly unresponsive. Dr. Valderrama was notified of the event. Upon patient being placed back in the bed in supine position the patient's blood pressure increased to 95/49. Previously the systolic blood pressure had been maintained in the 130s the heart rate in the 80s. Approximately 15 minutes later, while lying supine in the bed, and receiving IV fluids the patient's systolic blood pressure was noted to be 58/30's critical care medicine was consulted for management. Upon arrival to the patient's room , the patient was awake ,alert, diaphoretic and appropriately responsive.SBP was noted to be 58, IV fluids were being infused. The patient was noted to have approximately 3-400 cc of jean marie melena. Simultaneously a left arterial line was placed which correlated with the noninvasive cuff, stat laboratory values were obtained, Phenylephrine infusion was initiated. Patient's hemoglobin was noted to drop from 13 g/dL to 8 g/dL, then 7.4g/dL. Stat type and cross was initiated with plans for transfusion of 2 units of packed cells, patient was notably on Plavix 2 units of platelets also urgently to be transfused. A right IJ central line was placed, copious melena continued approximately 700-800cc, at that point the patient was noted to begin vomiting bright red blood. Patient was then intubated for airway protection secondary to hematemesis, a second vasopressor was initiated norepinephrine at 5 mcgs. Postintubation an OGT was placed in approximately 150 cc of bright red blood was suctioned. Volume resuscitation continued .GI was stat consulted, case was discussed with Dr. Rock. A subsequent discussion was provided to family regarding patient's medical status . Subjective: 03/20: Tmax 101.2. Blood urine and sputum cultures obtained. We will set discontinued pulse volume resuscitation yesterday the patient remains on phenylephrine infusion throughout the night. Fentanyl infusion continues for ventilator synchrony plan for sedation vacation early this a.m.. Patient was noted to have 3 melanotic stools throughout the night. EGD performed emergently yesterday, discussed with Dr. Rock-stomach full of blood clots, poor visualization, no discernible source could be identified secondary to large amount of blood clots and stomach. Plan for repeat EGD possibly Tuesday. The patient received 4 units total packed red blood cells, 2 units of platelets close monitoring of hemoglobin and hematocrit continues every 6 hours. Patient notably cool bilateral feet, pulses only dopplerable. Plan for bilateral lower extremity ultrasound today. 03/21: left foot continues to be cool without pulses. palliative involved and changing code status. vascular re-evaluated and prefers no intervention at this time. GI eval and possible EGD today given ongoing active bleeding. palliative involved. Objective Vital Signs Date Time Temp Pulse Resp B/P (MAP) Pulse Ox O2 Delivery O2 Flow Rate FiO2 03/21/17 17:24 100 40 03/21/17 17:21 91 105/55 03/21/17 16:00 100.5 14 03/21/17 15:00 Mechanical Ventilator 03/19/17 12:00 2.00 Intake and Output 03/21/17 03/21/17 03/22/17 08:00 16:00 00:00 Intake Total 1076 ml 35.4 ml 808 ml Output Total 790 ml 700 ml Balance 286 ml 35.4 ml 108 ml Result Diagram: 03/21/17 1005 03/21/17 0400 Other Results Microbiology Date/Time Source Procedure Growth Status 03/19/17 12:00 Stool Stool Stool Occult Blood (MARIANO) - Final HEMOCCULT NEGATIVE Complete Laboratory Tests Test 03/21/17 05:45 Blood Gas Puncture Site RT BRACHIAL Blood Gas Patient Temperature 98.6 Blood Gas HCO3 23 mmol/L (22-26) Blood Gas Base Excess -1.1 mmol/L (-2-2) Blood Gas Oxygen Saturation 96 % (90-100) Arterial Blood pH 7.38 (7.380-7.420) Arterial Blood Partial Pressure CO2 41 mmHg (38-42) Arterial Blood Partial Pressure O2 149 mmHg (61-120) Arterial Blood Oxygen Content 14.2 Vol % (12.0-20.0) Arterial Blood Carboxyhemoglobin 2.1 % (0-4) Arterial Blood Methemoglobin 1.2 % (0-2) Blood Gas Hemoglobin 10.3 G/DL (12.0-16.0) Oxygen Delivery Device VENTILATOR Blood Gas Ventilator Setting A/C14/500/+5PEEP Blood Gas Inspired Oxygen 40 % Imaging Last Impressions Chest X-Ray 03/20/17 0400 Signed Impressions: Service Date/Time: Monday, March 20, 2017 04:05 - CONCLUSION: 1. Bibasilar airspace disease with associated effusions, stable on the left and slightly worse on the right. 2. Stable position of life support tubes. 3. Borderline prominent heart. Findings of prior CABG. Ra Bonner MD Abdomen X-Ray 03/19/17 1231 Signed Impressions: Service Date/Time: Sunday, March 19, 2017 13:23 - CONCLUSION: 1. Post surgical changes. 2. Possible renal calculi. 3. Density in the pelvis likely distended urinary bladder. Daniel Bhandari MD Last Impressions Chest X-Ray 03/17/17 0944 Signed Impressions: Service Date/Time: March 09:56 - CONCLUSION: 1. Interval improvement in bilateral pulmonary infiltrates with only mild residual. 2. Left effusion remains. Ronal Walton MD Objective Remarks GENERAL: frail elderly female lying in bed intubated sedated critically ill. SKIN: Cool and diaphoretic, noted cyanosis sluggish capillary refill bilateral feet, left worse than right. HEAD: Atraumatic. Normocephalic. EYES: Pupils equal and round. No scleral icterus. No injection or drainage. ENT: No nasal bleeding or discharge. Mucous membranes pink and moist. NECK: Trachea midline. No JVD. CARDIOVASCULAR: Normal rate, regular rhythm. RESPIRATORY: No accessory muscle use. On mechanical ventilation .Clear to auscultation. Breath sounds equal bilaterally. GASTROINTESTINAL: Abdomen soft, non-tender, nondistended. No guarding. MUSCULOSKELETAL: left lower extremity cool, mottled, without pulse or Doppler. RLE +Doppler, warm, still sluggish cap refill, but improved compared to left. NEUROLOGICAL: RASS -3. No gross focal/sensory deficits. Procedures 1. Severe aortic valve stenosis. 2. 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 3. Elevated left-sided filling pressures. 4. Successfully utilization of temporary transvenous pacemaker. 5. Successful aortic valve valvuloplasty. 6. Successful percutaneous intervention with balloon angioplasty of the saphenous vein graft to the obtuse marginal branch. 8 Date of Insertion: Mar 17, 2017 Date of Insertion: Mar 19, 2017 Line: Central Venous Catheter Side: Right Location: Internal, Jugular (vasoactive medications) A/P Assessment and Plan ASSESSMENT: 81yF with severe aortic stenosis and decompensated CHF with NSTEMI s /p emergent valvuloplasty and PCI, complicated by vascular compromise to LLE, acute hypoxic respiratory failure. very poor prognosis. critically ill with multiple organ dysfunction and active GI bleeding. needs to be anticoagulated for stent placement, difficult given multiple affected organs and competing interests. Acute blood loss anemia Hypotension Upper GI bleed Hematemesis Melena History of diverticulosis Aortic insufficiency Status post cardiac catheter with valvuloplasty POD #1 CAD H/O CABG x 5 2003 Leukocytosis-most likely reactive PLAN Neurologic: Patient intubated for airway protection secondary to hematemesis 7.5 ETT Fentanyl infusion for sedation and ventilator synchrony Sedation vacation daily Neurochecks per ICU protocol Respiratory: Ventilator bundle Follow-up chest x-ray Bronchodilators every 6 hours scheduled, every 2 hours when necessary Mechanical ventilation- AC 14/500/5/.50 ABG-WNL no SBT today given active upper gi bleeding and vascular compromise. Cardiovascular: Cardiology following Dr. Stevens management post left heart catheterization, aortic Valvuloplasty per cardiology Maintain MAP greater than 65 mmHg. continue to wean phenylephrine. Hold Plavix and ASA in the setting of acute blood loss Hold antihypertensive medications in the setting of hypotension venous doppler LEs: no DVT, no flow to LLE from femoral bypass. Renal: Maintain Garn[place] -- Strict I/Os FEN/GI: Monitor BMP Replete electrolytes per ICU protocol Maintain NPO status Maintain OGT to LIWS GI consulted- Dr. Rock 03/19 EGD, plan for repeat EGD today. hgb stable, continue to trend. NS @ KVO Heme/ID: Hemoglobin stable 11 Monitor H&H every 6 hours Patient transfused 4units PRBC's and 2 units of platelets Maintain hemoglobin greater than 10mg/dL Hold aspirin and Plavix Endocrine: Glucose monitoring ICU protocol -- SSI Prophylaxis: GI Prophylaxis Protonix -GI following, Infusion initiated DVT Prophylaxis No pharmacological DVT prophylaxis in the setting of acute blood loss anemia indicated -- SCDs Lines: Peripheral IVs 2. Right IJ central line (03/19), left radial a line (03/19) Dispo: Patient is critically ill . This patient remains critically ill with one or more organ systems which are or may become a threat to life. I have spent in excess of 34 minutes discontinuously in the care and management of this patient. This time is exclusive of procedures, and includes, but is not limited to, evaluation of the patient, review of the medical record, discussions with family, consultants, nursing staff, or respiratory therapy, and documentation in the medical record. Javier Navas MD Mar 21, 2017 19:11
[2017-03-21] MEDS: ACETAMINOPHEN 325 MG TAB PO PRN (21:13)
[2017-03-22] VITALS (15 sets, daily range): BP systolic 92–127; BP diastolic 54–59; PULSE 90–104; RESP 14; TEMP 98.6–102.6; O2SAT 100
[2017-03-22] MEDS: PHENYLEPHRINE 40 MG/D5W 496 ML ADMIX IV SCH ×2 (01:38)
[2017-03-22] MEDS: RESP: ALBUTEROL 2.5 MG/IPRATROPIUM 0.5 MG NEB (SCH) NEB ×4 (03:42→21:50)
[2017-03-22 05:13] LABS: HEMATOCRIT 29.2 % (35.0-46.0); MEAN CELL VOLUME 88.3 FL (80.0-100.0); MEAN CORPUSCULAR HEMOGLOBIN 28.8 PG (27.0-34.0); MEAN CORPUSCULAR HGB CONC 32.7 % (32.0-36.0); PLATELET COUNT 114 TH/MM3 (150-450); RED BLOOD COUNT 3.31 MIL/MM3 (4.00-5.30); RED CELL DISTRIBUTION WIDTH 16.3 % (11.6-17.2); WHITE BLOOD COUNT 19.1 TH/MM3 (4.0-11.0)
[2017-03-22 05:19] LABS: HEMO FLAGS AUTO DIFF
[2017-03-22 05:46] LABS: ANION GAP 8 MEQ/L (5-15); AST (GOT) 70 U/L (15-37); BICARBONATE 25.1 MEQ/L (21.0-32.0); BLOOD UREA NITROGEN 59 MG/DL (7-18); CHLORIDE 105 MEQ/L (98-107); GLOMERULAR FILTRATION RATE 51 ML/MIN (>89); MAGNESIUM 2.1 MG/DL (1.5-2.5); POTASSIUM 3.7 MEQ/L (3.5-5.1); SODIUM (NA) 138 MEQ/L (136-145)
[2017-03-22 05:50] LABS: ALKALINE PHOSPHATASE 56 U/L (45-117); ALT (GPT) 27 U/L (10-53); TOTAL BILIRUBIN ADULT 0.7 MG/DL (0.2-1.0)
[2017-03-22] MEDS: fentaNYL DRIP 250 ML IV SCH (06:16)
[2017-03-22] MEDS: INSULIN ASPART SUPPLEMENTAL SCALE SQ SCH ×2 (06:27→11:00)
[2017-03-22 06:38] LABS: BANDS 13 % (0-6); CORRECTED NUCLEATED RBC 1 /100 WBC (0-0); NEUTROPHIL # MANUAL DIFF 17.6 TH/MM3 (1.8-7.7); POLYS (SEG NEUTROPHILS) 79 % (16-70); WBC DIFF SAMPLE 100
[2017-03-22 06:39] LABS: PLATELET ESTIMATE SMEAR LOW (NORMAL); PLATELET MORPHOLOGY NORMAL (NORMAL); SCAN/DIFF FINAL DIFF MANUAL
[2017-03-22] MEDS ORDERED: LORazepam 2 MG/ML VIAL IV PUSH PRN (07:00)
[2017-03-22] MEDS: SODIUM CHLORIDE 0.9% FLUSH 10 ML FLUSH IV FLUSH SCH ×2 (08:34→20:20)
[2017-03-22] MEDS: CHLORHEXIDINE 0.12% (ORAL KIT) 15 ML CUP MT SCH ×2 (08:34→20:20)
[2017-03-22] MEDS: DOCUSATE SODIUM 50 MG/SENNA 8.6 MG TAB PO SCH (08:34)
[2017-03-22] MEDS: BUMETANIDE INJ 1 MG/4 ML VIAL IV PUSH SCH (08:57)
[2017-03-22] MEDS: POTASSIUM CHLORIDE 10 MEQ CONTROLLED RELEASE TAB PO SCH (08:57)
[2017-03-22] MEDS: NORTRIPTYLINE HCL 25 MG CAP PO SCH (08:58)
--- NOTE | 2017-03-22 09:09 | PD.CARD.PN ---
Subjective Subjective Remarks intubated, mechanically ventilated Objective Medications Current Medications Medications (Trade) Dose Ordered Sig/Khoa Route Start Time Stop Time Status Last Admin (D50w (Vial) Inj) 50 ml UNSCH PRN IV 03/17/17 13:00 (Glucagon Inj) 1 mg UNSCH PRN OTHER 03/17/17 13:00 (NovoLOG SUPPLEMENTAL SCALE) 1 ACHS SLIDING SCALE SQ 03/17/17 16:00 03/21/17 11:00 (Pamelor) 25 mg BID PO 03/17/17 21:00 03/22/17 08:58 (KCl) 10 meq DAILY PO 03/18/17 09:00 03/22/17 08:57 (NS Flush) 2 ml UNSCH PRN IV FLUSH 03/17/17 13:00 (NS Flush) 2 ml BID IV FLUSH 03/17/17 21:00 03/21/17 20:40 (Zofran Inj) 4 mg Q6H PRN IVP 03/17/17 13:00 03/19/17 10:49 (Compazine Supp) 25 mg Q12H PRN RECTAL 03/17/17 13:00 (Ultram) 50 mg Q4H PRN PO 03/17/17 13:00 (Ultram) 100 mg Q4H PRN PO 03/17/17 13:00 (Narcan Inj) 0.4 mg UNSCH PRN IV 03/17/17 13:00 (Maura-Colace) 1 tab BID PO 03/17/17 21:00 03/21/17 09:00 (Milk Of Magnesia Liq) 30 ml Q12H PRN PO 03/17/17 13:00 03/19/17 11:01 (Senokot) 17.2 mg Q12H PRN PO 03/17/17 13:00 03/19/17 11:01 (Dulcolax Supp) 10 mg DAILY PRN RECTAL 03/17/17 13:00 (Lactulose Liq) 30 ml DAILY PRN PO 03/17/17 13:00 (Plavix) 75 mg DAILY PO 03/18/17 09:00 Future Hold 03/19/17 08:28 (Bumex Inj) 1 mg DAILY IV PUSH 03/19/17 09:00 03/22/17 08:57 (Atropine Inj) 0.5 mg UNSCH PRN IV 03/18/17 17:15 Fentanyl Citrate 250 ml @ 0 mls/hr TITRATE IV 03/19/17 13:30 03/22/17 06:16 Potassium Chloride 100 ml @ 50 mls/hr Q2H PRN IV 03/19/17 13:45 Potassium Chloride 100 ml @ 50 mls/hr Q2H PRN IV 03/19/17 13:45 (K-Lyte Cl Eff) 50 meq UNSCH PRN PO 03/19/17 13:45 Potassium Chloride 100 ml @ 25 mls/hr UNSCH PRN IV 03/19/17 13:45 Potassium Chloride 100 ml @ 50 mls/hr Q2H PRN IV 03/19/17 13:45 Magnesium Sulfate 4 gm/Sodium Chloride 100 ml @ 50 mls/hr UNSCH PRN IV 03/19/17 13:45 (Mag-Ox) 800 mg UNSCH PRN PO 03/19/17 13:45 Magnesium Sulfate 2 gm/Sodium Chloride 100 ml @ 50 mls/hr UNSCH PRN IV 03/19/17 13:45 (K-Phos) 2,000 mg Q4H PRN PO 03/19/17 13:45 Sodium Phosphate 30 mmol/Sodium Chloride 250 ml @ 42 mls/hr UNSCH PRN IV 03/19/17 13:45 (K-Phos) 2,000 mg UNSCH PRN PO/TUBE 03/19/17 13:45 Potassium Phosphate 30 mmol/ Sodium Chloride 260 ml @ 42 mls/hr UNSCH PRN IV 03/19/17 13:45 Pantoprazole Sodium 80 mg/ Sodium Chloride 100 ml @ 10 mls/hr Q10H IV 03/19/17 15:00 03/21/17 23:30 Sodium Chloride 1,000 ml @ 5 mls/hr Q24H IV 03/19/17 15:15 03/20/17 20:13 (Duoneb Neb) 1 ampule Q6HR NEB NEB 03/19/17 16:00 03/22/17 03:42 (Duoneb Neb) 1 ampule Q2HR NEB PRN NEB 03/19/17 15:15 (Peridex 0.12% Liq) 15 ml BID@08,20 MT 03/19/17 20:00 03/22/17 08:34 Phenylephrine HCl 40 mg/Dextrose 500 ml @ 0 mls/hr TITRATE IV 03/19/17 16:15 03/22/17 01:38 (Brethine Inj) 1 mg UNSCH PRN SQ 03/19/17 16:15 (Tylenol) 650 mg Q4H PRN PO 03/20/17 02:45 03/21/17 21:13 (Ativan Inj) 1 mg Q4H PRN IV PUSH 03/22/17 07:00 Vital Signs / I&O Vital Signs Date Time Temp Pulse Resp B/P (MAP) Pulse Ox O2 Delivery O2 Flow Rate FiO2 03/22/17 04:00 40 03/22/17 04:00 98.6 94 14 116/59 (78) 100 03/22/17 03:48 100 Ventilator 03/22/17 03:43 100 40 03/22/17 03:00 100 Mechanical Ventilator 40 03/22/17 01:38 90 105/58 03/22/17 00:27 100 40 03/22/17 00:00 40 03/22/17 00:00 98.6 93 14 127/58 (81) 100 03/21/17 23:00 100 Mechanical Ventilator 40 03/21/17 20:33 100 Ventilator 03/21/17 20:27 100 40 03/21/17 20:00 102.4 94 14 110/55 (73) 100 03/21/17 20:00 40 03/21/17 19:00 100 Mechanical Ventilator 40 03/21/17 17:24 100 40 03/21/17 17:21 91 105/55 03/21/17 16:00 100.5 90 14 104/51 (68) 100 03/21/17 15:00 40 03/21/17 15:00 100 Mechanical Ventilator 40 03/21/17 12:00 101.5 87 14 103/54 (70) 100 03/21/17 12:00 87 103/54 03/21/17 11:00 40 03/21/17 11:00 99 Mechanical Ventilator 40 03/21/17 10:57 100 100 03/21/17 10:57 99 40 I/O 03/21/17 03/21/17 03/21/17 03/22/17 03/22/17 03/22/17 07:00 15:00 23:00 07:00 15:00 23:00 Intake Total 1076 ml 35.4 ml 808 ml 845 ml Output Total 790 ml 700 ml 1200 ml Balance 286 ml 35.4 ml 108 ml -355 ml IV Total 1076 ml 35.4 ml 808 ml 845 ml Output Urine Total 690 ml 700 ml 950 ml Stool Total 0 ml Gastric Drainage Total 100 ml 0 ml 250 ml # Bowel Movements 0 0 0 Physical Exam SKIN: Warm and dry. HEAD: Atraumatic. Normocephalic. EYES: Pupils equal and round. ENT: No nasal bleeding or discharge. NECK: Trachea midline. No JVD. CARDIOVASCULAR: Regular rate and rhythm. systolic murmur RESPIRATORY: No accessory muscle use. Clear to auscultation. GASTROINTESTINAL: Abdomen soft, non-tender, nondistended. intubated and mechanically ventilated Laboratory Laboratory Tests Test 03/21/17 10:05 03/22/17 05:00 Hemoglobin 9.8 GM/DL 9.6 GM/DL Hematocrit 29.8 % 29.2 % White Blood Count 19.1 TH/MM3 Red Blood Count 3.31 MIL/MM3 Mean Corpuscular Volume 88.3 FL Mean Corpuscular Hemoglobin 28.8 PG Mean Corpuscular Hemoglobin Concent 32.7 % Red Cell Distribution Width 16.3 % Platelet Count 114 TH/MM3 Mean Platelet Volume 8.2 FL CBC Comment AUTO DIFF Differential Total Cells Counted 100 Neutrophils % (Manual) 79 % Band Neutrophils % 13 % Lymphocytes % 3 % Monocytes % 5 % Neutrophils # (Manual) 17.6 TH/MM3 Nucleated Red Blood Cells 1 /100 WBC Differential Comment FINAL DIFF MANUAL Platelet Estimate LOW Platelet Morphology Comment NORMAL Red Cell Morphology Comment NORMAL Blood Urea Nitrogen 59 MG/DL Creatinine 1.04 MG/DL Random Glucose 158 MG/DL Total Protein 4.6 GM/DL Albumin 1.6 GM/DL Calcium Level 7.6 MG/DL Phosphorus Level 2.5 MG/DL Magnesium Level 2.1 MG/DL Alkaline Phosphatase 56 U/L Aspartate Amino Transf (AST/SGOT) 70 U/L Alanine Aminotransferase (ALT/SGPT) 27 U/L Total Bilirubin 0.7 MG/DL Sodium Level 138 MEQ/L Potassium Level 3.7 MEQ/L Chloride Level 105 MEQ/L Carbon Dioxide Level 25.1 MEQ/L Anion Gap 8 MEQ/L Estimat Glomerular Filtration Rate 51 ML/MIN Assessment and Plan Problem List: (1) Aortic stenosis ICD Codes: I35.0 - Aortic stenosis Status: Chronic (2) AI (aortic insufficiency) ICD Codes: I35.1 - Nonrheumatic aortic (valve) insufficiency Status: Acute (3) Acute on chronic diastolic congestive heart failure due to valvular disease ICD Codes: I50.33 - Acute on chronic diastolic (congestive) heart failure; I38 - Endocarditis, valve unspecified Status: Acute (4) Cardiomyopathy ICD Codes: I42.9 - Cardiomyopathy, unspecified Status: Acute (5) PVD (peripheral vascular disease) ICD Codes: I73.9 - Peripheral vascular disease Status: Chronic Assessment and Plan severe aortic stenosis- s/p aortic valvuloplasty with acute decompensation; with CHF and cardiomyopathy GI bleed- possible EGD ischemic L leg- occlusion of L fem-pop, no anticoagulants due to GI bleed. not a surgical candidate afib- went into afib overnight; now in sinus rhythm. palliative care following. Cecilia Stevenson Mar 22, 2017 09:09
[2017-03-22] MEDS: PANTOPRAZOLE INJ 80 MG in SODIUM CHLORIDE 0.9% INJ 100 ML IV SCH ×2 (09:58→18:21)
--- NOTE | 2017-03-22 11:22 | HHI.GIFU ---
Subjective Remarks Pt intubated. Daughter and granddaughter at bedside, do not wish to pursue further procedures, withdrawing support imminently. (Jeannine Cruz) Objective Vitals I&O Vital Signs Date Time Temp Pulse Resp B/P (MAP) Pulse Ox O2 Delivery O2 Flow Rate FiO2 03/22/17 10:00 98 03/22/17 08:00 99.8 90 14 109/55 (73) 100 03/22/17 08:00 40 03/22/17 08:00 104 03/22/17 07:00 100 Mechanical Ventilator 40 03/22/17 04:00 40 03/22/17 04:00 98.6 94 14 116/59 (78) 100 03/22/17 03:48 100 Ventilator 03/22/17 03:43 100 40 03/22/17 03:00 100 Mechanical Ventilator 40 03/22/17 01:38 90 105/58 03/22/17 00:27 100 40 03/22/17 00:00 40 03/22/17 00:00 98.6 93 14 127/58 (81) 100 03/21/17 23:00 100 Mechanical Ventilator 40 03/21/17 20:33 100 Ventilator 03/21/17 20:27 100 40 03/21/17 20:00 102.4 94 14 110/55 (73) 100 03/21/17 20:00 40 03/21/17 19:00 100 Mechanical Ventilator 40 03/21/17 17:24 100 40 03/21/17 17:21 91 105/55 03/21/17 16:00 100.5 90 14 104/51 (68) 100 03/21/17 15:00 40 03/21/17 15:00 100 Mechanical Ventilator 40 03/21/17 12:00 101.5 87 14 103/54 (70) 100 03/21/17 12:00 87 103/54 I/O 03/21/17 03/21/17 03/21/17 03/22/17 03/22/17 03/22/17 07:00 15:00 23:00 07:00 15:00 23:00 Intake Total 1076 ml 35.4 ml 808 ml 845 ml 200 ml Output Total 790 ml 700 ml 1200 ml Balance 286 ml 35.4 ml 108 ml -355 ml 200 ml IV Total 1076 ml 35.4 ml 808 ml 845 ml 200 ml Output Urine Total 690 ml 700 ml 950 ml Stool Total 0 ml Gastric Drainage Total 100 ml 0 ml 250 ml # Bowel Movements 0 0 0 Laboratory Laboratory Tests Test 03/22/17 05:00 White Blood Count 19.1 Red Blood Count 3.31 Hemoglobin 9.6 Hematocrit 29.2 Mean Corpuscular Volume 88.3 Mean Corpuscular Hemoglobin 28.8 Mean Corpuscular Hemoglobin Concent 32.7 Red Cell Distribution Width 16.3 Platelet Count 114 Mean Platelet Volume 8.2 CBC Comment AUTO DIFF Differential Total Cells Counted 100 Neutrophils % (Manual) 79 Band Neutrophils % 13 Lymphocytes % 3 Monocytes % 5 Neutrophils # (Manual) 17.6 Nucleated Red Blood Cells 1 Differential Comment FINAL DIFF MANUAL Platelet Estimate LOW Platelet Morphology Comment NORMAL Red Cell Morphology Comment NORMAL Blood Urea Nitrogen 59 Creatinine 1.04 Random Glucose 158 Total Protein 4.6 Albumin 1.6 Calcium Level 7.6 Phosphorus Level 2.5 Magnesium Level 2.1 Alkaline Phosphatase 56 Aspartate Amino Transf (AST/SGOT) 70 Alanine Aminotransferase (ALT/SGPT) 27 Total Bilirubin 0.7 Sodium Level 138 Potassium Level 3.7 Chloride Level 105 Carbon Dioxide Level 25.1 Anion Gap 8 Estimat Glomerular Filtration Rate 51 Date/Time Source Procedure Growth Status 03/20/17 02:21 Blood Peripheral Aerobic Blood Culture - Preliminary NO GROWTH IN 2 DAYS Resulted 03/20/17 02:21 Blood Peripheral Anaerobic Blood Culture - Preliminary NO GROWTH IN 2 DAYS Resulted 03/19/17 12:00 Stool Stool Stool Occult Blood (MARIANO) - Final HEMOCCULT NEGATIVE Complete 03/20/17 08:10 Sputum Endotracheal Gram Stain - Final Resulted 03/20/17 08:10 Sputum Endotracheal Sputum Culture - Preliminary MODERATE GROWTH NORMAL RESPIRATORY FL... Resulted 03/20/17 08:10 Urine Catheterized Urine Urine Culture - Preliminary Escherichia Coli Enterobacter Cloacae Group D Enterococcus Resulted Physical Exam HEENT: Intubated CHEST: Coarse CARDIAC: RRR + murmur ABDOMEN: Soft, nondistended, nontender; no hepatosplenomegaly; bowel souns faint EXTREMITIES: No clubbing, cyanosis, or edema. BUE cool to touch SKIN: Normal; no rash; no jaundice. GENERAL OFFICE ASSISTANT: sedated on vent (Jeannine Cruz) Assessment and Plan Plan ASSESSMENT: - Upper GI Bleed with jean marie red blood from OGT and melanotic stool. Pt with severe aortic stenosis, s/p valvuloplasty; CAD on Plavix/ASA. Became unstable after passing melanotic stool, required emergent intubation. s/p EGD emergent 03/19 clots in stomach, poor vis d/t blood and could not discern source. plan was for 2nd EGD but family will be withdrawing support - Anemia due to acute blood loss. HH dropped from 13.4/40.4 this am to 8.1/ 25.1. In process of getting 2 units of PRBC, 2 units of platelets was ordered. - Syncopal episode this am while trying to have a bowel movement, cardiology following, likely vasovagal. - Acute respiratory failure. S/P Intubation/mechanical ventilation - Leukocytosis. WBC 16.3 - ANURAG, Creat 1.18 - Severe aortic stenosis, not a surgical candidate for AVR/MVR. Was being worked up for TAVR when she became more symptomatic. 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 Goal is to get better control of her symptoms so that she could tolerate TAVR. Cardiology following. - CAD, CHF, PAD, Hyperlipidemia per cardiology - DM per attending. - Of note, patient has multiple drug allergies including a contrast allergy PLAN: - no further procedures from GI - family does not wish to pursue - GI will sign off This pt seen by myself and Dr Rock and this note is written on his behalf (Jeannine Cruz) Physician Comments As above, please notify us if needed. (Renee Rock MD) Jeannine Cruz Mar 22, 2017 11:22 Renee Rock MD Mar 22, 2017 14:43
[2017-03-22] MEDS: ACETAMINOPHEN 325 MG TAB PO PRN ×2 (12:22→22:22)
--- NOTE | 2017-03-22 13:56 | EKG ---
Date Performed: 03/22/2017 Time Performed: 00:23:23 PTAGE: 81 years EKG: ATRIAL FIBRILLATION WITH RAPID VENTRICULAR RESPONSE MODERATE INTRAVENTRICULAR CONDUCTION DE LAY NONSPECIFIC ST & T-WAVE ABNORMALITY ABNORMAL ECG PREVIOUS TRACING 03/20/17 Cannot exclude an inferior wall infarct of indeterminate age. Since t he prior tracing, there has been an increase in the minimal ST-segment elevation inferiorly. This is probably rate related. Clinical correlation is advised. DOCTOR: Isamar Figueroa Interpretating Date/Time 03/22/2017 13:55:04
--- NOTE | 2017-03-22 14:18 | PD.CAR.PN ---
CVT Progress Note Subjective/Hospital Course: Evaluated full consult dictated We will follow Thanks J 03/21/17 As described in the consultation this patient has ischemia of the left leg with occlusion of femoropopliteal graft as a result of hypotension and bleeding as a result of the valvuloplasty. At this point patient is not a surgical candidate for any procedure for any endovascular or vascular procedure would require heparinization and in face of ongoing GI bleeding this would be catastrophic. In addition patient systemic condition doesn't allow for any procedure at this time Discussions have been had with the family and family have decided to make the patient DNR Will continue to follow but this point do not plan any vascular procedure 03/22/17 Condition unchanged Patient is now DNR and I've discussed this with the family. Palliative care consult is greatly appreciated Family would like to make patient supportive care and withdrawal further interventions and support. Left leg remains cold and pulseless and at this point in face of the above, no surgery is planned Objective: Vital Signs Date Time Temp Pulse Resp B/P (MAP) Pulse Ox O2 Delivery O2 Flow Rate FiO2 03/22/17 13:32 96 88/55 03/22/17 13:01 100 40 03/22/17 12:00 40 03/22/17 12:00 101.1 96 14 109/59 (76) 100 03/22/17 12:00 96 03/22/17 11:00 100 Mechanical Ventilator 40 03/22/17 10:00 98 03/22/17 09:58 92 122/60 03/22/17 09:00 90 110/56 03/22/17 08:00 99.8 90 14 109/55 (73) 100 03/22/17 08:00 40 03/22/17 08:00 104 03/22/17 07:00 100 Mechanical Ventilator 40 03/22/17 04:00 40 03/22/17 04:00 98.6 94 14 116/59 (78) 100 03/22/17 03:48 100 Ventilator 03/22/17 03:43 100 40 03/22/17 03:00 100 Mechanical Ventilator 40 03/22/17 01:38 90 105/58 03/22/17 00:27 100 40 03/22/17 00:00 40 03/22/17 00:00 98.6 93 14 127/58 (81) 100 03/21/17 23:00 100 Mechanical Ventilator 40 03/21/17 20:33 100 Ventilator 03/21/17 20:27 100 40 03/21/17 20:00 102.4 94 14 110/55 (73) 100 03/21/17 20:00 40 03/21/17 19:00 100 Mechanical Ventilator 40 03/21/17 17:24 100 40 03/21/17 17:21 91 105/55 03/21/17 16:00 100.5 90 14 104/51 (68) 100 03/21/17 15:00 40 03/21/17 15:00 100 Mechanical Ventilator 40 Labs: Laboratory Tests Test 03/22/17 05:00 White Blood Count 19.1 TH/MM3 (4.0-11.0) Red Blood Count 3.31 MIL/MM3 (4.00-5.30) Hemoglobin 9.6 GM/DL (11.6-15.3) Hematocrit 29.2 % (35.0-46.0) Mean Corpuscular Volume 88.3 FL (80.0-100.0) Mean Corpuscular Hemoglobin 28.8 PG (27.0-34.0) Mean Corpuscular Hemoglobin Concent 32.7 % (32.0-36.0) Red Cell Distribution Width 16.3 % (11.6-17.2) Platelet Count 114 TH/MM3 (150-450) Mean Platelet Volume 8.2 FL (7.0-11.0) CBC Comment AUTO DIFF Differential Total Cells Counted 100 Neutrophils % (Manual) 79 % (16-70) Band Neutrophils % 13 % (0-6) Lymphocytes % 3 % (9-44) Monocytes % 5 % (0-8) Neutrophils # (Manual) 17.6 TH/MM3 (1.8-7.7) Nucleated Red Blood Cells 1 /100 WBC (0-0) Differential Comment FINAL DIFF MANUAL Platelet Estimate LOW (NORMAL) Platelet Morphology Comment NORMAL (NORMAL) Red Cell Morphology Comment NORMAL (NORMAL) Blood Urea Nitrogen 59 MG/DL (7-18) Creatinine 1.04 MG/DL (0.50-1.00) Random Glucose 158 MG/DL (74-106) Total Protein 4.6 GM/DL (6.4-8.2) Albumin 1.6 GM/DL (3.4-5.0) Calcium Level 7.6 MG/DL (8.5-10.1) Phosphorus Level 2.5 MG/DL (2.5-4.9) Magnesium Level 2.1 MG/DL (1.5-2.5) Alkaline Phosphatase 56 U/L (45-117) Aspartate Amino Transf (AST/SGOT) 70 U/L (15-37) Alanine Aminotransferase (ALT/SGPT) 27 U/L (10-53) Total Bilirubin 0.7 MG/DL (0.2-1.0) Sodium Level 138 MEQ/L (136-145) Potassium Level 3.7 MEQ/L (3.5-5.1) Chloride Level 105 MEQ/L (98-107) Carbon Dioxide Level 25.1 MEQ/L (21.0-32.0) Anion Gap 8 MEQ/L (5-15) Estimat Glomerular Filtration Rate 51 ML/MIN (>89) Result Diagram: 03/22/17 0500 03/22/17 0500 (1) Aortic stenosis (2) AI (aortic insufficiency) (3) Acute on chronic diastolic congestive heart failure due to valvular disease (4) Cardiomyopathy (5) PVD (peripheral vascular disease) Cortez Terry MD Mar 22, 2017 14:18
--- NOTE | 2017-03-22 14:40 | HHI.HCPN ---
Reason for visit a. To assist with evaluation and management of symptoms including: dyspnea , pain b. To assist medical decision maker(s) with: better understanding of current medical conditions; weighing benefits/burdens of medical treatment options; making medical treatment decisions. . Subjective/Interval History The patient remains essentially unchanged, unresponsive on the fentanyl. There has been no obvious bleeding. She continues to be febrile, and the foot remains cold. Family is at the bedside, see below . Family/friend interactions Discussion at the bedside with daughter Viola and son Emanuel; they understand the current issues, the poor prognosis, and the choices. They are requesting withdrawal of life support tomorrow (allowing time for other friends to come visit today and tonight). Withdrawal process discussed and explained in detail with them. . Advance Directives Living Will: Never completed Health Care Surrogate: Completed, but not made available Advance Directive Specifics Health Care Surrogate(s): Daughter Viola reports that she is the POA/HCS for the past few years. . Significant change in goals: Family requests withdrawal of life support tomorrow . Objective Vital Signs Date Time Temp Pulse Resp B/P (MAP) Pulse Ox O2 Delivery O2 Flow Rate FiO2 03/22/17 13:32 96 88/55 03/22/17 13:01 100 40 03/22/17 12:00 40 03/22/17 12:00 101.1 96 14 109/59 (76) 100 03/22/17 12:00 96 03/22/17 11:00 100 Mechanical Ventilator 40 03/22/17 10:00 98 03/22/17 09:58 92 122/60 03/22/17 09:00 90 110/56 03/22/17 08:00 99.8 90 14 109/55 (73) 100 03/22/17 08:00 40 03/22/17 08:00 104 03/22/17 07:00 100 Mechanical Ventilator 40 03/22/17 04:00 40 03/22/17 04:00 98.6 94 14 116/59 (78) 100 03/22/17 03:48 100 Ventilator 03/22/17 03:43 100 40 03/22/17 03:00 100 Mechanical Ventilator 40 03/22/17 01:38 90 105/58 03/22/17 00:27 100 40 03/22/17 00:00 40 03/22/17 00:00 98.6 93 14 127/58 (81) 100 03/21/17 23:00 100 Mechanical Ventilator 40 03/21/17 20:33 100 Ventilator 03/21/17 20:27 100 40 03/21/17 20:00 102.4 94 14 110/55 (73) 100 03/21/17 20:00 40 03/21/17 19:00 100 Mechanical Ventilator 40 03/21/17 17:24 100 40 03/21/17 17:21 91 105/55 03/21/17 16:00 100.5 90 14 104/51 (68) 100 03/21/17 15:00 40 03/21/17 15:00 100 Mechanical Ventilator 40 Intake & Output 03/22/17 03/22/17 07:00 19:00 Intake Total 845 ml 200 ml Output Total 1200 ml Balance -355 ml 200 ml IV Total 845 ml 200 ml Output Urine Total 950 ml Gastric Drainage Total 250 ml # Bowel Movements 0 Physical Exam CONSTITUTIONAL/GENERAL: This is an adequately nourished patient, in no apparent distress, in intensive care, sedated, intubated. NECK: Trachea midline. Supple, nontender. No palpable thyroid enlargement or nodularity. CARDIOVASCULAR: Regular rate and rhythm. There is a grade 2 or 3 systolic murmur in the aortic area. No JVD. Peripheral pulses absent on the left, and the left foot is cold RESPIRATORY/CHEST: Symmetric, unlabored respirations. A few rales and rhonchi bilateral, diminished breath sounds on the left. GASTROINTESTINAL: Abdomen soft, non-tender, nondistended. No hepato-splenomegaly , or palpable masses. No guarding. Bowel sounds present. MUSCULOSKELETAL: Extremities without clubbing, cyanosis, or edema. No joint tenderness or effusion noted. No calf tenderness. No mottling or clubbing. NEUROLOGICAL: Unresponsive PSYCHIATRIC: Unable to assess due to clinical condition . Diagnostic Tests Laboratory Laboratory Tests Test 03/19/17 15:25 03/19/17 15:30 03/19/17 20:40 03/20/17 01:55 Blood Gas Puncture Site ART LINE Blood Gas Patient Temperature 98.6 Blood Gas HCO3 21 mmol/L (22-26) Blood Gas Base Excess -3.1 mmol/L (-2-2) Blood Gas Oxygen Saturation 97 % (90-100) Arterial Blood pH 7.38 (7.380-7.420) Arterial Blood Partial Pressure CO2 37 mmHg (38-42) Arterial Blood Partial Pressure O2 253 mmHg (61-120) Arterial Blood Oxygen Content 12.2 Vol % (12.0-20.0) Arterial Blood Carboxyhemoglobin 2.0 % (0-4) Arterial Blood Methemoglobin 1.3 % (0-2) Blood Gas Hemoglobin 8.5 G/DL (12.0-16.0) Oxygen Delivery Device VENTILATOR Blood Gas Ventilator Setting A/C14/500/+5PEEP Blood Gas Inspired Oxygen 50 % White Blood Count 27.7 TH/MM3 (4.0-11.0) 21.0 TH/MM3 (4.0-11.0) Red Blood Count 2.96 MIL/MM3 (4.00-5.30) 4.09 MIL/MM3 (4.00-5.30) Hemoglobin 8.5 GM/DL (11.6-15.3) 11.8 GM/DL (11.6-15.3) 11.9 GM/DL (11.6-15.3) Hematocrit 25.6 % (35.0-46.0) 35.4 % (35.0-46.0) 35.2 % (35.0-46.0) Mean Corpuscular Volume 86.5 FL (80.0-100.0) 86.0 FL (80.0-100.0) Mean Corpuscular Hemoglobin 28.8 PG (27.0-34.0) 29.0 PG (27.0-34.0) Mean Corpuscular Hemoglobin Concent 33.3 % (32.0-36.0) 33.8 % (32.0-36.0) Red Cell Distribution Width 16.6 % (11.6-17.2) 16.4 % (11.6-17.2) Platelet Count 252 TH/MM3 (150-450) 171 TH/MM3 (150-450) Mean Platelet Volume 7.8 FL (7.0-11.0) 8.5 FL (7.0-11.0) Neutrophils (%) (Auto) 91.9 % (16.0-70.0) Lymphocytes (%) (Auto) 3.8 % (9.0-44.0) Monocytes (%) (Auto) 4.2 % (0.0-8.0) Eosinophils (%) (Auto) 0.0 % (0.0-4.0) Basophils (%) (Auto) 0.1 % (0.0-2.0) Neutrophils # (Auto) 19.3 TH/MM3 (1.8-7.7) Lymphocytes # (Auto) 0.8 TH/MM3 (1.0-4.8) Monocytes # (Auto) 0.9 TH/MM3 (0-0.9) Eosinophils # (Auto) 0.0 TH/MM3 (0-0.4) Basophils # (Auto) 0.0 TH/MM3 (0-0.2) CBC Comment DIFF FINAL Differential Comment Test 03/20/17 02:18 03/20/17 06:13 03/20/17 06:28 03/20/17 07:51 Blood Urea Nitrogen 56 MG/DL (7-18) Creatinine 1.34 MG/DL (0.50-1.00) Random Glucose 143 MG/DL (74-106) Total Protein 4.3 GM/DL (6.4-8.2) Albumin 2.1 GM/DL (3.4-5.0) Calcium Level 7.3 MG/DL (8.5-10.1) Phosphorus Level 3.4 MG/DL (2.5-4.9) Magnesium Level 2.0 MG/DL (1.5-2.5) Alkaline Phosphatase 56 U/L (45-117) Aspartate Amino Transf (AST/SGOT) 50 U/L (15-37) Alanine Aminotransferase (ALT/SGPT) 24 U/L (10-53) Total Bilirubin 0.9 MG/DL (0.2-1.0) Sodium Level 139 MEQ/L (136-145) Potassium Level 4.0 MEQ/L (3.5-5.1) Chloride Level 105 MEQ/L (98-107) Carbon Dioxide Level 27.4 MEQ/L (21.0-32.0) Anion Gap 7 MEQ/L (5-15) Estimat Glomerular Filtration Rate 38 ML/MIN (>89) Protein Corrected Calcium 8.9 MG/DL (8.5-10.1) Hemoglobin 11.6 GM/DL (11.6-15.3) Hematocrit 34.6 % (35.0-46.0) Prothrombin Time 12.4 SEC (9.8-11.6) Prothromb Time International Ratio 1.1 RATIO Blood Gas Puncture Site RT BRACHIAL Blood Gas Patient Temperature 98.6 Blood Gas HCO3 23 mmol/L (22-26) Blood Gas Base Excess -2.6 mmol/L (-2-2) Blood Gas Oxygen Saturation 96 % (90-100) Arterial Blood pH 7.33 (7.380-7.420) Arterial Blood Partial Pressure CO2 44 mmHg (38-42) Arterial Blood Partial Pressure O2 139 mmHg (61-120) Arterial Blood Oxygen Content 15.5 Vol % (12.0-20.0) Arterial Blood Carboxyhemoglobin 2.4 % (0-4) Arterial Blood Methemoglobin 1.3 % (0-2) Blood Gas Hemoglobin 11.4 G/DL (12.0-16.0) Oxygen Delivery Device VENTILATOR Blood Gas Ventilator Setting AC14/500/+5 Blood Gas Inspired Oxygen 40 % Test 03/20/17 14:37 03/20/17 20:20 03/20/17 20:45 03/21/17 04:00 Hemoglobin 11.6 GM/DL (11.6-15.3) 10.5 GM/DL (11.6-15.3) 10.8 GM/DL (11.6-15.3) Hematocrit 35.1 % (35.0-46.0) 32.0 % (35.0-46.0) 32.0 % (35.0-46.0) Total Creatine Kinase 315 U/L (26-192) 311 U/L (26-192) Creatine Kinase MB 20.3 NG/ML (0.5-3.6) 13.8 NG/ML (0.5-3.6) Creatine Kinase MB % 6.4 % (0.0-4.0) 4.4 % (0.0-4.0) Troponin I 17.40 NG/ML (0.02-0.05) 13.80 NG/ML (0.02-0.05) White Blood Count 28.3 TH/MM3 (4.0-11.0) Red Blood Count 3.69 MIL/MM3 (4.00-5.30) Mean Corpuscular Volume 86.8 FL (80.0-100.0) Mean Corpuscular Hemoglobin 29.2 PG (27.0-34.0) Mean Corpuscular Hemoglobin Concent 33.6 % (32.0-36.0) Red Cell Distribution Width 16.5 % (11.6-17.2) Platelet Count 123 TH/MM3 (150-450) Mean Platelet Volume 8.3 FL (7.0-11.0) Neutrophils (%) (Auto) 92.5 % (16.0-70.0) Lymphocytes (%) (Auto) 3.1 % (9.0-44.0) Monocytes (%) (Auto) 4.2 % (0.0-8.0) Eosinophils (%) (Auto) 0.0 % (0.0-4.0) Basophils (%) (Auto) 0.2 % (0.0-2.0) Neutrophils # (Auto) 26.2 TH/MM3 (1.8-7.7) Lymphocytes # (Auto) 0.9 TH/MM3 (1.0-4.8) Monocytes # (Auto) 1.2 TH/MM3 (0-0.9) Eosinophils # (Auto) 0.0 TH/MM3 (0-0.4) Basophils # (Auto) 0.0 TH/MM3 (0-0.2) CBC Comment DIFF FINAL Differential Comment Prothrombin Time 11.9 SEC (9.8-11.6) Prothromb Time International Ratio 1.1 RATIO Blood Urea Nitrogen 52 MG/DL (7-18) Creatinine 1.26 MG/DL (0.50-1.00) Random Glucose 172 MG/DL (74-106) Total Protein 4.7 GM/DL (6.4-8.2) Albumin 1.9 GM/DL (3.4-5.0) Calcium Level 7.9 MG/DL (8.5-10.1) Phosphorus Level 3.0 MG/DL (2.5-4.9) Magnesium Level 2.0 MG/DL (1.5-2.5) Alkaline Phosphatase 60 U/L (45-117) Aspartate Amino Transf (AST/SGOT) 91 U/L (15-37) Alanine Aminotransferase (ALT/SGPT) 31 U/L (10-53) Total Bilirubin 0.6 MG/DL (0.2-1.0) Sodium Level 137 MEQ/L (136-145) Potassium Level 3.9 MEQ/L (3.5-5.1) Chloride Level 103 MEQ/L (98-107) Carbon Dioxide Level 27.3 MEQ/L (21.0-32.0) Anion Gap 7 MEQ/L (5-15) Estimat Glomerular Filtration Rate 41 ML/MIN (>89) Test 03/21/17 05:45 03/21/17 10:05 03/22/17 05:00 Blood Gas Puncture Site RT BRACHIAL Blood Gas Patient Temperature 98.6 Blood Gas HCO3 23 mmol/L (22-26) Blood Gas Base Excess -1.1 mmol/L (-2-2) Blood Gas Oxygen Saturation 96 % (90-100) Arterial Blood pH 7.38 (7.380-7.420) Arterial Blood Partial Pressure CO2 41 mmHg (38-42) Arterial Blood Partial Pressure O2 149 mmHg (61-120) Arterial Blood Oxygen Content 14.2 Vol % (12.0-20.0) Arterial Blood Carboxyhemoglobin 2.1 % (0-4) Arterial Blood Methemoglobin 1.2 % (0-2) Blood Gas Hemoglobin 10.3 G/DL (12.0-16.0) Oxygen Delivery Device VENTILATOR Blood Gas Ventilator Setting A/C14/500/+5PEEP Blood Gas Inspired Oxygen 40 % Hemoglobin 9.8 GM/DL (11.6-15.3) 9.6 GM/DL (11.6-15.3) Hematocrit 29.8 % (35.0-46.0) 29.2 % (35.0-46.0) White Blood Count 19.1 TH/MM3 (4.0-11.0) Red Blood Count 3.31 MIL/MM3 (4.00-5.30) Mean Corpuscular Volume 88.3 FL (80.0-100.0) Mean Corpuscular Hemoglobin 28.8 PG (27.0-34.0) Mean Corpuscular Hemoglobin Concent 32.7 % (32.0-36.0) Red Cell Distribution Width 16.3 % (11.6-17.2) Platelet Count 114 TH/MM3 (150-450) Mean Platelet Volume 8.2 FL (7.0-11.0) CBC Comment AUTO DIFF Differential Total Cells Counted 100 Neutrophils % (Manual) 79 % (16-70) Band Neutrophils % 13 % (0-6) Lymphocytes % 3 % (9-44) Monocytes % 5 % (0-8) Neutrophils # (Manual) 17.6 TH/MM3 (1.8-7.7) Nucleated Red Blood Cells 1 /100 WBC (0-0) Differential Comment FINAL DIFF MANUAL Platelet Estimate LOW (NORMAL) Platelet Morphology Comment NORMAL (NORMAL) Red Cell Morphology Comment NORMAL (NORMAL) Blood Urea Nitrogen 59 MG/DL (7-18) Creatinine 1.04 MG/DL (0.50-1.00) Random Glucose 158 MG/DL (74-106) Total Protein 4.6 GM/DL (6.4-8.2) Albumin 1.6 GM/DL (3.4-5.0) Calcium Level 7.6 MG/DL (8.5-10.1) Phosphorus Level 2.5 MG/DL (2.5-4.9) Magnesium Level 2.1 MG/DL (1.5-2.5) Alkaline Phosphatase 56 U/L (45-117) Aspartate Amino Transf (AST/SGOT) 70 U/L (15-37) Alanine Aminotransferase (ALT/SGPT) 27 U/L (10-53) Total Bilirubin 0.7 MG/DL (0.2-1.0) Sodium Level 138 MEQ/L (136-145) Potassium Level 3.7 MEQ/L (3.5-5.1) Chloride Level 105 MEQ/L (98-107) Carbon Dioxide Level 25.1 MEQ/L (21.0-32.0) Anion Gap 8 MEQ/L (5-15) Estimat Glomerular Filtration Rate 51 ML/MIN (>89) Result Diagram: 03/22/17 0500 03/22/17 0500 Microbiology Microbiology Date/Time Source Procedure Growth Status 03/20/17 02:21 Blood Peripheral Aerobic Blood Culture - Preliminary NO GROWTH IN 2 DAYS Resulted 03/20/17 02:21 Blood Peripheral Anaerobic Blood Culture - Preliminary NO GROWTH IN 2 DAYS Resulted 03/20/17 08:10 Sputum Endotracheal Gram Stain - Final Complete 03/20/17 08:10 Sputum Endotracheal Sputum Culture - Final MODERATE GROWTH NORMAL RESPIRATORY JENNIFER Complete 03/20/17 08:10 Urine Catheterized Urine Urine Culture - Preliminary Escherichia Coli Enterobacter Cloacae Group D Enterococcus Resulted Procedures INTUBATION 03/19/17 EGD 03/19/17 . Assessment and Plan Disease Oriented Problem List: (1) end-stage heart disease, with CAD/AL/cardiomyopathy/severe aortic stenosis (2) severe aortic stenosis, with recent valvuloplasty in recent evaluation for TAVR (3) congestive heart failure, recent EF 25% (4) GI bleeding, with hemorrhagic shock (5) CAD, history of AL, recent saphenous vein graft stents (6) pulmonary hypertension (7) diverticulosis, history of diverticular bleed 10 years ago (8) hypertension (9) diabetes, type II (10) neuropathy (11) hyperlipidemia (12) thyroid nodule (13) skin cancers (14) degenerative arthritis Symptom Scale: (1) pain 0-10 Scale: Unable to quantify (2) dyspnea 0-10 Scale: Unable to quantify (3) anxiety 0-10 Scale: Unable to quantify Pertinent Non-Medical Issues Psychosocial: Originally from [place], 12 years ago, 5 living children , has been living with her son locally. Spiritual: Has support from the certified medication aide of a synagogue she joined recently, and also requests middle school special education teacher support Legal: The patient lacks capacity for decision-making, and it is unlikely that she will regain that capacity. Her daughter Viola Hua is the POA/ HCS. Ethical issues impacting care: None . Important Contacts Daughter: Viola Hua [phone] Granddaughter: Margot Jansen [phone] Son: Obdulio Jansen [phone] . Prognosis The patient's prognosis is quite poor, as she has end-stage heart disease, end- stage PVD, and now GI bleeding with shock. She would be eligible for hospice services if the family elects to transition to comfort care. . Code Status: Alternative Code Plan * ALTERNATE CODE: The HCS notes that the patient has been DNR the past couple years, and requests no resuscitation at this time. * DECISION-MAKING: The patient lacks capacity for decision-making, and she will not regain that capacity. Her daughter Viola Hua is the POA/ HCS. * GOALS: The patient's son and daughter/HCS are certain that the patient would not want continued aggressive care at this time, and they request a transition to comfort care, and then withdrawn from life support tomorrow, after additional family and friends visit [facility]. I have discontinued many of the currently scheduled non-comfort medicines and treatments. * SYMPTOMS: The patient is on the ventilator and receiving fentanyl; any pain and dyspnea is likely managed in that way. No additional medication recommendations at this time. * Palliative Care will continue to follow the patient during this hospitalization. . Time Spent Total Floor Time (mins): 39 Face to Face Time (mins): 10 >50% Counseling/Coord of Care: Yes (d/w Dr. Brunner) Attestation To help prompt me to consider important information that might be impacting today's encounter and assessment, information from prior notes written by myself or my colleagues may have been "brought forward" into today's note. My signature on this note, however, is an attestation that I personally performed the exam, history, and/or decision-making noted today, and, unless otherwise indicated, the interactions with patient, family, and staff as well as the review of records all occurred today. I also attest that the listed assessment and stated plan reflect my best clinical judgment today based on the combination of historical information, prior notes, and today's exam/ interactions. When time spent is documented, it refers only to time spent today by the signer, or if indicated, combined time spent today by collaborating physician/nurse practitioner. Shayy Easton MD Mar 22, 2017 14:39
--- NOTE | 2017-03-22 14:45 | HHI.CCPN ---
Subjective Remarks/Hospital Course This is a 81-year-old female patient that presented to the ED with shortness of breath and dry heaves. The patient has a history aortic insufficiency and severe aortic stenosis. Cardiology was consulted patient was status post cardiac catheter and aortic valvuloplasty yesterday 03/18/17. The patient was currently being worked up for a TAVR. Today the patient was noted to be on the bedside commode and became acutely hypotensive with a systolic blood pressure initially in the 80s, and reportedly unresponsive. Dr. Valderrama was notified of the event. Upon patient being placed back in the bed in supine position the patient's blood pressure increased to 95/49. Previously the systolic blood pressure had been maintained in the 130s the heart rate in the 80s. Approximately 15 minutes later, while lying supine in the bed, and receiving IV fluids the patient's systolic blood pressure was noted to be 58/30's critical care medicine was consulted for management. Upon arrival to the patient's room , the patient was awake ,alert, diaphoretic and appropriately responsive.SBP was noted to be 58, IV fluids were being infused. The patient was noted to have approximately 3-400 cc of jean marie melena. Simultaneously a left arterial line was placed which correlated with the noninvasive cuff, stat laboratory values were obtained, Phenylephrine infusion was initiated. Patient's hemoglobin was noted to drop from 13 g/dL to 8 g/dL, then 7.4g/dL. Stat type and cross was initiated with plans for transfusion of 2 units of packed cells, patient was notably on Plavix 2 units of platelets also urgently to be transfused. A right IJ central line was placed, copious melena continued approximately 700-800cc, at that point the patient was noted to begin vomiting bright red blood. Patient was then intubated for airway protection secondary to hematemesis, a second vasopressor was initiated norepinephrine at 5 mcgs. Postintubation an OGT was placed in approximately 150 cc of bright red blood was suctioned. Volume resuscitation continued .GI was stat consulted, case was discussed with Dr. Rock. A subsequent discussion was provided to family regarding patient's medical status . Subjective: 03/20: Tmax 101.2. Blood urine and sputum cultures obtained. We will set discontinued pulse volume resuscitation yesterday the patient remains on phenylephrine infusion throughout the night. Fentanyl infusion continues for ventilator synchrony plan for sedation vacation early this a.m.. Patient was noted to have 3 melanotic stools throughout the night. EGD performed emergently yesterday, discussed with Dr. Rock-stomach full of blood clots, poor visualization, no discernible source could be identified secondary to large amount of blood clots and stomach. Plan for repeat EGD possibly Tuesday. The patient received 4 units total packed red blood cells, 2 units of platelets close monitoring of hemoglobin and hematocrit continues every 6 hours. Patient notably cool bilateral feet, pulses only dopplerable. Plan for bilateral lower extremity ultrasound today. 03/21: left foot continues to be cool without pulses. palliative involved and changing code status. vascular re-evaluated and prefers no intervention at this time. GI eval and possible EGD today given ongoing active bleeding. palliative involved. 03/22: Remains sedated, orally intubated on [facility] ventilation. Objective Vital Signs Date Time Temp Pulse Resp B/P (MAP) Pulse Ox O2 Delivery O2 Flow Rate FiO2 03/22/17 13:32 96 88/55 03/22/17 13:01 100 40 03/22/17 12:00 101.1 14 03/22/17 11:00 Mechanical Ventilator 03/19/17 12:00 2.00 Intake and Output 03/22/17 03/22/17 03/23/17 08:00 16:00 00:00 Intake Total 745 ml 200 ml Output Total 1200 ml Balance -455 ml 200 ml Result Diagram: 03/22/17 0500 03/22/17 0500 Other Results Microbiology Date/Time Source Procedure Growth Status 03/20/17 08:10 Sputum Endotracheal Gram Stain - Final Complete 03/20/17 08:10 Sputum Endotracheal Sputum Culture - Final MODERATE GROWTH NORMAL RESPIRATORY JENNIFER Complete Imaging Last Impressions Chest X-Ray 03/20/17 0400 Signed Impressions: Service Date/Time: Monday, March 20, 2017 04:05 - CONCLUSION: 1. Bibasilar airspace disease with associated effusions, stable on the left and slightly worse on the right. 2. Stable position of life support tubes. 3. Borderline prominent heart. Findings of prior CABG. Ra Bonner MD Abdomen X-Ray 03/19/17 1231 Signed Impressions: Service Date/Time: Sunday, March 19, 2017 13:23 - CONCLUSION: 1. Post surgical changes. 2. Possible renal calculi. 3. Density in the pelvis likely distended urinary bladder. Daniel Bhandari MD Last Impressions Chest X-Ray 03/17/17 0944 Signed Impressions: Service Date/Time: March 09:56 - CONCLUSION: 1. Interval improvement in bilateral pulmonary infiltrates with only mild residual. 2. Left effusion remains. Ronal Walton MD Objective Remarks GENERAL: frail elderly female lying in bed intubated sedated critically ill. SKIN: Cool and diaphoretic, noted cyanosis sluggish capillary refill bilateral feet, left worse than right. HEAD: Atraumatic. Normocephalic. EYES: Pupils equal and round. No scleral icterus. No injection or drainage. ENT: No nasal bleeding or discharge. Mucous membranes pink and moist. NECK: Trachea midline. No JVD. CARDIOVASCULAR: Normal rate, regular rhythm. RESPIRATORY: No accessory muscle use. On mechanical ventilation .Clear to auscultation. Breath sounds equal bilaterally. GASTROINTESTINAL: Abdomen soft, non-tender, nondistended. No guarding. MUSCULOSKELETAL: left lower extremity cool, mottled, without pulse or Doppler. RLE +Doppler, warm, still sluggish cap refill, but improved compared to left. NEUROLOGICAL: RASS -3. No gross focal/sensory deficits. Procedures 1. Severe aortic valve stenosis. 2. 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 3. Elevated left-sided filling pressures. 4. Successfully utilization of temporary transvenous pacemaker. 5. Successful aortic valve valvuloplasty. 6. Successful percutaneous intervention with balloon angioplasty of the saphenous vein graft to the obtuse marginal branch. 8 Date of Insertion: Mar 17, 2017 Date of Insertion: Mar 19, 2017 Line: Central Venous Catheter Side: Right Location: Internal, Jugular (vasoactive medications) A/P Assessment and Plan ASSESSMENT: 81yF with severe aortic stenosis and decompensated CHF with NSTEMI s /p emergent valvuloplasty and PCI, complicated by vascular compromise to LLE, acute hypoxic respiratory failure. very poor prognosis. critically ill with multiple organ dysfunction and active GI bleeding. needs to be anticoagulated for stent placement, difficult given multiple affected organs and competing interests. Acute blood loss anemia Hypotension Upper GI bleed Hematemesis Melena History of diverticulosis Aortic insufficiency Status post cardiac catheter with valvuloplasty POD #1 CAD H/O CABG x 5 2003 Leukocytosis-most likely reactive PLAN Neurologic: Patient intubated for airway protection secondary to hematemesis 7.5 ETT Fentanyl infusion for sedation and ventilator synchrony Sedation vacation daily Neurochecks per ICU protocol Respiratory: Ventilator bundle Follow-up chest x-ray Bronchodilators every 6 hours scheduled, every 2 hours when necessary Mechanical ventilation- AC 14/500/5/.50 ABG-WNL no SBT today given active upper gi bleeding and vascular compromise. Cardiovascular: Cardiology following Dr. Stevens management post left heart catheterization, aortic Valvuloplasty per cardiology Maintain MAP greater than 65 mmHg. continue to wean phenylephrine. Hold Plavix and ASA in the setting of acute blood loss Hold antihypertensive medications in the setting of hypotension venous doppler LEs: no DVT, no flow to LLE from femoral bypass-D/W Dr. San , no intervention planned. Renal: Maintain Garnett -- Strict I/Os FEN/GI: Monitor BMP Replete electrolytes per ICU protocol Maintain NPO status Maintain OGT to LIWS GI consulted- Dr. Rock 03/19 EGD, hgb stable, continue to trend. Family refusing EGD at this time and do not want any invasive procedures. NS @ KVO Heme/ID: Monitor H&H every 6 hours Patient transfused 4units PRBC's and 2 units of platelets Hold aspirin and Plavix Family discussing possible de-escalation of therapy. Endocrine: Glucose monitoring ICU protocol -- SSI Prophylaxis: GI Prophylaxis Protonix -GI following, Infusion initiated DVT Prophylaxis No pharmacological DVT prophylaxis in the setting of acute blood loss anemia indicated -- SCDs Lines: Peripheral IVs 2. Right IJ central line (03/19), left radial a line (03/19) Dispo: Patient is critically ill . Discussed with palliative care, discussed with HEEL COVERER, discussed with Dr. San. CODE STATUS: Alternate code This patient remains critically ill with one or more organ systems which are or may become a threat to life. I have spent 35 minutes discontinuously in the care and management of this patient. This time is exclusive of procedures, and includes, but is not limited to, evaluation of the patient, review of the medical record, discussions with family, consultants, nursing staff, or respiratory therapy, and documentation in the medical record. Claude Brunner MD Mar 22, 2017 14:45
[2017-03-22] MEDS ORDERED: PHENYLEPHRINE 40 MG/D5W 496 ML ADMIX IV PRN ×2 (15:00)
[2017-03-22] MEDS ORDERED: fentaNYL DRIP 250 ML IV PRN (15:00)
[2017-03-22] MEDS: SODIUM CHLOR 0.9% 1000 ML INJ 1,000 ML IV SCH (15:33)
[2017-03-23] VITALS: BP 102/51; PULSE 102; RESP 14; TEMP 99.8; O2SAT 100
[2017-03-23 00:02] VITALS: O2SAT 100
[2017-03-23 00:04] VITALS: O2SAT 100
[2017-03-23 02:00] VITALS: PULSE 102
[2017-03-23] MEDS: RESP: ALBUTEROL 2.5 MG/IPRATROPIUM 0.5 MG NEB (SCH) NEB (03:37)
[2017-03-23 03:42] VITALS: O2SAT 100
[2017-03-23 04:00] VITALS: BP 90/51; PULSE 109; RESP 14; O2SAT 100
--- NOTE | 2017-04-19 12:05 | HHI.DS ---
Summary Note Date of : Mar 23, 2017 Time Of : 446 Admission Date Mar 17, 2017 at 12:38 Admitting Diagnosis SOB, Valvular Disorder Diagnosis at Time of : (1) NSTEMI (non-ST elevated myocardial infarction) ICD Code: I21.4 - NSTEMI (non-ST elevated myocardial infarction) (2) PAD (peripheral artery disease) ICD Code: I73.9 - PAD (peripheral artery disease) (3) Aortic stenosis ICD Code: I35.0 - Aortic stenosis (4) Leukocytosis ICD Code: D72.829 - Leukocytosis (5) Hyperlipidemia ICD Code: E78.5 - Hyperlipidemia (6) PVD (peripheral vascular disease) ICD Code: I73.9 - Peripheral vascular disease (7) Diabetes ICD Code: E11.9 - Diabetes mellitus (8) Hypertension ICD Code: I10 - Hypertension (9) CAD (coronary artery disease) ICD Code: I25.10 - CAD (coronary artery disease) (10) SOB (shortness of breath) ICD Code: R06.02 - Shortness of breath (11) GI bleeding, with hemorrhagic shock Procedures 1. Severe aortic valve stenosis. 2. 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 3. Elevated left-sided filling pressures. 4. Successfully utilization of temporary transvenous pacemaker. 5. Successful aortic valve valvuloplasty. 6. Successful percutaneous intervention with balloon angioplasty of the saphenous vein graft to the obtuse marginal branch. 8-18 Brief History Patient is a 81-year-old female presents to the emergency Department with shortness of breath and dry heaves. The patient states she's been worked up for possible aortic valve intervention for a "thin aorta." She states the other day she had a CT scan with IV contrast and thinks that was contributing to her symptoms. She states she took her Lasix this morning and it is not working. She went to Dr. Talamantes's office today and was referred to the emergency department for shortness of breath. States she HAS shortness of breath with minimal exertion. States she's had a heart attack in the past and has a history of congestive heart failure. Denies any chest pain denies any abdominal pain. Still having some nausea and vomiting Denies any fevers or chills was being worked up for a TAVR Discussed with emergency room physician as well as the patient We have accepted this patient due to the fact that [facility] attending is currently at his LIMIT FOR PATIENTS Imaging Last Impressions Chest X-Ray 03/20/17 0400 Signed Impressions: Service Date/Time: Monday, March 20, 2017 04:05 - CONCLUSION: 1. Bibasilar airspace disease with associated effusions, stable on the left and slightly worse on the right. 2. Stable position of life support tubes. 3. Borderline prominent heart. Findings of prior CABG. Ra Bonner MD Abdomen X-Ray 03/19/17 1231 Signed Impressions: Service Date/Time: Sunday, March 19, 2017 13:23 - CONCLUSION: 1. Post surgical changes. 2. Possible renal calculi. 3. Density in the pelvis likely distended urinary bladder. Daniel Bhandari MD Last Impressions Chest X-Ray 03/17/17 0944 Signed Impressions: Service Date/Time: March 09:56 - CONCLUSION: 1. Interval improvement in bilateral pulmonary infiltrates with only mild residual. 2. Left effusion remains. Roanl Walton MD Hospital Course This is a 81-year-old female patient that presented to the ED with shortness of breath and dry heaves. The patient has a history aortic insufficiency and severe aortic stenosis. Cardiology was consulted patient was status post cardiac catheter and aortic valvuloplasty yesterday 03/18/17. The patient was currently being worked up for a TAVR. Today the patient was noted to be on the bedside commode and became acutely hypotensive with a systolic blood pressure initially in the 80s, and reportedly unresponsive. Dr. Valderrama was notified of the event. Upon patient being placed back in the bed in supine position the patient's blood pressure increased to 95/49. Previously the systolic blood pressure had been maintained in the 130s the heart rate in the 80s. Approximately 15 minutes later, while lying supine in the bed, and receiving IV fluids the patient's systolic blood pressure was noted to be 58/30's critical care medicine was consulted for management. Upon arrival to the patient's room , the patient was awake ,alert, diaphoretic and appropriately responsive.SBP was noted to be 58, IV fluids were being infused. The patient was noted to have approximately 3-400 cc of jean marie melena. Simultaneously a left arterial line was placed which correlated with the noninvasive cuff, stat laboratory values were obtained, Phenylephrine infusion was initiated. Patient's hemoglobin was noted to drop from 13 g/dL to 8 g/dL, then 7.4g/dL. Stat type and cross was initiated with plans for transfusion of 2 units of packed cells, patient was notably on Plavix 2 units of platelets also urgently to be transfused. A right IJ central line was placed, copious melena continued approximately 700-800cc, at that point the patient was noted to begin vomiting bright red blood. Patient was then intubated for airway protection secondary to hematemesis, a second vasopressor was initiated norepinephrine at 5 mcgs. Postintubation an OGT was placed in approximately 150 cc of bright red blood was suctioned. Volume resuscitation continued .GI was stat consulted, case was discussed with Dr. Rock. A subsequent discussion was provided to family regarding patient's medical status . Subjective: 03/20: Tmax 101.2. Blood urine and sputum cultures obtained. We will set discontinued pulse volume resuscitation yesterday the patient remains on phenylephrine infusion throughout the night. Fentanyl infusion continues for ventilator synchrony plan for sedation vacation early this a.m.. Patient was noted to have 3 melanotic stools throughout the night. EGD performed emergently yesterday, discussed with Dr. Rock-stomach full of blood clots, poor visualization, no discernible source could be identified secondary to large amount of blood clots and stomach. Plan for repeat EGD possibly Tuesday. The patient received 4 units total packed red blood cells, 2 units of platelets close monitoring of hemoglobin and hematocrit continues every 6 hours. Patient notably cool bilateral feet, pulses only dopplerable. Plan for bilateral lower extremity ultrasound today. 03/21: left foot continues to be cool without pulses. palliative involved and changing code status. vascular re-evaluated and prefers no intervention at this time. GI eval and possible EGD today given ongoing active bleeding. palliative involved. 03/22: Remains sedated, orally intubated on [facility] ventilation. Procedures 1. Severe aortic valve stenosis. 2. 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 3. Elevated left-sided filling pressures. 4. Successfully utilization of temporary transvenous pacemaker. 5. Successful aortic valve valvuloplasty. 6. Successful percutaneous intervention with balloon angioplasty of the saphenous vein graft to the obtuse marginal branch. 03-18 Date of Insertion: Mar 17, 2017 Date of Insertion: Mar 19, 2017 Line: Central Venous Catheter Side: Right Location: Internal, Jugular (vasoactive medications) A/P Assessment and Plan ASSESSMENT: 81yF with severe aortic stenosis and decompensated CHF with NSTEMI s /p emergent aortic valvuloplasty and PCI, complicated by vascular compromise to LLE, acute hypoxic respiratory failure. very poor prognosis. critically ill with multiple organ dysfunction and active GI bleeding. needs to be anticoagulated for stent placement, difficult given multiple affected organs and competing interests. Acute blood loss anemia Hypotension Upper GI bleed Hematemesis Melena History of diverticulosis Aortic insufficiency Status post cardiac catheter with valvuloplasty POD #1 CAD H/O CABG x 5 2003 Leukocytosis-most likely reactive PLAN Neurologic: Patient intubated for airway protection secondary to hematemesis 7.5 ETT Fentanyl infusion for sedation and ventilator synchrony Sedation vacation daily Neurochecks per ICU protocol Respiratory: Ventilator bundle Follow-up chest x-ray Bronchodilators every 6 hours scheduled, every 2 hours when necessary Mechanical ventilation- AC 14/500/5/.50 ABG-WNL no SBT today given active upper gi bleeding and vascular compromise. Cardiovascular: Cardiology following Dr. Stevens management post left heart catheterization, aortic Valvuloplasty per cardiology Maintain MAP greater than 65 mmHg. continue to wean phenylephrine. Hold Plavix and ASA in the setting of acute blood loss Hold antihypertensive medications in the setting of hypotension venous doppler LEs: no DVT, no flow to LLE from femoral bypass-D/W Dr. San , no intervention planned. Renal: Maintain Garnett -- Strict I/Os FEN/GI: Monitor BMP Replete electrolytes per ICU protocol Maintain NPO status Maintain OGT to LIWS GI consulted- Dr. Rock 03/19 EGD, hgb stable, continue to trend. Family refusing EGD at this time and do not want any invasive procedures. NS @ KVO Heme/ID: Monitor H&H every 6 hours Patient transfused 4units PRBC's and 2 units of platelets Hold aspirin and Plavix Family discussing possible de-escalation of therapy. Endocrine: Glucose monitoring ICU protocol -- SSI Prophylaxis: GI Prophylaxis Protonix -GI following, Infusion initiated DVT Prophylaxis No pharmacological DVT prophylaxis in the setting of acute blood loss anemia indicated -- SCDs Lines: Peripheral IVs 2. Right IJ central line (03/19), left radial a line (03/19) Dispo: Patient is critically ill . Discussed with palliative care, discussed with PRESIDENTIAL SUPPORT SPECIALIST, discussed with Dr. San. CODE STATUS: Alternate code Palliative care team was consulted. Patient's family subsequently elected for transition to comfort measures and terminal wean was performed and patient subsequently on 03/23/2017 at 4:47 AM. Claude Brunner MD Apr 19, 2017 12:05
== END 2017-03-23 07:35 | disposition expired | DRG 273 ==
LOC: NEPC 09:07 → NEDA 12:38 → HCIS 15:50 → HCVR 03-18 13:05 → N03A 03-21 11:03
PROVIDERS: ADMIT Internal Medicine Critical Care Medicine; ATTEND Internal Medicine Critical Care Medicine
PROC: 02703ZZ Dilation of Coronary Artery, One Artery, Percutaneous Approach (ICD-10-PCS; 2017-03-18)
PROC: 4A023N7 Measurement of Cardiac Sampling and Pressure, Left Heart, Percutaneous Approach (ICD-10-PCS; 2017-03-18)
PROC: B2121ZZ Fluoroscopy of Single Coronary Artery Bypass Graft using Low Osmolar Contrast (ICD-10-PCS; 2017-03-18)
PROC: 5A1223Z Performance of Cardiac Pacing, Continuous (ICD-10-PCS; 2017-03-18)
PROC: 027F3ZZ Dilation of Aortic Valve, Percutaneous Approach (ICD-10-PCS; principal; 2017-03-18 11:15)
PROC: 5A1945Z Respiratory Ventilation, 24-96 Consecutive Hours (ICD-10-PCS; 2017-03-19)
PROC: 03HY32Z Insertion of Monitoring Device into Upper Artery, Percutaneous Approach (ICD-10-PCS; 2017-03-19)
PROC: 0BH17EZ Insertion of Endotracheal Airway into Trachea, Via Natural or Artificial Opening (ICD-10-PCS; 2017-03-19)
PROC: 02H633Z Insertion of Infusion Device into Right Atrium, Percutaneous Approach (ICD-10-PCS; 2017-03-19)
PROC: B244ZZZ Ultrasonography of Right Heart (ICD-10-PCS; 2017-03-19)
PROC: 30233R1 Transfusion of Nonautologous Platelets into Peripheral Vein, Percutaneous Approach (ICD-10-PCS; 2017-03-19)
PROC: 30233N1 Transfusion of Nonautologous Red Blood Cells into Peripheral Vein, Percutaneous Approach (ICD-10-PCS; 2017-03-19)
PROC: 0DJ08ZZ Inspection of Upper Intestinal Tract, Via Natural or Artificial Opening Endoscopic (ICD-10-PCS; 2017-03-19)
DX: I21.4 Non-ST elevation (NSTEMI) myocardial infarction (principal); I50.33 Acute on chronic diastolic (congestive) heart failure; R57.9 Shock, unspecified; J96.01 Acute respiratory failure with hypoxia; N17.9 Acute kidney failure, unspecified; K92.0 Hematemesis; I42.9 Cardiomyopathy, unspecified; I95.89 Other hypotension; D62 Acute posthemorrhagic anemia; I25.810 Atherosclerosis of coronary artery bypass graft(s) without angina pectoris; K92.1 Melena; T82.868A Thrombosis due to vascular prosthetic devices, implants and grafts, initial encounter; S36.39XA Other injury of stomach, initial encounter; E11.51 Type 2 diabetes mellitus with diabetic peripheral angiopathy without gangrene; I35.2 Nonrheumatic aortic (valve) stenosis with insufficiency; E78.5 Hyperlipidemia, unspecified; I25.10 Atherosclerotic heart disease of native coronary artery without angina pectoris; I10 Essential (primary) hypertension; Z95.1 Presence of aortocoronary bypass graft; Z85.828 Personal history of other malignant neoplasm of skin; Z79.82 Long term (current) use of aspirin; Z91.041 Radiographic dye allergy status; Z88.9 Allergy status to unspecified drugs, medicaments and biological substances; Z95.828 Presence of other vascular implants and grafts; Z66 Do not resuscitate; Y84.8 Other medical procedures as the cause of abnormal reaction of the patient, or of later complication, without mention of misadventure at the time of the procedure; Y73.8 Miscellaneous gastroenterology and urology devices associated with adverse incidents, not elsewhere classified; Y92.230 Patient room in hospital as the place of occurrence of the external cause; E87.6 Hypokalemia; I48.91 Unspecified atrial fibrillation; I25.2 Old myocardial infarction; Z87.891 Personal history of nicotine dependence
CPT/HCPCS: 31500; 33210; 36430; 36600; 71010; 74000; 80048; 80053; 80061; 82272; 82550; 82552; 82805; 82948; 83036; 83605; 83735; 83880; 84100; 84155; 84439; 84443; 84484; 85002; 85007; 85014; 85018; 85025; 85027; 85384; 85610; 85730; 86850; 86900; 86901; 86920; 87040; 87070; 87077; 87086; 87186; 87205; 92920; 92986; 93005; 93306; 93308; 93970; 94002; 94003; 94640; 94664; 99285; C1725; C1760; C1769; C1887; C1893; C9113; G0269; J1200; J1644; J1815; J2250; J2370; J2405; J2720; J2930; J3010; J7030; J7050; J7060; P9016; P9035; Q9967